=== PATIENT | male | born 1990 | race Caucasian/White ===

== ENCOUNTER 2019-03-05 07:57 | Inpatient (IN) | payer SELFPAY ==
[2019-03-05] VITALS (20 sets, daily range): BP systolic 104–132; BP diastolic 64–78
[~2019-03-05] VITALS: Ht 190.5 cm; Wt 99.5 kg
[2019-03-05] MEDS ORDERED: IV NORMAL SALINE 1000ML BAG 1,000 ML IV SCH ×2 (08:18→10:26)
[2019-03-05] MEDS ORDERED: IOHEXOL 350 MG/ML 100 ML VIAL. IV ONE (08:30)
[2019-03-05] MEDS ORDERED: CONTRAST GIVEN. MC PRN (08:45)
--- NOTE | 2019-03-05 08:54 | EKG ---
[facility] [address] [place] [address] Test Date: 2019-03-05 Test Time: 08:09:20 Pat Name: MANI BRAGA Department: Room: Gender: M Ferry Operator: : 1990 Requested By: BECKI JEFF Order Number: [id number] Reading MD: Roque Rosenthal MD Measurements Intervals [place] Rate: 122 P: 43 OH: 90 QRS: 38 QRSD: 88 T: 59 QT: 306 QTc: 437 Interpretive Statements SINUS TACHYCARDIA Electronically Signed On 03-05-2019 18:51:45 CDT by Roque Rosenthal MD
[2019-03-05] MEDS ORDERED: MORPHINE SULFATE 4 MG/ML VIAL. IV ONE (09:00)
[2019-03-05] MEDS ORDERED: ONDANSETRON PF 4 MG/2 ML VIAL. IV ONE (09:00)
[2019-03-05] MEDS ORDERED: HYDROmorphone 2 MG/ML VIAL IV ONE ×2 (09:15→10:30)
[2019-03-05 09:30] LABS: BASO % 0 % (0-3); EOS # 0.1 x10^3/uL (0.0-0.7); EOS % 0 % (0-3); HEMATOCRIT 40.3 % (39.0-53.0); HEMOGLOBIN 13.6 g/dL (13.0-17.5); LYMPH % 5 % (24-48); MEAN CORPUSCULAR HEMOGLOBIN 30 pg (25-35); MEAN CORPUSCULAR HGB CONC 34 g/dL (31-37); MEAN CORPUSCULAR VOLUME 89 fL (79-100); MONO # 1.4 x10^3/uL (0.0-1.1); MONO % 7 % (0-9); NEUT # 17.3 x10^3/uL (1.8-7.7); NEUT % 87 % (31-73); PLATELET COUNT 483 x10^3/uL (140-400); RED BLOOD COUNT 4.53 x10^6/uL (4.30-5.70); RED CELL DISTRIBUTION WIDTH 13.1 % (11.5-14.5); WHITE BLOOD COUNT 19.9 x10^3/uL (4.0-11.0)
[2019-03-05] MEDS ORDERED: VANCOMYCIN 1GM IVPB FOR OMNI 250 ML IV ONE (09:30)
[2019-03-05] MEDS ORDERED: PIPERACILLIN/TAZOBACTAM 3.375 GM in IV NORMAL SALINE 50ML 50 ML IV ONE (09:30)
[2019-03-05] MEDS ORDERED: IV NORMAL SALINE 1000ML BAG 1,000 ML IV ONE (09:30)
[2019-03-05 09:45] LABS: CALCIUM 8.5 mg/dL (8.5-10.1); CREATININE 0.8 mg/dL (0.7-1.3); GFR 115.1; POTASSIUM 4.4 mmol/L (3.5-5.1)
--- NOTE | 2019-03-05 09:47 | RAD ---
CT ANGIOGRAPHY CHEST History: Left-sided chest pain. History of drug abuse. Technique: CT of the chest was performed with contrast. PE protocol. Maximum intensity projection reconstructions were also performed. Exposure: One or more of the following individualized dose reduction techniques were utilized for this examination: 1. Automated exposure control 2. Adjustment of the mA and/or kV according to patient size 3. Use of iterative reconstruction technique. Contrast: 100 mL Omnipaque 350 IV contrast. Comparison: None Findings: Chest: Large left pleural effusion with increased Hounsfield units. There are tiny foci of gas within the pleural effusion. Small pericardial effusion with increased Hounsfield units. Complete collapse of the left lower lobe. Partial atelectasis of the left upper lobe. Mildly prominent mesenteric lymph nodes, likely reactive. Left anterior chest wall fluid collection with foci of gas involving the chest wall musculature measures approximately 3.5 x 1.7 cm, concerning for abscess. Additional larger anterior mediastinal fluid collection measures 4.5 cm anterior posterior by 5.2 cm transverse by 5.8 cm craniocaudal with foci of gas extending to the superior mediastinum concerning for abscess. The left internal mammary artery courses through the anterior mediastinal abscess. The concerning abscesses are on either side of the left first costosternal junction with slight widening compared to either side, may represent septic arthritis. Upper abdomen: The spleen is enlarged measures 15.3 cm. Bones: No pathologic osseous lesions. Impression: 1. Anterior mediastinal abscess with additional abscess extending into the left anterior chest wall musculature through the left first costomanubrial junction, concerning for septic arthritis. 2. Large left empyema. 3. New complete collapse of the left lower lobe and partial atelectasis of the left upper lobe. 4. Small pericardial effusion, difficult to exclude infection given adjacent findings. FOR INTERNAL CODING PURPOSES Critical result: Findings discussed with BECKI JEFF at 03/05/2019 9:34 AM. RESULT CODE: (C) Electronically signed by: Jose Antonio Mccoy DO (03/05/2019 9:44 AM) [facility]
[2019-03-05 09:51] LABS: ALBUMIN 1.9 g/dL (3.4-5.0); ALBUMIN/GLOBULIN RATIO 0.5 (1.0-1.7); TOTAL BILIRUBIN 0.9 mg/dL (0.2-1.0); TOTAL PROTEIN 5.7 g/dL (6.4-8.2)
--- NOTE | 2019-03-05 09:59 | PHYS DOC ---
Past Medical History Past Medical History: Hepatitis Additional Past Medical Histor: Hepatitis C Past Surgical History: Other Additional Past Surgical Histo: Rt ankle fx repair, hydrocele Alcohol Use: None Drug Use: Methamphetamine Social History Narrative: relapsed with meth use 2-3 weeks ago Adult General Chief Complaint Chief Complaint: CHEST PAIN [facility] HPI Patient is a 28 year old male who presents with complaining of chest pain. Patient states he used to use IV drug Use and was sober for 2 years and relapsed 3 weeks ago and injected himself with a brand new needle with methamphetamine for 1 week. Patient complaining of chest pain since February 22 as a constant pain and stated he operate to taking deep breaths because of the pain. Patient states he was seen at [facility] on February 24 on February 26 and had chest x-ray and CT of chest and was treated with prednisone and Naprosyn for inflammation. Patient states he continued to cough pain and rated his pain 9/10. Patient denies cough, fever, focal neuro deficit, history of the same problem. Patient complaining of sweating a lot and generalized weakness. Patient has history of hepatitis C and had negative HIV test 6 months ago. Review of Systems Review of Systems Constitutional: Denies fever or chills [] Eyes: Denies change in visual acuity, redness, or eye pain [] HENT: Denies nasal congestion or sore throat [] Respiratory: Denies cough, reports shortness of breath [] Cardiovascular: No additional information not addressed in HPI [] GI: Denies abdominal pain, nausea, vomiting, bloody stools or diarrhea [] : Denies dysuria or hematuria [] Musculoskeletal: Denies back pain or joint pain [] Integument: Denies rash or skin lesions [] Neurologic: Denies headache, focal weakness or sensory changes [] Endocrine: Denies polyuria or polydipsia [] All other systems were reviewed and found to be within normal limits, except as documented in this note. Current Medications Current Medications Current Medications Medications (Trade) Dose Ordered Sig/Conrad Start Time Stop Time Status Last Admin Dose Admin Sodium Chloride 1,000 ml @ 1,000 mls/hr Q1H 03/05/19 08:18 03/05/19 09:17 DC 03/05/19 08:42 1,000 MLS/HR Allergies Allergies Allergies Coded Allergies Type Severity Reaction Last Updated Verified No Known Drug Allergies 03/05/19 No Physical Exam Physical Exam Constitutional: Well developed, well nourished, moderate distress, diaphoretic, afebrile. [] HENT: Normocephalic, atraumatic. Eyes: PERRLA, EOMI, conjunctiva normal, no discharge. [] Neck: Normal range of motion, no tenderness, supple, no stridor. [] Cardiovascular: Tachycardia, no murmur [] Lungs & Thorax: Left upper chest wall tenderness with erythema and edema and bulging in medial clavicular area , decrease of air movement in entire left lung, no respiratory distress. Abdomen: Bowel sounds normal, soft, no tenderness, no masses, no pulsatile masses. [] Skin: Diaphoretic no erythema, right forearm with several old rash and peaking skin Back: No tenderness, no CVA tenderness. [] Extremities: No tenderness, no cyanosis, no clubbing, ROM intact, no edema. [] Neurologic: Alert and oriented X 3, no focal deficits noted. [] Psychologic: Affect anxious, judgement normal, mood normal. [] Current Patient Data Vital Signs Vital Signs Date Time Temp Pulse Resp B/P (MAP) Pulse Ox O2 Delivery O2 Flow Rate FiO2 03/05/19 07:59 97.8 123 24 148/83 (104) 96 Room Air 97.8 Lab Values EKG EKG EKG interpreted by me. EKG at 0809 shows sinus tachycardia at rate of 122, left atrial abnormality, no acute ST and T-wave abnormalities. Radiology/Procedures Radiology/Procedures [][facility] [address] [place] [address] IMAGING REPORT Signed PATIENT: MANI BRAGA ACCOUNT: [id number] : 1990 LOCATION: ER AGE: 28 SEX: M EXAM STATUS: REG ER ORD. PHYSICIAN: BECKI JEFF MD REASON: Left side chest pain, sob PROCEDURE: CT ANGIOGRAPHY CHEST CT ANGIOGRAPHY CHEST History: Left-sided chest pain. History of drug abuse. Technique: CT of the chest was performed with contrast. PE protocol. Maximum intensity projection reconstructions were also performed. Exposure: One or more of the following individualized dose reduction techniques were utilized for this examination: 1. Automated exposure control 2. Adjustment of the mA and/or kV according to patient size 3. Use of iterative reconstruction technique. Contrast: 100 mL Omnipaque 350 IV contrast. Comparison: None Findings: Chest: Large left pleural effusion with increased Hounsfield units. There are tiny foci of gas within the pleural effusion. Small pericardial effusion with increased Hounsfield units. Complete collapse of the left lower lobe. Partial atelectasis of the left upper lobe. Mildly prominent mesenteric lymph nodes, likely reactive. Left anterior chest wall fluid collection with foci of gas involving the chest wall musculature measures approximately 3.5 x 1.7 cm, concerning for abscess. Additional larger anterior mediastinal fluid collection measures 4.5 cm anterior posterior by 5.2 cm transverse by 5.8 cm craniocaudal with foci of gas extending to the superior mediastinum concerning for abscess. The left internal mammary artery courses through the anterior mediastinal abscess. The concerning abscesses are on either side of the left first costosternal junction with slight widening compared to either side, may represent septic arthritis. Upper abdomen: The spleen is enlarged measures 15.3 cm. Bones: No pathologic osseous lesions. Impression: 1. Anterior mediastinal abscess with additional abscess extending into the left anterior chest wall musculature through the left first costomanubrial junction, concerning for septic arthritis. 2. Large left empyema. 3. New complete collapse of the left lower lobe and partial atelectasis of the left upper lobe. 4. Small pericardial effusion, difficult to exclude infection given adjacent findings. FOR INTERNAL CODING PURPOSES Critical result: Findings discussed with BECKI JEFF at 03/05/2019 9:34 AM. RESULT CODE: (C) Electronically signed by: Jose Antonio Mccoy DO (03/05/2019 9:44 AM) [facility] DICTATED and SIGNED BY: JOSE ANTONIO MCCOY DO DATE: 03/05/19 0944 Course & Med Decision Making Course & Med Decision Making Pertinent Labs and Imaging studies reviewed. (See chart for details) Evaluation of patient in ER showed 28-year-old male patient with history of IV drug Abuse presented with chest pain and left chest wall tenderness for 4 days. Patient was diaphoretic and tachycardic with moderate distress without fever. Patient treated with IV fluid and medication. CT of chest showed left large empyema, mediastinal abscess, chest wall abscess and pericardial fluid. I consulted manager trade marketing Dr. Weathers at [phone], interventional radiologist Dr. Adler at [phone], canal boat captain Dr. Rosenthal at 1019, infectious specialist Dr. Cordova at [phone] and thoracic surgeon at [phone] and [phone]. Patient treated with sepsis protocol with IV antibiotic and IV fluid with improvement of his condition. Patient requiring admission for further evaluation and treatment. Discussed with Dr. Upton who is in agreement with admission. Discussed findings and plan with patient and family, who acknowledge understanding and agreement. Patient was admitted to ICU. Dragon Disclaimer Dragon Disclaimer This electronic medical record was generated, in whole or in part, using a voice recognition dictation system. Departure Departure Impression: Primary Impression: Pleural effusion Additional Impressions: Chest wall abscess Mediastinal abscess Disposition: ADMITTED INPATIENT Admitting Physician: EVELIA Condition: GUARDED Referrals: NO PCP (PCP) Critical Care Time Critical care time was 120 minutes exclusive of procedures. The HEART Score for CP Pts HEART Score for Chest Pain: HEART Score for Chest Pain Response (Comments) Value History Slighlty/Non-Suspicious 0 ECG Nonspecific Repolarizatio 1 Age < 45 0 Risk Factors 1 or 2 Risk Factors 1 Troponin < Normal Limit 0 Total 2 Risk Factors: Risk Factors: DM, Current or recent (<one month) smoker, HTN, HLP, family history of CAD, obesity. Risk Scores: Score 0 - 3: 2.5% MACE over next 6 weeks - Discharge Home Score 4 - 6: 20.3% MACE over next 6 weeks - Admit for Clinical Observation Score 7 - 10: 72.7% MACE over next 6 weeks - Early Invasive Strategies Problem Qualifiers BECKI JEFF MD Mar 05, 2019 09:59
[2019-03-05 10:00] LABS: D-DIMER 2.6 ug/mlFEU (0.00-0.50)
[2019-03-05] MEDS ORDERED: VANCOMYCIN 2 GM in IV NORMAL SALINE 500ML BAG 500 ML IV ONE ×2 (10:00→12:00)
--- NOTE | 2019-03-05 10:32 | PDOC1 ---
History and Physical Date of Admission Date of Admission DATE: 03/05/19 TIME: 10:28 Identification/Chief Complaint Chief Complaint seen in er with new onset Left empyema with mediastinal abscess Past Medical History Past Medical History Past Medical History Past Medical History Past Medical History: Hepatitis Additional Past Medical Histor: Hepatitis C Past Surgical History: Other Additional Past Surgical Histo: Rt ankle fx repair, hydrocele Alcohol Use: None Drug Use: Methamphetamine Social History Narrative: relapsed with meth use 2-3 weeks ago family hx htn Cardiovascular: HTN Psych: Addictions Family History Family History: Alcohol Abuse, Hypertension Social History Smoke: <1 pack per day ALCOHOL: social Drugs: Crystal meth Current Problem List Problem List Problems Medical Problems: (1) Chest wall abscess Status: Acute (2) Mediastinal abscess Status: Acute (3) Pleural effusion Status: Acute Current Medications Current Medications Current Medications Sodium Chloride 1,000 ml @ 1,000 mls/hr Q1H IV Last administered on 03/05/19at 08:42; Start 03/05/19 at 08:18; Stop 03/05/19 at 09:17; Status DC Morphine Sulfate (Morphine Sulfate) 4 mg 1X ONCE IV Last administered on 03/05/19at 08:42; Start 03/05/19 at 09:00; Stop 03/05/19 at 09:01; Status DC Ondansetron HCl (Zofran) 4 mg 1X ONCE IV Last administered on 03/05/19at 08:42; Start 03/05/19 at 09:00; Stop 03/05/19 at 09:01; Status DC Iohexol (Omnipaque 350 Mg/ml) 100 ml 1X ONCE IV Last administered on 03/05/19at 09:05; Start 03/05/19 at 08:30; Stop 03/05/19 at 08:32; Status DC Info (CONTRAST GIVEN -- Rx MONITORING) 1 each PRN DAILY PRN MC SEE COMMENTS; Start 03/05/19 at 08:45; Stop 03/07/19 at 08:44 Hydromorphone HCl (Dilaudid) 1 mg 1X ONCE IV Last administered on 03/05/19at 09:05; Start 03/05/19 at 09:15; Stop 03/05/19 at 09:16; Status DC Sodium Chloride 1,000 ml @ 1,000 mls/hr 1X ONCE IV Last administered on 03/05/19at 09:54; Start 03/05/19 at 09:30; Stop 03/05/19 at 10:29 Piperacillin Sod/ Tazobactam Sod 3.375 gm/Sodium Chloride 50 ml @ 100 mls/hr 1X ONCE IV Last administered on 03/05/19at 09:54; Start 03/05/19 at 09:30; Stop 03/05/19 at 09:59; Status DC Vancomycin HCl 250 ml @ 250 mls/hr 1X ONCE IV ; Start 03/05/19 at 09:30; Stop 03/05/19 at 10:29; Status UNV Vancomycin HCl 2 gm/Sodium Chloride 500 ml @ 250 mls/hr 1X ONCE IV ; Start 03/05/19 at 10:00; Stop 03/05/19 at 11:59 Hydromorphone HCl (Dilaudid) 1 mg 1X ONCE IV ; Start 03/05/19 at 10:30; Stop 03/05/19 at 10:31 Allergies Allergies: Coded Allergies: No Known Drug Allergies (Unverified , 03/05/19) ROS Review of System Review of Systems Review of Systems Constitutional: Denies fever pos chills [] Eyes: Denies change in visual acuity, redness, or eye pain [] HENT: Denies nasal congestion or sore throat [] Respiratory: Denies cough or shortness of breath [] Cardiovascular: No additional information not addressed in HPI [] GI: Denies abdominal pain, nausea, vomiting, bloody stools or diarrhea [] : Denies dysuria or hematuria [] Musculoskeletal: Denies back pain or joint pain [] Integument: Denies rash or skin lesions [] Neurologic: Denies headache, focal weakness or sensory changes [] Endocrine: Denies polyuria or polydipsia [] 14 pt systems were reviewed and found to be within normal limits, except as documented General: YES: Chills Respiratory: YES: Pleuritic Pain, Shortness of breath, SOB with excertion Cardiovascular: yes Chest Pain Physical Exam Physical Exam Physical Exam Physical Exam Constitutional: Well developed, well nourished, mild acute distress, non-toxic appearance. [] HENT: Normocephalic, atraumatic, bilateral external ears normal, oropharynx moist, no oral exudates, nose normal. [] Eyes: PERRLA, EOMI, conjunctiva normal, no discharge. [] Neck: Normal range of motion, no tenderness, supple, no stridor. [] Cardiovascular:Heart rate regular rhythm, no murmur [] Lungs & Thorax: Bilateral breath sounds clear to auscultation tender left upper chest wall[] Abdomen: Bowel sounds normal, soft, no tenderness, no masses, no pulsatile masses. [] Skin: Warm, dry, no erythema, no rash. [] Back: No tenderness, no CVA tenderness. [] Extremities: No tenderness, no cyanosis, no clubbing, ROM intact, no edema. [] Neurologic: Alert and oriented X 3, normal motor function, normal sensory function, no focal deficits noted. [] Psychologic: Affect normal, judgement normal, mood normal. [] General: Alert, Oriented X3, Cooperative, mild distress HEENT: Atraumatic, EOMI, Mucous membr. moist/pink Heart: no thrills, other (tachy) Breasts: Not examined Abdomen: Normal bowel sounds, Soft Rectal Exam: not examined Extremities: No clubbing, No cyanosis Neuro: Normal speech, Strength at 5/5 X4 ext, Sensation intact, Cranial nerves 3-12 NL Psych/Mental Status: Mental status NL, Mood NL Vitals Vitals Vital Signs Date Time Temp Pulse Resp B/P (MAP) Pulse Ox O2 Delivery O2 Flow Rate FiO2 03/05/19 07:59 97.8 123 24 148/83 (104) 96 Room Air 97.8 Labs Labs Laboratory Tests Test 03/05/19 09:10 White Blood Count 19.9 x10^3/uL (4.0-11.0) Red Blood Count 4.53 x10^6/uL (4.30-5.70) Hemoglobin 13.6 g/dL (13.0-17.5) Hematocrit 40.3 % (39.0-53.0) Mean Corpuscular Volume 89 fL (79-100) Mean Corpuscular Hemoglobin 30 pg (25-35) Mean Corpuscular Hemoglobin Concent 34 g/dL (31-37) Red Cell Distribution Width 13.1 % (11.5-14.5) Platelet Count 483 x10^3/uL (140-400) Neutrophils (%) (Auto) 87 % (31-73) Lymphocytes (%) (Auto) 5 % (24-48) Monocytes (%) (Auto) 7 % (0-9) Eosinophils (%) (Auto) 0 % (0-3) Basophils (%) (Auto) 0 % (0-3) Neutrophils # (Auto) 17.3 x10^3/uL (1.8-7.7) Lymphocytes # (Auto) 1.0 x10^3/uL (1.0-4.8) Monocytes # (Auto) 1.4 x10^3/uL (0.0-1.1) Eosinophils # (Auto) 0.1 x10^3/uL (0.0-0.7) Basophils # (Auto) 0.0 x10^3/uL (0.0-0.2) Prothrombin Time 14.0 SEC (11.7-14.0) Prothromb Time International Ratio 1.1 (0.8-1.1) Activated Partial Thromboplast Time 24 SEC (24-38) D-Dimer (Alejandra) 2.60 ug/mlFEU (0.00-0.50) Sodium Level 137 mmol/L (136-145) Potassium Level 4.4 mmol/L (3.5-5.1) Chloride Level 100 mmol/L (98-107) Carbon Dioxide Level 31 mmol/L (21-32) Anion Gap 6 (6-14) Blood Urea Nitrogen 18 mg/dL (8-26) Creatinine 0.8 mg/dL (0.7-1.3) Estimated GFR (Cockcroft-Gault) 115.1 BUN/Creatinine Ratio 23 (6-20) Glucose Level 99 mg/dL (70-99) Lactic Acid Level 0.8 mmol/L (0.4-2.0) Calcium Level 8.5 mg/dL (8.5-10.1) Magnesium Level 2.0 mg/dL (1.8-2.4) Total Bilirubin 0.9 mg/dL (0.2-1.0) Aspartate Amino Transf (AST/SGOT) 81 U/L (15-37) Alanine Aminotransferase (ALT/SGPT) 180 U/L (16-63) Alkaline Phosphatase 190 U/L (46-116) Creatine Kinase 14 U/L (39-308) Troponin I Quantitative < 0.017 ng/mL (0.000-0.055) SX-Ntc-B-Type Natriuretic Peptide 47 pg/mL (0-124) Total Protein 5.7 g/dL (6.4-8.2) Albumin 1.9 g/dL (3.4-5.0) Albumin/Globulin Ratio 0.5 (1.0-1.7) Lipase 88 U/L (73-393) Laboratory Tests Test 03/05/19 09:10 White Blood Count 19.9 x10^3/uL (4.0-11.0) Red Blood Count 4.53 x10^6/uL (4.30-5.70) Hemoglobin 13.6 g/dL (13.0-17.5) Hematocrit 40.3 % (39.0-53.0) Mean Corpuscular Volume 89 fL (79-100) Mean Corpuscular Hemoglobin 30 pg (25-35) Mean Corpuscular Hemoglobin Concent 34 g/dL (31-37) Red Cell Distribution Width 13.1 % (11.5-14.5) Platelet Count 483 x10^3/uL (140-400) Neutrophils (%) (Auto) 87 % (31-73) Lymphocytes (%) (Auto) 5 % (24-48) Monocytes (%) (Auto) 7 % (0-9) Eosinophils (%) (Auto) 0 % (0-3) Basophils (%) (Auto) 0 % (0-3) Neutrophils # (Auto) 17.3 x10^3/uL (1.8-7.7) Lymphocytes # (Auto) 1.0 x10^3/uL (1.0-4.8) Monocytes # (Auto) 1.4 x10^3/uL (0.0-1.1) Eosinophils # (Auto) 0.1 x10^3/uL (0.0-0.7) Basophils # (Auto) 0.0 x10^3/uL (0.0-0.2) Prothrombin Time 14.0 SEC (11.7-14.0) Prothromb Time International Ratio 1.1 (0.8-1.1) Activated Partial Thromboplast Time 24 SEC (24-38) D-Dimer (Alejandra) 2.60 ug/mlFEU (0.00-0.50) Sodium Level 137 mmol/L (136-145) Potassium Level 4.4 mmol/L (3.5-5.1) Chloride Level 100 mmol/L (98-107) Carbon Dioxide Level 31 mmol/L (21-32) Anion Gap 6 (6-14) Blood Urea Nitrogen 18 mg/dL (8-26) Creatinine 0.8 mg/dL (0.7-1.3) Estimated GFR (Cockcroft-Gault) 115.1 BUN/Creatinine Ratio 23 (6-20) Glucose Level 99 mg/dL (70-99) Lactic Acid Level 0.8 mmol/L (0.4-2.0) Calcium Level 8.5 mg/dL (8.5-10.1) Magnesium Level 2.0 mg/dL (1.8-2.4) Total Bilirubin 0.9 mg/dL (0.2-1.0) Aspartate Amino Transf (AST/SGOT) 81 U/L (15-37) Alanine Aminotransferase (ALT/SGPT) 180 U/L (16-63) Alkaline Phosphatase 190 U/L (46-116) Creatine Kinase 14 U/L (39-308) Troponin I Quantitative < 0.017 ng/mL (0.000-0.055) MU-Qgm-B-Type Natriuretic Peptide 47 pg/mL (0-124) Total Protein 5.7 g/dL (6.4-8.2) Albumin 1.9 g/dL (3.4-5.0) Albumin/Globulin Ratio 0.5 (1.0-1.7) Lipase 88 U/L (73-393) Images Images ATIENT: MANI BRAGA ACCOUNT: [id number] : 1990 LOCATION: ER AGE: 28 SEX: M EXAM STATUS: REG ER ORD. PHYSICIAN: BECKI JEFF MD REASON: Left side chest pain, sob PROCEDURE: CT ANGIOGRAPHY CHEST CT ANGIOGRAPHY CHEST History: Left-sided chest pain. History of drug abuse. Technique: CT of the chest was performed with contrast. PE protocol. Maximum intensity projection reconstructions were also performed. Exposure: One or more of the following individualized dose reduction techniques were utilized for this examination: 1. Automated exposure control 2. Adjustment of the mA and/or kV according to patient size 3. Use of iterative reconstruction technique. Contrast: 100 mL Omnipaque 350 IV contrast. Comparison: None Findings: Chest: Large left pleural effusion with increased Hounsfield units. There are tiny foci of gas within the pleural effusion. Small pericardial effusion with increased Hounsfield units. Complete collapse of the left lower lobe. Partial atelectasis of the left upper lobe. Mildly prominent mesenteric lymph nodes, likely reactive. Left anterior chest wall fluid collection with foci of gas involving the chest wall musculature measures approximately 3.5 x 1.7 cm, concerning for abscess. Additional larger anterior mediastinal fluid collection measures 4.5 cm anterior posterior by 5.2 cm transverse by 5.8 cm craniocaudal with foci of gas extending to the superior mediastinum concerning for abscess. The left internal mammary artery courses through the anterior mediastinal abscess. The concerning abscesses are on either side of the left first costosternal junction with slight widening compared to either side, may represent septic arthritis. Upper abdomen: The spleen is enlarged measures 15.3 cm. Bones: No pathologic osseous lesions. Impression: 1. Anterior mediastinal abscess with additional abscess extending into the left anterior chest wall musculature through the left first costomanubrial junction, concerning for septic arthritis. 2. Large left empyema. 3. New complete collapse of the left lower lobe and partial atelectasis of the left upper lobe. 4. Small pericardial effusion, difficult to exclude infection given adjacent findings. VTE Prophylaxis Ordered VTE Prophylaxis Devices: Yes VTE Pharmacological Prophylaxi: Yes Assessment/Plan Assessment/Plan Impression: 1. Anterior mediastinal abscess with additional abscess extending into the left anterior chest wall musculature through the left first costomanubrial junction, concerning for septic arthritis. 2. Large left empyema. 3. New complete collapse of the left lower lobe and partial atelectasis of the left upper lobe. 4. Small pericardial effusion, difficult to exclude infection given adjacent findings. 5. sepsis 6. METH ABUSE 7. HX HEPATITIS C plan admit ICU CONSULT Cardiothoracic surgery CHEST TUBE PLACEMENT FOR EMPYEMA Consult ID Consult cardiology Consult IR Consult pulmonary med DVT PROPHYLAXIS GI PROPHYLAXIS EMPERIC IV ANTIBIOTICS, ZOSYN, VANC BLOOD CULT ECHO 121 MIN CC TIME NICHOLE WADE MD Mar 05, 2019 10:32
[2019-03-05 10:34] LABS: % BANDS 3 % (0-9); % LYMPHS 3 % (24-48); % MONOS 6 % (0-10); % SEGS 88 % (35-66); PLT ESTIMATE ADEQUATE (ADEQUATE)
[2019-03-05] MEDS ORDERED: MAG HYDROX/ALUMINUM HYD/SIMETH 30 ML ORAL.SUSP PO PRN (10:45)
[2019-03-05] MEDS ORDERED: ACETAMINOPHEN 325 MG TABLET. PO PRN (10:45)
[2019-03-05] MEDS ORDERED: HYDROcodone/APAP 5/325MG 1 TAB TABLET PO PRN ×2 (10:45)
[2019-03-05] MEDS ORDERED: ONDANSETRON PF 4 MG/2 ML VIAL. IV PRN (10:45)
[2019-03-05] MEDS ORDERED: BISACODYL 10 MG SUPP.RECT. PR PRN (10:45)
[2019-03-05] MEDS ORDERED: PROCHLORPERAZINE 25 MG SUPP.RECT. PR PRN (10:45)
[2019-03-05] MEDS ORDERED: MORPHINE SULFATE 2 MG/ML VIAL. IV PRN (10:45)
[2019-03-05] MEDS ORDERED: 0.9 % SODIUM CHLORIDE 10 ML DISP.SYRIN. IV PRN (10:45)
[2019-03-05] MEDS ORDERED: PROCHLORPERAZINE 10 MG/2 ML VIAL. IV PRN (10:45)
[2019-03-05] MEDS: IV NORMAL SALINE 1000ML BAG 1,000 ML IV SCH ×3 (10:48→17:17)
[2019-03-05] MEDS ORDERED: NOREPINEPHRIN 8MG/250ML PREMIX 250 ML IV PRN (11:00)
[2019-03-05] MEDS ORDERED: VANCOMYCIN PER PHARMACY MC PRN (11:00)
[2019-03-05] MEDS ORDERED: IV NORMAL SALINE 500ML BAG 500 ML IV PRN (11:00)
--- NOTE | 2019-03-05 11:35 | NUR ---
Pt admitted to room 114 from the ED via stretcher. Pt stood and transferred self from [facility] to [facility]. Pt placed on the monitor and noted to be in SR. VSS. Upcoming procedure for chest tube placement explained to the pt. Skin is flushed and dry at this time. Several scattered scabbed areas noted all over arms, hands, and legs.
--- NOTE | 2019-03-05 11:54 | PDOC ---
Infectious Disease Note Vital Sign Vital Signs Vital Signs Date Time Temp Pulse Resp B/P (MAP) Pulse Ox O2 Delivery O2 Flow Rate FiO2 03/05/19 10:33 97 20 129/72 (91) 97 Room Air 03/05/19 07:59 97.8 97.8 Labs Lab Laboratory Tests Test 03/05/19 09:10 White Blood Count 19.9 x10^3/uL (4.0-11.0) Red Blood Count 4.53 x10^6/uL (4.30-5.70) Hemoglobin 13.6 g/dL (13.0-17.5) Hematocrit 40.3 % (39.0-53.0) Mean Corpuscular Volume 89 fL (79-100) Mean Corpuscular Hemoglobin 30 pg (25-35) Mean Corpuscular Hemoglobin Concent 34 g/dL (31-37) Red Cell Distribution Width 13.1 % (11.5-14.5) Platelet Count 483 x10^3/uL (140-400) Neutrophils (%) (Auto) 87 % (31-73) Lymphocytes (%) (Auto) 5 % (24-48) Monocytes (%) (Auto) 7 % (0-9) Eosinophils (%) (Auto) 0 % (0-3) Basophils (%) (Auto) 0 % (0-3) Neutrophils # (Auto) 17.3 x10^3/uL (1.8-7.7) Lymphocytes # (Auto) 1.0 x10^3/uL (1.0-4.8) Monocytes # (Auto) 1.4 x10^3/uL (0.0-1.1) Eosinophils # (Auto) 0.1 x10^3/uL (0.0-0.7) Basophils # (Auto) 0.0 x10^3/uL (0.0-0.2) Segmented Neutrophils % 88 % (35-66) Band Neutrophils % 3 % (0-9) Lymphocytes % 3 % (24-48) Monocytes % 6 % (0-10) Platelet Estimate Adequate (ADEQUATE) Giant Platelets Occ Prothrombin Time 14.0 SEC (11.7-14.0) Prothromb Time International Ratio 1.1 (0.8-1.1) Activated Partial Thromboplast Time 24 SEC (24-38) D-Dimer (Alejandra) 2.60 ug/mlFEU (0.00-0.50) Sodium Level 137 mmol/L (136-145) Potassium Level 4.4 mmol/L (3.5-5.1) Chloride Level 100 mmol/L (98-107) Carbon Dioxide Level 31 mmol/L (21-32) Anion Gap 6 (6-14) Blood Urea Nitrogen 18 mg/dL (8-26) Creatinine 0.8 mg/dL (0.7-1.3) Estimated GFR (Cockcroft-Gault) 115.1 BUN/Creatinine Ratio 23 (6-20) Glucose Level 99 mg/dL (70-99) Lactic Acid Level 0.8 mmol/L (0.4-2.0) Calcium Level 8.5 mg/dL (8.5-10.1) Magnesium Level 2.0 mg/dL (1.8-2.4) Total Bilirubin 0.9 mg/dL (0.2-1.0) Aspartate Amino Transf (AST/SGOT) 81 U/L (15-37) Alanine Aminotransferase (ALT/SGPT) 180 U/L (16-63) Alkaline Phosphatase 190 U/L (46-116) Creatine Kinase 14 U/L (39-308) Troponin I Quantitative < 0.017 ng/mL (0.000-0.055) WI-Oiu-S-Type Natriuretic Peptide 47 pg/mL (0-124) Total Protein 5.7 g/dL (6.4-8.2) Albumin 1.9 g/dL (3.4-5.0) Albumin/Globulin Ratio 0.5 (1.0-1.7) Lipase 88 U/L (73-393) Thyroid Stimulating Hormone (TSH) 1.091 uIU/mL (0.358-3.74) Micro CTA chest Impression: 1. Anterior mediastinal abscess with additional abscess extending into the left anterior chest wall musculature through the left first costomanubrial junction, concerning for septic arthritis. 2. Large left empyema. 3. New complete collapse of the left lower lobe and partial atelectasis of the left upper lobe. 4. Small pericardial effusion, difficult to exclude infection given adjacent findings Objective Assessment Leukocytosis Empyema Transaminitis Protein malnutrition H/o Meth use H/o Staph infection H/o Hep C - not treated Plan Plan of Care Cont Vanc/Zosyn Add Zyvox F/u labs - procal/Sed rate and labs am and cults Await ECHO Await IR procedure Monitor R knee May need Gi eval as Hep C has not been treated Thank you 35 mins CC time d/w Dr. Bronson D/w nursing # [id number] CRISTY GASPAR MD Mar 05, 2019 11:54
[2019-03-05] MEDS: DOCUSATE SODIUM 100 MG CAPSULE. PO SCH ×2 (12:00→21:00)
[2019-03-05] MEDS ORDERED: PIPERACILLIN/TAZOBACTAM 4.5 GM in IV NORMAL SALINE 100ML 100 ML IV SCH (12:00)
--- NOTE | 2019-03-05 12:11 | PDOC ---
PULMONARY PROGRESS NOTES Vitals Vital Signs Date Time Temp Pulse Resp B/P (MAP) Pulse Ox O2 Delivery O2 Flow Rate FiO2 03/05/19 10:33 97 20 129/72 (91) 97 Room Air 03/05/19 07:59 97.8 97.8 Labs Laboratory Tests Test 03/05/19 09:10 White Blood Count 19.9 x10^3/uL (4.0-11.0) Red Blood Count 4.53 x10^6/uL (4.30-5.70) Hemoglobin 13.6 g/dL (13.0-17.5) Hematocrit 40.3 % (39.0-53.0) Mean Corpuscular Volume 89 fL (79-100) Mean Corpuscular Hemoglobin 30 pg (25-35) Mean Corpuscular Hemoglobin Concent 34 g/dL (31-37) Red Cell Distribution Width 13.1 % (11.5-14.5) Platelet Count 483 x10^3/uL (140-400) Neutrophils (%) (Auto) 87 % (31-73) Lymphocytes (%) (Auto) 5 % (24-48) Monocytes (%) (Auto) 7 % (0-9) Eosinophils (%) (Auto) 0 % (0-3) Basophils (%) (Auto) 0 % (0-3) Neutrophils # (Auto) 17.3 x10^3/uL (1.8-7.7) Lymphocytes # (Auto) 1.0 x10^3/uL (1.0-4.8) Monocytes # (Auto) 1.4 x10^3/uL (0.0-1.1) Eosinophils # (Auto) 0.1 x10^3/uL (0.0-0.7) Basophils # (Auto) 0.0 x10^3/uL (0.0-0.2) Segmented Neutrophils % 88 % (35-66) Band Neutrophils % 3 % (0-9) Lymphocytes % 3 % (24-48) Monocytes % 6 % (0-10) Platelet Estimate Adequate (ADEQUATE) Giant Platelets Occ Prothrombin Time 14.0 SEC (11.7-14.0) Prothromb Time International Ratio 1.1 (0.8-1.1) Activated Partial Thromboplast Time 24 SEC (24-38) D-Dimer (Alejandra) 2.60 ug/mlFEU (0.00-0.50) Sodium Level 137 mmol/L (136-145) Potassium Level 4.4 mmol/L (3.5-5.1) Chloride Level 100 mmol/L (98-107) Carbon Dioxide Level 31 mmol/L (21-32) Anion Gap 6 (6-14) Blood Urea Nitrogen 18 mg/dL (8-26) Creatinine 0.8 mg/dL (0.7-1.3) Estimated GFR (Cockcroft-Gault) 115.1 BUN/Creatinine Ratio 23 (6-20) Glucose Level 99 mg/dL (70-99) Lactic Acid Level 0.8 mmol/L (0.4-2.0) Calcium Level 8.5 mg/dL (8.5-10.1) Magnesium Level 2.0 mg/dL (1.8-2.4) Total Bilirubin 0.9 mg/dL (0.2-1.0) Aspartate Amino Transf (AST/SGOT) 81 U/L (15-37) Alanine Aminotransferase (ALT/SGPT) 180 U/L (16-63) Alkaline Phosphatase 190 U/L (46-116) Creatine Kinase 14 U/L (39-308) Troponin I Quantitative < 0.017 ng/mL (0.000-0.055) ZG-Kyv-O-Type Natriuretic Peptide 47 pg/mL (0-124) Total Protein 5.7 g/dL (6.4-8.2) Albumin 1.9 g/dL (3.4-5.0) Albumin/Globulin Ratio 0.5 (1.0-1.7) Lipase 88 U/L (73-393) Thyroid Stimulating Hormone (TSH) 1.091 uIU/mL (0.358-3.74) Laboratory Tests Test 03/05/19 09:10 White Blood Count 19.9 x10^3/uL (4.0-11.0) Red Blood Count 4.53 x10^6/uL (4.30-5.70) Hemoglobin 13.6 g/dL (13.0-17.5) Hematocrit 40.3 % (39.0-53.0) Mean Corpuscular Volume 89 fL (79-100) Mean Corpuscular Hemoglobin 30 pg (25-35) Mean Corpuscular Hemoglobin Concent 34 g/dL (31-37) Red Cell Distribution Width 13.1 % (11.5-14.5) Platelet Count 483 x10^3/uL (140-400) Neutrophils (%) (Auto) 87 % (31-73) Lymphocytes (%) (Auto) 5 % (24-48) Monocytes (%) (Auto) 7 % (0-9) Eosinophils (%) (Auto) 0 % (0-3) Basophils (%) (Auto) 0 % (0-3) Neutrophils # (Auto) 17.3 x10^3/uL (1.8-7.7) Lymphocytes # (Auto) 1.0 x10^3/uL (1.0-4.8) Monocytes # (Auto) 1.4 x10^3/uL (0.0-1.1) Eosinophils # (Auto) 0.1 x10^3/uL (0.0-0.7) Basophils # (Auto) 0.0 x10^3/uL (0.0-0.2) Segmented Neutrophils % 88 % (35-66) Band Neutrophils % 3 % (0-9) Lymphocytes % 3 % (24-48) Monocytes % 6 % (0-10) Platelet Estimate Adequate (ADEQUATE) Giant Platelets Occ Prothrombin Time 14.0 SEC (11.7-14.0) Prothromb Time International Ratio 1.1 (0.8-1.1) Activated Partial Thromboplast Time 24 SEC (24-38) D-Dimer (Alejandra) 2.60 ug/mlFEU (0.00-0.50) Sodium Level 137 mmol/L (136-145) Potassium Level 4.4 mmol/L (3.5-5.1) Chloride Level 100 mmol/L (98-107) Carbon Dioxide Level 31 mmol/L (21-32) Anion Gap 6 (6-14) Blood Urea Nitrogen 18 mg/dL (8-26) Creatinine 0.8 mg/dL (0.7-1.3) Estimated GFR (Cockcroft-Gault) 115.1 BUN/Creatinine Ratio 23 (6-20) Glucose Level 99 mg/dL (70-99) Lactic Acid Level 0.8 mmol/L (0.4-2.0) Calcium Level 8.5 mg/dL (8.5-10.1) Magnesium Level 2.0 mg/dL (1.8-2.4) Total Bilirubin 0.9 mg/dL (0.2-1.0) Aspartate Amino Transf (AST/SGOT) 81 U/L (15-37) Alanine Aminotransferase (ALT/SGPT) 180 U/L (16-63) Alkaline Phosphatase 190 U/L (46-116) Creatine Kinase 14 U/L (39-308) Troponin I Quantitative < 0.017 ng/mL (0.000-0.055) DH-Wjs-D-Type Natriuretic Peptide 47 pg/mL (0-124) Total Protein 5.7 g/dL (6.4-8.2) Albumin 1.9 g/dL (3.4-5.0) Albumin/Globulin Ratio 0.5 (1.0-1.7) Lipase 88 U/L (73-393) Thyroid Stimulating Hormone (TSH) 1.091 uIU/mL (0.358-3.74) Impression . NOTE DICTATED AGREE WITH CURRENT RX CHEST TUBE PLACEMENT FOR EMPYEMA THAO MCCARTNEY MD Mar 05, 2019 12:11
[2019-03-05] MEDS ORDERED: LIDOCAINE WITH 8.4% SOD BICARB 3 ML DISP.SYRIN. ONE ×2 (12:12→13:05)
[2019-03-05] MEDS ORDERED: MIDAZOLAM HCL/PF 2 MG/2 ML VIAL. ONE (12:13)
[2019-03-05] MEDS ORDERED: fentaNYL PF VIAL 100 MCG/2 ML VIAL ONE (12:14)
--- NOTE | 2019-03-05 12:44 | PDOC2 ---
CARDIAC CONSULT DATE OF CONSULT Date of Consult DATE: 03/05/19 TIME: 1400 REASON FOR CONSULT Reason for Consult: Pericardial effusion REFERRING PHYSICIAN Referring Physician: Sidney SOURCE Source: Chart review, Patient HISTORY OF PRESENT ILLNESS HISTORY OF PRESENT ILLNESS This is a 28 yo male admitted for complains of chest pain and not feeling well. Also complains of abdominal pain with no nausea or vomiting and also left lower back pain particularly after chest tube placement. This was spastic and wincing in pain. No reports of injury or falls. No childhood cardiac history. He denies any routine meds but has been using meth and shooting it to his arm vein. No past cardiac history. PAST MEDICAL HISTORY Cardiovascular: No pertinent hx Pulmonary: Other (No pertinent history) CENTRAL NERVOUS SYSTEM: Other (No pertiennt history) GI: No pertinent hx Heme/Onc: No pertinent hx Hepatobiliary: Hep A/B/C (C) Psych: No pertinent hx Musculoskeletal: Other (none) Rheumatologic: No pertinent hx Infectious disease: No pertinent hx ENT: No pertinent hx Renal/: No pertinent hx, Other (hydrocele) Endocrine: No pertinent hx Dermatology: No pertinent hx PAST SURGICAL HISTORY Past Surgical History: Other (right ankle fracture) FAMILY HISTORY Family History noncontributory SOCIAL HISTORY Smoke: No ALCOHOL: none Drugs: Crystal meth (via IV) Lives: Alone CURRENT MEDICATIONS CURRENT MEDICATIONS Current Medications Medications (Trade) Dose Ordered Sig/Conrad Route PRN Reason Start Time Stop Time Status Last Admin Dose Admin Sodium Chloride 1,000 ml @ 1,000 mls/hr Q1H IV 03/05/19 08:18 03/05/19 09:17 DC 03/05/19 08:42 Morphine Sulfate (Morphine Sulfate) 4 mg 1X ONCE IV 03/05/19 09:00 03/05/19 09:01 DC 03/05/19 08:42 Ondansetron HCl (Zofran) 4 mg 1X ONCE IV 03/05/19 09:00 03/05/19 09:01 DC 03/05/19 08:42 Iohexol (Omnipaque 350 Mg/ml) 100 ml 1X ONCE IV 03/05/19 08:30 03/05/19 08:32 DC 03/05/19 09:05 Hydromorphone HCl (Dilaudid) 1 mg 1X ONCE IV 03/05/19 09:15 03/05/19 09:16 DC 03/05/19 09:05 Sodium Chloride 1,000 ml @ 1,000 mls/hr 1X ONCE IV 03/05/19 09:30 03/05/19 10:29 DC 03/05/19 09:54 Piperacillin Sod/ Tazobactam Sod 3.375 gm/Sodium Chloride 50 ml @ 100 mls/hr 1X ONCE IV 03/05/19 09:30 03/05/19 09:59 DC 03/05/19 09:54 Vancomycin HCl 2 gm/Sodium Chloride 500 ml @ 250 mls/hr 1X ONCE IV 03/05/19 10:00 03/05/19 11:59 DC 03/05/19 10:35 Hydromorphone HCl (Dilaudid) 1 mg 1X ONCE IV 03/05/19 10:30 03/05/19 10:31 DC 03/05/19 10:35 Sodium Chloride 1,000 ml @ 150 mls/hr Q6H40M IV 03/05/19 10:26 03/06/19 10:25 03/05/19 12:20 ALLERGIES ALLERGIES: Coded Allergies: No Known Drug Allergies (Unverified , 03/05/19) ROS Review of System 14 point ROS evaluated with pertinent positives noted per HPI PHYSICAL EXAM General: Alert, Oriented X3, Cooperative, No acute distress HEENT: Mucous membr. moist/pink Lungs: Other (dimniahes bases) Abdomen: Soft, Other (tender to left abd and back) Neuro: Normal speech, Sensation intact Psych/Mental Status: Mental status NL, Mood NL MUSCULOSKELETAL: Full range of motion without pain VITALS/I&O VITALS/I&O: Vital Signs Date Time Temp Pulse Resp B/P (MAP) Pulse Ox O2 Delivery O2 Flow Rate FiO2 03/05/19 11:03 91 20 124/70 (88) 97 Room Air 03/05/19 07:59 97.8 97.8 LABS Lab: Laboratory Tests Test 03/05/19 09:10 White Blood Count 19.9 x10^3/uL (4.0-11.0) H Red Blood Count 4.53 x10^6/uL (4.30-5.70) Hemoglobin 13.6 g/dL (13.0-17.5) Hematocrit 40.3 % (39.0-53.0) Mean Corpuscular Volume 89 fL (79-100) Mean Corpuscular Hemoglobin 30 pg (25-35) Mean Corpuscular Hemoglobin Concent 34 g/dL (31-37) Red Cell Distribution Width 13.1 % (11.5-14.5) Platelet Count 483 x10^3/uL (140-400) H Neutrophils (%) (Auto) 87 % (31-73) H Lymphocytes (%) (Auto) 5 % (24-48) L Monocytes (%) (Auto) 7 % (0-9) Eosinophils (%) (Auto) 0 % (0-3) Basophils (%) (Auto) 0 % (0-3) Neutrophils # (Auto) 17.3 x10^3/uL (1.8-7.7) H Lymphocytes # (Auto) 1.0 x10^3/uL (1.0-4.8) Monocytes # (Auto) 1.4 x10^3/uL (0.0-1.1) H Eosinophils # (Auto) 0.1 x10^3/uL (0.0-0.7) Basophils # (Auto) 0.0 x10^3/uL (0.0-0.2) Segmented Neutrophils % 88 % (35-66) H Band Neutrophils % 3 % (0-9) Lymphocytes % 3 % (24-48) L Monocytes % 6 % (0-10) Platelet Estimate Adequate (ADEQUATE) Giant Platelets Occ Prothrombin Time 14.0 SEC (11.7-14.0) Prothrombin Time INR 1.1 (0.8-1.1) Activated Partial Thromboplast Time 24 SEC (24-38) D-Dimer (Alejandra) 2.60 ug/mlFEU (0.00-0.50) H Sodium Level 137 mmol/L (136-145) Potassium Level 4.4 mmol/L (3.5-5.1) Chloride Level 100 mmol/L (98-107) Carbon Dioxide Level 31 mmol/L (21-32) Anion Gap 6 (6-14) Blood Urea Nitrogen 18 mg/dL (8-26) Creatinine 0.8 mg/dL (0.7-1.3) Estimated GFR (Cockcroft-Gault) 115.1 BUN/Creatinine Ratio 23 (6-20) H Glucose Level 99 mg/dL (70-99) Lactic Acid Level 0.8 mmol/L (0.4-2.0) Calcium Level 8.5 mg/dL (8.5-10.1) Magnesium Level 2.0 mg/dL (1.8-2.4) Total Bilirubin 0.9 mg/dL (0.2-1.0) Aspartate Amino Transferase (AST) 81 U/L (15-37) H Alanine Aminotransferase (ALT) 180 U/L (16-63) H Alkaline Phosphatase 190 U/L (46-116) H Creatine Kinase 14 U/L (39-308) L Troponin I Quantitative < 0.017 ng/mL (0.000-0.055) BP-Ldw-F-Type Natriuretic Peptide 47 pg/mL (0-124) Total Protein 5.7 g/dL (6.4-8.2) L Albumin 1.9 g/dL (3.4-5.0) L Albumin/Globulin Ratio 0.5 (1.0-1.7) L Lipase 88 U/L (73-393) Thyroid Stimulating Hormone (TSH) 1.091 uIU/mL (0.358-3.74) Laboratory Tests 03/05/19 09:10 Laboratory Tests 03/05/19 09:10 ASSESSMENT/PLAN ASSESSMENT/PLAN 1. Left empyema with mediastinal abscess: S/P Chest tube placement 2. Atypical CP: due to above 3. Pericardial effusion: small per CT. Hemodynamically stable. 4. Reactive sinus tachycardia 5. Hx of Hep C with mild transaminitis 6. Substance abuse: hx of meth use via IV, last reported use 2 weeks ago 7. left abdominal and back pain: post IR Recommendations 1. Antibiotic per ID 2. Consult CTS 3 TTE to further confirm pericardial effusion/pericarditis. UDS 4. CT abd/pelvis, UA 5. Supportive care MICHA GUAMAN ECONOMIC ADVISER Mar 05, 2019 12:44
--- NOTE | 2019-03-05 13:24 | PDOC ---
MODERATE SEDATION ASSESSMENT RISKS/ALTERNATIVES Risks/Alternatives Risks and alternatives of this type of sedation and procedure discussed with: RISK/ALTERNATIVES: Patient H & P ON CHART H & P H & P on chart and reviewed for co-morbid conditions and appropriate labs. H&P ON CHART: Yes STATUS PREG STATUS ASSESSED: Yes MEDS/ALLERGIES REVIEWED Meds/Allergies Reviewed Medications and Allergies including time and route of recently administered narcotics and sedatives. MEDS/ALLERGIES REVIEWED: Yes ASA RATING ASA RATING: II AIRWAY ASSESSMENT Airway Assessment Airway patency, oral function limitations, presence of caps, crowns, dentures, partials, and ability to extend neck assessed. AIRWAY ASSESSMENT: Yes MALLAMPATI SCORE MALLAMPATI SCORE: II PRE-SEDATION ASSESSMENT PRE-SEDATION ASSESSMENT: Yes FERDINAND HU MD Mar 05, 2019 13:24
--- NOTE | 2019-03-05 13:24 | PDOC ---
BRIEF OPERATIVE NOTE Pre-Op Diagnosis Empyema and mediastinal abscess Post-Op Diagnosis same Procedure Performed CT mediastinal drain and CT chest tube Surgeon Vitor Anesthesia Type: Conscious Sedation Specimens Obtained 10cc lenora pus from retrosternal mediastinal fluid collection. Thin yellow fluid from pleural space without lenora infection. Findings Mediastinal abscess, 10F drain placed. Left pleural effusion, 14F drain placed. Complications No immediate EFRDINAND HU MD Mar 05, 2019 13:24
[2019-03-05] MEDS ORDERED: LIDOCAINE WITH 8.4% SOD BICARB 3 ML DISP.SYRIN. IJ ONE (13:30)
[2019-03-05] MEDS ORDERED: MIDAZOLAM HCL/PF 2 MG/2 ML VIAL. IV ONE (13:30)
[2019-03-05] MEDS ORDERED: fentaNYL PF VIAL 100 MCG/2 ML VIAL IV ONE (13:30)
--- NOTE | 2019-03-05 13:34 | PDOC2 ---
CONSULT Date of Consult Date of Consult DATE: 03/05/19 TIME: 13:23 Reason for Consult Reason for Consult: Large left pleural effusion, anterior mediastinal and anterior chest wall abscess Referring Physician Referring Physician: Dr Upton Identification/Chief Complaint Chief Complaint Anterior chest wall pain Source Source: Chart review, Patient History of Present Illness Reason for Visit: The patient is a 28-year-old male with a history of hepatitis C and IVDA, who comes in with worsening left anterior chest wall pain for several days. He denies fevers, chills, weight loss. CT of the chest in the emergency room demonstrated a large left-sided pleural effusion, a 5 cm anterior mediastinal abscess and a small skin anterior chest wall abscess on the left side. The patient is hemodynamically stable and afebrile. He does have a leukocytosis. I was consulted for further management. Past Medical History Hepatobiliary: Hep A/B/C, Hep A/B/C (C) Renal/: Other (hydrocele) Family History Family History: Hypertension Social History <1 pack per day ALCOHOL: social Drugs: Crystal meth Current Problem List Problem List Problems Medical Problems: (1) Chest wall abscess Status: Acute (2) Mediastinal abscess Status: Acute (3) Pleural effusion Status: Acute Current Medications Current Medications Current Medications Sodium Chloride 1,000 ml @ 1,000 mls/hr Q1H IV Last administered on 03/05/19at 08:42; Start 03/05/19 at 08:18; Stop 03/05/19 at 09:17; Status DC Morphine Sulfate (Morphine Sulfate) 4 mg 1X ONCE IV Last administered on 03/05/19at 08:42; Start 03/05/19 at 09:00; Stop 03/05/19 at 09:01; Status DC Ondansetron HCl (Zofran) 4 mg 1X ONCE IV Last administered on 03/05/19at 08:42; Start 03/05/19 at 09:00; Stop 03/05/19 at 09:01; Status DC Iohexol (Omnipaque 350 Mg/ml) 100 ml 1X ONCE IV Last administered on 03/05/19at 09:05; Start 03/05/19 at 08:30; Stop 03/05/19 at 08:32; Status DC Info (CONTRAST GIVEN -- Rx MONITORING) 1 each PRN DAILY PRN MC SEE COMMENTS; Start 03/05/19 at 08:45; Stop 03/07/19 at 08:44 Hydromorphone HCl (Dilaudid) 1 mg 1X ONCE IV Last administered on 03/05/19at 09:05; Start 03/05/19 at 09:15; Stop 03/05/19 at 09:16; Status DC Sodium Chloride 1,000 ml @ 1,000 mls/hr 1X ONCE IV Last administered on 03/05/19at 09:54; Start 03/05/19 at 09:30; Stop 03/05/19 at 10:29; Status DC Piperacillin Sod/ Tazobactam Sod 3.375 gm/Sodium Chloride 50 ml @ 100 mls/hr 1X ONCE IV Last administered on 03/05/19at 09:54; Start 03/05/19 at 09:30; Stop 03/05/19 at 09:59; Status DC Vancomycin HCl 250 ml @ 250 mls/hr 1X ONCE IV ; Start 03/05/19 at 09:30; Stop 03/05/19 at 10:29; Status UNV Vancomycin HCl 2 gm/Sodium Chloride 500 ml @ 250 mls/hr 1X ONCE IV Last adm inistered on 03/05/19at 10:35; Start 03/05/19 at 10:00; Stop 03/05/19 at 11:59; Status DC Hydromorphone HCl (Dilaudid) 1 mg 1X ONCE IV Last administered on 03/05/19at 10:35; Start 03/05/19 at 10:30; Stop 03/05/19 at 10:31; Status DC Sodium Chloride 1,000 ml @ 150 mls/hr Q6H40M IV Last administered on 03/05/19at 12:20; Start 03/05/19 at 10:26; Stop 03/06/19 at 10:25 Acetaminophen (Tylenol) 650 mg PRN Q6HRS PRN PO Headaches, Temp > 101.5'; Start 03/05/19 at 10:45 Lorazepam (Ativan Inj) 0.5 mg PRN Q6HRS PRN IV ANXIETY / AGITATION; Start 03/05/19 at 10:45 Ondansetron HCl (Zofran) 4 mg PRN Q6HRS PRN IV NAUSEA/VOMITING; Start 03/05/19 at 10:45 Prochlorperazine Edisylate (Compazine) 5 mg PRN Q6HRS PRN IV NAUSEA/VOMITING; Start 03/05/19 at 10:45 Prochlorperazine (Compazine) 25 mg PRN Q12HR PRN AR NAUSEA/VOMITING; Start 03/05/19 at 10:45 Al Hydroxide/Mg Hydroxide (Mylanta Plus Xs) 30 ml PRN Q3HRS PRN PO HEARTBURN / GAS; Start 03/05/19 at 10:45 Calcium Carbonate/ Glycine (Tums) 500 mg PRN Q3HRS PRN PO HEARTBURN / GAS; Start 03/05/19 at 10:45 Famotidine (Pepcid Vial) 20 mg BID IVP ; Start 03/05/19 at 12:00 Info (Icu Electrolyte Protocol) 1 ea DAILY MC ; Start 03/06/19 at 09:00 Heparin Sodium (Porcine) (Heparin Sodium) 5,000 unit Q12HR SQ ; Start 03/05/19 at 21:00 Sodium Chloride (Normal Saline Flush) 3 ml QSHIFT PRN IV AFTER MEDS AND BLOOD DRAWS; Start 03/05/19 at 10:45 Sodium Chloride 1,000 ml @ 100 mls/hr Q10H IV ; Start 03/05/19 at 10:39 Acetaminophen/ Hydrocodone Bitart (Lortab 5/325) 1 tab PRN Q4HRS PRN PO MILD PAIN 1-3; Start 03/05/19 at 10:45 Acetaminophen/ Hydrocodone Bitart (Lortab 5/325) 2 tab PRN Q4HRS PRN PO MODERATE PAIN, SEVERE PAIN; Start 03/05/19 at 10:45 Morphine Sulfate (Morphine Sulfate) 2 mg PRN Q1HR PRN IV PAIN; Start 03/05/19 at 10:45 Senna/Docusate Sodium (Senna Plus) 1 tab BID PO ; Start 03/05/19 at 21:00 Docusate Sodium (Colace) 100 mg BID PO ; Start 03/05/19 at 12:00 Bisacodyl (Dulcolax Supp) 10 mg PRN DAILY PRN AR CONSTIPATION; Start 03/05/19 at 10:45 Sodium Chloride 1,000 ml @ 2,550 mls/hr Q24M IV ; Start 03/05/19 at 10:48; Stop 03/05/19 at 11:48; Status DC Sodium Chloride 500 ml @ 1,000 mls/hr PRN Q30MIN PRN IV PER PROTOCOL; Start 03/05/19 at 11:00 Vancomycin HCl (Vanco Per Pharmacy) 1 each PRN DAILY PRN MC SEE COMMENTS; Sta rt 03/05/19 at 11:00 Piperacillin Sod/ Tazobactam Sod 4.5 gm/Sodium Chloride 100 ml @ 200 mls/hr Q6HRS IV ; Start 03/05/19 at 12:00; Stop 03/05/19 at 11:59; Status DC Norepinephrine Bitartrate 250 ml @ 0 mls/hr CONT PRN IV PER PROTOCOL; Start 03/05/19 at 11:00 Dobutamine HCl/ Dextrose 250 ml @ 0 mls/hr CONT PRN IV PER PROTOCOL; Start 03/05/19 at 11:00 Vancomycin HCl 2 gm/Sodium Chloride 500 ml @ 250 mls/hr 1X ONCE IV ; Start 03/05/19 at 12:00; Stop 03/05/19 at 13:59; Status Cancel Piperacillin Sod/ Tazobactam Sod 4.5 gm/Sodium Chloride 100 ml @ 200 mls/hr Q6HRS IV ; Start 03/05/19 at 16:00 Linezolid/Dextrose 300 ml @ 300 mls/hr Q12HR IV ; Start 03/05/19 at 13:00 Lidocaine/Sodium Bicarbonate (Buffered Lidocaine 1%) 3 ml STK-MED ONCE .ROUTE ; Start 03/05/19 at 12:12; Stop 03/05/19 at 12:13; Status DC Midazolam HCl (Versed) 2 mg STK-MED ONCE .ROUTE ; Start 03/05/19 at 12:13; Stop 03/05/19 at 12:13; Status DC Fentanyl Citrate (Fentanyl 2ml Vial) 100 mcg STK-MED ONCE .ROUTE ; Start 03/05/19 at 12:14; Stop 03/05/19 at 12:14; Status DC Lidocaine/Sodium Bicarbonate (Buffered Lidocaine 1%) 3 ml STK-MED ONCE .ROUTE ; Start 03/05/19 at 13:05; Stop 03/05/19 at 13:05; Status DC Hydromorphone HCl (Dilaudid) 1.5 mg Q3HRS PRN IVP PAIN; Start 03/05/19 at 13:30; Status UNV Allergies Allergies: Coded Allergies: No Known Drug Allergies (Unverified , 03/05/19) ROS General: No: Chills, Night Sweats, Fatigue, Malaise, Appetite, Other PSYCHOLOGICAL ROS: No: Anxiety, Behavioral Disorder, Concentration difficultie, Decreased libido, Depression, Disorientation, Hallucinations, Hostility, Irritablity, Memory difficulties, Mood Swings, Obsessive thoughts, Physical abuse, Sexual abuse, Sleep disturbances, Suicidal ideation, Other Eyes: No Blurry vision, No Decreased vision, No Double vision, No Dry eyes, No Excessive tearing, No Eye Pain, No Itchy Eyes, No Loss of vision, No Photophobia, No Scotomata, No Uses contacts, No Uses glasses, No Other ALLERGY AND IMMUNOLOGY: No: Hives, Insect Bite Sensitivity, Itchy/Watery Eyes, Nasal Congestion, Post Nasal Drip, Seasonal Allergies, Other Hematological and Lymphatic: No: Bleeding Problems, Blood Clots, Blood Transfusions, Brusing, Night Sweats, Pallor, Swollen Lymph Nodes, Other ENDOCRINE: No: Breast Changes, Galactorrhea, Hair Pattern Changes, Hot Flashes, Malaise/lethargy, Mood Swings, Palpitations, Polydipsia/polyuria, Skin Changes, Temperature Intolerance, Unexpected Weight Changes, Other Respiratory: No: Cough, Hemoptysis, Orthopnea, Pleuritic Pain, Shortness of breath, SOB with excertion, Sputum Changes, Stridor, Tachypnea, Wheezing, Other Cardiovascular: No Chest Pain, No Palpitations, No Orthopnea, No Paroxysmal Noc. Dyspnea, No Edema, No Lt Headedness, No Other Gastrointestinal: No Nausea, No Vomiting, No Abdominal Pain, No Diarrhea, No Constipation, No Melena, No Hematochezia, No Other Genitourinary: No Dysuria, No Frequency, No Incontinence, No Hematuria, No Retention, No Discharge, No Urgency, No Pain, No Flank Pain Musculoskeletal: No Gait Disturbance, No Joint Pain, No Joint Stiffness, No Joint Swelling, No Muscle Pain, No Muscular Weakness, No Pain In:, No Swelling In: Neurological: No Behavorial Changes, No Bowel/Bladder ControlChng, No Confusion, No Dizziness, No Gait Disturbance, No Headaches, No Impaired Coord/balance, No Memory Loss, No Numbness/Tingling, No Seizures, No Speech Problems, No Tremors, No Visual Changes, No Weakness Skin: Yes Other (left anterior chest wall swelling with mild erythema); No Dry Skin, No Eczema, No Hair Changes, No Lumps, No Mole Changes, No Mottling, No Nail Changes, No Pruritus, No Rash, No Skin Lesion Changes, No Acne Physical Exam General: Alert, Oriented X3, No acute distress HEENT: Atraumatic, EOMI Lungs: Clear to auscultation Heart: Regular rate, Normal S1, Normal S2 Abdomen: Soft, No tenderness Extremities: No edema Skin: Other (3x3cm area of fluctuance and tenderness without significant erythema on the left anterior chest wall) Neuro: Normal gait, Normal speech, Strength at 5/5 X4 ext, Normal tone, Sensation intact, Cranial nerves 3-12 NL, Reflexes 2+ Psych/Mental Status: Mental status NL MUSCULOSKELETAL: No deformity Vitals VITALS Vital Signs Date Time Temp Pulse Resp B/P (MAP) Pulse Ox O2 Delivery O2 Flow Rate FiO2 03/05/19 13:14 107 18 97 Nasal Cannula 2.0 03/05/19 11:03 124/70 (88) 03/05/19 07:59 97.8 97.8 Labs Labs Laboratory Tests Test 03/05/19 09:10 White Blood Count 19.9 x10^3/uL (4.0-11.0) Red Blood Count 4.53 x10^6/uL (4.30-5.70) Hemoglobin 13.6 g/dL (13.0-17.5) Hematocrit 40.3 % (39.0-53.0) Mean Corpuscular Volume 89 fL (79-100) Mean Corpuscular Hemoglobin 30 pg (25-35) Mean Corpuscular Hemoglobin Concent 34 g/dL (31-37) Red Cell Distribution Width 13.1 % (11.5-14.5) Platelet Count 483 x10^3/uL (140-400) Neutrophils (%) (Auto) 87 % (31-73) Lymphocytes (%) (Auto) 5 % (24-48) Monocytes (%) (Auto) 7 % (0-9) Eosinophils (%) (Auto) 0 % (0-3) Basophils (%) (Auto) 0 % (0-3) Neutrophils # (Auto) 17.3 x10^3/uL (1.8-7.7) Lymphocytes # (Auto) 1.0 x10^3/uL (1.0-4.8) Monocytes # (Auto) 1.4 x10^3/uL (0.0-1.1) Eosinophils # (Auto) 0.1 x10^3/uL (0.0-0.7) Basophils # (Auto) 0.0 x10^3/uL (0.0-0.2) Segmented Neutrophils % 88 % (35-66) Band Neutrophils % 3 % (0-9) Lymphocytes % 3 % (24-48) Monocytes % 6 % (0-10) Platelet Estimate Adequate (ADEQUATE) Giant Platelets Occ Prothrombin Time 14.0 SEC (11.7-14.0) Prothromb Time International Ratio 1.1 (0.8-1.1) Activated Partial Thromboplast Time 24 SEC (24-38) D-Dimer (Alejandra) 2.60 ug/mlFEU (0.00-0.50) Sodium Level 137 mmol/L (136-145) Potassium Level 4.4 mmol/L (3.5-5.1) Chloride Level 100 mmol/L (98-107) Carbon Dioxide Level 31 mmol/L (21-32) Anion Gap 6 (6-14) Blood Urea Nitrogen 18 mg/dL (8-26) Creatinine 0.8 mg/dL (0.7-1.3) Estimated GFR (Cockcroft-Gault) 115.1 BUN/Creatinine Ratio 23 (6-20) Glucose Level 99 mg/dL (70-99) Lactic Acid Level 0.8 mmol/L (0.4-2.0) Calcium Level 8.5 mg/dL (8.5-10.1) Magnesium Level 2.0 mg/dL (1.8-2.4) Total Bilirubin 0.9 mg/dL (0.2-1.0) Aspartate Amino Transf (AST/SGOT) 81 U/L (15-37) Alanine Aminotransferase (ALT/SGPT) 180 U/L (16-63) Alkaline Phosphatase 190 U/L (46-116) Creatine Kinase 14 U/L (39-308) Troponin I Quantitative < 0.017 ng/mL (0.000-0.055) OF-Our-O-Type Natriuretic Peptide 47 pg/mL (0-124) Total Protein 5.7 g/dL (6.4-8.2) Albumin 1.9 g/dL (3.4-5.0) Albumin/Globulin Ratio 0.5 (1.0-1.7) Lipase 88 U/L (73-393) Procalcitonin 0.43 ng/mL (0.00-0.10) Thyroid Stimulating Hormone (TSH) 1.091 uIU/mL (0.358-3.74) Laboratory Tests Test 03/05/19 09:10 White Blood Count 19.9 x10^3/uL (4.0-11.0) Red Blood Count 4.53 x10^6/uL (4.30-5.70) Hemoglobin 13.6 g/dL (13.0-17.5) Hematocrit 40.3 % (39.0-53.0) Mean Corpuscular Volume 89 fL (79-100) Mean Corpuscular Hemoglobin 30 pg (25-35) Mean Corpuscular Hemoglobin Concent 34 g/dL (31-37) Red Cell Distribution Width 13.1 % (11.5-14.5) Platelet Count 483 x10^3/uL (140-400) Neutrophils (%) (Auto) 87 % (31-73) Lymphocytes (%) (Auto) 5 % (24-48) Monocytes (%) (Auto) 7 % (0-9) Eosinophils (%) (Auto) 0 % (0-3) Basophils (%) (Auto) 0 % (0-3) Neutrophils # (Auto) 17.3 x10^3/uL (1.8-7.7) Lymphocytes # (Auto) 1.0 x10^3/uL (1.0-4.8) Monocytes # (Auto) 1.4 x10^3/uL (0.0-1.1) Eosinophils # (Auto) 0.1 x10^3/uL (0.0-0.7) Basophils # (Auto) 0.0 x10^3/uL (0.0-0.2) Segmented Neutrophils % 88 % (35-66) Band Neutrophils % 3 % (0-9) Lymphocytes % 3 % (24-48) Monocytes % 6 % (0-10) Platelet Estimate Adequate (ADEQUATE) Giant Platelets Occ Prothrombin Time 14.0 SEC (11.7-14.0) Prothromb Time International Ratio 1.1 (0.8-1.1) Activated Partial Thromboplast Time 24 SEC (24-38) D-Dimer (Alejandra) 2.60 ug/mlFEU (0.00-0.50) Sodium Level 137 mmol/L (136-145) Potassium Level 4.4 mmol/L (3.5-5.1) Chloride Level 100 mmol/L (98-107) Carbon Dioxide Level 31 mmol/L (21-32) Anion Gap 6 (6-14) Blood Urea Nitrogen 18 mg/dL (8-26) Creatinine 0.8 mg/dL (0.7-1.3) Estimated GFR (Cockcroft-Gault) 115.1 BUN/Creatinine Ratio 23 (6-20) Glucose Level 99 mg/dL (70-99) Lactic Acid Level 0.8 mmol/L (0.4-2.0) Calcium Level 8.5 mg/dL (8.5-10.1) Magnesium Level 2.0 mg/dL (1.8-2.4) Total Bilirubin 0.9 mg/dL (0.2-1.0) Aspartate Amino Transf (AST/SGOT) 81 U/L (15-37) Alanine Aminotransferase (ALT/SGPT) 180 U/L (16-63) Alkaline Phosphatase 190 U/L (46-116) Creatine Kinase 14 U/L (39-308) Troponin I Quantitative < 0.017 ng/mL (0.000-0.055) OL-Pnc-V-Type Natriuretic Peptide 47 pg/mL (0-124) Total Protein 5.7 g/dL (6.4-8.2) Albumin 1.9 g/dL (3.4-5.0) Albumin/Globulin Ratio 0.5 (1.0-1.7) Lipase 88 U/L (73-393) Procalcitonin 0.43 ng/mL (0.00-0.10) Thyroid Stimulating Hormone (TSH) 1.091 uIU/mL (0.358-3.74) Images Images Impression: 1. Anterior mediastinal abscess with additional abscess extending into the left anterior chest wall musculature through the left first costomanubrial junction, concerning for septic arthritis. 2. Large left empyema. 3. New complete collapse of the left lower lobe and partial atelectasis of the left upper lobe. 4. Small pericardial effusion, difficult to exclude infection given adjacent findings. Assessment/Plan Assessment/Plan 28-year-old male with a history of hepatitis C and IVDA, who comes in with worsening left anterior chest wall pain for several days. He denies fevers, chills, weight loss. CT of the chest in the emergency room demonstrated a large left-sided pleural effusion, a 5 cm anterior mediastinal abscess and a small skin anterior chest wall abscess on the left side. The patient is hemodynamically stable and afebrile. He does have a leukocytosis. I was consulted for further management. The pleural effusion is not loculated and gravity dependent. As a result I'm very confident that simple tube thoracostomy will drain the effusion. Fluid can be sent for analysis. In terms of the 5 cm anterior mediastinal mass, I think this would easily be accessible for percutaneous drain placement by interventional radiology. I spoke with IR and they will place a drain in this abscess. The superficial skin abscess located in the left anterior chest wall may need a simple I&D. Will reevaluate after drains had been placed and IV antibiotics started. The sternoclavicular joint on the left side might be involved, nevertheless there does not appear to be any bone or joint erosion/destruction. In this patient, I would avoid, if possible, an extensive debridement which would leave behind a large tissue defect. Furthermore, this patient could not have access to her plastic surgeon for flap coverage and as a result his wound would have to heal by secondary intention which would take a long time. Nevertheless if the patient does not progress or develop sepsis despite the pleural drainage, drain placement in the anterior mediastinal mass and the IV antibiotics then surgical intervention would be required. In that case I would initially start with a simple I&D of the skin to drain the superficial abscess. STEPHANY MILLER MD Mar 05, 2019 13:34
--- NOTE | 2019-03-05 13:47 | NUR ---
Pharmacy Vancomycin Dosing Note S:Consulted to monitor and dose vancomycin started 03/05/19. O:MANI BRAGA is a 28 year old M with empyema and mediastinal abscess. Height: 6 feet, 3 inches Weight: 104.129347 kg [place] Body Weight: 84.50 Adjusted Body Weight: 92.46 Dosing Weight: Actual Other Antibiotics: Zosyn Linezolid LABS: Last BUN: 18 Last Creatinine: 0.8 Creatinine Clearance: > 100 mL/min Last WBC: 19.9 Last Procalcitonin: 0.43 Tmax (past 24 hours): 97.8 Microbiology: Cultures pending I/O: Not yet documented new admit Drug Levels: Last dose given 03/05/19 at 1034 Vancomycin Dosing: Loading Dose: 2000 mg x1 Dosing Weight: Actual Target Trough: 15-20 A: Based on: Patient's renal function, age, PMH, severity of suspected infection, and population based vancomycin kinetic calculations. P: 1. Will initiate Vancomycin 1500 mg IV q8h 2. Follow up Trough level on 03/06/19 at 1030 3. Pharmacy will continue to monitor, follow and adjust therapy as needed. ASIF JOSEPH, [facility], 03/05/19 [id number]
[2019-03-05] MEDS: HYDROmorphone 2 MG/ML VIAL IVP PRN ×4 (13:53→23:15)
[2019-03-05] MEDS: FAMOTIDINE 20 MG/2 ML VIAL IVP SCH ×2 (15:35→20:52)
--- NOTE | 2019-03-05 17:15 | RAD ---
CT ABDOMEN PELVIS WO CONTRAST Indication: Left abdominal and lower back pain. Exposure: One or more of the following individualized dose reduction techniques were utilized for this examination: 1. Automated exposure control 2. Adjustment of the mA and/or kV according to patient size 3. Use of iterative reconstruction technique. Comparison: None are available. Technique: No intravenous contrast given. Findings: Evaluation of solid viscera, bowel and vasculature is compromised by the noncontrast technique. Extensive consolidation/fluid in the left lung base, was better evaluated on the contrast-enhanced chest CT from earlier today. Mild atelectasis in the right lung base. Abnormal pericardial collection is also again partially seen. There is image degradation the upper abdomen due to the patient's left arm which is at the side. Liver is mildly enlarged. No definite liver lesion. Spleen is mildly enlarged, 14.5 cm. Pancreas is difficult to distinguish from adjacent unopacified bowel, no definite peripancreatic fluid. No evidence of adrenal mass. Mild density within the renal collecting systems and ureters and particularly in the urinary bladder due to contrast from CTA of the chest from earlier today. No evidence of hydronephrosis. No calcified gallstone. Aorta is nonaneurysmal. No significant lymph node enlargement. No significant small bowel distention. There is some contrast media within the colon presumably from a prior radiology exam. No definite acute colitis is seen. Appendix is not clearly visualized. Urinary bladder is densely opacified with contrast. No significant ascites or evidence of pneumoperitoneum. Vertebral body height and alignment are intact. No aggressive bone destruction. IMPRESSION: 1. Extensive abnormality in the lower chest, was better evaluated on the contrast enhanced chest CT from earlier today. 2. Mild hepatosplenomegaly. 3. No definite acute findings in the abdomen or pelvis. Electronically signed by: Antonio Lang MD (03/05/2019 5:12 PM) [id number]
[2019-03-05] MEDS: PIPERACILLIN/TAZOBACTAM 4.5 GM in IV NORMAL SALINE 100ML 100 ML IV SCH ×2 (17:16→23:15)
[2019-03-05 19:51] LABS: BILIRUBIN,URINE NEGATIVE (NEG); CLARITY,URINE CLEAR; COLOR,URINE YELLOW; NITRITE,URINE NEGATIVE (NEG); PH,URINE 6.5; PROTEIN,URINE NEGATIVE (NEG-TRACE)
[2019-03-05 19:57] LABS: BACTERIA,URINE 0 /HPF (0-FEW); RBC,URINE 0 /HPF (0-2); WBC,URINE 0 /HPF (0-4)
[2019-03-05 19:59] LABS: AMPHETAMINE/METHAMPHETAMINE NEG (NEG); BARBITURATES NEG (NEG); BENZODIAZEPINES POS (NEG); CANNABINOIDS NEG (NEG); COCAINE NEG (NEG); METHADONE NEG (NEG); OPIATES POS (NEG); PHENCYCLIDINE NEG (NEG)
[2019-03-05] MEDS: VANCOMYCIN 1.5 GM in IV NORMAL SALINE 500ML BAG 500 ML IV SCH (20:12)
[2019-03-05] MEDS: HEPARIN for SUB-Q USE 5,000 UNIT/ML VIAL. SQ SCH (20:53)
[2019-03-05] MEDS: SENNOSIDES/DOCUSATE 8.6/50MG TABLET. PO SCH (21:00)
--- NOTE | 2019-03-05 21:29 | CONS ---
DATE OF CONSULTATION: 03/05/2019 PULMONARY CONSULTATION ATTENDING PHYSICIAN: Guilherme Upton MD REASON FOR CONSULTATION: The patient seen in Pulmonary consultation at the request of Dr. Upton for increasing shortness of air, abnormal CT chest. HISTORY OF PRESENT ILLNESS: The patient is a 28-year-old who apparently was sick on 02/20 and went to the Emergency Department at [facility]. He was given some prednisone and a nonsteroidal. The patient presented at that time with some increasing shortness of breath and he had a left upper chest wall subcutaneous process. The patient presented today with increasing shortness of breath, anterior mediastinal abscess. He was seen in the Emergency Room, had a CT chest which revealed a large effusion, possible empyema on the left. There was also an anterior mediastinal abscess with additional abscess extending into the left anterior chest wall. There was complete collapse of the left lower lobe and partial collapse of the left upper lobe. He had a small pericardial effusion. 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 He was shooting IV methamphetamine approximately a week ago. Denies fever or chills. No hemoptysis. PAST MEDICAL HISTORY: Otherwise remarkable for previous methamphetamine use, otherwise no history of cardiac or pulmonary disease. ALLERGIES: No known drug allergies. REVIEW OF SYSTEMS: As indicated above, otherwise, a 10-point system was reviewed and negative. PHYSICAL EXAMINATION: GENERAL: The patient was in the intensive care unit. He was requiring no oxygen supplementation. VITAL SIGNS: Stable. He did not appear to be septic. Temperature is 97.8. HEENT: Eyes, the sclerae were nonicteric. NECK: Jugular venous distention was not elevated. No lymphadenopathy. CHEST: Subcutaneous collection of fluid on the left anterior chest wall, directly below the clavicle, tender to touch. LUNGS: Diminished breath sounds in the left. CARDIOVASCULAR: Regular rate and rhythm with S1, S2, no S3. ABDOMEN: Soft, nontender. EXTREMITIES: No clubbing, cyanosis or edema. SKIN: He had a rash. NEUROLOGIC: The patient was awake, alert, following commands. A detailed neuro exam was not performed. LABORATORY DATA: White count was elevated. Hemoglobin and hematocrit were noted. Electrolytes were noted. BUN and creatinine were normal. AST and ALT were elevated. Troponin was normal. Albumin was low. Lactic acid level was not elevated. IMPRESSION: 1. Empyema. 2. Anterior mediastinal abscess extending into the left anterior chest wall muscular structures. 3. Small pericardial effusion. 4. Elevated liver chemistries. 5. Protein malnutrition. 6. Methamphetamine use. 7. History of Staphylococcus infection. PLAN: 1. The patient has been seen by Infectious Disease Service, started on vancomycin and Zosyn. 2. Case discussed with interventional radiologist, chest tube placement. 3. If the chest tube placement does not relieve the empyema, he may require surgical intervention. 4. Echocardiogram has been ordered and is pending. I do appreciate the privilege in sharing the patient's care. THAO MCCARTNEY MD DR: ESTEFANÍA/mirlande JOB#: [id number] / [id number]
[2019-03-06] VITALS (24 sets, daily range): BP systolic 110–151; BP diastolic 57–79
[2019-03-06] MEDS: HYDROmorphone 2 MG/ML VIAL IVP PRN ×7 (03:05→20:56)
[2019-03-06] MEDS: VANCOMYCIN 1.5 GM in IV NORMAL SALINE 500ML BAG 500 ML IV SCH (03:06)
--- NOTE | 2019-03-06 03:32 | CONS ---
DATE OF CONSULTATION: 03/05/2019 INFECTIOUS DISEASE CONSULTATION NOTE PATIENT'S ROOM: ICU 14. REQUESTING PHYSICIAN: Dr. Ruiz from ER. REASON FOR CONSULTATION: Empyema. HISTORY OF PRESENT ILLNESS: The patient is a pleasant 28-year-old gentleman without real significant past medical history, although he states 3 weeks ago, he relapsed on meth. He has developed multiple skin lesions and has been picking at these. About the or so february, he states he had a little discomfort, could not get his shoulders quite right in the posterior aspect. States he felt like he had a golf ball kind of stuck between his shoulder blades. He had his girlfriend walk on the back and continued to work; however, things worsened over time. He presented to [facility] ER probably or so february when things became really painful. States he underwent x-ray and seems there was some questionable infiltrate there. He states he was given some steroids and a dose of Toradol and was told to follow up with the chiropractor. States he did see a chiropractor, but seemed to make things worse. He went back to the ER approximately the or so february. He states he underwent a CT scan of the chest, but then was discharged without any medications. He now presented to [facility] Emergency Room with worsening chest pain. He was afebrile. White blood cell count was elevated at 19.9. He underwent a CT scan of the chest, which showed an anterior mediastinal fluid collection of 4.5 x 5.2 x 5.8 cm extending into the superior mediastinum concerning for abscess. There is also costosternal junction slight widening compared to the other side may represent septic arthritis and also was found to have a large left empyema and near complete collapse of the left lower lobe, partial atelectasis of the left upper lobe, small pericardial effusion and now been admitted to the hospital. He has been placed on vancomycin and Zosyn. Currently, he is lying in bed. He is fairly comfortable. He actually denies any fevers or chills. He has no sweats. He has no headaches, no change in vision, no sore throat. Denies any cough or hemoptysis. No nausea, vomiting or diarrhea, and no dysuria. No complications passing his urine. Feels like his right knee is a little tighter than his left. Denies any generalized rash, but he does have multiple lesions that he has been picking at. PAST MEDICAL HISTORY: Positive for hepatitis C, does have a history of a questionable staph infection from his skin under his arms, back in 2010 he had a right ankle fracture and underwent repair and has had hydrocele surgery x 2. REVIEW OF SYSTEMS: Otherwise negative except as mentioned above. ALLERGIES: No antibiotic allergies. SOCIAL HISTORY: Does use meth. No tobacco. Rare alcohol. Works as a marketing research analyst. No pets. FAMILY HISTORY: Essentially negative thus far as what he knows. CURRENT MEDICATIONS: Include Zosyn, vancomycin, Pepcid, heparin, p.r.n. medications. PHYSICAL EXAMINATION: VITAL SIGNS: He is afebrile, temperature 97.8, pulse 97, respirations 20, blood pressure 129/70, satting 97% on room air. CONSTITUTIONAL: He is a pleasant gentleman. He is cooperative, he is in no acute distress. HEENT: Pupils equal and reactive with normal conjunctivae. Oral cavity, pharynx is clear without signs of petechiae. NECK: Supple. Good range of motion. LUNGS: Clear to auscultation bilaterally. HEART: S1, S2, without gross murmur. ABDOMEN: Soft, nontender, nondistended, positive bowel sounds. EXTREMITIES: Without clubbing, cyanosis. His right knee is without warmth or gross erythema. Notes no gross effusion. EXTREMITIES: Without clubbing, cyanosis. He has some trace edema. SKIN: Without generalized rash, but he does have multiple areas of scabs where he has been picked at. He has multiple tattoos as well. His anterior chest on the left side has a fullness associated with it. There is no gross erythema. NEUROLOGIC: He is alert and oriented, cooperative. PSYCHIATRIC: Affect is appropriate. LABORATORY DATA: White count 19.9, hemoglobin 13.6, platelets of 483, 88 segs, 3 bands. Creatinine 0.8, glucose 99, AST 81, ALT 180, alkaline phosphatase 190, creatine kinase 47, lipase 88, albumin of 1.9. CT scan reviewed in the history of present illness. IMPRESSION: 1. Leukocytosis. 2. Empyema. 3. Transaminitis. 4. Protein malnutrition. 5. History of meth use. 6. History of staph infection. 7. History of hepatitis C. RECOMMENDATIONS: For now, continue vancomycin and Zosyn. We will add Zyvox and follow up labs. Procalcitonin has been ordered to today's labs. Await echo. Interventional Radiology has been consulted for drainage of the abscess. We will also check a sedimentation rate and we will monitor his right knee. Follow up on cultures. Thank you for patient's care. Should you have further questions, please do not hesitate to contact me. CRISTY GASPAR MD DR: [email or web address] JOB#: [id number] / [id number] AURELIA
[2019-03-06 04:32] LABS: BASO # 0.1 x10^3/uL (0.0-0.2); BASO % 0 % (0-3); EOS # 0.1 x10^3/uL (0.0-0.7); EOS % 1 % (0-3); HEMATOCRIT 35.8 % (39.0-53.0); HEMOGLOBIN 11.9 g/dL (13.0-17.5); LYMPH # 1.4 x10^3/uL (1.0-4.8); LYMPH % 8 % (24-48); MEAN CORPUSCULAR HEMOGLOBIN 30 pg (25-35); MEAN CORPUSCULAR HGB CONC 33 g/dL (31-37); MEAN CORPUSCULAR VOLUME 89 fL (79-100); MONO % 7 % (0-9); NEUT # 13.6 x10^3/uL (1.8-7.7); NEUT % 84 % (31-73); PLATELET COUNT 459 x10^3/uL (140-400); RED BLOOD COUNT 4.03 x10^6/uL (4.30-5.70); RED CELL DISTRIBUTION WIDTH 13.1 % (11.5-14.5); WHITE BLOOD COUNT 16.2 x10^3/uL (4.0-11.0)
[2019-03-06 04:44] LABS: CALCIUM 7.7 mg/dL (8.5-10.1); CREATININE 0.8 mg/dL (0.7-1.3); GFR 115.1; POTASSIUM 4.4 mmol/L (3.5-5.1)
[2019-03-06 04:50] LABS: ALBUMIN 1.4 g/dL (3.4-5.0); ALBUMIN/GLOBULIN RATIO 0.4 (1.0-1.7); TOTAL BILIRUBIN 0.8 mg/dL (0.2-1.0); TOTAL PROTEIN 5.4 g/dL (6.4-8.2)
[2019-03-06] MEDS: PIPERACILLIN/TAZOBACTAM 4.5 GM in IV NORMAL SALINE 100ML 100 ML IV SCH ×3 (06:01→17:09)
[2019-03-06] MEDS: IV NORMAL SALINE 1000ML BAG 1,000 ML IV SCH ×2 (07:55→16:39)
[2019-03-06] MEDS: HEPARIN for SUB-Q USE 5,000 UNIT/ML VIAL. SQ SCH ×2 (07:56→20:19)
[2019-03-06] MEDS: DOCUSATE SODIUM 100 MG CAPSULE. PO SCH ×2 (07:56→21:00)
[2019-03-06] MEDS: SENNOSIDES/DOCUSATE 8.6/50MG TABLET. PO SCH ×2 (07:56→21:00)
[2019-03-06] MEDS: FAMOTIDINE 20 MG/2 ML VIAL IVP SCH ×2 (07:57→20:13)
[2019-03-06] MEDS: ELECTROLYTE (ICU) PROTOCOL. MC SCH (08:13)
--- NOTE | 2019-03-06 08:19 | PDOC ---
Infectious Disease Note Subjective Subjective Has some pain but ok No F/C/S/SOA/rash/itch/N/V/D ROS ROS o/w neg Vital Sign Vital Signs Vital Signs Date Time Temp Pulse Resp B/P (MAP) Pulse Ox O2 Delivery O2 Flow Rate FiO2 03/06/19 06:01 19 03/06/19 06:00 101 133/77 (95) Room Air 03/06/19 05:00 99.5 99 99.5 03/05/19 13:32 2.0 Physical Exam PHYSICAL EXAM CONSTITUTIONAL: He is a pleasant gentleman. He is cooperative, he is in no acute distress. HEENT: Pupils equal and reactive with normal conjunctivae. Oral cavity, pharynx is clear without signs of petechiae. NECK: Supple. Good range of motion. LUNGS: Clear to auscultation bilaterally.Left sided CT and left ant chest drain HEART: S1, S2, without gross murmur. ABDOMEN: Soft, nontender, nondistended, positive bowel sounds. EXTREMITIES: Without clubbing, cyanosis. His right knee is without warmth or gross erythema. Notes no gross effusion. EXTREMITIES: Without clubbing, cyanosis. He has some trace edema. SKIN: Without generalized rash, but he does have multiple areas of scabs where he has been picked at. He has multiple tattoos as well. There is no gross erythema. NEUROLOGIC: He is alert and oriented, cooperative. PSYCHIATRIC: Affect is appropriate. Labs Lab Laboratory Tests Test 03/05/19 09:10 03/05/19 15:10 03/05/19 19:45 03/06/19 04:20 White Blood Count 19.9 x10^3/uL (4.0-11.0) 16.2 x10^3/uL (4.0-11.0) Red Blood Count 4.53 x10^6/uL (4.30-5.70) 4.03 x10^6/uL (4.30-5.70) Hemoglobin 13.6 g/dL (13.0-17.5) 11.9 g/dL (13.0-17.5) Hematocrit 40.3 % (39.0-53.0) 35.8 % (39.0-53.0) Mean Corpuscular Volume 89 fL (79-100) 89 fL (79-100) Mean Corpuscular Hemoglobin 30 pg (25-35) 30 pg (25-35) Mean Corpuscular Hemoglobin Concent 34 g/dL (31-37) 33 g/dL (31-37) Red Cell Distribution Width 13.1 % (11.5-14.5) 13.1 % (11.5-14.5) Platelet Count 483 x10^3/uL (140-400) 459 x10^3/uL (140-400) Neutrophils (%) (Auto) 87 % (31-73) 84 % (31-73) Lymphocytes (%) (Auto) 5 % (24-48) 8 % (24-48) Monocytes (%) (Auto) 7 % (0-9) 7 % (0-9) Eosinophils (%) (Auto) 0 % (0-3) 1 % (0-3) Basophils (%) (Auto) 0 % (0-3) 0 % (0-3) Neutrophils # (Auto) 17.3 x10^3/uL (1.8-7.7) 13.6 x10^3/uL (1.8-7.7) Lymphocytes # (Auto) 1.0 x10^3/uL (1.0-4.8) 1.4 x10^3/uL (1.0-4.8) Monocytes # (Auto) 1.4 x10^3/uL (0.0-1.1) 1.0 x10^3/uL (0.0-1.1) Eosinophils # (Auto) 0.1 x10^3/uL (0.0-0.7) 0.1 x10^3/uL (0.0-0.7) Basophils # (Auto) 0.0 x10^3/uL (0.0-0.2) 0.1 x10^3/uL (0.0-0.2) Segmented Neutrophils % 88 % (35-66) Band Neutrophils % 3 % (0-9) Lymphocytes % 3 % (24-48) Monocytes % 6 % (0-10) Platelet Estimate Adequate (ADEQUATE) Giant Platelets Occ Erythrocyte Sedimentation Rate 45 (0-15) Prothrombin Time 14.0 SEC (11.7-14.0) Prothromb Time International Ratio 1.1 (0.8-1.1) Activated Partial Thromboplast Time 24 SEC (24-38) D-Dimer (Alejandra) 2.60 ug/mlFEU (0.00-0.50) Sodium Level 137 mmol/L (136-145) 134 mmol/L (136-145) Potassium Level 4.4 mmol/L (3.5-5.1) 4.4 mmol/L (3.5-5.1) Chloride Level 100 mmol/L (98-107) 101 mmol/L (98-107) Carbon Dioxide Level 31 mmol/L (21-32) 26 mmol/L (21-32) Anion Gap 6 (6-14) 7 (6-14) Blood Urea Nitrogen 18 mg/dL (8-26) 12 mg/dL (8-26) Creatinine 0.8 mg/dL (0.7-1.3) 0.8 mg/dL (0.7-1.3) Estimated GFR (Cockcroft-Gault) 115.1 115.1 BUN/Creatinine Ratio 23 (6-20) 15 (6-20) Glucose Level 99 mg/dL (70-99) 105 mg/dL (70-99) Lactic Acid Level 0.8 mmol/L (0.4-2.0) 1.2 mmol/L (0.4-2.0) Calcium Level 8.5 mg/dL (8.5-10.1) 7.7 mg/dL (8.5-10.1) Magnesium Level 2.0 mg/dL (1.8-2.4) Total Bilirubin 0.9 mg/dL (0.2-1.0) 0.8 mg/dL (0.2-1.0) Aspartate Amino Transf (AST/SGOT) 81 U/L (15-37) 40 U/L (15-37) Alanine Aminotransferase (ALT/SGPT) 180 U/L (16-63) 110 U/L (16-63) Alkaline Phosphatase 190 U/L (46-116) 150 U/L (46-116) Creatine Kinase 14 U/L (39-308) Troponin I Quantitative < 0.017 ng/mL (0.000-0.055) < 0.017 ng/mL (0.000-0.055) EU-Jwp-X-Type Natriuretic Peptide 47 pg/mL (0-124) Total Protein 5.7 g/dL (6.4-8.2) 5.4 g/dL (6.4-8.2) Albumin 1.9 g/dL (3.4-5.0) 1.4 g/dL (3.4-5.0) Albumin/Globulin Ratio 0.5 (1.0-1.7) 0.4 (1.0-1.7) Lipase 88 U/L (73-393) Procalcitonin 0.43 ng/mL (0.00-0.10) Thyroid Stimulating Hormone (TSH) 1.091 uIU/mL (0.358-3.74) Urine Collection Type Unknown Urine Color Yellow Urine Clarity Clear Urine pH 6.5 Urine Specific [place] >=1.030 Urine Protein Negative mg/dL (NEG-TRACE) Urine Glucose (UA) Negative mg/dL (NEG) Urine Ketones (Stick) Negative mg/dL (NEG) Urine Blood Negative (NEG) Urine Nitrite Negative (NEG) Urine Bilirubin Negative (NEG) Urine Urobilinogen Dipstick 1.0 mg/dL (0.2 mg/dL) Urine Leukocyte Esterase Negative (NEG) Urine RBC 0 /HPF (0-2) Urine WBC 0 /HPF (0-4) Urine Bacteria 0 /HPF (0-FEW) Urine Mucus Slight /LPF Urine Opiates Screen Pos (NEG) Urine Methadone Screen Neg (NEG) Urine Barbiturates Neg (NEG) Urine Phencyclidine Screen Neg (NEG) Urine Amphetamine/Methamphetamine Neg (NEG) Urine Benzodiazepines Screen Pos (NEG) Urine Cocaine Screen Neg (NEG) Urine Cannabinoids Screen Neg (NEG) Urine Ethyl Alcohol Neg (NEG) Micro CTA chest Impression: 1. Anterior mediastinal abscess with additional abscess extending into the left anterior chest wall musculature through the left first costomanubrial junction, concerning for septic arthritis. 2. Large left empyema. 3. New complete collapse of the left lower lobe and partial atelectasis of the left upper lobe. 4. Small pericardial effusion, difficult to exclude infection given adjacent findings Objective Assessment Leukocytosis - better Empyema s/p chest tube 03/05 Left chest abscess s/p drain 03/05 Transaminitis - some better Protein malnutrition H/o Meth use H/o Staph infection H/o Hep C - not treated Plan Plan of Care D/cont Vanc begin Dapto - with receiving high dose/? if reach therapeutic range vs GO Cont Zosyn/Zyvox 03/05 F/u labs - am and cults Await ECHO Monitor R knee - stable May need GI eval as Hep C has not been treated CRISTY GASPAR MD Mar 06, 2019 08:19
--- NOTE | 2019-03-06 08:43 | NUR ---
SS following for discharge planning. SS reviewed pt chart. Pt is self pay pt. HCFS following for self pay status. Pt is from home and is currently on room air. No discharge needs noted at this time. SS will continue to follow for discharge planning.
[2019-03-06] MEDS ORDERED: HYDROcodone/APAP 5/325MG 1 TAB TABLET PO PRN (08:45)
--- NOTE | 2019-03-06 09:56 | PDOC ---
PROGRESS NOTES Chief Complaint Chief Complaint Leukocytosis - better Empyema s/p chest tube 03/05 Left chest abscess s/p drain 03/05 Transaminitis - some better Protein malnutrition H/o Meth use H/o Staph infection H/o Hep C - not treated small pericardial effusion History of Present Illness History of Present Illness He has no complaints, sore from the 2 chest tubes Seen in icu, ID pulmo etc consults Temp 99.5 So -so appetite Chart reviewed IR did the chest tubes He is tachy Hep C not treated some arm tatooes PL:AN: Cont big gun abx and follow cxs - ID on case COnt current diet monitor for further fevers TTE Inc pain meds Vitals Vitals Vital Signs Date Time Temp Pulse Resp B/P (MAP) Pulse Ox O2 Delivery O2 Flow Rate FiO2 03/06/19 09:00 98 15 140/73 (95) Room Air 03/06/19 08:00 99.2 99 99.2 03/05/19 13:32 2.0 Physical Exam Physical Exam CONSTITUTIONAL: He is a pleasant gentleman. He is cooperative, he is in no acute distress. HEENT: Pupils equal and reactive with normal conjunctivae. Oral cavity, pharynx is clear without signs of petechiae. NECK: Supple. Good range of motion. LUNGS: Clear to auscultation bilaterally.Left sided CT and left ant chest drain HEART: S1, S2, without gross murmur. ABDOMEN: Soft, nontender, nondistended, positive bowel sounds. EXTREMITIES: Without clubbing, cyanosis. His right knee is without warmth or gross erythema. Notes no gross effusion. EXTREMITIES: Without clubbing, cyanosis. He has some trace edema. SKIN: Without generalized rash, but he does have multiple areas of scabs where he has been picked at. He has multiple tattoos as well. There is no gross erythema. NEUROLOGIC: He is alert and oriented, cooperative. PSYCHIATRIC: Affect is appropriate. General: Alert, Oriented X3, Cooperative, No acute distress Heart: Regular rate, Normal S1, Normal S2 Abdomen: Soft, Other (tender to left abd and back) Extremities: No clubbing, No cyanosis Skin: Other (3x3cm area of fluctuance and tenderness without significant erythema on the left anterior chest wall) Labs LABS Laboratory Tests Test 03/05/19 15:10 03/05/19 19:45 03/06/19 04:20 Lactic Acid Level 1.2 mmol/L (0.4-2.0) Troponin I Quantitative < 0.017 ng/mL (0.000-0.055) Urine Collection Type Unknown Urine Color Yellow Urine Clarity Clear Urine pH 6.5 Urine Specific Wayne >=1.030 Urine Protein Negative mg/dL (NEG-TRACE) Urine Glucose (UA) Negative mg/dL (NEG) Urine Ketones (Stick) Negative mg/dL (NEG) Urine Blood Negative (NEG) Urine Nitrite Negative (NEG) Urine Bilirubin Negative (NEG) Urine Urobilinogen Dipstick 1.0 mg/dL (0.2 mg/dL) Urine Leukocyte Esterase Negative (NEG) Urine RBC 0 /HPF (0-2) Urine WBC 0 /HPF (0-4) Urine Bacteria 0 /HPF (0-FEW) Urine Mucus Slight /LPF Urine Opiates Screen Pos (NEG) Urine Methadone Screen Neg (NEG) Urine Barbiturates Neg (NEG) Urine Phencyclidine Screen Neg (NEG) Urine Amphetamine/Methamphetamine Neg (NEG) Urine Benzodiazepines Screen Pos (NEG) Urine Cocaine Screen Neg (NEG) Urine Cannabinoids Screen Neg (NEG) Urine Ethyl Alcohol Neg (NEG) White Blood Count 16.2 x10^3/uL (4.0-11.0) Red Blood Count 4.03 x10^6/uL (4.30-5.70) Hemoglobin 11.9 g/dL (13.0-17.5) Hematocrit 35.8 % (39.0-53.0) Mean Corpuscular Volume 89 fL (79-100) Mean Corpuscular Hemoglobin 30 pg (25-35) Mean Corpuscular Hemoglobin Concent 33 g/dL (31-37) Red Cell Distribution Width 13.1 % (11.5-14.5) Platelet Count 459 x10^3/uL (140-400) Neutrophils (%) (Auto) 84 % (31-73) Lymphocytes (%) (Auto) 8 % (24-48) Monocytes (%) (Auto) 7 % (0-9) Eosinophils (%) (Auto) 1 % (0-3) Basophils (%) (Auto) 0 % (0-3) Neutrophils # (Auto) 13.6 x10^3/uL (1.8-7.7) Lymphocytes # (Auto) 1.4 x10^3/uL (1.0-4.8) Monocytes # (Auto) 1.0 x10^3/uL (0.0-1.1) Eosinophils # (Auto) 0.1 x10^3/uL (0.0-0.7) Basophils # (Auto) 0.1 x10^3/uL (0.0-0.2) Sodium Level 134 mmol/L (136-145) Potassium Level 4.4 mmol/L (3.5-5.1) Chloride Level 101 mmol/L (98-107) Carbon Dioxide Level 26 mmol/L (21-32) Anion Gap 7 (6-14) Blood Urea Nitrogen 12 mg/dL (8-26) Creatinine 0.8 mg/dL (0.7-1.3) Estimated GFR (Cockcroft-Gault) 115.1 BUN/Creatinine Ratio 15 (6-20) Glucose Level 105 mg/dL (70-99) Calcium Level 7.7 mg/dL (8.5-10.1) Total Bilirubin 0.8 mg/dL (0.2-1.0) Aspartate Amino Transf (AST/SGOT) 40 U/L (15-37) Alanine Aminotransferase (ALT/SGPT) 110 U/L (16-63) Alkaline Phosphatase 150 U/L (46-116) Total Protein 5.4 g/dL (6.4-8.2) Albumin 1.4 g/dL (3.4-5.0) Albumin/Globulin Ratio 0.4 (1.0-1.7) Review of Systems Review of Systems chest sore from chest tubes,. febrile, no soa, no nausea, no abd pain, weak, poor appetite Assessment and Plan Assessmemt and Plan Problems Medical Problems: (1) Chest wall abscess Status: Acute (2) Mediastinal abscess Status: Acute (3) Pleural effusion Status: Acute Comment Review of Relevant I have reviewed the following items nancy (where applicable) has been applied. Labs Laboratory Tests Test 03/05/19 09:10 03/05/19 15:10 03/05/19 19:45 03/06/19 04:20 White Blood Count 19.9 x10^3/uL (4.0-11.0) 16.2 x10^3/uL (4.0-11.0) Red Blood Count 4.53 x10^6/uL (4.30-5.70) 4.03 x10^6/uL (4.30-5.70) Hemoglobin 13.6 g/dL (13.0-17.5) 11.9 g/dL (13.0-17.5) Hematocrit 40.3 % (39.0-53.0) 35.8 % (39.0-53.0) Mean Corpuscular Volume 89 fL (79-100) 89 fL (79-100) Mean Corpuscular Hemoglobin 30 pg (25-35) 30 pg (25-35) Mean Corpuscular Hemoglobin Concent 34 g/dL (31-37) 33 g/dL (31-37) Red Cell Distribution Width 13.1 % (11.5-14.5) 13.1 % (11.5-14.5) Platelet Count 483 x10^3/uL (140-400) 459 x10^3/uL (140-400) Neutrophils (%) (Auto) 87 % (31-73) 84 % (31-73) Lymphocytes (%) (Auto) 5 % (24-48) 8 % (24-48) Monocytes (%) (Auto) 7 % (0-9) 7 % (0-9) Eosinophils (%) (Auto) 0 % (0-3) 1 % (0-3) Basophils (%) (Auto) 0 % (0-3) 0 % (0-3) Neutrophils # (Auto) 17.3 x10^3/uL (1.8-7.7) 13.6 x10^3/uL (1.8-7.7) Lymphocytes # (Auto) 1.0 x10^3/uL (1.0-4.8) 1.4 x10^3/uL (1.0-4.8) Monocytes # (Auto) 1.4 x10^3/uL (0.0-1.1) 1.0 x10^3/uL (0.0-1.1) Eosinophils # (Auto) 0.1 x10^3/uL (0.0-0.7) 0.1 x10^3/uL (0.0-0.7) Basophils # (Auto) 0.0 x10^3/uL (0.0-0.2) 0.1 x10^3/uL (0.0-0.2) Segmented Neutrophils % 88 % (35-66) Band Neutrophils % 3 % (0-9) Lymphocytes % 3 % (24-48) Monocytes % 6 % (0-10) Platelet Estimate Adequate (ADEQUATE) Giant Platelets Occ Erythrocyte Sedimentation Rate 45 (0-15) Prothrombin Time 14.0 SEC (11.7-14.0) Prothromb Time International Ratio 1.1 (0.8-1.1) Activated Partial Thromboplast Time 24 SEC (24-38) D-Dimer (Alejandra) 2.60 ug/mlFEU (0.00-0.50) Sodium Level 137 mmol/L (136-145) 134 mmol/L (136-145) Potassium Level 4.4 mmol/L (3.5-5.1) 4.4 mmol/L (3.5-5.1) Chloride Level 100 mmol/L (98-107) 101 mmol/L (98-107) Carbon Dioxide Level 31 mmol/L (21-32) 26 mmol/L (21-32) Anion Gap 6 (6-14) 7 (6-14) Blood Urea Nitrogen 18 mg/dL (8-26) 12 mg/dL (8-26) Creatinine 0.8 mg/dL (0.7-1.3) 0.8 mg/dL (0.7-1.3) Estimated GFR (Cockcroft-Gault) 115.1 115.1 BUN/Creatinine Ratio 23 (6-20) 15 (6-20) Glucose Level 99 mg/dL (70-99) 105 mg/dL (70-99) Lactic Acid Level 0.8 mmol/L (0.4-2.0) 1.2 mmol/L (0.4-2.0) Calcium Level 8.5 mg/dL (8.5-10.1) 7.7 mg/dL (8.5-10.1) Magnesium Level 2.0 mg/dL (1.8-2.4) Total Bilirubin 0.9 mg/dL (0.2-1.0) 0.8 mg/dL (0.2-1.0) Aspartate Amino Transf (AST/SGOT) 81 U/L (15-37) 40 U/L (15-37) Alanine Aminotransferase (ALT/SGPT) 180 U/L (16-63) 110 U/L (16-63) Alkaline Phosphatase 190 U/L (46-116) 150 U/L (46-116) Creatine Kinase 14 U/L (39-308) Troponin I Quantitative < 0.017 ng/mL (0.000-0.055) < 0.017 ng/mL (0.000-0.055) NJ-Xzu-[id number]-Type Natriuretic Peptide 47 pg/mL (0-124) Total Protein 5.7 g/dL (6.4-8.2) 5.4 g/dL (6.4-8.2) Albumin 1.9 g/dL (3.4-5.0) 1.4 g/dL (3.4-5.0) Albumin/Globulin Ratio 0.5 (1.0-1.7) 0.4 (1.0-1.7) Lipase 88 U/L (73-393) Procalcitonin 0.43 ng/mL (0.00-0.10) Thyroid Stimulating Hormone (TSH) 1.091 uIU/mL (0.358-3.74) Urine Collection Type Unknown Urine Color Yellow Urine Clarity Clear Urine pH 6.5 Urine Specific Wayne >=1.030 Urine Protein Negative mg/dL (NEG-TRACE) Urine Glucose (UA) Negative mg/dL (NEG) Urine Ketones (Stick) Negative mg/dL (NEG) Urine Blood Negative (NEG) Urine Nitrite Negative (NEG) Urine Bilirubin Negative (NEG) Urine Urobilinogen Dipstick 1.0 mg/dL (0.2 mg/dL) Urine Leukocyte Esterase Negative (NEG) Urine RBC 0 /HPF (0-2) Urine WBC 0 /HPF (0-4) Urine Bacteria 0 /HPF (0-FEW) Urine Mucus Slight /LPF Urine Opiates Screen Pos (NEG) Urine Methadone Screen Neg (NEG) Urine Barbiturates Neg (NEG) Urine Phencyclidine Screen Neg (NEG) Urine Amphetamine/Methamphetamine Neg (NEG) Urine Benzodiazepines Screen Pos (NEG) Urine Cocaine Screen Neg (NEG) Urine Cannabinoids Screen Neg (NEG) Urine Ethyl Alcohol Neg (NEG) Laboratory Tests Test 03/05/19 15:10 03/05/19 19:45 03/06/19 04:20 Lactic Acid Level 1.2 mmol/L (0.4-2.0) Troponin I Quantitative < 0.017 ng/mL (0.000-0.055) Urine Collection Type Unknown Urine Color Yellow Urine Clarity Clear Urine pH 6.5 Urine Specific Wayne >=1.030 Urine Protein Negative mg/dL (NEG-TRACE) Urine Glucose (UA) Negative mg/dL (NEG) Urine Ketones (Stick) Negative mg/dL (NEG) Urine Blood Negative (NEG) Urine Nitrite Negative (NEG) Urine Bilirubin Negative (NEG) Urine Urobilinogen Dipstick 1.0 mg/dL (0.2 mg/dL) Urine Leukocyte Esterase Negative (NEG) Urine RBC 0 /HPF (0-2) Urine WBC 0 /HPF (0-4) Urine Bacteria 0 /HPF (0-FEW) Urine Mucus Slight /LPF Urine Opiates Screen Pos (NEG) Urine Methadone Screen Neg (NEG) Urine Barbiturates Neg (NEG) Urine Phencyclidine Screen Neg (NEG) Urine Amphetamine/Methamphetamine Neg (NEG) Urine Benzodiazepines Screen Pos (NEG) Urine Cocaine Screen Neg (NEG) Urine Cannabinoids Screen Neg (NEG) Urine Ethyl Alcohol Neg (NEG) White Blood Count 16.2 x10^3/uL (4.0-11.0) Red Blood Count 4.03 x10^6/uL (4.30-5.70) Hemoglobin 11.9 g/dL (13.0-17.5) Hematocrit 35.8 % (39.0-53.0) Mean Corpuscular Volume 89 fL (79-100) Mean Corpuscular Hemoglobin 30 pg (25-35) Mean Corpuscular Hemoglobin Concent 33 g/dL (31-37) Red Cell Distribution Width 13.1 % (11.5-14.5) Platelet Count 459 x10^3/uL (140-400) Neutrophils (%) (Auto) 84 % (31-73) Lymphocytes (%) (Auto) 8 % (24-48) Monocytes (%) (Auto) 7 % (0-9) Eosinophils (%) (Auto) 1 % (0-3) Basophils (%) (Auto) 0 % (0-3) Neutrophils # (Auto) 13.6 x10^3/uL (1.8-7.7) Lymphocytes # (Auto) 1.4 x10^3/uL (1.0-4.8) Monocytes # (Auto) 1.0 x10^3/uL (0.0-1.1) Eosinophils # (Auto) 0.1 x10^3/uL (0.0-0.7) Basophils # (Auto) 0.1 x10^3/uL (0.0-0.2) Sodium Level 134 mmol/L (136-145) Potassium Level 4.4 mmol/L (3.5-5.1) Chloride Level 101 mmol/L (98-107) Carbon Dioxide Level 26 mmol/L (21-32) Anion Gap 7 (6-14) Blood Urea Nitrogen 12 mg/dL (8-26) Creatinine 0.8 mg/dL (0.7-1.3) Estimated GFR (Cockcroft-Gault) 115.1 BUN/Creatinine Ratio 15 (6-20) Glucose Level 105 mg/dL (70-99) Calcium Level 7.7 mg/dL (8.5-10.1) Total Bilirubin 0.8 mg/dL (0.2-1.0) Aspartate Amino Transf (AST/SGOT) 40 U/L (15-37) Alanine Aminotransferase (ALT/SGPT) 110 U/L (16-63) Alkaline Phosphatase 150 U/L (46-116) Total Protein 5.4 g/dL (6.4-8.2) Albumin 1.4 g/dL (3.4-5.0) Albumin/Globulin Ratio 0.4 (1.0-1.7) Microbiology 03/05/19 Blood Culture - Final, Complete Medications Current Medications Sodium Chloride 1,000 ml @ 1,000 mls/hr Q1H IV Last administered on 03/05/19at 08:42; Start 03/05/19 at 08:18; Stop 03/05/19 at 09:17; Status DC Morphine Sulfate (Morphine Sulfate) 4 mg 1X ONCE IV Last administered on 03/05/19at 08:42; Start 03/05/19 at 09:00; Stop 03/05/19 at 09:01; Status DC Ondansetron HCl (Zofran) 4 mg 1X ONCE IV Last administered on 03/05/19at 08:42; Start 03/05/19 at 09:00; Stop 03/05/19 at 09:01; Status DC Iohexol (Omnipaque 350 Mg/ml) 100 ml 1X ONCE IV Last administered on 03/05/19at 09:05; Start 03/05/19 at 08:30; Stop 03/05/19 at 08:32; Status DC Info (CONTRAST GIVEN -- Rx MONITORING) 1 each PRN DAILY PRN MC SEE COMMENTS; Start 03/05/19 at 08:45; Stop 03/07/19 at 08:44 Hydromorphone HCl (Dilaudid) 1 mg 1X ONCE IV Last administered on 03/05/19at 09:05; Start 03/05/19 at 09:15; Stop 03/05/19 at 09:16; Status DC Sodium Chloride 1,000 ml @ 1,000 mls/hr 1X ONCE IV Last administered on 03/05/19at 09:54; Start 03/05/19 at 09:30; Stop 03/05/19 at 10:29; Status DC Piperacillin Sod/ Tazobactam Sod 3.375 gm/Sodium Chloride 50 ml @ 100 mls/hr 1X ONCE IV Last administered on 03/05/19at 09:54; Start 03/05/19 at 09:30; Stop 03/05/19 at 09:59; Status DC Vancomycin HCl 250 ml @ 250 mls/hr 1X ONCE IV ; Start 03/05/19 at 09:30; Stop 03/05/19 at 10:29; Status UNV Vancomycin HCl 2 gm/Sodium Chloride 500 ml @ 250 mls/hr 1X ONCE IV Last administered on 03/05/19at 10:35; Start 03/05/19 at 10:00; Stop 03/05/19 at 11:59; Status DC Hydromorphone HCl (Dilaudid) 1 mg 1X ONCE IV Last administered on 03/05/19at 10:35; Start 03/05/19 at 10:30; Stop 03/05/19 at 10:31; Status DC Sodium Chloride 1,000 ml @ 150 mls/hr Q6H40M IV Last administered on 03/05/19at 12:20; Start 03/05/19 at 10:26; Stop 03/05/19 at 20:22; Status DC Acetaminophen (Tylenol) 650 mg PRN Q6HRS PRN PO Headaches, Temp > 101.5'; Start 03/05/19 at 10:45 Lorazepam (Ativan Inj) 0.5 mg PRN Q6HRS PRN IV ANXIETY / AGITATION; Start 03/05/19 at 10:45 Ondansetron HCl (Zofran) 4 mg PRN Q6HRS PRN IV NAUSEA/VOMITING; Start 03/05/19 at 10:45 Prochlorperazine Edisylate (Compazine) 5 mg PRN Q6HRS PRN IV NAUSEA/VOMITING; Start 03/05/19 at 10:45 Prochlorperazine (Compazine) 25 mg PRN Q12HR PRN ME NAUSEA/VOMITING; Start 03/05/19 at 10:45 Al Hydroxide/Mg Hydroxide (Mylanta Plus Xs) 30 ml PRN Q3HRS PRN PO HEARTBURN / GAS; Start 03/05/19 at 10:45 Calcium Carbonate/ Glycine (Tums) 500 mg PRN Q3HRS PRN PO HEARTBURN / GAS; Start 03/05/19 at 10:45 Famotidine (Pepcid Vial) 20 mg BID IVP Last administered on 03/06/19at 07:57; Start 03/05/19 at 12:00 Info (Icu Electrolyte Protocol) 1 ea DAILY MC ; Start 03/06/19 at 09:00 Heparin Sodium (Porcine) (Heparin Sodium) 5,000 unit Q12HR SQ Last administered on 03/06/19at 07:56; Start 03/05/19 at 21:00 Sodium Chloride (Normal Saline Flush) 3 ml QSHIFT PRN IV AFTER MEDS AND BLOOD DRAWS; Start 03/05/19 at 10:45 Sodium Chloride 1,000 ml @ 100 mls/hr Q10H IV Last administered on 03/06/19at 07:56; Start 03/05/19 at 10:39 Acetaminophen/ Hydrocodone Bitart (Lortab 5/325) 1 tab PRN Q4HRS PRN PO MILD PAIN 1-3; Start 03/05/19 at 10:45 Acetaminophen/ Hydrocodone Bitart (Lortab 5/325) 2 tab PRN Q4HRS PRN PO MODERATE PAIN, SEVERE PAIN; Start 03/05/19 at 10:45 Morphine Sulfate (Morphine Sulfate) 2 mg PRN Q1HR PRN IV PAIN; Start 03/05/19 at 10:45 Senna/Docusate Sodium (Senna Plus) 1 tab BID PO Last administered on 03/06/19at 07:56; Start 03/05/19 at 21:00 Docusate Sodium (Colace) 100 mg BID PO Last administered on 03/06/19at 07:56; Start 03/05/19 at 12:00 Bisacodyl (Dulcolax Supp) 10 mg PRN DAILY PRN ME CONSTIPATION; Start 03/05/19 at 10:45 Sodium Chloride 1,000 ml @ 2,550 mls/hr Q24M IV ; Start 03/05/19 at 10:48; Stop 03/05/19 at 11:48; Status DC Sodium Chloride 500 ml @ 1,000 mls/hr PRN Q30MIN PRN IV PER PROTOCOL; Start 03/05/19 at 11:00 Vancomycin HCl (Vanco Per Pharmacy) 1 each PRN DAILY PRN MC SEE COMMENTS Last administered on 03/05/19at 13:45; Start 03/05/19 at 11:00; Stop 03/06/19 at 08:18; Status DC Piperacillin Sod/ Tazobactam Sod 4.5 gm/Sodium Chloride 100 ml @ 200 mls/hr Q6HRS IV ; Start 03/05/19 at 12:00; Stop 03/05/19 at 11:59; Status DC Norepinephrine Bitartrate 250 ml @ 0 mls/hr CONT PRN IV PER PROTOCOL; Start 03/05/19 at 11:00 Dobutamine HCl/ Dextrose 250 ml @ 0 mls/hr CONT PRN IV PER PROTOCOL; Start 03/05/19 at 11:00 Vancomycin HCl 2 gm/Sodium Chloride 500 ml @ 250 mls/hr 1X ONCE IV ; Start 03/05/19 at 12:00; Stop 03/05/19 at 13:59; Status Cancel Piperacillin Sod/ Tazobactam Sod 4.5 gm/Sodium Chloride 100 ml @ 200 mls/hr Q6HRS IV Last administered on 03/06/19at 06:01; Start 03/05/19 at 16:00 Linezolid/Dextrose 300 ml @ 300 mls/hr Q12HR IV Last administered on 03/06/19at 07:56; Start 03/05/19 at 13:00 Lidocaine/Sodium Bicarbonate (Buffered Lidocaine 1%) 3 ml STK-MED ONCE .ROUTE ; Start 03/05/19 at 12:12; Stop 03/05/19 at 12:13; Status DC Midazolam HCl (Versed) 2 mg STK-MED ONCE .ROUTE ; Start 03/05/19 at 12:13; Stop 03/05/19 at 12:13; Status DC Fentanyl Citrate (Fentanyl 2ml Vial) 100 mcg STK-MED ONCE .ROUTE ; Start 03/05/19 at 12:14; Stop 03/05/19 at 12:14; Status DC Lidocaine/Sodium Bicarbonate (Buffered Lidocaine 1%) 3 ml STK-MED ONCE .ROUTE ; Start 03/05/19 at 13:05; Stop 03/05/19 at 13:05; Status DC Hydromorphone HCl (Dilaudid) 1.5 mg PRN Q3HRS PRN IVP SEVERE PAIN Last administered on 03/06/19at 08:42; Start 03/05/19 at 13:30 Lidocaine/Sodium Bicarbonate (Buffered Lidocaine 1%) 3 ml 1X ONCE IJ Last administered on 03/05/19at 13:32; Start 03/05/19 at 13:30; Stop 03/05/19 at 13:31; Status DC Midazolam HCl (Versed) 2 mg 1X ONCE IV Last administered on 03/05/19at 13:32; Start 03/05/19 at 13:30; Stop 03/05/19 at 13:31; Status DC Fentanyl Citrate (Fentanyl 2ml Vial) 100 mcg 1X ONCE IV Last administered on 03/05/19at 13:32; Start 03/05/19 at 13:30; Stop 03/05/19 at 13:31; Status DC Vancomycin HCl 1.5 gm/Sodium Chloride 500 ml @ 250 mls/hr Q8H IV Last administered on 03/06/19at 03:06; Start 03/05/19 at 19:00; Stop 03/06/19 at 08:18; Status DC Vancomycin HCl (Vancomycin Trough Level) 1 each 1X ONCE MC ; Start 03/06/19 at 10:30; Stop 03/06/19 at 08:21; Status DC Daptomycin 600 mg/ Sodium Chloride 50 ml @ 100 mls/hr Q24H IV ; Start 03/06/19 at 10:00 Acetaminophen/ Hydrocodone Bitart (Lortab 5/325) 1 tab PRN Q4HRS PRN PO PAIN; Start 03/06/19 at 08:45 Vitals/I & O Vital Sign - Last 24 Hours 03/05/19 03/05/19 03/05/19 03/05/19 09:58 10:11 10:33 11:03 Pulse 106 98 97 91 Resp 22 20 20 20 B/P (MAP) 124/73 (90) 127/71 (89) 129/72 (91) 124/70 (88) Pulse Ox 97 96 97 97 O2 Delivery Room Air Room Air Room Air Room Air 03/05/19 03/05/19 03/05/19 03/05/19 11:30 11:35 11:45 12:00 Temp 98.3 98.3 Pulse 94 92 96 Resp 22 B/P (MAP) 104/67 (79) 119/71 (87) 112/68 (83) Pulse Ox 97 97 98 O2 Delivery Room Air Room Air Room Air Room Air 03/05/19 03/05/19 03/05/19 03/05/19 12:15 13:00 13:05 13:10 Pulse 92 96 98 105 Resp 20 18 23 16 B/P (MAP) 124/74 (91) 128/74 (92) Pulse Ox 97 100 97 O2 Delivery Room Air Room Air Nasal Cannula Nasal Cannula O2 Flow Rate 2.0 2.0 03/05/19 03/05/19 03/05/19 03/05/19 13:14 13:19 13:29 13:32 Pulse 107 95 98 Resp 18 22 20 20 Pulse Ox 97 99 99 99 O2 Delivery Nasal Cannula Nasal Cannula Nasal Cannula Nasal Cannula O2 Flow Rate 2.0 2.0 2.0 2.0 03/05/19 03/05/19 03/05/19 03/05/19 13:53 14:00 15:00 15:42 Pulse 96 102 Resp 22 20 13 14 B/P (MAP) 130/74 (92) 119/64 (82) Pulse Ox 96 96 94 94 O2 Delivery Nasal Cannula Room Air Room Air Room Air 03/05/19 03/05/19 03/05/19 03/05/19 16:00 16:00 17:00 17:17 Temp 98.6 98.6 Pulse 60 60 Resp 19 17 32 B/P (MAP) 114/77 (89) 113/76 (88) Pulse Ox 100 98 96 O2 Delivery Room Air Room Air Room Air Room Air 03/05/19 03/05/19 03/05/19 03/05/19 18:00 19:00 20:00 20:00 Pulse 57 102 100 Resp 17 15 17 B/P (MAP) 116/66 (83) 132/69 (90) 118/70 (86) Pulse Ox 99 99 99 O2 Delivery Room Air Room Air Room Air Room Air 03/05/19 03/05/19 03/05/19 03/05/19 20:11 21:00 21:05 22:00 Pulse 100 105 Resp 20 19 20 16 B/P (MAP) 131/69 (89) 130/67 (88) Pulse Ox 99 99 O2 Delivery Nasal Cannula Room Air Room Air Room Air 03/05/19 03/05/19 03/05/19 03/05/19 23:00 23:15 23:58 23:59 Pulse 103 Resp 17 24 17 B/P (MAP) 131/65 (87) Pulse Ox 99 O2 Delivery Room Air Room Air Room Air Room Air 03/06/19 03/06/19 03/06/19 03/06/19 00:00 01:00 02:00 03:00 Temp 99.0 99.0 Pulse 110 106 104 106 Resp 18 16 16 18 B/P (MAP) 127/60 (82) 126/69 (88) 135/71 (92) 135/75 (95) Pulse Ox 99 99 99 99 O2 Delivery Room Air Room Air Room Air Room Air 03/06/19 03/06/19 03/06/19 03/06/19 03:06 03:51 04:00 04:00 Pulse 105 Resp 18 16 B/P (MAP) 124/64 (84) Pulse Ox 99 O2 Delivery Room Air Room Air Room Air Room Air 03/06/19 03/06/19 03/06/19 03/06/19 05:00 06:00 06:01 07:00 Temp 99.5 99.5 Pulse 102 101 102 Resp 16 15 19 15 B/P (MAP) 133/73 (93) 133/77 (95) 134/73 (93) Pulse Ox 99 100 O2 Delivery Room Air Room Air Room Air 03/06/19 03/06/19 03/06/19 08:00 08:00 09:00 Temp 99.2 99.2 Pulse 98 98 Resp 15 15 B/P (MAP) 133/77 (95) 140/73 (95) Pulse Ox 99 O2 Delivery Room Air Room Air Room Air Intake and Output 03/05/19 03/05/19 03/06/19 14:59 22:59 06:59 Intake Total 1850 ml 1288 ml 950 ml Output Total 1736 ml 868 ml 921 ml Balance 114 ml 420 ml 29 ml CANDIDO العراقي MD Mar 06, 2019 09:56
--- NOTE | 2019-03-06 10:12 | CARD ---
MR#: [id number] Date of Study: 03/06/2019 Ordering Physician: BECKI JEFF, Referring Physician: BECKI JEFF, Tech: Jeimy Gaona [facility] APPROVED REPORT EXAM: Two-dimensional and M-mode echocardiogram with Doppler and color Doppler. Other Information Quality : AverageHR: 98bpm Rhythm : NSRTechnically limited study due to multiple chest tubes. INDICATION Pericardial Effusion 2D DIMENSIONS RVDd2.9 (2.9-3.5cm)Left Atrium(2D)2.7 (1.6-4.0cm) IVSd1.1 (0.7-1.1cm)Aortic Root(2D)3.2 (2.0-3.7cm) LVDd4.0 (3.9-5.9cm)LVOT Diameter2.1 (1.8-2.4cm) PWd1.1 (0.7-1.1cm)LVDs2.9 (2.5-4.0cm) FS (%) 28.1 %SV37.9 ml LVEF(%)55.0 (>50%) M-Mode DIMENSIONS Left Atrium(MM)3.08 (2.5-4.0cm)Aortic Root3.62 (2.2-3.7cm) Aortic Valve AoV Peak Juan F.130.1cm/sAoV VTI19.6cm AO Peak GR.6.8mmHgLVOT VTI 15.66cm AO Mean GR.4mmHgAVA (VMAX)2.70cm2 JOAQUIM (VTI)2.70cm2 Mitral Valve MV E Jnuubkdx98.7cm/sMV DECEL ZVBM150rw MV A Zbxlgocn27.3cm/sE/A Ratio1.4 MV A [id number] TDI Lateral E' P. V13.13cm/sMedial E' P. V11.46cm/s E/Lateral E'6.1E/Medial E'7.0 Tricuspid Valve TR P. Wwctvuaz126og/sRAP OVJKASOP8bwPm TR Peak Gr.13rjPyJKFV65vjPh LEFT VENTRICLE The left ventricle is normal size. There is normal left ventricular wall thickness. The left ventricu lar systolic function is normal and the ejection fraction is within normal range. The Ejection Fracti on is 55-60%. Septal motion suggestive of conduction defect. The left ventricular diastolic function and filling is normal for age. RIGHT VENTRICLE The right ventricle is normal size. There is normal right ventricular wall thickness. The right ventr icular systolic function is normal. ATRIA The left atrium size is normal. The right atrium size is normal. The interatrial septum is intact wit h no evidence for an atrial septal defect or patent foramen ovale as noted on 2-D or Doppler imaging. AORTIC VALVE Not well visualized. Doppler and Color Flow revealed no significant aortic regurgitation. There is no significant aortic valvular stenosis. There is no aortic valvular vegetation. MITRAL VALVE The mitral valve is normal in structure and function. There is no evidence of mitral valve prolapse. There is no mitral valve stenosis. Doppler and Color Flow revealed no mitral valve regurgitation note d. TRICUSPID VALVE The tricuspid valve is normal in structure and function. Doppler and Color Flow revealed trace tricus pid regurgitation. The PA pressure was estimated at 22 mmHg. There is no tricuspid valve prolapse or vegetation. There is no tricuspid valve stenosis. PULMONIC VALVE The pulmonic valve is not well visualized. GREAT VESSELS The aortic root is normal in size. The ascending aorta is normal in size. The IVC is normal in size a nd collapses >50% with inspiration. PERICARDIAL EFFUSION There is no evidence of significant pericardial effusion. Critical Notification Critical Value: No <Conclusion> Septal motion suggestive of conduction defect. There is no evidence of significant pericardial effusion. The left ventricular systolic function is normal and the ejection fraction is within normal range. Th e Ejection Fraction is 55-60%. Signed by : Roque Rosenthal, Electronically Approved : 03/06/2019 10:11:42
[2019-03-06] MEDS: DAPTOmycin (GENERIC) IVPB 600 MG in IV NORMAL SALINE 50ML 50 ML IV SCH (10:18)
[2019-03-06] MEDS: oxyCODONE/APAP 10/325 1 TAB TABLET PO PRN ×4 (10:21→23:23)
--- NOTE | 2019-03-06 10:33 | RAD ---
Procedure: CT-guided mediastinal drain placement and CT-guided left chest tube placement Clinical Indication: 28-year-old with mediastinal abscess and empyema Sedation: Conscious sedation was administered with a total intraprocedural [id number] time of 31 minutes. The patient was monitored by a qualified independent observer throughout the time of sedation. Please refer to the medical record for exact doses of medications utilized to achieve moderate sedation. Antibiotics: None Sterility: All elements of maximal sterile barrier technique including the use of a cap, mask, sterile gown, sterile gloves, large sterile sheet, appropriate hand hygiene, and 2% chlorhexidine for cutaneous antisepsis (or acceptable alternative antiseptic per current guidelines) were followed for this procedure. If ultrasound guidance was utilized, sterile ultrasound techniques were followed including use of a sterile probe cover. Consent: The procedure was explained in its entirety to the patient or the patients designated senior account representative by a member of the treatment team, including a discussion of the risks, benefits and commonly accepted alternatives to the procedure, as well as the expected consequences of no therapy whatsoever. Discussion of the risks included, but was not limited to, those that are most frequent and those that are rare but possibly severe or life-threatening, as well as the possibility of unforeseen complications. Technique and Findings: Following informed consent, the patient was prepped and draped in usual sterile fashion. Primary CT scan of the area of interest was performed. 1% lidocaine was used to achieve local anesthesia over the left parasternal soft tissues as well as the left lateral chest wall. A small dermatotomy was made in both locations. Under periodic CT surveillance, a 21-gauge micropuncture was advanced into the retrosternal left mediastinal fluid collection and lenora pus was aspirated. This needle was exchanged over wire for a 10 Icelandic pigtail drainage catheter which was sutured to the skin and placed to bulb suction. Also under periodic CT surveillance, a second 21-gauge micropuncture was advanced into the pleural space and thin yellow fluid was aspirated. This needle was exchanged over wire for a 14 Icelandic pigtail drainage catheter which was sutured to the skin and placed to Pleur-evac drainage. Complications: No immediate Impression: 1. CT-guided drain placement within a retrosternal mediastinal abscess as described. Specimen was sent for microbiologic analysis. 2. CT-guided left chest tube. Specimen was again sent for gretchen biologic analysis. PQRS Compliance Statement: One or more of the following individualized dose reduction techniques were utilized for this examination: 1. Automated exposure control 2. Adjustment of the mA and/or kV according to patient size 3. Use of iterative reconstruction technique
--- NOTE | 2019-03-06 11:48 | PDOC ---
Progress Note Subjective Subjective 1.8 L of straw-colored fluid was drained from the left pleural space.A drain was also placed into the anterior mediastinal abscess which is drained approximately 10-20 mL of purulent fluid. The patient is feeling better. He's afebrile. His white count is down to 16.2 from 19.9. His left anterior chest wall has significantly improved from yesterday as it is less swollen. The erythema appears to be resolving and there is no fluctuance and the area is less tender. ROS ROS No nausea No vomiting Mild left chest wall pain No rash Vital Sign Vital Signs Vital Signs Date Time Temp Pulse Resp B/P (MAP) Pulse Ox O2 Delivery O2 Flow Rate FiO2 03/06/19 09:00 98 15 140/73 (95) Room Air 03/06/19 08:00 99.2 99 99.2 03/05/19 13:32 2.0 Physical Exam PHYSICAL EXAM CONSTITUTIONAL: He is a pleasant gentleman. He is cooperative, he is in no acute distress. HEENT: Pupils equal and reactive with normal conjunctivae. NECK: Supple. Good range of motion. LUNGS: Left sided pleural drain HEART: S1, S2, without gross murmur. ABDOMEN: Soft, nontender, nondistended . SKIN: Left anterior chest wall significantly improved. No obvious erythema no swelling no fluctuance, mild tenderness NEUROLOGIC: He is alert and oriented, cooperative. PSYCHIATRIC: Affect is appropriate. Labs Lab Laboratory Tests Test 03/05/19 15:10 03/05/19 19:45 03/06/19 04:20 Lactic Acid Level 1.2 mmol/L (0.4-2.0) Troponin I Quantitative < 0.017 ng/mL (0.000-0.055) Urine Collection Type Unknown Urine Color Yellow Urine Clarity Clear Urine pH 6.5 Urine Specific [place] >=1.030 Urine Protein Negative mg/dL (NEG-TRACE) Urine Glucose (UA) Negative mg/dL (NEG) Urine Ketones (Stick) Negative mg/dL (NEG) Urine Blood Negative (NEG) Urine Nitrite Negative (NEG) Urine Bilirubin Negative (NEG) Urine Urobilinogen Dipstick 1.0 mg/dL (0.2 mg/dL) Urine Leukocyte Esterase Negative (NEG) Urine RBC 0 /HPF (0-2) Urine WBC 0 /HPF (0-4) Urine Bacteria 0 /HPF (0-FEW) Urine Mucus Slight /LPF Urine Opiates Screen Pos (NEG) Urine Methadone Screen Neg (NEG) Urine Barbiturates Neg (NEG) Urine Phencyclidine Screen Neg (NEG) Urine Amphetamine/Methamphetamine Neg (NEG) Urine Benzodiazepines Screen Pos (NEG) Urine Cocaine Screen Neg (NEG) Urine Cannabinoids Screen Neg (NEG) Urine Ethyl Alcohol Neg (NEG) White Blood Count 16.2 x10^3/uL (4.0-11.0) Red Blood Count 4.03 x10^6/uL (4.30-5.70) Hemoglobin 11.9 g/dL (13.0-17.5) Hematocrit 35.8 % (39.0-53.0) Mean Corpuscular Volume 89 fL (79-100) Mean Corpuscular Hemoglobin 30 pg (25-35) Mean Corpuscular Hemoglobin Concent 33 g/dL (31-37) Red Cell Distribution Width 13.1 % (11.5-14.5) Platelet Count 459 x10^3/uL (140-400) Neutrophils (%) (Auto) 84 % (31-73) Lymphocytes (%) (Auto) 8 % (24-48) Monocytes (%) (Auto) 7 % (0-9) Eosinophils (%) (Auto) 1 % (0-3) Basophils (%) (Auto) 0 % (0-3) Neutrophils # (Auto) 13.6 x10^3/uL (1.8-7.7) Lymphocytes # (Auto) 1.4 x10^3/uL (1.0-4.8) Monocytes # (Auto) 1.0 x10^3/uL (0.0-1.1) Eosinophils # (Auto) 0.1 x10^3/uL (0.0-0.7) Basophils # (Auto) 0.1 x10^3/uL (0.0-0.2) Sodium Level 134 mmol/L (136-145) Potassium Level 4.4 mmol/L (3.5-5.1) Chloride Level 101 mmol/L (98-107) Carbon Dioxide Level 26 mmol/L (21-32) Anion Gap 7 (6-14) Blood Urea Nitrogen 12 mg/dL (8-26) Creatinine 0.8 mg/dL (0.7-1.3) Estimated GFR (Cockcroft-Gault) 115.1 BUN/Creatinine Ratio 15 (6-20) Glucose Level 105 mg/dL (70-99) Calcium Level 7.7 mg/dL (8.5-10.1) Total Bilirubin 0.8 mg/dL (0.2-1.0) Aspartate Amino Transf (AST/SGOT) 40 U/L (15-37) Alanine Aminotransferase (ALT/SGPT) 110 U/L (16-63) Alkaline Phosphatase 150 U/L (46-116) Total Protein 5.4 g/dL (6.4-8.2) Albumin 1.4 g/dL (3.4-5.0) Albumin/Globulin Ratio 0.4 (1.0-1.7) Objective Assessment 28-year-old male with a history of recent IVDA who was admitted yesterday with anterior chest wall pain and shortness of breath. He was found to have a large left pleural effusion and a 5 cm anterior mediastinal abscess and some fluid in the subcutaneous tissue in the left anterior chest wall. Drains have been placed in the left pleural space and the mediastinal abscess. He has been started on IV antibiotics. 1.8 L of straw-colored fluid was drained from the left pleural space.A drain was also placed into the anterior mediastinal abscess which is drained approximately 10-20 mL of purulent fluid. The patient is feeling better. He's afebrile. His white count is down to 16.2 from 19.9. His left anterior chest wall has significantly improved from yesterday as it is less swollen. The erythema appears to be resolving and there is no fluctuance and the area is less tender. Clinically much improved compared to yesterday. Plan Plan of Care Continue pleural drainage. Okay to remove pleural tube once output is minimal Keep mediastinal drain for now. We will continue to monitor the output and his clinical status. IV antibiotics as per ID Follow-up culture results No need for surgical drainage or intervention for now. Will continue to closely monitor. Should obtain daily CXRs STEPHANY MILLER MD Mar 06, 2019 11:48
--- NOTE | 2019-03-06 13:11 | PDOC ---
PULMONARY PROGRESS NOTES Subjective PT NOT MORE SOA FEELS BETTER Vitals Vital Signs Date Time Temp Pulse Resp B/P (MAP) Pulse Ox O2 Delivery O2 Flow Rate FiO2 03/06/19 12:22 99 Room Air 2.0 03/06/19 09:00 98 15 140/73 (95) 03/06/19 08:00 99.2 99.2 ROS: No Nausea, No Chest Pain, No Abdominal Pain, No Increase Cough Lungs: Clear Cardiovascular: S1 Abdomen: Soft Neuro Exam: Alert Extremities: No Edema Skin: Warm Labs Laboratory Tests Test 03/05/19 09:10 03/05/19 15:10 03/05/19 19:45 03/06/19 04:20 White Blood Count 19.9 x10^3/uL (4.0-11.0) 16.2 x10^3/uL (4.0-11.0) Red Blood Count 4.53 x10^6/uL (4.30-5.70) 4.03 x10^6/uL (4.30-5.70) Hemoglobin 13.6 g/dL (13.0-17.5) 11.9 g/dL (13.0-17.5) Hematocrit 40.3 % (39.0-53.0) 35.8 % (39.0-53.0) Mean Corpuscular Volume 89 fL (79-100) 89 fL (79-100) Mean Corpuscular Hemoglobin 30 pg (25-35) 30 pg (25-35) Mean Corpuscular Hemoglobin Concent 34 g/dL (31-37) 33 g/dL (31-37) Red Cell Distribution Width 13.1 % (11.5-14.5) 13.1 % (11.5-14.5) Platelet Count 483 x10^3/uL (140-400) 459 x10^3/uL (140-400) Neutrophils (%) (Auto) 87 % (31-73) 84 % (31-73) Lymphocytes (%) (Auto) 5 % (24-48) 8 % (24-48) Monocytes (%) (Auto) 7 % (0-9) 7 % (0-9) Eosinophils (%) (Auto) 0 % (0-3) 1 % (0-3) Basophils (%) (Auto) 0 % (0-3) 0 % (0-3) Neutrophils # (Auto) 17.3 x10^3/uL (1.8-7.7) 13.6 x10^3/uL (1.8-7.7) Lymphocytes # (Auto) 1.0 x10^3/uL (1.0-4.8) 1.4 x10^3/uL (1.0-4.8) Monocytes # (Auto) 1.4 x10^3/uL (0.0-1.1) 1.0 x10^3/uL (0.0-1.1) Eosinophils # (Auto) 0.1 x10^3/uL (0.0-0.7) 0.1 x10^3/uL (0.0-0.7) Basophils # (Auto) 0.0 x10^3/uL (0.0-0.2) 0.1 x10^3/uL (0.0-0.2) Segmented Neutrophils % 88 % (35-66) Band Neutrophils % 3 % (0-9) Lymphocytes % 3 % (24-48) Monocytes % 6 % (0-10) Platelet Estimate Adequate (ADEQUATE) Giant Platelets Occ Erythrocyte Sedimentation Rate 45 (0-15) Prothrombin Time 14.0 SEC (11.7-14.0) Prothromb Time International Ratio 1.1 (0.8-1.1) Activated Partial Thromboplast Time 24 SEC (24-38) D-Dimer (Alejandra) 2.60 ug/mlFEU (0.00-0.50) Sodium Level 137 mmol/L (136-145) 134 mmol/L (136-145) Potassium Level 4.4 mmol/L (3.5-5.1) 4.4 mmol/L (3.5-5.1) Chloride Level 100 mmol/L (98-107) 101 mmol/L (98-107) Carbon Dioxide Level 31 mmol/L (21-32) 26 mmol/L (21-32) Anion Gap 6 (6-14) 7 (6-14) Blood Urea Nitrogen 18 mg/dL (8-26) 12 mg/dL (8-26) Creatinine 0.8 mg/dL (0.7-1.3) 0.8 mg/dL (0.7-1.3) Estimated GFR (Cockcroft-Gault) 115.1 115.1 BUN/Creatinine Ratio 23 (6-20) 15 (6-20) Glucose Level 99 mg/dL (70-99) 105 mg/dL (70-99) Lactic Acid Level 0.8 mmol/L (0.4-2.0) 1.2 mmol/L (0.4-2.0) Calcium Level 8.5 mg/dL (8.5-10.1) 7.7 mg/dL (8.5-10.1) Magnesium Level 2.0 mg/dL (1.8-2.4) Total Bilirubin 0.9 mg/dL (0.2-1.0) 0.8 mg/dL (0.2-1.0) Aspartate Amino Transf (AST/SGOT) 81 U/L (15-37) 40 U/L (15-37) Alanine Aminotransferase (ALT/SGPT) 180 U/L (16-63) 110 U/L (16-63) Alkaline Phosphatase 190 U/L (46-116) 150 U/L (46-116) Creatine Kinase 14 U/L (39-308) Troponin I Quantitative < 0.017 ng/mL (0.000-0.055) < 0.017 ng/mL (0.000-0.055) GG-[id number]-[id number]-Type Natriuretic Peptide 47 pg/mL (0-124) Total Protein 5.7 g/dL (6.4-8.2) 5.4 g/dL (6.4-8.2) Albumin 1.9 g/dL (3.4-5.0) 1.4 g/dL (3.4-5.0) Albumin/Globulin Ratio 0.5 (1.0-1.7) 0.4 (1.0-1.7) Lipase 88 U/L (73-393) Procalcitonin 0.43 ng/mL (0.00-0.10) Thyroid Stimulating Hormone (TSH) 1.091 uIU/mL (0.358-3.74) Urine Collection Type Unknown Urine Color Yellow Urine Clarity Clear Urine pH 6.5 Urine Specific [place] >=1.030 Urine Protein Negative mg/dL (NEG-TRACE) Urine Glucose (UA) Negative mg/dL (NEG) Urine Ketones (Stick) Negative mg/dL (NEG) Urine Blood Negative (NEG) Urine Nitrite Negative (NEG) Urine Bilirubin Negative (NEG) Urine Urobilinogen Dipstick 1.0 mg/dL (0.2 mg/dL) Urine Leukocyte Esterase Negative (NEG) Urine RBC 0 /HPF (0-2) Urine WBC 0 /HPF (0-4) Urine Bacteria 0 /HPF (0-FEW) Urine Mucus Slight /LPF Urine Opiates Screen Pos (NEG) Urine Methadone Screen Neg (NEG) Urine Barbiturates Neg (NEG) Urine Phencyclidine Screen Neg (NEG) Urine Amphetamine/Methamphetamine Neg (NEG) Urine Benzodiazepines Screen Pos (NEG) Urine Cocaine Screen Neg (NEG) Urine Cannabinoids Screen Neg (NEG) Urine Ethyl Alcohol Neg (NEG) Laboratory Tests Test 03/05/19 15:10 03/05/19 19:45 03/06/19 04:20 Lactic Acid Level 1.2 mmol/L (0.4-2.0) Troponin I Quantitative < 0.017 ng/mL (0.000-0.055) Urine Collection Type Unknown Urine Color Yellow Urine Clarity Clear Urine pH 6.5 Urine Specific [place] >=1.030 Urine Protein Negative mg/dL (NEG-TRACE) Urine Glucose (UA) Negative mg/dL (NEG) Urine Ketones (Stick) Negative mg/dL (NEG) Urine Blood Negative (NEG) Urine Nitrite Negative (NEG) Urine Bilirubin Negative (NEG) Urine Urobilinogen Dipstick 1.0 mg/dL (0.2 mg/dL) Urine Leukocyte Esterase Negative (NEG) Urine RBC 0 /HPF (0-2) Urine WBC 0 /HPF (0-4) Urine Bacteria 0 /HPF (0-FEW) Urine Mucus Slight /LPF Urine Opiates Screen Pos (NEG) Urine Methadone Screen Neg (NEG) Urine Barbiturates Neg (NEG) Urine Phencyclidine Screen Neg (NEG) Urine Amphetamine/Methamphetamine Neg (NEG) Urine Benzodiazepines Screen Pos (NEG) Urine Cocaine Screen Neg (NEG) Urine Cannabinoids Screen Neg (NEG) Urine Ethyl Alcohol Neg (NEG) White Blood Count 16.2 x10^3/uL (4.0-11.0) Red Blood Count 4.03 x10^6/uL (4.30-5.70) Hemoglobin 11.9 g/dL (13.0-17.5) Hematocrit 35.8 % (39.0-53.0) Mean Corpuscular Volume 89 fL (79-100) Mean Corpuscular Hemoglobin 30 pg (25-35) Mean Corpuscular Hemoglobin Concent 33 g/dL (31-37) Red Cell Distribution Width 13.1 % (11.5-14.5) Platelet Count 459 x10^3/uL (140-400) Neutrophils (%) (Auto) 84 % (31-73) Lymphocytes (%) (Auto) 8 % (24-48) Monocytes (%) (Auto) 7 % (0-9) Eosinophils (%) (Auto) 1 % (0-3) Basophils (%) (Auto) 0 % (0-3) Neutrophils # (Auto) 13.6 x10^3/uL (1.8-7.7) Lymphocytes # (Auto) 1.4 x10^3/uL (1.0-4.8) Monocytes # (Auto) 1.0 x10^3/uL (0.0-1.1) Eosinophils # (Auto) 0.1 x10^3/uL (0.0-0.7) Basophils # (Auto) 0.1 x10^3/uL (0.0-0.2) Sodium Level 134 mmol/L (136-145) Potassium Level 4.4 mmol/L (3.5-5.1) Chloride Level 101 mmol/L (98-107) Carbon Dioxide Level 26 mmol/L (21-32) Anion Gap 7 (6-14) Blood Urea Nitrogen 12 mg/dL (8-26) Creatinine 0.8 mg/dL (0.7-1.3) Estimated GFR (Cockcroft-Gault) 115.1 BUN/Creatinine Ratio 15 (6-20) Glucose Level 105 mg/dL (70-99) Calcium Level 7.7 mg/dL (8.5-10.1) Total Bilirubin 0.8 mg/dL (0.2-1.0) Aspartate Amino Transf (AST/SGOT) 40 U/L (15-37) Alanine Aminotransferase (ALT/SGPT) 110 U/L (16-63) Alkaline Phosphatase 150 U/L (46-116) Total Protein 5.4 g/dL (6.4-8.2) Albumin 1.4 g/dL (3.4-5.0) Albumin/Globulin Ratio 0.4 (1.0-1.7) Impression . IMPRESSION: 1. Empyema.S/P CHEST TUBE 2. Anterior mediastinal abscess extending into the left anterior chest wall muscular structures. DRAIN IN PLACE 3. Small pericardial effusion. 4. Elevated liver chemistries. 5. Protein malnutrition. 6. Methamphetamine use. 7. History of Staphylococcus infection. Plan . CHEST TUBE DRAINAGE FOR NOW ANTIBX PER ID FOLLOW CULTURES ID Plan of Care D/cont Vanc begin Dapto - with receiving high dose/? if reach therapeutic range vs GO Cont Zosyn/Zyvox 03/05 THAO MCCARTNEY MD Mar 06, 2019 13:11
[2019-03-06] MEDS: KETOROLAC 30 MG/ML VIAL. IV PRN (17:47)
[2019-03-06] MEDS: LACTOBACILLUS RHAMNOSUS GG 1 CAPSULE. PO SCH (20:13)
[2019-03-07] VITALS (19 sets, daily range): BP systolic 98–144; BP diastolic 50–72
[2019-03-07] MEDS: PIPERACILLIN/TAZOBACTAM 4.5 GM in IV NORMAL SALINE 100ML 100 ML IV SCH ×2 (00:28→05:01)
[2019-03-07] MEDS: HYDROmorphone 2 MG/ML VIAL IVP PRN ×8 (00:29→22:39)
[2019-03-07] MEDS: KETOROLAC 30 MG/ML VIAL. IV PRN ×4 (00:30→19:35)
[2019-03-07] MEDS: oxyCODONE/APAP 10/325 1 TAB TABLET PO PRN ×5 (05:00→21:18)
[2019-03-07] MEDS: IV NORMAL SALINE 1000ML BAG 1,000 ML IV SCH (05:00)
[2019-03-07 05:10] LABS: BASO % 0 % (0-3); EOS # 0.3 x10^3/uL (0.0-0.7); EOS % 3 % (0-3); HEMATOCRIT 35.3 % (39.0-53.0); LYMPH # 1.2 x10^3/uL (1.0-4.8); LYMPH % 12 % (24-48); MEAN CORPUSCULAR HEMOGLOBIN 30 pg (25-35); MEAN CORPUSCULAR HGB CONC 34 g/dL (31-37); MEAN CORPUSCULAR VOLUME 89 fL (79-100); MONO # 0.9 x10^3/uL (0.0-1.1); MONO % 9 % (0-9); NEUT # 7.6 x10^3/uL (1.8-7.7); NEUT % 76 % (31-73); PLATELET COUNT 400 x10^3/uL (140-400); RED BLOOD COUNT 3.96 x10^6/uL (4.30-5.70); RED CELL DISTRIBUTION WIDTH 13.1 % (11.5-14.5)
[2019-03-07 05:54] LABS: ALBUMIN 1.5 g/dL (3.4-5.0); ALBUMIN/GLOBULIN RATIO 0.3 (1.0-1.7); CREATININE 0.9 mg/dL (0.7-1.3); GFR 100.5; POTASSIUM 4.4 mmol/L (3.5-5.1); TOTAL BILIRUBIN 0.7 mg/dL (0.2-1.0); TOTAL PROTEIN 5.8 g/dL (6.4-8.2)
[2019-03-07] MEDS: LACTOBACILLUS RHAMNOSUS GG 1 CAPSULE. PO SCH ×2 (07:51→21:18)
[2019-03-07] MEDS: DOCUSATE SODIUM 100 MG CAPSULE. PO SCH ×2 (07:51→21:00)
[2019-03-07] MEDS: SENNOSIDES/DOCUSATE 8.6/50MG TABLET. PO SCH ×2 (07:51→21:00)
[2019-03-07] MEDS: FAMOTIDINE 20 MG/2 ML VIAL IVP SCH ×2 (07:51→21:19)
[2019-03-07] MEDS: HEPARIN for SUB-Q USE 5,000 UNIT/ML VIAL. SQ SCH ×2 (07:54→21:28)
--- NOTE | 2019-03-07 08:37 | PDOC ---
Infectious Disease Note Subjective Subjective Better. Some Bilat knee tightness but he is wondering if because he is bedridden Less pain. Appetite is better. No F/C/S/N/V/D/SOA/Rash ROS ROS o/w neg Vital Sign Vital Signs Vital Signs Date Time Temp Pulse Resp B/P (MAP) Pulse Ox O2 Delivery O2 Flow Rate FiO2 03/07/19 06:00 83 10 125/68 (87) 94 Room Air 03/07/19 04:00 98.5 98.5 03/06/19 12:22 2.0 Physical Exam PHYSICAL EXAM CONSTITUTIONAL: He is a pleasant gentleman. He is cooperative, he is in no acute distress. Eating. Looks better HEENT: Pupils equal and reactive with normal conjunctivae. Oral cavity, pharynx is clear without signs of petechiae. NECK: Supple. Good range of motion. LUNGS: Clear to auscultation bilaterally. Left sided CT and left ant chest drain HEART: S1, S2, without gross murmur. ABDOMEN: Soft, nontender, nondistended, positive bowel sounds. EXTREMITIES: Without clubbing, cyanosis. His right knee is without warmth or gross erythema. Notes no gross effusion in either knee. EXTREMITIES: Without clubbing, cyanosis. He has some trace edema. SKIN: Without generalized rash, but he does have multiple areas of scabs where he has been picked at. He has multiple tattoos as well. There is no gross erythema. NEUROLOGIC: He is alert and oriented, cooperative. PSYCHIATRIC: Affect is appropriate. Labs Lab Laboratory Tests Test 03/07/19 04:50 White Blood Count 10.0 x10^3/uL (4.0-11.0) Red Blood Count 3.96 x10^6/uL (4.30-5.70) Hemoglobin 12.0 g/dL (13.0-17.5) Hematocrit 35.3 % (39.0-53.0) Mean Corpuscular Volume 89 fL (79-100) Mean Corpuscular Hemoglobin 30 pg (25-35) Mean Corpuscular Hemoglobin Concent 34 g/dL (31-37) Red Cell Distribution Width 13.1 % (11.5-14.5) Platelet Count 400 x10^3/uL (140-400) Neutrophils (%) (Auto) 76 % (31-73) Lymphocytes (%) (Auto) 12 % (24-48) Monocytes (%) (Auto) 9 % (0-9) Eosinophils (%) (Auto) 3 % (0-3) Basophils (%) (Auto) 0 % (0-3) Neutrophils # (Auto) 7.6 x10^3/uL (1.8-7.7) Lymphocytes # (Auto) 1.2 x10^3/uL (1.0-4.8) Monocytes # (Auto) 0.9 x10^3/uL (0.0-1.1) Eosinophils # (Auto) 0.3 x10^3/uL (0.0-0.7) Basophils # (Auto) 0.0 x10^3/uL (0.0-0.2) Sodium Level 141 mmol/L (136-145) Potassium Level 4.4 mmol/L (3.5-5.1) Chloride Level 105 mmol/L (98-107) Carbon Dioxide Level 31 mmol/L (21-32) Anion Gap 5 (6-14) Blood Urea Nitrogen 11 mg/dL (8-26) Creatinine 0.9 mg/dL (0.7-1.3) Estimated GFR (Cockcroft-Gault) 100.5 BUN/Creatinine Ratio 12 (6-20) Glucose Level 96 mg/dL (70-99) Calcium Level 8.0 mg/dL (8.5-10.1) Total Bilirubin 0.7 mg/dL (0.2-1.0) Aspartate Amino Transf (AST/SGOT) 34 U/L (15-37) Alanine Aminotransferase (ALT/SGPT) 90 U/L (16-63) Alkaline Phosphatase 132 U/L (46-116) Total Protein 5.8 g/dL (6.4-8.2) Albumin 1.5 g/dL (3.4-5.0) Albumin/Globulin Ratio 0.3 (1.0-1.7) Micro CTA chest Impression: 1. Anterior mediastinal abscess with additional abscess extending into the left anterior chest wall musculature through the left first costomanubrial junction, concerning for septic arthritis. 2. Large left empyema. 3. New complete collapse of the left lower lobe and partial atelectasis of the left upper lobe. 4. Small pericardial effusion, difficult to exclude infection given adjacent findings Objective Assessment Bacteremia 07/13 bottles 03/05 GPC Leukocytosis - better Empyema s/p chest tube 03/05 1.8 liters removed 03/05 - GPC Left chest abscess s/p drain 03/05 - GPC ? conduction defect on ECHO Transaminitis - some better Protein malnutrition H/o Meth use H/o Staph infection H/o Hep C - not treated Plan Plan of Care Repeat Blood cults this am Cont Dapto Disc Zosyn Cont Zyvox 03/05 F/u labs - am and cults Cardiology eval given conduction defect on ECHO Monitor R knee - stable May need GI eval as Hep C has not been treated CRISTY GASPAR MD Mar 07, 2019 08:37
[2019-03-07] MEDS: ELECTROLYTE (ICU) PROTOCOL. MC SCH (09:00)
[2019-03-07] MEDS: DAPTOmycin (GENERIC) IVPB 600 MG in IV NORMAL SALINE 50ML 50 ML IV SCH (09:00)
--- NOTE | 2019-03-07 09:31 | PDOC ---
Provider Note Provider Note 03/07/2019 0920 Concerns about endocarditis. Discussed case with ID. ANTONIA today, risks and benefits discussed with pt and agreeable to proceed. MICHA GUAMAN [employer]END[employer] Mar 07, 2019 09:31
--- NOTE | 2019-03-07 09:47 | PDOC ---
PULMONARY PROGRESS NOTES Subjective PT NOT MORE SOA FEELS BETTER Vitals Vital Signs Date Time Temp Pulse Resp B/P (MAP) Pulse Ox O2 Delivery O2 Flow Rate FiO2 03/07/19 08:00 Room Air 03/07/19 06:00 83 10 125/68 (87) 94 03/07/19 04:00 98.5 98.5 03/06/19 12:22 2.0 ROS: No Nausea, No Chest Pain, No Abdominal Pain, No Increase Cough Lungs: Clear Cardiovascular: S1 Abdomen: Soft Neuro Exam: Alert Extremities: No Edema Skin: Warm Labs Laboratory Tests Test 03/05/19 15:10 03/05/19 19:45 03/06/19 04:20 03/07/19 04:50 Lactic Acid Level 1.2 mmol/L (0.4-2.0) Troponin I Quantitative < 0.017 ng/mL (0.000-0.055) Urine Collection Type Unknown Urine Color Yellow Urine Clarity Clear Urine pH 6.5 Urine Specific [place] >=1.030 Urine Protein Negative mg/dL (NEG-TRACE) Urine Glucose (UA) Negative mg/dL (NEG) Urine Ketones (Stick) Negative mg/dL (NEG) Urine Blood Negative (NEG) Urine Nitrite Negative (NEG) Urine Bilirubin Negative (NEG) Urine Urobilinogen Dipstick 1.0 mg/dL (0.2 mg/dL) Urine Leukocyte Esterase Negative (NEG) Urine RBC 0 /HPF (0-2) Urine WBC 0 /HPF (0-4) Urine Bacteria 0 /HPF (0-FEW) Urine Mucus Slight /LPF Urine Opiates Screen Pos (NEG) Urine Methadone Screen Neg (NEG) Urine Barbiturates Neg (NEG) Urine Phencyclidine Screen Neg (NEG) Urine Amphetamine/Methamphetamine Neg (NEG) Urine Benzodiazepines Screen Pos (NEG) Urine Cocaine Screen Neg (NEG) Urine Cannabinoids Screen Neg (NEG) Urine Ethyl Alcohol Neg (NEG) White Blood Count 16.2 x10^3/uL (4.0-11.0) 10.0 x10^3/uL (4.0-11.0) Red Blood Count 4.03 x10^6/uL (4.30-5.70) 3.96 x10^6/uL (4.30-5.70) Hemoglobin 11.9 g/dL (13.0-17.5) 12.0 g/dL (13.0-17.5) Hematocrit 35.8 % (39.0-53.0) 35.3 % (39.0-53.0) Mean Corpuscular Volume 89 fL (79-100) 89 fL (79-100) Mean Corpuscular Hemoglobin 30 pg (25-35) 30 pg (25-35) Mean Corpuscular Hemoglobin Concent 33 g/dL (31-37) 34 g/dL (31-37) Red Cell Distribution Width 13.1 % (11.5-14.5) 13.1 % (11.5-14.5) Platelet Count 459 x10^3/uL (140-400) 400 x10^3/uL (140-400) Neutrophils (%) (Auto) 84 % (31-73) 76 % (31-73) Lymphocytes (%) (Auto) 8 % (24-48) 12 % (24-48) Monocytes (%) (Auto) 7 % (0-9) 9 % (0-9) Eosinophils (%) (Auto) 1 % (0-3) 3 % (0-3) Basophils (%) (Auto) 0 % (0-3) 0 % (0-3) Neutrophils # (Auto) 13.6 x10^3/uL (1.8-7.7) 7.6 x10^3/uL (1.8-7.7) Lymphocytes # (Auto) 1.4 x10^3/uL (1.0-4.8) 1.2 x10^3/uL (1.0-4.8) Monocytes # (Auto) 1.0 x10^3/uL (0.0-1.1) 0.9 x10^3/uL (0.0-1.1) Eosinophils # (Auto) 0.1 x10^3/uL (0.0-0.7) 0.3 x10^3/uL (0.0-0.7) Basophils # (Auto) 0.1 x10^3/uL (0.0-0.2) 0.0 x10^3/uL (0.0-0.2) Sodium Level 134 mmol/L (136-145) 141 mmol/L (136-145) Potassium Level 4.4 mmol/L (3.5-5.1) 4.4 mmol/L (3.5-5.1) Chloride Level 101 mmol/L (98-107) 105 mmol/L (98-107) Carbon Dioxide Level 26 mmol/L (21-32) 31 mmol/L (21-32) Anion Gap 7 (6-14) 5 (6-14) Blood Urea Nitrogen 12 mg/dL (8-26) 11 mg/dL (8-26) Creatinine 0.8 mg/dL (0.7-1.3) 0.9 mg/dL (0.7-1.3) Estimated GFR (Cockcroft-Gault) 115.1 100.5 BUN/Creatinine Ratio 15 (6-20) 12 (6-20) Glucose Level 105 mg/dL (70-99) 96 mg/dL (70-99) Calcium Level 7.7 mg/dL (8.5-10.1) 8.0 mg/dL (8.5-10.1) Total Bilirubin 0.8 mg/dL (0.2-1.0) 0.7 mg/dL (0.2-1.0) Aspartate Amino Transf (AST/SGOT) 40 U/L (15-37) 34 U/L (15-37) Alanine Aminotransferase (ALT/SGPT) 110 U/L (16-63) 90 U/L (16-63) Alkaline Phosphatase 150 U/L (46-116) 132 U/L (46-116) Total Protein 5.4 g/dL (6.4-8.2) 5.8 g/dL (6.4-8.2) Albumin 1.4 g/dL (3.4-5.0) 1.5 g/dL (3.4-5.0) Albumin/Globulin Ratio 0.4 (1.0-1.7) 0.3 (1.0-1.7) Laboratory Tests Test 03/07/19 04:50 White Blood Count 10.0 x10^3/uL (4.0-11.0) Red Blood Count 3.96 x10^6/uL (4.30-5.70) Hemoglobin 12.0 g/dL (13.0-17.5) Hematocrit 35.3 % (39.0-53.0) Mean Corpuscular Volume 89 fL (79-100) Mean Corpuscular Hemoglobin 30 pg (25-35) Mean Corpuscular Hemoglobin Concent 34 g/dL (31-37) Red Cell Distribution Width 13.1 % (11.5-14.5) Platelet Count 400 x10^3/uL (140-400) Neutrophils (%) (Auto) 76 % (31-73) Lymphocytes (%) (Auto) 12 % (24-48) Monocytes (%) (Auto) 9 % (0-9) Eosinophils (%) (Auto) 3 % (0-3) Basophils (%) (Auto) 0 % (0-3) Neutrophils # (Auto) 7.6 x10^3/uL (1.8-7.7) Lymphocytes # (Auto) 1.2 x10^3/uL (1.0-4.8) Monocytes # (Auto) 0.9 x10^3/uL (0.0-1.1) Eosinophils # (Auto) 0.3 x10^3/uL (0.0-0.7) Basophils # (Auto) 0.0 x10^3/uL (0.0-0.2) Sodium Level 141 mmol/L (136-145) Potassium Level 4.4 mmol/L (3.5-5.1) Chloride Level 105 mmol/L (98-107) Carbon Dioxide Level 31 mmol/L (21-32) Anion Gap 5 (6-14) Blood Urea Nitrogen 11 mg/dL (8-26) Creatinine 0.9 mg/dL (0.7-1.3) Estimated GFR (Cockcroft-Gault) 100.5 BUN/Creatinine Ratio 12 (6-20) Glucose Level 96 mg/dL (70-99) Calcium Level 8.0 mg/dL (8.5-10.1) Total Bilirubin 0.7 mg/dL (0.2-1.0) Aspartate Amino Transf (AST/SGOT) 34 U/L (15-37) Alanine Aminotransferase (ALT/SGPT) 90 U/L (16-63) Alkaline Phosphatase 132 U/L (46-116) Total Protein 5.8 g/dL (6.4-8.2) Albumin 1.5 g/dL (3.4-5.0) Albumin/Globulin Ratio 0.3 (1.0-1.7) Impression . IMPRESSION: 1. Empyema.S/P CHEST TUBE 2. Anterior mediastinal abscess extending into the left anterior chest wall muscular structures. DRAIN IN PLACE 3. Small pericardial effusion. 4. Elevated liver chemistries. 5. Protein malnutrition. 6. Methamphetamine use. 7. History of Staphylococcus infection. Plan . CHEST TUBE DRAINAGE FOR NOW WILL REPEAT CT CHEST AND POSSIBLE REMOVED TUBE SOON ANTIBX PER ID FOLLOW CULTURES THAO MCCARTNEY MD Mar 07, 2019 09:47
--- NOTE | 2019-03-07 11:02 | PDOC ---
PROGRESS NOTES Chief Complaint Chief Complaint Leukocytosis - better Empyema s/p chest tube 03/05 Left chest abscess s/p drain 03/05 Transaminitis - some better SEVERE Protein malnutrition - albumin 1,8 H/o Meth use H/o Staph infection H/o Hep C - not treated small pericardial effusion History of Present Illness History of Present Illness some soreness in chest tubes site Eating well, no fevers ON multiple abx per iD Also on NS not on dopa gtt albumin 1.,8 in th [place]! PLAN: [facility] tube per pulmo, plans on dc today or tmr abx per ID dw [employer] Vitals Vitals Vital Signs Date Time Temp Pulse Resp B/P (MAP) Pulse Ox O2 Delivery O2 Flow Rate FiO2 03/07/19 10:00 78 8 116/62 (80) 95 Room Air 03/07/19 08:00 97.9 97.9 03/06/19 12:22 2.0 Physical Exam Physical Exam CONSTITUTIONAL: He is a pleasant gentleman. He is cooperative, he is in no acute distress. Eating. Looks better HEENT: Pupils equal and reactive with normal conjunctivae. Oral cavity, pharynx is clear without signs of petechiae. NECK: Supple. Good range of motion. LUNGS: Clear to auscultation bilaterally. Left sided CT and left ant chest drain HEART: S1, S2, without gross murmur. ABDOMEN: Soft, nontender, nondistended, positive bowel sounds. EXTREMITIES: Without clubbing, cyanosis. His right knee is without warmth or gross erythema. Notes no gross effusion in either knee. EXTREMITIES: Without clubbing, cyanosis. He has some trace edema. SKIN: Without generalized rash, but he does have multiple areas of scabs where he has been picked at. He has multiple tattoos as well. There is no gross erythema. NEUROLOGIC: He is alert and oriented, cooperative. PSYCHIATRIC: Affect is appropriate. General: Alert, Oriented X3, Cooperative, No acute distress Heart: Regular rate, Normal S1, Normal S2 Lungs: Clear Abdomen: Soft, Other (tender to left abd and back) Extremities: No clubbing, No cyanosis Skin: Other (3x3cm area of fluctuance and tenderness without significant erythema on the left anterior chest wall) Labs LABS Laboratory Tests Test 03/07/19 04:50 White Blood Count 10.0 x10^3/uL (4.0-11.0) Red Blood Count 3.96 x10^6/uL (4.30-5.70) Hemoglobin 12.0 g/dL (13.0-17.5) Hematocrit 35.3 % (39.0-53.0) Mean Corpuscular Volume 89 fL (79-100) Mean Corpuscular Hemoglobin 30 pg (25-35) Mean Corpuscular Hemoglobin Concent 34 g/dL (31-37) Red Cell Distribution Width 13.1 % (11.5-14.5) Platelet Count 400 x10^3/uL (140-400) Neutrophils (%) (Auto) 76 % (31-73) Lymphocytes (%) (Auto) 12 % (24-48) Monocytes (%) (Auto) 9 % (0-9) Eosinophils (%) (Auto) 3 % (0-3) Basophils (%) (Auto) 0 % (0-3) Neutrophils # (Auto) 7.6 x10^3/uL (1.8-7.7) Lymphocytes # (Auto) 1.2 x10^3/uL (1.0-4.8) Monocytes # (Auto) 0.9 x10^3/uL (0.0-1.1) Eosinophils # (Auto) 0.3 x10^3/uL (0.0-0.7) Basophils # (Auto) 0.0 x10^3/uL (0.0-0.2) Sodium Level 141 mmol/L (136-145) Potassium Level 4.4 mmol/L (3.5-5.1) Chloride Level 105 mmol/L (98-107) Carbon Dioxide Level 31 mmol/L (21-32) Anion Gap 5 (6-14) Blood Urea Nitrogen 11 mg/dL (8-26) Creatinine 0.9 mg/dL (0.7-1.3) Estimated GFR (Cockcroft-Gault) 100.5 BUN/Creatinine Ratio 12 (6-20) Glucose Level 96 mg/dL (70-99) Calcium Level 8.0 mg/dL (8.5-10.1) Total Bilirubin 0.7 mg/dL (0.2-1.0) Aspartate Amino Transf (AST/SGOT) 34 U/L (15-37) Alanine Aminotransferase (ALT/SGPT) 90 U/L (16-63) Alkaline Phosphatase 132 U/L (46-116) Total Protein 5.8 g/dL (6.4-8.2) Albumin 1.5 g/dL (3.4-5.0) Albumin/Globulin Ratio 0.3 (1.0-1.7) Review of Systems Review of Systems msk pain on chest tube site, no fever, no n.v.d, no depression Assessment and Plan Assessmemt and Plan Problems Medical Problems: (1) Chest wall abscess Status: Acute (2) Mediastinal abscess Status: Acute (3) Pleural effusion Status: Acute Comment Review of Relevant I have reviewed the following items nancy (where applicable) has been applied. Labs Laboratory Tests Test 03/05/19 15:10 03/05/19 19:45 03/06/19 04:20 03/07/19 04:50 Lactic Acid Level 1.2 mmol/L (0.4-2.0) Troponin I Quantitative < 0.017 ng/mL (0.000-0.055) Urine Collection Type Unknown Urine Color Yellow Urine Clarity Clear Urine pH 6.5 Urine Specific [place] >=1.030 Urine Protein Negative mg/dL (NEG-TRACE) Urine Glucose (UA) Negative mg/dL (NEG) Urine Ketones (Stick) Negative mg/dL (NEG) Urine Blood Negative (NEG) Urine Nitrite Negative (NEG) Urine Bilirubin Negative (NEG) Urine Urobilinogen Dipstick 1.0 mg/dL (0.2 mg/dL) Urine Leukocyte Esterase Negative (NEG) Urine RBC 0 /HPF (0-2) Urine WBC 0 /HPF (0-4) Urine Bacteria 0 /HPF (0-FEW) Urine Mucus Slight /LPF Urine Opiates Screen Pos (NEG) Urine Methadone Screen Neg (NEG) Urine Barbiturates Neg (NEG) Urine Phencyclidine Screen Neg (NEG) Urine Amphetamine/Methamphetamine Neg (NEG) Urine Benzodiazepines Screen Pos (NEG) Urine Cocaine Screen Neg (NEG) Urine Cannabinoids Screen Neg (NEG) Urine Ethyl Alcohol Neg (NEG) White Blood Count 16.2 x10^3/uL (4.0-11.0) 10.0 x10^3/uL (4.0-11.0) Red Blood Count 4.03 x10^6/uL (4.30-5.70) 3.96 x10^6/uL (4.30-5.70) Hemoglobin 11.9 g/dL (13.0-17.5) 12.0 g/dL (13.0-17.5) Hematocrit 35.8 % (39.0-53.0) 35.3 % (39.0-53.0) Mean Corpuscular Volume 89 fL (79-100) 89 fL (79-100) Mean Corpuscular Hemoglobin 30 pg (25-35) 30 pg (25-35) Mean Corpuscular Hemoglobin Concent 33 g/dL (31-37) 34 g/dL (31-37) Red Cell Distribution Width 13.1 % (11.5-14.5) 13.1 % (11.5-14.5) Platelet Count 459 x10^3/uL (140-400) 400 x10^3/uL (140-400) Neutrophils (%) (Auto) 84 % (31-73) 76 % (31-73) Lymphocytes (%) (Auto) 8 % (24-48) 12 % (24-48) Monocytes (%) (Auto) 7 % (0-9) 9 % (0-9) Eosinophils (%) (Auto) 1 % (0-3) 3 % (0-3) Basophils (%) (Auto) 0 % (0-3) 0 % (0-3) Neutrophils # (Auto) 13.6 x10^3/uL (1.8-7.7) 7.6 x10^3/uL (1.8-7.7) Lymphocytes # (Auto) 1.4 x10^3/uL (1.0-4.8) 1.2 x10^3/uL (1.0-4.8) Monocytes # (Auto) 1.0 x10^3/uL (0.0-1.1) 0.9 x10^3/uL (0.0-1.1) Eosinophils # (Auto) 0.1 x10^3/uL (0.0-0.7) 0.3 x10^3/uL (0.0-0.7) Basophils # (Auto) 0.1 x10^3/uL (0.0-0.2) 0.0 x10^3/uL (0.0-0.2) Sodium Level 134 mmol/L (136-145) 141 mmol/L (136-145) Potassium Level 4.4 mmol/L (3.5-5.1) 4.4 mmol/L (3.5-5.1) Chloride Level 101 mmol/L (98-107) 105 mmol/L (98-107) Carbon Dioxide Level 26 mmol/L (21-32) 31 mmol/L (21-32) Anion Gap 7 (6-14) 5 (6-14) Blood Urea Nitrogen 12 mg/dL (8-26) 11 mg/dL (8-26) Creatinine 0.8 mg/dL (0.7-1.3) 0.9 mg/dL (0.7-1.3) Estimated GFR (Cockcroft-Gault) 115.1 100.5 BUN/Creatinine Ratio 15 (6-20) 12 (6-20) Glucose Level 105 mg/dL (70-99) 96 mg/dL (70-99) Calcium Level 7.7 mg/dL (8.5-10.1) 8.0 mg/dL (8.5-10.1) Total Bilirubin 0.8 mg/dL (0.2-1.0) 0.7 mg/dL (0.2-1.0) Aspartate Amino Transf (AST/SGOT) 40 U/L (15-37) 34 U/L (15-37) Alanine Aminotransferase (ALT/SGPT) 110 U/L (16-63) 90 U/L (16-63) Alkaline Phosphatase 150 U/L (46-116) 132 U/L (46-116) Total Protein 5.4 g/dL (6.4-8.2) 5.8 g/dL (6.4-8.2) Albumin 1.4 g/dL (3.4-5.0) 1.5 g/dL (3.4-5.0) Albumin/Globulin Ratio 0.4 (1.0-1.7) 0.3 (1.0-1.7) Laboratory Tests Test 03/07/19 04:50 White Blood Count 10.0 x10^3/uL (4.0-11.0) Red Blood Count 3.96 x10^6/uL (4.30-5.70) Hemoglobin 12.0 g/dL (13.0-17.5) Hematocrit 35.3 % (39.0-53.0) Mean Corpuscular Volume 89 fL (79-100) Mean Corpuscular Hemoglobin 30 pg (25-35) Mean Corpuscular Hemoglobin Concent 34 g/dL (31-37) Red Cell Distribution Width 13.1 % (11.5-14.5) Platelet Count 400 x10^3/uL (140-400) Neutrophils (%) (Auto) 76 % (31-73) Lymphocytes (%) (Auto) 12 % (24-48) Monocytes (%) (Auto) 9 % (0-9) Eosinophils (%) (Auto) 3 % (0-3) Basophils (%) (Auto) 0 % (0-3) Neutrophils # (Auto) 7.6 x10^3/uL (1.8-7.7) Lymphocytes # (Auto) 1.2 x10^3/uL (1.0-4.8) Monocytes # (Auto) 0.9 x10^3/uL (0.0-1.1) Eosinophils # (Auto) 0.3 x10^3/uL (0.0-0.7) Basophils # (Auto) 0.0 x10^3/uL (0.0-0.2) Sodium Level 141 mmol/L (136-145) Potassium Level 4.4 mmol/L (3.5-5.1) Chloride Level 105 mmol/L (98-107) Carbon Dioxide Level 31 mmol/L (21-32) Anion Gap 5 (6-14) Blood Urea Nitrogen 11 mg/dL (8-26) Creatinine 0.9 mg/dL (0.7-1.3) Estimated GFR (Cockcroft-Gault) 100.5 BUN/Creatinine Ratio 12 (6-20) Glucose Level 96 mg/dL (70-99) Calcium Level 8.0 mg/dL (8.5-10.1) Total Bilirubin 0.7 mg/dL (0.2-1.0) Aspartate Amino Transf (AST/SGOT) 34 U/L (15-37) Alanine Aminotransferase (ALT/SGPT) 90 U/L (16-63) Alkaline Phosphatase 132 U/L (46-116) Total Protein 5.8 g/dL (6.4-8.2) Albumin 1.5 g/dL (3.4-5.0) Albumin/Globulin Ratio 0.3 (1.0-1.7) Microbiology 03/05/19 Anaerobic/Aerobic Culture, Resulted Pending 03/05/19 Anaerobic Culture Result 1 (ESPERANZA), Resulted Pending 03/05/19 Aerobic Culture, Resulted Pending 03/05/19 Aerobic Culture Result 1 (ESPERANZA), Resulted Pending 03/05/19 Gram Stain - Final, Resulted 03/05/19 Gram Stain Result 1 (ESPERANZA) - Final, Resulted 03/05/19 Gram Stain Result 2 (ESPERANZA) - Final, Resulted 03/05/19 Anaerobic/Aerobic Culture, Resulted Pending 03/05/19 Anaerobic Culture Result 1 (ESPERANZA), Resulted Pending 03/05/19 Aerobic Culture, Resulted Pending 03/05/19 Aerobic Culture Result 1 (ESPERANZA), Resulted Pending 03/05/19 Gram Stain - Final, Resulted 03/05/19 Gram Stain Result 1 (ESPERANZA) - Final, Resulted 03/05/19 Gram Stain Result 2 (ESPERANZA) - Final, Resulted 03/05/19 Blood Culture - Final, Complete Medications Current Medications Sodium Chloride 1,000 ml @ 1,000 mls/hr Q1H IV Last administered on 03/05/19at 08:42; Start 03/05/19 at 08:18; Stop 03/05/19 at 09:17; Status DC Morphine Sulfate (Morphine Sulfate) 4 mg 1X ONCE IV Last administered on 03/05/19at 08:42; Start 03/05/19 at 09:00; Stop 03/05/19 at 09:01; Status DC Ondansetron HCl (Zofran) 4 mg 1X ONCE IV Last administered on 03/05/19at 08:42; Start 03/05/19 at 09:00; Stop 03/05/19 at 09:01; Status DC Iohexol (Omnipaque 350 Mg/ml) 100 ml 1X ONCE IV Last administered on 03/05/19at 09:05; Start 03/05/19 at 08:30; Stop 03/05/19 at 08:32; Status DC Info (CONTRAST GIVEN -- Rx MONITORING) 1 each PRN DAILY PRN MC SEE COMMENTS; Start 03/05/19 at 08:45; Stop 03/07/19 at 08:44; Status DC Hydromorphone HCl (Dilaudid) 1 mg 1X ONCE IV Last administered on 03/05/19at 09:05; Start 03/05/19 at 09:15; Stop 03/05/19 at 09:16; Status DC Sodium Chloride 1,000 ml @ 1,000 mls/hr 1X ONCE IV Last administered on 03/05/19at 09:54; Start 03/05/19 at 09:30; Stop 03/05/19 at 10:29; Status DC Piperacillin Sod/ Tazobactam Sod 3.375 gm/Sodium Chloride 50 ml @ 100 mls/hr 1X ONCE IV Last administered on 03/05/19at 09:54; Start 03/05/19 at 09:30; Stop 03/05/19 at 09:59; Status DC Vancomycin HCl 250 ml @ 250 mls/hr 1X ONCE IV ; Start 03/05/19 at 09:30; Stop 03/05/19 at 10:29; Status UNV Vancomycin HCl 2 gm/Sodium Chloride 500 ml @ 250 mls/hr 1X ONCE IV Last administered on 03/05/19at 10:35; Start 03/05/19 at 10:00; Stop 03/05/19 at 11:59; Status DC Hydromorphone HCl (Dilaudid) 1 mg 1X ONCE IV Last administered on 03/05/19at 10:35; Start 03/05/19 at 10:30; Stop 03/05/19 at 10:31; Status DC Sodium Chloride 1,000 ml @ 150 mls/hr Q6H40M IV Last administered on 03/05/19at 12:20; Start 03/05/19 at 10:26; Stop 03/05/19 at 20:22; Status DC Acetaminophen (Tylenol) 650 mg PRN Q6HRS PRN PO Headaches, Temp > 101.5'; Start 03/05/19 at 10:45 Lorazepam (Ativan Inj) 0.5 mg PRN Q6HRS PRN IV ANXIETY / AGITATION; Start 03/05/19 at 10:45 Ondansetron HCl (Zofran) 4 mg PRN Q6HRS PRN IV NAUSEA/VOMITING, 1ST CHOICE; Start 03/05/19 at 10:45 Prochlorperazine Edisylate (Compazine) 5 mg PRN Q6HRS PRN IV NAUSEA/VOMITING, 2ND CHOICE; Start 03/05/19 at 10:45 Prochlorperazine (Compazine) 25 mg PRN Q12HR PRN DC NAUSEA/VOMITING; Start 03/05/19 at 10:45 Al Hydroxide/Mg Hydroxide (Mylanta Plus Xs) 30 ml PRN Q3HRS PRN PO HEARTBURN / GAS; Start 03/05/19 at 10:45 Calcium Carbonate/ Glycine (Tums) 500 mg PRN Q3HRS PRN PO HEARTBURN / GAS, 2ND CHOICE; Start 03/05/19 at 10:45 Famotidine (Pepcid Vial) 20 mg BID IVP Last administered on 03/07/19at 07:54; Start 03/05/19 at 12:00 Info (Icu Electrolyte Protocol) 1 ea DAILY MC ; Start 03/06/19 at 09:00 Heparin Sodium (Porcine) (Heparin Sodium) 5,000 unit Q12HR SQ Last administered on 03/07/19at 07:54; Start 03/05/19 at 21:00 Sodium Chloride (Normal Saline Flush) 3 ml QSHIFT PRN IV AFTER MEDS AND BLOOD DRAWS; Start 03/05/19 at 10:45 Sodium Chloride 1,000 ml @ 100 mls/hr Q10H IV Last administered on 03/07/19at 05:01; Start 03/05/19 at 10:39 Acetaminophen/ Hydrocodone Bitart (Lortab 5/325) 1 tab PRN Q4HRS PRN PO MILD PAIN 1-3; Start 03/05/19 at 10:45; Stop 03/06/19 at 09:58; Status DC Acetaminophen/ Hydrocodone Bitart (Lortab 5/325) 2 tab PRN Q4HRS PRN PO MODERATE PAIN, SEVERE PAIN; Start 03/05/19 at 10:45; Stop 03/06/19 at 09:58; Status DC Morphine Sulfate (Morphine Sulfate) 2 mg PRN Q1HR PRN IV MODERATE PAIN; Start 03/05/19 at 10:45 Senna/Docusate Sodium (Senna Plus) 1 tab BID PO Last administered on 03/06/19at 07:56; Start 03/05/19 at 21:00 Docusate Sodium (Colace) 100 mg BID PO Last administered on 03/06/19at 07:56; Start 03/05/19 at 12:00 Bisacodyl (Dulcolax Supp) 10 mg PRN DAILY PRN DC CONSTIPATION; Start 03/05/19 at 10:45 Sodium Chloride 1,000 ml @ 2,550 mls/hr Q24M IV ; Start 03/05/19 at 10:48; Stop 03/05/19 at 11:48; Status DC Sodium Chloride 500 ml @ 1,000 mls/hr PRN Q30MIN PRN IV PER PROTOCOL; Start 03/05/19 at 11:00 Vancomycin HCl (Vanco Per Pharmacy) 1 each PRN DAILY PRN MC SEE COMMENTS Last administered on 03/05/19at 13:45; Start 03/05/19 at 11:00; Stop 03/06/19 at 08:18; Status DC Piperacillin Sod/ Tazobactam Sod 4.5 gm/Sodium Chloride 100 ml @ 200 mls/hr Q6HRS IV ; Start 03/05/19 at 12:00; Stop 03/05/19 at 11:59; Status DC Norepinephrine Bitartrate 250 ml @ 0 mls/hr CONT PRN IV PER PROTOCOL; Start 03/05/19 at 11:00 Dobutamine HCl/ Dextrose 250 ml @ 0 mls/hr CONT PRN IV PER PROTOCOL; Start 03/05/19 at 11:00 Vancomycin HCl 2 gm/Sodium Chloride 500 ml @ 250 mls/hr 1X ONCE IV ; Start 03/05/19 at 12:00; Stop 03/05/19 at 13:59; Status Cancel Piperacillin Sod/ Tazobactam Sod 4.5 gm/Sodium Chloride 100 ml @ 200 mls/hr Q6HRS IV Last administered on 03/07/19at 05:01; Start 03/05/19 at 16:00; Stop 03/07/19 at 08:36; Status DC Linezolid/Dextrose 300 ml @ 300 mls/hr Q12HR IV Last administered on 03/07/19at 07:54; Start 03/05/19 at 13:00; Stop 03/07/19 at 09:13; Status DC Lidocaine/Sodium Bicarbonate (Buffered Lidocaine 1%) 3 ml STK-MED ONCE .ROUTE ; Start 03/05/19 at 12:12; Stop 03/05/19 at 12:13; Status DC Midazolam HCl (Versed) 2 mg STK-MED ONCE .ROUTE ; Start 03/05/19 at 12:13; Stop 03/05/19 at 12:13; Status DC Fentanyl Citrate (Fentanyl 2ml Vial) 100 mcg STK-MED ONCE .ROUTE ; Start 03/05/19 at 12:14; Stop 03/05/19 at 12:14; Status DC Lidocaine/Sodium Bicarbonate (Buffered Lidocaine 1%) 3 ml STK-MED ONCE .ROUTE ; Start 03/05/19 at 13:05; Stop 03/05/19 at 13:05; Status DC Hydromorphone HCl (Dilaudid) 1.5 mg PRN Q3HRS PRN IVP SEVERE PAIN Last administered on 03/07/19at 10:18; Start 03/05/19 at 13:30 Lidocaine/Sodium Bicarbonate (Buffered Lidocaine 1%) 3 ml 1X ONCE IJ Last administered on 03/05/19at 13:32; Start 03/05/19 at 13:30; Stop 03/05/19 at 13:31; Status DC Midazolam HCl (Versed) 2 mg 1X ONCE IV Last administered on 03/05/19at 13:32; Start 03/05/19 at 13:30; Stop 03/05/19 at 13:31; Status DC Fentanyl Citrate (Fentanyl 2ml Vial) 100 mcg 1X ONCE IV Last administered on 03/05/19at 13:32; Start 03/05/19 at 13:30; Stop 03/05/19 at 13:31; Status DC Vancomycin HCl 1.5 gm/Sodium Chloride 500 ml @ 250 mls/hr Q8H IV Last administered on 03/06/19at 03:06; Start 03/05/19 at 19:00; Stop 03/06/19 at 08:18; Status DC Vancomycin HCl (Vancomycin Trough Level) 1 each 1X ONCE MC ; Start 03/06/19 at 10:30; Stop 03/06/19 at 08:21; Status DC Daptomycin 600 mg/ Sodium Chloride 50 ml @ 100 mls/hr Q24H IV Last administered on 03/07/19at 09:01; Start 03/06/19 at 10:00 Acetaminophen/ Hydrocodone Bitart (Lortab 5/325) 1 tab PRN Q4HRS PRN PO PAIN; Start 03/06/19 at 08:45; Stop 03/06/19 at 09:58; Status DC Oxycodone/ Acetaminophen (Percocet 10/325) 1 tab PRN Q4HRS PRN PO PAIN Last administered on 03/07/19at 08:59; Start 03/06/19 at 10:00 Ketorolac Tromethamine (Toradol 30mg Vial) 30 mg PRN Q6HRS PRN IV INFLAMMATION Last administered on 03/07/19at 07:54; Start 03/06/19 at 10:00; Stop 03/11/19 at 09:59 Lactobacillus Rhamnosus (Culturelle) 1 cap BID PO Last administered on 03/07/19at 07:54; Start 03/06/19 at 21:00 Linezolid (Zyvox) 600 mg BID PO ; Start 03/07/19 at 13:00 Vitals/I & O Vital Sign - Last 24 Hours 03/06/19 03/06/19 03/06/19 03/06/19 12:00 12:00 12:22 13:00 Temp 98.9 98.9 Pulse 90 96 Resp 12 15 B/P (MAP) 110/68 (82) 126/72 (90) Pulse Ox 99 99 O2 Delivery Room Air Room Air Room Air Room Air O2 Flow Rate 2.0 03/06/19 03/06/19 03/06/19 03/06/19 14:00 15:00 16:00 16:00 Pulse 96 96 96 Resp 14 16 14 B/P (MAP) 133/69 (90) 127/70 (89) 118/60 (79) O2 Delivery Room Air Room Air Room Air Room Air 03/06/19 03/06/19 03/06/19 03/06/19 17:00 18:00 19:00 19:18 Temp 98.8 98.8 Pulse 102 104 107 Resp 14 14 24 B/P (MAP) 112/57 (75) 118/58 (78) 120/63 (82) Pulse Ox 99 100 100 O2 Delivery Room Air Room Air Room Air Room Air 03/06/19 03/06/19 03/06/19 03/06/19 20:00 20:00 20:56 21:00 Temp 98.2 98.2 Pulse 98 97 Resp 17 B/P (MAP) 128/72 (90) 134/79 (97) Pulse Ox 95 96 O2 Delivery Room Air Room Air Room Air Room Air 03/06/19 03/06/19 03/06/19 03/06/19 21:49 21:50 22:00 23:00 Pulse 91 84 Resp 16 15 B/P (MAP) 151/76 (101) 136/79 (98) Pulse Ox 96 98 O2 Delivery Room Air Room Air Room Air Room Air 03/06/19 03/06/19 03/07/19 03/07/19 23:23 23:59 00:00 00:30 Pulse 91 Resp 13 14 14 B/P (MAP) 132/72 (92) Pulse Ox 95 O2 Delivery Room Air Room Air Room Air Room Air 03/07/19 03/07/19 03/07/19 03/07/19 00:52 01:00 02:00 02:31 Pulse 92 83 Resp 16 12 12 B/P (MAP) 128/68 (88) 113/65 (81) Pulse Ox 92 94 O2 Delivery Room Air Room Air Room Air Room Air 03/07/19 03/07/19 03/07/19 03/07/19 03:00 03:46 04:00 04:00 Temp 98.5 98.5 Pulse 80 81 Resp 10 13 12 B/P (MAP) 111/64 (80) 123/67 (85) Pulse Ox 94 96 O2 Delivery Room Air Room Air Room Air Room Air 03/07/19 03/07/19 03/07/19 03/07/19 05:00 05:01 05:02 06:00 Pulse 84 83 Resp 14 15 12 10 B/P (MAP) 127/71 (89) 125/68 (87) Pulse Ox 97 94 O2 Delivery Room Air Room Air Room Air Room Air 03/07/19 03/07/19 03/07/19 03/07/19 07:00 08:00 08:00 09:00 Temp 97.9 97.9 Pulse 78 88 104 Resp 13 14 16 B/P (MAP) 123/71 (88) 109/66 (80) 134/64 (87) Pulse Ox 96 92 83 O2 Delivery Room Air Room Air Room Air Room Air 03/07/19 10:00 Pulse 78 Resp 8 B/P (MAP) 116/62 (80) Pulse Ox 95 O2 Delivery Room Air Intake and Output 03/06/19 03/06/19 03/07/19 14:59 22:59 06:59 Intake Total 800 ml 1584 ml 500 ml Output Total 816 ml 1376 ml 1073 ml Balance -16 ml 208 ml -573 ml CANDIDO [email or web address] MD Mar 07, 2019 11:02
[2019-03-07] MEDS: LINEZOLID 600 MG TABLET PO SCH ×2 (12:39→21:18)
[2019-03-07] MEDS ORDERED: LIDOCAINE 2% VISCOUS 15 ML SOLUTION. MM ONE (13:45)
[2019-03-07] MEDS ORDERED: BENZOCAINE ONE 20% MUCOSAL SPRAY. MM (13:45)
[2019-03-07] MEDS ORDERED: 0.9 % SODIUM CHLORIDE 10 ML DISP.SYRIN. IV PRN (13:45)
[2019-03-07] MEDS ORDERED: LIDOCAINE 2% TOPICAL JELLY 5GM TUBE. TP ONE (13:45)
[2019-03-07] MEDS ORDERED: STERILE WATER IV ONE (15:45)
[2019-03-07] MEDS ORDERED: ALTEPLASE IV ONE (15:45)
[2019-03-07] MEDS ORDERED: PROPOFOL 20 ML IV ONE (15:50)
[2019-03-07] MEDS ORDERED: LIDOCAINE 2% PF 5 ML VIAL. ONE (15:50)
[2019-03-07] MEDS ORDERED: ePHEDrine PF IN SALINE 50 MG/10 ML SYRINGE. IV ONE (15:50)
--- NOTE | 2019-03-07 16:15 | RAD ---
Examination: CT CHEST WO CONTRAST History: Empyema Comparison/Correlation: CTA of the chest 03/05/2013 Findings: Axial images of chest were obtained without contrast. Sagittal and coronal reformatted images were provided. Right basilar pigtail catheter is present within the lateral pleural space. Moderate-sized left mid thoracic and basilar pleural collection is present. Minimal gas is present within the pleural collection at the basilar aspect. Pleural collection extends into the left lateral level extension into the major fissure. Pigtail catheter is also present at the left upper anterior thoracic level adjacent to the superior mediastinum. Minimal gas and fluid collection noted at this site. This appears to be separate from the much larger dominant collection at the posterior left hemithorax. Left lower lobe basilar atelectatic consolidation is notable. Small right pleural effusion is present. No right lung infiltrates or suspicious collections. No enlarged thoracic lymph nodes. Partially visualized upper abdomen is unremarkable. No acute bony process. Impression: Moderate moderate in the left dominant posterior thoracic pleural collection. Atelectasis at the left base still noted. Significant decrease in the left anterior apical collection. PQRS Compliance Statement: One or more of the following individualized dose reduction techniques were utilized for this examination: 1. Automated exposure control 2. Adjustment of the mA and/or kV according to patient size 3. Use of iterative reconstruction technique Electronically signed by: Christopher Pino MD (03/07/2019 4:12 PM) [facility]
--- NOTE | 2019-03-07 19:58 | CARD ---
MR#: [id number] Date of Study: 03/07/2019 Ordering Physician: MICHA GUAMAN, Referring Physician: MICHA GUAMAN, Tech: Helena Dowd APPROVED REPORT EXAM: Transesophageal echocardiogram with color flow Doppler. INDICATION Infection: Reason For Test : Rule out endocarditis. PROCEDURE After obtaining informed consent, patient underwent transesophageal echo in the ICU. Type of Sedation : General Anesthesia Sedation was administered by Dr. Laura Land. Sedation was achieved with Propofol 250mg intravenously. Transesophageal probe was inserted and advanced into esophagus by Valerio Rosenthal MD. The ANTONIA was performed without complications. Throughout the procedure, the blood pressure, pulse oximetry, cardiac rhythm, and rate were monitored . The patient tolerated the procedure without adverse effects. Recovery from general anesthesia was une ventful and vital signs were stable. LEFT VENTRICLE The left ventricle is normal size. There is normal left ventricular wall thickness. The left ventricu lar systolic function is normal and the ejection fraction is within normal range. The Ejection Fracti on is >55%. There is normal LV segmental wall motion. The left ventricular diastolic function and ulises ling is normal for age. RIGHT VENTRICLE The right ventricle is normal size. There is normal right ventricular wall thickness. The right ventr icular systolic function is normal. ATRIA The left atrium size is normal. The right atrium size is normal. The interatrial septum is intact wit h no evidence for an atrial septal defect or patent foramen ovale as noted on 2-D or Doppler imaging. There is no thrombus noted in the left atrial appendage. AORTIC VALVE The aortic valve is normal in structure and function. Doppler and Color Flow revealed no significant aortic regurgitation. There is no significant aortic valvular stenosis. There is no aortic valvular v egetation. MITRAL VALVE The mitral valve is normal in structure and function. There is no evidence of mitral valve prolapse. There is no mitral valve stenosis. Doppler and Color Flow revealed no mitral valve regurgitation note d. TRICUSPID VALVE The tricuspid valve is normal in structure and function. Doppler and Color Flow revealed trace tricus pid regurgitation. There is no tricuspid valve prolapse or vegetation. There is no tricuspid valve st enosis. PULMONIC VALVE The pulmonary valve is normal in structure and function. Doppler and Color Flow revealed no pulmonic valvular regurgitation. There is no pulmonic valvular stenosis. GREAT VESSELS The aortic root is normal in size. The IVC is normal in size and collapses >50% with inspiration. Critical Notification Critical Value: No <Conclusion> The left ventricular systolic function is normal and the ejection fraction is within normal range. Th e Ejection Fraction is >55%. There is no thrombus noted in the left atrial appendage. No evidence of valvular vegetations/disease. Signed by : Roque Rosenthal, Electronically Approved : 03/07/2019 19:58:30
[2019-03-08] MEDS: KETOROLAC 30 MG/ML VIAL. IV PRN ×4 (02:10→20:44)
[2019-03-08] MEDS: HYDROmorphone 2 MG/ML VIAL IVP PRN ×3 (02:10→08:23)
[2019-03-08 03:57] VITALS: BP 118/68
[2019-03-08 05:20] LABS: BASO % 1 % (0-3); EOS # 0.3 x10^3/uL (0.0-0.7); EOS % 4 % (0-3); HEMATOCRIT 37.7 % (39.0-53.0); HEMOGLOBIN 12.7 g/dL (13.0-17.5); LYMPH # 1.2 x10^3/uL (1.0-4.8); LYMPH % 16 % (24-48); MEAN CORPUSCULAR HEMOGLOBIN 30 pg (25-35); MEAN CORPUSCULAR HGB CONC 34 g/dL (31-37); MEAN CORPUSCULAR VOLUME 89 fL (79-100); MONO # 0.5 x10^3/uL (0.0-1.1); MONO % 6 % (0-9); NEUT # 5.6 x10^3/uL (1.8-7.7); NEUT % 74 % (31-73); PLATELET COUNT 464 x10^3/uL (140-400); RED BLOOD COUNT 4.23 x10^6/uL (4.30-5.70); WHITE BLOOD COUNT 7.6 x10^3/uL (4.0-11.0)
[2019-03-08] MEDS: oxyCODONE/APAP 10/325 1 TAB TABLET PO PRN ×5 (05:54→21:58)
[2019-03-08 05:59] LABS: ALBUMIN 1.5 g/dL (3.4-5.0); ALBUMIN/GLOBULIN RATIO 0.3 (1.0-1.7); CALCIUM 8.2 mg/dL (8.5-10.1); CREATININE 0.8 mg/dL (0.7-1.3); GFR 115.1; POTASSIUM 4.3 mmol/L (3.5-5.1); TOTAL BILIRUBIN 0.3 mg/dL (0.2-1.0)
[2019-03-08 07:00] VITALS: BP 121/64
--- NOTE | 2019-03-08 08:08 | PDOC ---
Progress Note Subjective Subjective Afebrile. WBC normal at 7.6. Pleural tube output apprx 650mls/24hr, mediastinal drain 15cc/24hr. Left anterior chest wall without erythema or swelling. Mild tenderness. ROS ROS No nausea No vomiting Mild pain No rash Vital Sign Vital Signs Vital Signs Date Time Temp Pulse Resp B/P (MAP) Pulse Ox O2 Delivery O2 Flow Rate FiO2 03/08/19 07:00 98.3 91 16 121/64 (83) 95 Room Air 98.3 Physical Exam PHYSICAL EXAM CONSTITUTIONAL: No distress HEENT: Pupils equal and reactive with normal conjunctivae. NECK: Supple. LUNGS: Clear to auscultation bilaterally. Left sided CT and left ant chest drain. Left anterior chest without swelling or erythema HEART: S1, S2, without gross murmur. ABDOMEN: Soft, nontender, nondistended, positive bowel sounds. EXTREMITIES: Trace edema SKIN: No erythema. NEUROLOGIC: He is alert and oriented, cooperative. PSYCHIATRIC: Affect is appropriate. Labs Lab Laboratory Tests Test 03/08/19 05:00 White Blood Count 7.6 x10^3/uL (4.0-11.0) Red Blood Count 4.23 x10^6/uL (4.30-5.70) Hemoglobin 12.7 g/dL (13.0-17.5) Hematocrit 37.7 % (39.0-53.0) Mean Corpuscular Volume 89 fL (79-100) Mean Corpuscular Hemoglobin 30 pg (25-35) Mean Corpuscular Hemoglobin Concent 34 g/dL (31-37) Red Cell Distribution Width 13.0 % (11.5-14.5) Platelet Count 464 x10^3/uL (140-400) Neutrophils (%) (Auto) 74 % (31-73) Lymphocytes (%) (Auto) 16 % (24-48) Monocytes (%) (Auto) 6 % (0-9) Eosinophils (%) (Auto) 4 % (0-3) Basophils (%) (Auto) 1 % (0-3) Neutrophils # (Auto) 5.6 x10^3/uL (1.8-7.7) Lymphocytes # (Auto) 1.2 x10^3/uL (1.0-4.8) Monocytes # (Auto) 0.5 x10^3/uL (0.0-1.1) Eosinophils # (Auto) 0.3 x10^3/uL (0.0-0.7) Basophils # (Auto) 0.0 x10^3/uL (0.0-0.2) Sodium Level 140 mmol/L (136-145) Potassium Level 4.3 mmol/L (3.5-5.1) Chloride Level 104 mmol/L (98-107) Carbon Dioxide Level 28 mmol/L (21-32) Anion Gap 8 (6-14) Blood Urea Nitrogen 14 mg/dL (8-26) Creatinine 0.8 mg/dL (0.7-1.3) Estimated GFR (Cockcroft-Gault) 115.1 BUN/Creatinine Ratio 18 (6-20) Glucose Level 100 mg/dL (70-99) Calcium Level 8.2 mg/dL (8.5-10.1) Total Bilirubin 0.3 mg/dL (0.2-1.0) Aspartate Amino Transf (AST/SGOT) 37 U/L (15-37) Alanine Aminotransferase (ALT/SGPT) 82 U/L (16-63) Alkaline Phosphatase 129 U/L (46-116) Total Protein 6.0 g/dL (6.4-8.2) Albumin 1.5 g/dL (3.4-5.0) Albumin/Globulin Ratio 0.3 (1.0-1.7) Objective Assessment 28-year-old male with a history of recent IVDA who was admitted with anterior chest wall pain and shortness of breath. He was found to have a large left pleural effusion and a 5 cm anterior mediastinal abscess and some fluid in the subcutaneous tissue in the left anterior chest wall. Drains have been placed in the left pleural space and the mediastinal abscess. He has been started on IV antibiotics. Afebrile. WBC normal at 7.6. Pleural tube output apprx 650mls/24hr, mediastinal drain 15cc/24hr. Left anterior chest wall without erythema or swelling. Mild tenderness. Plan Plan of Care Continue abx as per ID Keep drains in until minimal output No thoracic surgical intervention required as of now Please call with questions STEPHANY MILLER MD Mar 08, 2019 08:08
[2019-03-08] MEDS: LACTOBACILLUS RHAMNOSUS GG 1 CAPSULE. PO SCH ×2 (08:23→20:44)
[2019-03-08] MEDS: LINEZOLID 600 MG TABLET PO SCH ×2 (08:23→20:44)
[2019-03-08] MEDS: ELECTROLYTE (ICU) PROTOCOL. MC SCH (08:23)
[2019-03-08] MEDS: FAMOTIDINE 20 MG/2 ML VIAL IVP SCH ×2 (08:24→20:44)
[2019-03-08] MEDS: DOCUSATE SODIUM 100 MG CAPSULE. PO SCH ×2 (08:32→20:45)
[2019-03-08] MEDS: SENNOSIDES/DOCUSATE 8.6/50MG TABLET. PO SCH ×2 (08:32→20:45)
[2019-03-08] MEDS: HEPARIN for SUB-Q USE 5,000 UNIT/ML VIAL. SQ SCH ×2 (08:45→21:04)
--- NOTE | 2019-03-08 09:19 | PDOC ---
PULMONARY PROGRESS NOTES Subjective MORE PAIN TODAY Vitals Vital Signs Date Time Temp Pulse Resp B/P (MAP) Pulse Ox O2 Delivery O2 Flow Rate FiO2 03/08/19 08:46 Room Air 03/08/19 07:00 98.3 91 16 121/64 (83) 95 98.3 ROS: No Nausea, No Chest Pain, No Abdominal Pain, No Increase Cough Lungs: Clear Cardiovascular: S1 Abdomen: Soft Neuro Exam: Alert Extremities: No Edema Skin: Warm Labs Laboratory Tests Test 03/07/19 04:50 03/08/19 05:00 White Blood Count 10.0 x10^3/uL (4.0-11.0) 7.6 x10^3/uL (4.0-11.0) Red Blood Count 3.96 x10^6/uL (4.30-5.70) 4.23 x10^6/uL (4.30-5.70) Hemoglobin 12.0 g/dL (13.0-17.5) 12.7 g/dL (13.0-17.5) Hematocrit 35.3 % (39.0-53.0) 37.7 % (39.0-53.0) Mean Corpuscular Volume 89 fL (79-100) 89 fL (79-100) Mean Corpuscular Hemoglobin 30 pg (25-35) 30 pg (25-35) Mean Corpuscular Hemoglobin Concent 34 g/dL (31-37) 34 g/dL (31-37) Red Cell Distribution Width 13.1 % (11.5-14.5) 13.0 % (11.5-14.5) Platelet Count 400 x10^3/uL (140-400) 464 x10^3/uL (140-400) Neutrophils (%) (Auto) 76 % (31-73) 74 % (31-73) Lymphocytes (%) (Auto) 12 % (24-48) 16 % (24-48) Monocytes (%) (Auto) 9 % (0-9) 6 % (0-9) Eosinophils (%) (Auto) 3 % (0-3) 4 % (0-3) Basophils (%) (Auto) 0 % (0-3) 1 % (0-3) Neutrophils # (Auto) 7.6 x10^3/uL (1.8-7.7) 5.6 x10^3/uL (1.8-7.7) Lymphocytes # (Auto) 1.2 x10^3/uL (1.0-4.8) 1.2 x10^3/uL (1.0-4.8) Monocytes # (Auto) 0.9 x10^3/uL (0.0-1.1) 0.5 x10^3/uL (0.0-1.1) Eosinophils # (Auto) 0.3 x10^3/uL (0.0-0.7) 0.3 x10^3/uL (0.0-0.7) Basophils # (Auto) 0.0 x10^3/uL (0.0-0.2) 0.0 x10^3/uL (0.0-0.2) Sodium Level 141 mmol/L (136-145) 140 mmol/L (136-145) Potassium Level 4.4 mmol/L (3.5-5.1) 4.3 mmol/L (3.5-5.1) Chloride Level 105 mmol/L (98-107) 104 mmol/L (98-107) Carbon Dioxide Level 31 mmol/L (21-32) 28 mmol/L (21-32) Anion Gap 5 (6-14) 8 (6-14) Blood Urea Nitrogen 11 mg/dL (8-26) 14 mg/dL (8-26) Creatinine 0.9 mg/dL (0.7-1.3) 0.8 mg/dL (0.7-1.3) Estimated GFR (Cockcroft-Gault) 100.5 115.1 BUN/Creatinine Ratio 12 (6-20) 18 (6-20) Glucose Level 96 mg/dL (70-99) 100 mg/dL (70-99) Calcium Level 8.0 mg/dL (8.5-10.1) 8.2 mg/dL (8.5-10.1) Total Bilirubin 0.7 mg/dL (0.2-1.0) 0.3 mg/dL (0.2-1.0) Aspartate Amino Transf (AST/SGOT) 34 U/L (15-37) 37 U/L (15-37) Alanine Aminotransferase (ALT/SGPT) 90 U/L (16-63) 82 U/L (16-63) Alkaline Phosphatase 132 U/L (46-116) 129 U/L (46-116) Total Protein 5.8 g/dL (6.4-8.2) 6.0 g/dL (6.4-8.2) Albumin 1.5 g/dL (3.4-5.0) 1.5 g/dL (3.4-5.0) Albumin/Globulin Ratio 0.3 (1.0-1.7) 0.3 (1.0-1.7) Laboratory Tests Test 03/08/19 05:00 White Blood Count 7.6 x10^3/uL (4.0-11.0) Red Blood Count 4.23 x10^6/uL (4.30-5.70) Hemoglobin 12.7 g/dL (13.0-17.5) Hematocrit 37.7 % (39.0-53.0) Mean Corpuscular Volume 89 fL (79-100) Mean Corpuscular Hemoglobin 30 pg (25-35) Mean Corpuscular Hemoglobin Concent 34 g/dL (31-37) Red Cell Distribution Width 13.0 % (11.5-14.5) Platelet Count 464 x10^3/uL (140-400) Neutrophils (%) (Auto) 74 % (31-73) Lymphocytes (%) (Auto) 16 % (24-48) Monocytes (%) (Auto) 6 % (0-9) Eosinophils (%) (Auto) 4 % (0-3) Basophils (%) (Auto) 1 % (0-3) Neutrophils # (Auto) 5.6 x10^3/uL (1.8-7.7) Lymphocytes # (Auto) 1.2 x10^3/uL (1.0-4.8) Monocytes # (Auto) 0.5 x10^3/uL (0.0-1.1) Eosinophils # (Auto) 0.3 x10^3/uL (0.0-0.7) Basophils # (Auto) 0.0 x10^3/uL (0.0-0.2) Sodium Level 140 mmol/L (136-145) Potassium Level 4.3 mmol/L (3.5-5.1) Chloride Level 104 mmol/L (98-107) Carbon Dioxide Level 28 mmol/L (21-32) Anion Gap 8 (6-14) Blood Urea Nitrogen 14 mg/dL (8-26) Creatinine 0.8 mg/dL (0.7-1.3) Estimated GFR (Cockcroft-Gault) 115.1 BUN/Creatinine Ratio 18 (6-20) Glucose Level 100 mg/dL (70-99) Calcium Level 8.2 mg/dL (8.5-10.1) Total Bilirubin 0.3 mg/dL (0.2-1.0) Aspartate Amino Transf (AST/SGOT) 37 U/L (15-37) Alanine Aminotransferase (ALT/SGPT) 82 U/L (16-63) Alkaline Phosphatase 129 U/L (46-116) Total Protein 6.0 g/dL (6.4-8.2) Albumin 1.5 g/dL (3.4-5.0) Albumin/Globulin Ratio 0.3 (1.0-1.7) Impression . IMPRESSION: 1. Empyema.S/P CHEST TUBE 2. Anterior mediastinal abscess extending into the left anterior chest wall muscular structures. DRAIN IN PLACE 3. Small pericardial effusion. 4. Elevated liver chemistries. 5. Protein malnutrition. 6. Methamphetamine use. 7. History of Staphylococcus infection. Plan . TUBE DRAINED ADDITIONAL 1 LITER S/P TPA WILL REPEAT CXR ANTIBX PER ID FOLLOW CULTURES THAO MCCARTNEY MD Mar 08, 2019 09:19
[2019-03-08] MEDS: DAPTOmycin (GENERIC) IVPB 600 MG in IV NORMAL SALINE 50ML 50 ML IV SCH (09:41)
[2019-03-08 11:00] VITALS: BP 129/72
[2019-03-08] MEDS: HYDROmorphone 2 MG/ML VIAL IV PRN ×5 (11:40→23:44)
--- NOTE | 2019-03-08 12:09 | PDOC ---
Infectious Disease Note Subjective Subjective Better. Some Bilat knee tightness but he is wondering if because he is bedridden Less pain but still present. Appetite is better eating well. No F/C/S/N/V/D/SOA/Rash ROS ROS o/w neg Vital Sign Vital Signs Vital Signs Date Time Temp Pulse Resp B/P (MAP) Pulse Ox O2 Delivery O2 Flow Rate FiO2 03/08/19 11:00 98.4 88 16 129/72 (91) 97 Room Air 98.4 Physical Exam PHYSICAL EXAM CONSTITUTIONAL: He is a pleasant gentleman. He is cooperative, he is in no acute distress. Eating. Looks better HEENT: Pupils equal and reactive with normal conjunctivae. Oral cavity, pharynx is clear without signs of petechiae. NECK: Supple. Good range of motion. LUNGS: Clear to auscultation bilaterally. Left sided CT and left ant chest drain HEART: S1, S2, without gross murmur. ABDOMEN: Soft, nontender, nondistended, positive bowel sounds. EXTREMITIES: Without clubbing, cyanosis. His right knee is without warmth or gross erythema. Notes no gross effusion in either knee. EXTREMITIES: Without clubbing, cyanosis. He has some trace edema. SKIN: Without generalized rash, but he does have multiple areas of scabs where he has been picked at. He has multiple tattoos as well. There is no gross erythema. NEUROLOGIC: He is alert and oriented, cooperative. PSYCHIATRIC: Affect is appropriate. Labs Lab Laboratory Tests Test 03/08/19 05:00 White Blood Count 7.6 x10^3/uL (4.0-11.0) Red Blood Count 4.23 x10^6/uL (4.30-5.70) Hemoglobin 12.7 g/dL (13.0-17.5) Hematocrit 37.7 % (39.0-53.0) Mean Corpuscular Volume 89 fL (79-100) Mean Corpuscular Hemoglobin 30 pg (25-35) Mean Corpuscular Hemoglobin Concent 34 g/dL (31-37) Red Cell Distribution Width 13.0 % (11.5-14.5) Platelet Count 464 x10^3/uL (140-400) Neutrophils (%) (Auto) 74 % (31-73) Lymphocytes (%) (Auto) 16 % (24-48) Monocytes (%) (Auto) 6 % (0-9) Eosinophils (%) (Auto) 4 % (0-3) Basophils (%) (Auto) 1 % (0-3) Neutrophils # (Auto) 5.6 x10^3/uL (1.8-7.7) Lymphocytes # (Auto) 1.2 x10^3/uL (1.0-4.8) Monocytes # (Auto) 0.5 x10^3/uL (0.0-1.1) Eosinophils # (Auto) 0.3 x10^3/uL (0.0-0.7) Basophils # (Auto) 0.0 x10^3/uL (0.0-0.2) Sodium Level 140 mmol/L (136-145) Potassium Level 4.3 mmol/L (3.5-5.1) Chloride Level 104 mmol/L (98-107) Carbon Dioxide Level 28 mmol/L (21-32) Anion Gap 8 (6-14) Blood Urea Nitrogen 14 mg/dL (8-26) Creatinine 0.8 mg/dL (0.7-1.3) Estimated GFR (Cockcroft-Gault) 115.1 BUN/Creatinine Ratio 18 (6-20) Glucose Level 100 mg/dL (70-99) Calcium Level 8.2 mg/dL (8.5-10.1) Total Bilirubin 0.3 mg/dL (0.2-1.0) Aspartate Amino Transf (AST/SGOT) 37 U/L (15-37) Alanine Aminotransferase (ALT/SGPT) 82 U/L (16-63) Alkaline Phosphatase 129 U/L (46-116) Total Protein 6.0 g/dL (6.4-8.2) Albumin 1.5 g/dL (3.4-5.0) Albumin/Globulin Ratio 0.3 (1.0-1.7) Micro CTA chest Impression: 1. Anterior mediastinal abscess with additional abscess extending into the left anterior chest wall musculature through the left first costomanubrial junction, concerning for septic arthritis. 2. Large left empyema. 3. New complete collapse of the left lower lobe and partial atelectasis of the left upper lobe. 4. Small pericardial effusion, difficult to exclude infection given adjacent findings Objective Assessment Bacteremia 07/13 bottles 03/05 GPC ANTONIA 03/07 - neg Leukocytosis - better Empyema s/p chest tube 03/05 1.8 liters removed 03/05 - Staph aureus Left chest abscess s/p drain 03/05 - Staph aureus ? conduction defect on ECHO Transaminitis - some better Protein malnutrition H/o Meth use H/o Staph infection H/o Hep C - not treated Plan Plan of Care Repeat Blood cults 03/07 Cont Dapto - hope to taper soon Cont Zyvox 03/05 F/u labs - am and cults Monitor R knee - stable May need GI eval as Hep C has not been treated D/w family CRISTY GASPAR MD Mar 08, 2019 12:09
--- NOTE | 2019-03-08 12:42 | PDOC ---
[employer] PROGRESS NOTE Chief Complaint Chief Complaint Acute chest pain Sirs Empyema Left chest abscess H/o Meth use H/o Staph infection H/o Hep C - not treated small pericardial effusion History of Present Illness History of Present Illness 03/08/19 Pt seen and examined at bedside Pt sitting up in bed talking with NAD Pt admits to methamphetamine relapse and believes it could have contributed to condition today. He states he will abstain from usage after discharge. some soreness in chest tubes site Eating well, no fevers ON multiple abx per iD Also on NS not on dopa gtt albumin 1.,8 in thsi [place]! 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 He is cooperative, he is in no acute distress. Eating. Looks better HEENT: Pupils equal and reactive with normal conjunctivae. Oral cavity, pharynx is clear without signs of petechiae. NECK: Supple. Good range of motion. LUNGS: Clear to auscultation bilaterally. Left sided CT and left ant chest drain HEART: S1, S2, without gross murmur. ABDOMEN: Soft, nontender, nondistended, positive bowel sounds. EXTREMITIES: Without clubbing, cyanosis. His right knee is without warmth or gross erythema. Notes no gross effusion in either knee. EXTREMITIES: Without clubbing, cyanosis. He has some trace edema. SKIN: Without generalized rash, but he does have multiple areas of scabs where he has been picked at. He has multiple tattoos as well. There is no gross erythema. NEUROLOGIC: He is alert and oriented, cooperative. PSYCHIATRIC: Affect is appropriate. General: Alert, Oriented X3, Cooperative, No acute distress Heart: Regular rate, Normal S1, Normal S2 Lungs: Clear Abdomen: Soft, Other (tender to left abd and back) Extremities: No clubbing, No cyanosis Skin: No significant lesion, Other (3x3cm area of fluctuance and tenderness without significant erythema on the left anterior chest wall) Labs Labs: Laboratory Tests Test 03/08/19 05:00 White Blood Count 7.6 x10^3/uL (4.0-11.0) Red Blood Count 4.23 x10^6/uL (4.30-5.70) Hemoglobin 12.7 g/dL (13.0-17.5) Hematocrit 37.7 % (39.0-53.0) Mean Corpuscular Volume 89 fL (79-100) Mean Corpuscular Hemoglobin 30 pg (25-35) Mean Corpuscular Hemoglobin Concent 34 g/dL (31-37) Red Cell Distribution Width 13.0 % (11.5-14.5) Platelet Count 464 x10^3/uL (140-400) Neutrophils (%) (Auto) 74 % (31-73) Lymphocytes (%) (Auto) 16 % (24-48) Monocytes (%) (Auto) 6 % (0-9) Eosinophils (%) (Auto) 4 % (0-3) Basophils (%) (Auto) 1 % (0-3) Neutrophils # (Auto) 5.6 x10^3/uL (1.8-7.7) Lymphocytes # (Auto) 1.2 x10^3/uL (1.0-4.8) Monocytes # (Auto) 0.5 x10^3/uL (0.0-1.1) Eosinophils # (Auto) 0.3 x10^3/uL (0.0-0.7) Basophils # (Auto) 0.0 x10^3/uL (0.0-0.2) Sodium Level 140 mmol/L (136-145) Potassium Level 4.3 mmol/L (3.5-5.1) Chloride Level 104 mmol/L (98-107) Carbon Dioxide Level 28 mmol/L (21-32) Anion Gap 8 (6-14) Blood Urea Nitrogen 14 mg/dL (8-26) Creatinine 0.8 mg/dL (0.7-1.3) Estimated GFR (Cockcroft-Gault) 115.1 BUN/Creatinine Ratio 18 (6-20) Glucose Level 100 mg/dL (70-99) Calcium Level 8.2 mg/dL (8.5-10.1) Total Bilirubin 0.3 mg/dL (0.2-1.0) Aspartate Amino Transf (AST/SGOT) 37 U/L (15-37) Alanine Aminotransferase (ALT/SGPT) 82 U/L (16-63) Alkaline Phosphatase 129 U/L (46-116) Total Protein 6.0 g/dL (6.4-8.2) Albumin 1.5 g/dL (3.4-5.0) Albumin/Globulin Ratio 0.3 (1.0-1.7) Review of Systems Review of Systems: Denies headache Denies vision change Assessment and Plan Assessmemt and Plan Problems Medical Problems: (1) Chest wall abscess Status: Acute (2) Mediastinal abscess Status: Acute (3) Pleural effusion Status: Acute Assessment Acute chest pain Sirs Empyema Left chest abscess H/o Meth use H/o Staph infection H/o Hep C - not treated small pericardial effusion Plan Continue chest tube Await culture Continue antibiotics Encouraged PO food intake Discussed drug use cessation DVT prophylaxis PT/OT Continue home meds Comment Review of Relevant I have reviewed the following items nancy (where applicable) has been applied. Medications: Current Medications Medications (Trade) Dose Ordered Sig/Conrad Route PRN Reason Start Time Stop Time Status Last Admin Dose Admin Linezolid (Zyvox) 600 mg BID PO 03/07/19 13:00 03/08/19 08:46 Alteplase, Recombinant 10 mg/ Sterile Water 50 ml @ 0 mls/hr 1X ONCE IV 03/07/19 15:45 03/07/19 15:46 DC 03/07/19 17:14 Hydromorphone HCl (Dilaudid) 2 mg PRN Q3HRS PRN IV MODERATE TO SEVERE PAIN 03/08/19 10:30 03/08/19 11:40 MYRA MUNOZ III DO Mar 08, 2019 12:42
[2019-03-08 15:17] VITALS: BP 129/81
--- NOTE | 2019-03-08 15:18 | RAD ---
PORTABLE CHEST 1V History: Empyema. Chest tube. Comparison: Chest CT March 07, 2019 Findings: Loculated left pleural effusion with adjacent atelectasis, similar compared to prior CT compatible with known empyema. Pigtail pleural drain in place, unchanged. Additional pigtail pleural drain projecting over the upper lung, unchanged. Normal heart size. No pneumothorax. Impression: 1. Loculated left pleural effusion compatible with known empyema, similar compared to prior. Pigtail pleural drain in place. Electronically signed by: Jose Antonio Mccoy DO (03/08/2019 3:15 PM) [id number]
--- NOTE | 2019-03-08 15:22 | NUR ---
SW following pt. Pt was transferred from ICU and is self pay, has chest tube, ID also following. PT/OT recommends home when goals met. Will continue to follow pending dc needs.
[2019-03-08 19:52] VITALS: BP 133/72
[2019-03-08 23:40] VITALS: BP 115/70
[2019-03-09] MEDS: HYDROmorphone 2 MG/ML VIAL IV PRN ×7 (02:50→21:07)
[2019-03-09] MEDS: KETOROLAC 30 MG/ML VIAL. IV PRN ×4 (02:50→21:06)
[2019-03-09 03:55] VITALS: BP 119/59
[2019-03-09 04:28] LABS: BASO % 1 % (0-3); EOS # 0.2 x10^3/uL (0.0-0.7); EOS % 3 % (0-3); HEMATOCRIT 34.9 % (39.0-53.0); HEMOGLOBIN 11.9 g/dL (13.0-17.5); LYMPH # 1.1 x10^3/uL (1.0-4.8); LYMPH % 15 % (24-48); MEAN CORPUSCULAR HEMOGLOBIN 30 pg (25-35); MEAN CORPUSCULAR HGB CONC 34 g/dL (31-37); MEAN CORPUSCULAR VOLUME 88 fL (79-100); MONO # 0.5 x10^3/uL (0.0-1.1); MONO % 6 % (0-9); NEUT # 5.4 x10^3/uL (1.8-7.7); NEUT % 74 % (31-73); PLATELET COUNT 465 x10^3/uL (140-400); RED BLOOD COUNT 3.95 x10^6/uL (4.30-5.70); RED CELL DISTRIBUTION WIDTH 12.9 % (11.5-14.5); WHITE BLOOD COUNT 7.3 x10^3/uL (4.0-11.0)
[2019-03-09 04:52] LABS: CALCIUM 8.1 mg/dL (8.5-10.1); CREATININE 0.8 mg/dL (0.7-1.3); GFR 115.1; POTASSIUM 4.4 mmol/L (3.5-5.1)
[2019-03-09] MEDS: oxyCODONE/APAP 10/325 1 TAB TABLET PO PRN ×5 (06:02→22:03)
[2019-03-09 07:00] VITALS: BP 128/80
--- NOTE | 2019-03-09 08:28 | RAD ---
PORTABLE CHEST 1V History: Empyema.. Comparison: Previous day Left pigtail catheter is in similar location overlying the left upper lung. Left effusion/empyema is again demonstrated and appears similar. No evidence of pneumothorax. No right pleural effusion. No new consolidating infiltrate. Left basilar markings likely atelectasis again seen. Heart size stable. IMPRESSION: Left pleural effusion or empyema is similar to prior study. Electronically signed by: Antonio Lang MD (03/09/2019 8:25 AM) [facility]
[2019-03-09] MEDS: ELECTROLYTE (ICU) PROTOCOL. MC SCH (09:00)
[2019-03-09] MEDS: SENNOSIDES/DOCUSATE 8.6/50MG TABLET. PO SCH ×2 (09:00→21:06)
[2019-03-09] MEDS: DOCUSATE SODIUM 100 MG CAPSULE. PO SCH ×2 (09:00→21:06)
[2019-03-09] MEDS: FAMOTIDINE 20 MG/2 ML VIAL IVP SCH ×2 (09:16→21:07)
[2019-03-09] MEDS: LINEZOLID 600 MG TABLET PO SCH ×2 (09:17→21:06)
[2019-03-09] MEDS: LACTOBACILLUS RHAMNOSUS GG 1 CAPSULE. PO SCH ×2 (09:17→21:05)
[2019-03-09] MEDS: HEPARIN for SUB-Q USE 5,000 UNIT/ML VIAL. SQ SCH ×2 (09:19→21:23)
[2019-03-09] MEDS: DAPTOmycin (GENERIC) IVPB 600 MG in IV NORMAL SALINE 50ML 50 ML IV SCH (09:32)
[2019-03-09 11:00] VITALS: BP 121/68
--- NOTE | 2019-03-09 11:22 | PDOC ---
PULMONARY PROGRESS NOTES Subjective NOT MORE SOA Vitals Vital Signs Date Time Temp Pulse Resp B/P (MAP) Pulse Ox O2 Delivery O2 Flow Rate FiO2 03/09/19 09:46 Room Air 03/09/19 07:00 97.7 79 18 128/80 (96) 99 97.7 03/08/19 08:00 2.0 ROS: No Nausea, No Abdominal Pain, No Increase Cough Lungs: Clear Cardiovascular: S1 Abdomen: Soft Neuro Exam: Alert Extremities: No Edema Skin: Warm Labs Laboratory Tests Test 03/08/19 05:00 03/09/19 04:10 White Blood Count 7.6 x10^3/uL (4.0-11.0) 7.3 x10^3/uL (4.0-11.0) Red Blood Count 4.23 x10^6/uL (4.30-5.70) 3.95 x10^6/uL (4.30-5.70) Hemoglobin 12.7 g/dL (13.0-17.5) 11.9 g/dL (13.0-17.5) Hematocrit 37.7 % (39.0-53.0) 34.9 % (39.0-53.0) Mean Corpuscular Volume 89 fL (79-100) 88 fL (79-100) Mean Corpuscular Hemoglobin 30 pg (25-35) 30 pg (25-35) Mean Corpuscular Hemoglobin Concent 34 g/dL (31-37) 34 g/dL (31-37) Red Cell Distribution Width 13.0 % (11.5-14.5) 12.9 % (11.5-14.5) Platelet Count 464 x10^3/uL (140-400) 465 x10^3/uL (140-400) Neutrophils (%) (Auto) 74 % (31-73) 74 % (31-73) Lymphocytes (%) (Auto) 16 % (24-48) 15 % (24-48) Monocytes (%) (Auto) 6 % (0-9) 6 % (0-9) Eosinophils (%) (Auto) 4 % (0-3) 3 % (0-3) Basophils (%) (Auto) 1 % (0-3) 1 % (0-3) Neutrophils # (Auto) 5.6 x10^3/uL (1.8-7.7) 5.4 x10^3/uL (1.8-7.7) Lymphocytes # (Auto) 1.2 x10^3/uL (1.0-4.8) 1.1 x10^3/uL (1.0-4.8) Monocytes # (Auto) 0.5 x10^3/uL (0.0-1.1) 0.5 x10^3/uL (0.0-1.1) Eosinophils # (Auto) 0.3 x10^3/uL (0.0-0.7) 0.2 x10^3/uL (0.0-0.7) Basophils # (Auto) 0.0 x10^3/uL (0.0-0.2) 0.0 x10^3/uL (0.0-0.2) Sodium Level 140 mmol/L (136-145) 140 mmol/L (136-145) Potassium Level 4.3 mmol/L (3.5-5.1) 4.4 mmol/L (3.5-5.1) Chloride Level 104 mmol/L (98-107) 106 mmol/L (98-107) Carbon Dioxide Level 28 mmol/L (21-32) 28 mmol/L (21-32) Anion Gap 8 (6-14) 6 (6-14) Blood Urea Nitrogen 14 mg/dL (8-26) 16 mg/dL (8-26) Creatinine 0.8 mg/dL (0.7-1.3) 0.8 mg/dL (0.7-1.3) Estimated GFR (Cockcroft-Gault) 115.1 115.1 BUN/Creatinine Ratio 18 (6-20) Glucose Level 100 mg/dL (70-99) 129 mg/dL (70-99) Calcium Level 8.2 mg/dL (8.5-10.1) 8.1 mg/dL (8.5-10.1) Total Bilirubin 0.3 mg/dL (0.2-1.0) Aspartate Amino Transf (AST/SGOT) 37 U/L (15-37) Alanine Aminotransferase (ALT/SGPT) 82 U/L (16-63) Alkaline Phosphatase 129 U/L (46-116) Total Protein 6.0 g/dL (6.4-8.2) Albumin 1.5 g/dL (3.4-5.0) Albumin/Globulin Ratio 0.3 (1.0-1.7) Laboratory Tests Test 03/09/19 04:10 White Blood Count 7.3 x10^3/uL (4.0-11.0) Red Blood Count 3.95 x10^6/uL (4.30-5.70) Hemoglobin 11.9 g/dL (13.0-17.5) Hematocrit 34.9 % (39.0-53.0) Mean Corpuscular Volume 88 fL (79-100) Mean Corpuscular Hemoglobin 30 pg (25-35) Mean Corpuscular Hemoglobin Concent 34 g/dL (31-37) Red Cell Distribution Width 12.9 % (11.5-14.5) Platelet Count 465 x10^3/uL (140-400) Neutrophils (%) (Auto) 74 % (31-73) Lymphocytes (%) (Auto) 15 % (24-48) Monocytes (%) (Auto) 6 % (0-9) Eosinophils (%) (Auto) 3 % (0-3) Basophils (%) (Auto) 1 % (0-3) Neutrophils # (Auto) 5.4 x10^3/uL (1.8-7.7) Lymphocytes # (Auto) 1.1 x10^3/uL (1.0-4.8) Monocytes # (Auto) 0.5 x10^3/uL (0.0-1.1) Eosinophils # (Auto) 0.2 x10^3/uL (0.0-0.7) Basophils # (Auto) 0.0 x10^3/uL (0.0-0.2) Sodium Level 140 mmol/L (136-145) Potassium Level 4.4 mmol/L (3.5-5.1) Chloride Level 106 mmol/L (98-107) Carbon Dioxide Level 28 mmol/L (21-32) Anion Gap 6 (6-14) Blood Urea Nitrogen 16 mg/dL (8-26) Creatinine 0.8 mg/dL (0.7-1.3) Estimated GFR (Cockcroft-Gault) 115.1 Glucose Level 129 mg/dL (70-99) Calcium Level 8.1 mg/dL (8.5-10.1) Impression . IMPRESSION: 1. Empyema.S/P CHEST TUBE 2. Anterior mediastinal abscess extending into the left anterior chest wall muscular structures. DRAIN IN PLACE 3. Small pericardial effusion. 4. Elevated liver chemistries. 5. Protein malnutrition. 6. Methamphetamine use. 7. History of Staphylococcus infection. Plan . TUBE DRAINED ADDITIONAL 1 LITER S/P TPA TOTAL 4 LITERS DRAINED REPEAT CXR REVIEWED IMPROVED ANTIBX PER ID FOLLOW CULTURES SO FAR THAO ISRAEL MD Mar 09, 2019 11:22
--- NOTE | 2019-03-09 11:48 | PDOC ---
Infectious Disease Note Subjective Subjective Feeling alright this morning Deneis SOA/CP/F/C/N/V/D ROS ROS per HPI Vital Sign Vital Signs Vital Signs Date Time Temp Pulse Resp B/P (MAP) Pulse Ox O2 Delivery O2 Flow Rate FiO2 03/09/19 09:46 Room Air 03/09/19 07:00 97.7 79 18 128/80 (96) 99 97.7 03/08/19 08:00 2.0 Physical Exam PHYSICAL EXAM GENERAL: Lying down ,alert, NAD HEENT: Pupils equal and reactive with normal conjunctivae. Oral cavity, pharynx is clear without signs of petechiae. NECK: Supple. Good range of motion. LUNGS: Clear to auscultation bilaterally. Left sided CT and left ant chest drain in place HEART: S1, S2, without gross murmur. ABDOMEN: Soft, nontender, nondistended, positive bowel sounds. EXTREMITIES: Without clubbing, cyanosis. His right knee is without warmth or gross erythema. Notes no gross effusion in either knee. EXTREMITIES: Without clubbing, cyanosis. He has some trace edema. SKIN: Without generalized rash, but he does have multiple areas of scabs where he has been picked at. He has multiple tattoos as well. There is no gross erythema. NEUROLOGIC: He is alert and oriented, cooperative. PIV Labs Lab Laboratory Tests Test 03/09/19 04:10 White Blood Count 7.3 x10^3/uL (4.0-11.0) Red Blood Count 3.95 x10^6/uL (4.30-5.70) Hemoglobin 11.9 g/dL (13.0-17.5) Hematocrit 34.9 % (39.0-53.0) Mean Corpuscular Volume 88 fL (79-100) Mean Corpuscular Hemoglobin 30 pg (25-35) Mean Corpuscular Hemoglobin Concent 34 g/dL (31-37) Red Cell Distribution Width 12.9 % (11.5-14.5) Platelet Count 465 x10^3/uL (140-400) Neutrophils (%) (Auto) 74 % (31-73) Lymphocytes (%) (Auto) 15 % (24-48) Monocytes (%) (Auto) 6 % (0-9) Eosinophils (%) (Auto) 3 % (0-3) Basophils (%) (Auto) 1 % (0-3) Neutrophils # (Auto) 5.4 x10^3/uL (1.8-7.7) Lymphocytes # (Auto) 1.1 x10^3/uL (1.0-4.8) Monocytes # (Auto) 0.5 x10^3/uL (0.0-1.1) Eosinophils # (Auto) 0.2 x10^3/uL (0.0-0.7) Basophils # (Auto) 0.0 x10^3/uL (0.0-0.2) Sodium Level 140 mmol/L (136-145) Potassium Level 4.4 mmol/L (3.5-5.1) Chloride Level 106 mmol/L (98-107) Carbon Dioxide Level 28 mmol/L (21-32) Anion Gap 6 (6-14) Blood Urea Nitrogen 16 mg/dL (8-26) Creatinine 0.8 mg/dL (0.7-1.3) Estimated GFR (Cockcroft-Gault) 115.1 Glucose Level 129 mg/dL (70-99) Calcium Level 8.1 mg/dL (8.5-10.1) Micro 03/07. BLOOD CULTURE Preliminary NO GROWTH AFTER 2 DAYS 03/05. BLD CULT RESULT 1 Preliminary Staphylococcus aureus Ches abscess AEROBIC RES 1 Final Staphylococcus aureus Antibiotic RSLT#1 Ciprofloxacin S<=0.5 Clindamycin S<=0.25 Erythromycin S<=0.25 Gentamicin S<=0.5 Levofloxacin S =0.25 Linezolid S =2 Moxifloxacin S<=0.25 Oxacillin S<=0.25 Quinupristin/Dalfopristin S<=0.25 Rifampin S<=0.5 Tetracycline S<=1 Trimethoprim/Sulfa S<=10 Vancomycin S =1 AFB CULTURE GRAM STAIN Final Negative Pleural fluid AEROBIC RES 1 Final Staphylococcus aureus MICS are expressed in micrograms per mL Antibiotic RSLT#1 Ciprofloxacin S<=0.5 Clindamycin S<=0.25 Erythromycin S<=0.25 Gentamicin S<=0.5 Levofloxacin S<=0.12 Linezolid S =2 Moxifloxacin S<=0.25 Oxacillin S<=0.25 Quinupristin/Dalfopristin S<=0.25 Rifampin S<=0.5 Tetracycline S<=1 Trimethoprim/Sulfa S<=10 Vancomycin S =1 Objective Assessment MSSA bacteremia from 03/05. -[place] 03/07 - neg. Repeat BC 03/07 neg to date Empyema s/p chest tube 03/05. MSSA Left chest abscess s/p drain 03/05. MSSA ? conduction defect on ECHO Transaminitis - some better Protein malnutrition H/o Meth use H/o Staph infection H/o Hep C - not treated Plan Plan of Care Change Dapto to Cefazolin Continue Zyvox for now Monitor labs Monitor R knee - stable May need GI eval as Hep C has not been treated D/w Dr. Buckner Patient seen and examined. Chart reviewed in detail. Case discussed with [employer] SUPER[employer]. Agree with above plan. KEILY MCMILLAN APRN Mar 09, 2019 11:48 ALE BUCKNER MD Mar 09, 2019 20:34
--- NOTE | 2019-03-09 12:20 | PDOC ---
[employer] [facility] PROGRESS NOTE Chief Complaint Chief Complaint Acute chest pain Sirs Empyema Left chest abscess H/o Meth use H/o Staph infection H/o Hep C - not treated small pericardial effusion History of Present Illness History of Present Illness 03/09/19 Pt seen/examined at bedside, and resting NAD Suction chest tube is still in place DW RN and Pulm Chart reviewed 03/08/19 Pt seen and examined at bedside Pt sitting up in bed talking with NAD Pt admits to methamphetamine relapse and believes it could have contributed to condition today. He states he will abstain from usage after discharge. Vitals/I&O Vitals/I&O: Vital Signs Date Time Temp Pulse Resp B/P (MAP) Pulse Ox O2 Delivery O2 Flow Rate FiO2 03/09/19 09:46 Room Air 03/09/19 07:00 97.7 79 18 128/80 (96) 99 97.7 03/08/19 08:00 2.0 I & O 03/08/19 03/08/19 03/09/19 14:59 22:59 06:59 Intake Total 320 ml 480 ml 0 ml Output Total 1070 ml 700 ml 1845 ml Balance -750 ml -220 ml -1845 ml Physical Exam Physical Exam: GENERAL: Lying down ,alert, NAD HEENT: Pupils equal and reactive with normal conjunctivae. Oral cavity, pharynx is clear without signs of petechiae. NECK: Supple. Good range of motion. LUNGS: Clear to auscultation bilaterally. Left sided CT and left ant chest drain in place HEART: S1, S2, without gross murmur. ABDOMEN: Soft, nontender, nondistended, positive bowel sounds. EXTREMITIES: Without clubbing, cyanosis. His right knee is without warmth or gross erythema. Notes no gross effusion in either knee. EXTREMITIES: Without clubbing, cyanosis. He has some trace edema. SKIN: Without generalized rash, but he does have multiple areas of scabs where he has been picked at. He has multiple tattoos as well. There is no gross erythema. NEUROLOGIC: He is alert and oriented, cooperative. PIV General: Alert, Oriented X3, Cooperative, No acute distress Heart: Regular rate, Normal S1, Normal S2 Lungs: Clear Abdomen: Soft, Other (tender to left abd and back) Extremities: No clubbing, No cyanosis Skin: No significant lesion, Other (3x3cm area of fluctuance and tenderness without significant erythema on the left anterior chest wall) Labs Labs: Laboratory Tests Test 03/09/19 04:10 White Blood Count 7.3 x10^3/uL (4.0-11.0) Red Blood Count 3.95 x10^6/uL (4.30-5.70) Hemoglobin 11.9 g/dL (13.0-17.5) Hematocrit 34.9 % (39.0-53.0) Mean Corpuscular Volume 88 fL (79-100) Mean Corpuscular Hemoglobin 30 pg (25-35) Mean Corpuscular Hemoglobin Concent 34 g/dL (31-37) Red Cell Distribution Width 12.9 % (11.5-14.5) Platelet Count 465 x10^3/uL (140-400) Neutrophils (%) (Auto) 74 % (31-73) Lymphocytes (%) (Auto) 15 % (24-48) Monocytes (%) (Auto) 6 % (0-9) Eosinophils (%) (Auto) 3 % (0-3) Basophils (%) (Auto) 1 % (0-3) Neutrophils # (Auto) 5.4 x10^3/uL (1.8-7.7) Lymphocytes # (Auto) 1.1 x10^3/uL (1.0-4.8) Monocytes # (Auto) 0.5 x10^3/uL (0.0-1.1) Eosinophils # (Auto) 0.2 x10^3/uL (0.0-0.7) Basophils # (Auto) 0.0 x10^3/uL (0.0-0.2) Sodium Level 140 mmol/L (136-145) Potassium Level 4.4 mmol/L (3.5-5.1) Chloride Level 106 mmol/L (98-107) Carbon Dioxide Level 28 mmol/L (21-32) Anion Gap 6 (6-14) Blood Urea Nitrogen 16 mg/dL (8-26) Creatinine 0.8 mg/dL (0.7-1.3) Estimated GFR (Cockcroft-Gault) 115.1 Glucose Level 129 mg/dL (70-99) Calcium Level 8.1 mg/dL (8.5-10.1) Review of Systems Review of Systems: co weakness no co headache Assessment and Plan Assessmemt and Plan Problems Medical Problems: (1) Chest wall abscess Status: Acute (2) Mediastinal abscess Status: Acute (3) Pleural effusion Status: Acute Assessment Acute chest pain Sirs Empyema Left chest abscess H/o Meth use H/o Staph infection H/o Hep C - not treated small pericardial effusion Plan Wound care Suction chest tube Continue antibiotics Daptomycin Encouraged PO food intake Discussed drug use cessation DVT prophylaxis PT/OT Continue home meds Appreciate ID and pulmonary input Comment Review of Relevant I have reviewed the following items nancy (where applicable) has been applied. MYRA MUNOZ III DO Mar 09, 2019 12:20
[2019-03-09] MEDS: ceFAZolin SODIUM 2 GM in IV DEXTROSE 5% 50 ML IV SCH ×2 (13:56→21:17)
[2019-03-09 15:00] VITALS: BP 125/65
[2019-03-09 19:46] VITALS: BP 120/66
[2019-03-09 23:46] VITALS: BP 128/76
[2019-03-10] MEDS: HYDROmorphone 2 MG/ML VIAL IV PRN ×8 (00:01→22:02)
[2019-03-10] MEDS: KETOROLAC 30 MG/ML VIAL. IV PRN ×4 (03:40→22:03)
[2019-03-10 03:52] VITALS: BP 115/64
[2019-03-10] MEDS: oxyCODONE/APAP 10/325 1 TAB TABLET PO PRN ×5 (05:02→22:01)
[2019-03-10] MEDS: ceFAZolin SODIUM 2 GM in IV DEXTROSE 5% 50 ML IV SCH ×3 (06:34→22:03)
[2019-03-10 07:00] VITALS: BP 116/70
--- NOTE | 2019-03-10 08:27 | PDOC ---
Infectious Disease Note Subjective Subjective c/o left shoulder pain and inability to raise arm up, ongoing Says right knee pain is better Up walking yesterday Denies CP/SOA/cough/F/C/S ROS ROS per HPI Vital Sign Vital Signs Vital Signs Date Time Temp Pulse Resp B/P (MAP) Pulse Ox O2 Delivery O2 Flow Rate FiO2 03/10/19 03:52 98.0 68 18 115/64 (81) 95 Room Air 98.0 Physical Exam PHYSICAL EXAM GENERAL: Propped up in bed, alert, eating HEENT: Pupils equal, Oral cavity clear NECK: Supple. Good range of motion. LUNGS: Clear to auscultation bilaterally. Left sided CT and left ant chest drain in place HEART: S1, S2, without gross murmur. ABDOMEN: Soft, nontender EXTREMITIES: No edema or cyanosis. able to shrug left shoulder some SKIN: Warm to touch. multiple tattoos. NEUROLOGIC: Alert and oriented, cooperative. PIV Labs Micro 03/07. BLOOD CULTURE Preliminary NO GROWTH AFTER 2 DAYS 03/05. BLD CULT RESULT 1 Preliminary Staphylococcus aureus Ches abscess AEROBIC RES 1 Final Staphylococcus aureus Antibiotic RSLT#1 Ciprofloxacin S<=0.5 Clindamycin S<=0.25 Erythromycin S<=0.25 Gentamicin S<=0.5 Levofloxacin S =0.25 Linezolid S =2 Moxifloxacin S<=0.25 Oxacillin S<=0.25 Quinupristin/Dalfopristin S<=0.25 Rifampin S<=0.5 Tetracycline S<=1 Trimethoprim/Sulfa S<=10 Vancomycin S =1 AFB CULTURE GRAM STAIN Final Negative Pleural fluid AEROBIC RES 1 Final Staphylococcus aureus MICS are expressed in micrograms per mL Antibiotic RSLT#1 Ciprofloxacin S<=0.5 Clindamycin S<=0.25 Erythromycin S<=0.25 Gentamicin S<=0.5 Levofloxacin S<=0.12 Linezolid S =2 Moxifloxacin S<=0.25 Oxacillin S<=0.25 Quinupristin/Dalfopristin S<=0.25 Rifampin S<=0.5 Tetracycline S<=1 Trimethoprim/Sulfa S<=10 Vancomycin S =1 Objective Assessment MSSA bacteremia from 03/05. -[place] 03/07 - neg. Repeat BC 8/29 neg to date Empyema s/p chest tube 03/05. MSSA Left chest abscess s/p drain 03/05. MSSA ? conduction defect on ECHO Transaminitis - some better Protein malnutrition H/o Meth use H/o Staph infection H/o Hep C - not treated Plan Plan of Care Continue Cefazolin Continue Zyvox for now Probiotics today's labs pending May need GI eval as Hep C has not been treated Patient seen and examined. Chart reviewed in detail. Case discussed with [employer]. Agree with above plan. KEILY MCMILLAN APRN Mar 10, 2019 08:27 ALE KHAN MD Mar 10, 2019 21:37
[2019-03-10] MEDS: SENNOSIDES/DOCUSATE 8.6/50MG TABLET. PO SCH ×3 (09:00→22:01)
[2019-03-10] MEDS: DOCUSATE SODIUM 100 MG CAPSULE. PO SCH ×2 (09:00→21:00)
[2019-03-10] MEDS: FAMOTIDINE 20 MG/2 ML VIAL IVP SCH ×2 (09:11→22:02)
[2019-03-10] MEDS: LINEZOLID 600 MG TABLET PO SCH ×2 (09:11→22:01)
[2019-03-10] MEDS: LACTOBACILLUS RHAMNOSUS GG 1 CAPSULE. PO SCH ×2 (09:11→22:01)
[2019-03-10] MEDS: HEPARIN for SUB-Q USE 5,000 UNIT/ML VIAL. SQ SCH ×2 (09:19→21:55)
--- NOTE | 2019-03-10 09:48 | RAD ---
PORTABLE CHEST 1V History: Empyema. Comparison with prior day Left chest tube is unchanged in position. Left pleural fluid or empyema is again seen and appears similar. No pneumothorax. No new right lung infiltrate. Mild infiltrate or atelectasis in left lung base is stable. IMPRESSION: Stable exam, continued left pleural effusion or empyema. Electronically signed by: Antonio Lang MD (03/10/2019 9:45 AM) [facility]
[2019-03-10 11:00] VITALS: BP 110/60
--- NOTE | 2019-03-10 13:48 | PDOC ---
PULMONARY PROGRESS NOTES Subjective NOT MORE SOA Vitals Vital Signs Date Time Temp Pulse Resp B/P (MAP) Pulse Ox O2 Delivery O2 Flow Rate FiO2 03/10/19 12:51 97 Room Air 2.0 03/10/19 11:00 98.2 67 16 110/60 (77) 98.2 ROS: No Nausea, No Abdominal Pain, No Increase Cough Lungs: Clear Cardiovascular: S1 Abdomen: Soft Neuro Exam: Alert Extremities: No Edema Skin: Warm Labs Laboratory Tests Test 03/09/19 04:10 White Blood Count 7.3 x10^3/uL (4.0-11.0) Red Blood Count 3.95 x10^6/uL (4.30-5.70) Hemoglobin 11.9 g/dL (13.0-17.5) Hematocrit 34.9 % (39.0-53.0) Mean Corpuscular Volume 88 fL (79-100) Mean Corpuscular Hemoglobin 30 pg (25-35) Mean Corpuscular Hemoglobin Concent 34 g/dL (31-37) Red Cell Distribution Width 12.9 % (11.5-14.5) Platelet Count 465 x10^3/uL (140-400) Neutrophils (%) (Auto) 74 % (31-73) Lymphocytes (%) (Auto) 15 % (24-48) Monocytes (%) (Auto) 6 % (0-9) Eosinophils (%) (Auto) 3 % (0-3) Basophils (%) (Auto) 1 % (0-3) Neutrophils # (Auto) 5.4 x10^3/uL (1.8-7.7) Lymphocytes # (Auto) 1.1 x10^3/uL (1.0-4.8) Monocytes # (Auto) 0.5 x10^3/uL (0.0-1.1) Eosinophils # (Auto) 0.2 x10^3/uL (0.0-0.7) Basophils # (Auto) 0.0 x10^3/uL (0.0-0.2) Sodium Level 140 mmol/L (136-145) Potassium Level 4.4 mmol/L (3.5-5.1) Chloride Level 106 mmol/L (98-107) Carbon Dioxide Level 28 mmol/L (21-32) Anion Gap 6 (6-14) Blood Urea Nitrogen 16 mg/dL (8-26) Creatinine 0.8 mg/dL (0.7-1.3) Estimated GFR (Cockcroft-Gault) 115.1 Glucose Level 129 mg/dL (70-99) Calcium Level 8.1 mg/dL (8.5-10.1) Impression . IMPRESSION: 1. Empyema.S/P CHEST TUBE 2. Anterior mediastinal abscess extending into the left anterior chest wall muscular structures. DRAIN IN PLACE 3. Small pericardial effusion. 4. Elevated liver chemistries. 5. Protein malnutrition. 6. Methamphetamine use. 7. History of Staphylococcus infection. Plan . not much draining will remove tube soon home when ok with ID TUBE DRAINED ADDITIONAL 1 LITER S/P TPA TOTAL 4 LITERS DRAINED REPEAT CXR REVIEWED IMPROVED ANTIBX PER ID FOLLOW CULTURES SO FAR THAO ISRAEL MD Mar 10, 2019 13:48
--- NOTE | 2019-03-10 14:05 | PDOC ---
[employer] PROGRESS NOTE Chief Complaint Chief Complaint Acute chest pain Sirs Empyema Left chest abscess H/o Meth use H/o Staph infection H/o Hep C - not treated small pericardial effusion History of Present Illness History of Present Illness 03/10/19 Pt seen/examined at bedside and resting NAD Chest tube is still in place Chart Reviewed DW RN 03/09/19 Pt seen/examined at bedside, and resting NAD Suction chest tube is still in place DW RN and Pulm Chart reviewed 03/08/19 Pt seen and examined at bedside Pt sitting up in bed talking with NAD Pt admits to methamphetamine relapse and believes it could have contributed to condition today. He states he will abstain from usage after discharge. Vitals/I&O Vitals/I&O: Vital Signs Date Time Temp Pulse Resp B/P (MAP) Pulse Ox O2 Delivery O2 Flow Rate FiO2 03/10/19 12:51 97 Room Air 2.0 03/10/19 11:00 98.2 67 16 110/60 (77) 98.2 I & O 03/09/19 03/09/19 03/10/19 14:59 22:59 06:59 Intake Total 300 ml Output Total 610 ml 1340 ml 1350 ml Balance -610 ml -1040 ml -1350 ml Physical Exam Physical Exam: GENERAL: Propped up in bed, alert, eating HEENT: Pupils equal, Oral cavity clear NECK: Supple. Good range of motion. LUNGS: Clear to auscultation bilaterally. Left sided CT and left ant chest drain in place HEART: S1, S2, without gross murmur. ABDOMEN: Soft, nontender EXTREMITIES: No edema or cyanosis. able to shrug left shoulder some SKIN: Warm to touch. multiple tattoos. NEUROLOGIC: Alert and oriented, cooperative. PIV General: Alert, Oriented X3, Cooperative, No acute distress Heart: Regular rate, Normal S1, Normal S2 Lungs: Clear Abdomen: Soft, Other (tender to left abd and back) Extremities: No clubbing, No cyanosis Skin: No significant lesion, Other (3x3cm area of fluctuance and tenderness without significant erythema on the left anterior chest wall) Review of Systems Review of Systems: co chest pain no co weakness Assessment and Plan Assessmemt and Plan Problems Medical Problems: (1) Chest wall abscess Status: Acute (2) Mediastinal abscess Status: Acute (3) Pleural effusion Status: Acute Assessment Acute chest pain Sirs Empyema Left chest abscess H/o Meth use H/o Staph infection H/o Hep C - not treated small pericardial effusion Plan Wound detention meds Continue antibiotics Daptomycin Monitor Suction chest tube Encouraged PO food intake Discussed drug use cessation DVT prophylaxis PT/OT Appreciate ID and pulmonary input Comment Review of Relevant I have reviewed the following items nancy (where applicable) has been applied. MYRA MUNOZ III, DO Mar 10, 2019 14:05
[2019-03-10 15:00] VITALS: BP 118/65
[2019-03-10 15:48] LABS: BASO % 1 % (0-3); EOS # 0.2 x10^3/uL (0.0-0.7); EOS % 3 % (0-3); HEMATOCRIT 36.9 % (39.0-53.0); HEMOGLOBIN 12.3 g/dL (13.0-17.5); LYMPH # 1.1 x10^3/uL (1.0-4.8); LYMPH % 13 % (24-48); MEAN CORPUSCULAR HEMOGLOBIN 30 pg (25-35); MEAN CORPUSCULAR HGB CONC 33 g/dL (31-37); MEAN CORPUSCULAR VOLUME 90 fL (79-100); MONO # 0.4 x10^3/uL (0.0-1.1); MONO % 5 % (0-9); NEUT # 6.2 x10^3/uL (1.8-7.7); NEUT % 78 % (31-73); PLATELET COUNT 503 x10^3/uL (140-400); RED BLOOD COUNT 4.12 x10^6/uL (4.30-5.70); RED CELL DISTRIBUTION WIDTH 12.9 % (11.5-14.5)
[2019-03-10 16:09] LABS: CALCIUM 8.3 mg/dL (8.5-10.1); CREATININE 0.9 mg/dL (0.7-1.3); GFR 100.5; POTASSIUM 4.5 mmol/L (3.5-5.1)
[2019-03-10 19:15] VITALS: BP 110/64
[2019-03-10 23:35] VITALS: BP 117/70
[2019-03-11] MEDS: HYDROmorphone 2 MG/ML VIAL IV PRN ×7 (01:43→21:26)
[2019-03-11] MEDS: oxyCODONE/APAP 10/325 1 TAB TABLET PO PRN ×5 (02:12→20:35)
[2019-03-11 03:26] VITALS: BP 115/50
[2019-03-11] MEDS: KETOROLAC 30 MG/ML VIAL. IV PRN (04:12)
[2019-03-11 05:46] LABS: BASO % 1 % (0-3); EOS # 0.2 x10^3/uL (0.0-0.7); EOS % 3 % (0-3); HEMATOCRIT 36.5 % (39.0-53.0); HEMOGLOBIN 12.3 g/dL (13.0-17.5); LYMPH # 1.1 x10^3/uL (1.0-4.8); LYMPH % 15 % (24-48); MEAN CORPUSCULAR HEMOGLOBIN 30 pg (25-35); MEAN CORPUSCULAR HGB CONC 34 g/dL (31-37); MEAN CORPUSCULAR VOLUME 88 fL (79-100); MONO # 0.4 x10^3/uL (0.0-1.1); MONO % 6 % (0-9); NEUT # 5.4 x10^3/uL (1.8-7.7); NEUT % 76 % (31-73); PLATELET COUNT 512 x10^3/uL (140-400); RED BLOOD COUNT 4.15 x10^6/uL (4.30-5.70); RED CELL DISTRIBUTION WIDTH 12.6 % (11.5-14.5); WHITE BLOOD COUNT 7.1 x10^3/uL (4.0-11.0)
[2019-03-11] MEDS: ceFAZolin SODIUM 2 GM in IV DEXTROSE 5% 50 ML IV SCH ×3 (06:13→20:42)
[2019-03-11 06:27] LABS: CALCIUM 8.4 mg/dL (8.5-10.1); CREATININE 0.9 mg/dL (0.7-1.3); GFR 100.5; POTASSIUM 4.5 mmol/L (3.5-5.1)
[2019-03-11 07:00] VITALS: BP 115/63
[2019-03-11] MEDS: DOCUSATE SODIUM 100 MG CAPSULE. PO SCH ×3 (08:13→20:40)
[2019-03-11] MEDS: SENNOSIDES/DOCUSATE 8.6/50MG TABLET. PO SCH ×3 (08:13→20:40)
[2019-03-11] MEDS: LINEZOLID 600 MG TABLET PO SCH (08:13)
[2019-03-11] MEDS: FAMOTIDINE 20 MG/2 ML VIAL IVP SCH (08:13)
[2019-03-11] MEDS: LACTOBACILLUS RHAMNOSUS GG 1 CAPSULE. PO SCH ×2 (08:13→20:34)
[2019-03-11] MEDS: HEPARIN for SUB-Q USE 5,000 UNIT/ML VIAL. SQ SCH ×2 (08:43→20:39)
--- NOTE | 2019-03-11 11:07 | RAD ---
PORTABLE CHEST 1V History: Empyema COMPARISON: Previous day FINDINGS: Left pleural effusion or empyema appears similar as does left basilar infiltrate/atelectasis. Left chest tube is similar in position. No evidence of pneumothorax. No right effusion or infiltrate. IMPRESSION: Stable left pleural effusion/empyema. Electronically signed by: Antonio Lang MD (03/11/2019 11:04 AM) [facility]
[2019-03-11 11:30] VITALS: BP 124/68
--- NOTE | 2019-03-11 11:32 | PDOC ---
PULMONARY PROGRESS NOTES Subjective NOT MORE SOA Vitals Vital Signs Date Time Temp Pulse Resp B/P (MAP) Pulse Ox O2 Delivery O2 Flow Rate FiO2 03/11/19 11:22 20 98 Room Air 2.0 03/11/19 07:00 98.1 64 115/63 (80) 98.1 ROS: No Nausea, No Abdominal Pain, No Increase Cough Lungs: Clear Cardiovascular: S1 Abdomen: Soft Neuro Exam: Alert Extremities: No Edema Skin: Warm Labs Laboratory Tests Test 03/10/19 15:30 03/11/19 04:50 White Blood Count 8.0 x10^3/uL (4.0-11.0) 7.1 x10^3/uL (4.0-11.0) Red Blood Count 4.12 x10^6/uL (4.30-5.70) 4.15 x10^6/uL (4.30-5.70) Hemoglobin 12.3 g/dL (13.0-17.5) 12.3 g/dL (13.0-17.5) Hematocrit 36.9 % (39.0-53.0) 36.5 % (39.0-53.0) Mean Corpuscular Volume 90 fL (79-100) 88 fL (79-100) Mean Corpuscular Hemoglobin 30 pg (25-35) 30 pg (25-35) Mean Corpuscular Hemoglobin Concent 33 g/dL (31-37) 34 g/dL (31-37) Red Cell Distribution Width 12.9 % (11.5-14.5) 12.6 % (11.5-14.5) Platelet Count 503 x10^3/uL (140-400) 512 x10^3/uL (140-400) Neutrophils (%) (Auto) 78 % (31-73) 76 % (31-73) Lymphocytes (%) (Auto) 13 % (24-48) 15 % (24-48) Monocytes (%) (Auto) 5 % (0-9) 6 % (0-9) Eosinophils (%) (Auto) 3 % (0-3) 3 % (0-3) Basophils (%) (Auto) 1 % (0-3) 1 % (0-3) Neutrophils # (Auto) 6.2 x10^3/uL (1.8-7.7) 5.4 x10^3/uL (1.8-7.7) Lymphocytes # (Auto) 1.1 x10^3/uL (1.0-4.8) 1.1 x10^3/uL (1.0-4.8) Monocytes # (Auto) 0.4 x10^3/uL (0.0-1.1) 0.4 x10^3/uL (0.0-1.1) Eosinophils # (Auto) 0.2 x10^3/uL (0.0-0.7) 0.2 x10^3/uL (0.0-0.7) Basophils # (Auto) 0.0 x10^3/uL (0.0-0.2) 0.0 x10^3/uL (0.0-0.2) Sodium Level 141 mmol/L (136-145) 141 mmol/L (136-145) Potassium Level 4.5 mmol/L (3.5-5.1) 4.5 mmol/L (3.5-5.1) Chloride Level 105 mmol/L (98-107) 106 mmol/L (98-107) Carbon Dioxide Level 30 mmol/L (21-32) 29 mmol/L (21-32) Anion Gap 6 (6-14) 6 (6-14) Blood Urea Nitrogen 15 mg/dL (8-26) 13 mg/dL (8-26) Creatinine 0.9 mg/dL (0.7-1.3) 0.9 mg/dL (0.7-1.3) Estimated GFR (Cockcroft-Gault) 100.5 100.5 Glucose Level 95 mg/dL (70-99) 102 mg/dL (70-99) Calcium Level 8.3 mg/dL (8.5-10.1) 8.4 mg/dL (8.5-10.1) Laboratory Tests Test 03/10/19 15:30 03/11/19 04:50 White Blood Count 8.0 x10^3/uL (4.0-11.0) 7.1 x10^3/uL (4.0-11.0) Red Blood Count 4.12 x10^6/uL (4.30-5.70) 4.15 x10^6/uL (4.30-5.70) Hemoglobin 12.3 g/dL (13.0-17.5) 12.3 g/dL (13.0-17.5) Hematocrit 36.9 % (39.0-53.0) 36.5 % (39.0-53.0) Mean Corpuscular Volume 90 fL (79-100) 88 fL (79-100) Mean Corpuscular Hemoglobin 30 pg (25-35) 30 pg (25-35) Mean Corpuscular Hemoglobin Concent 33 g/dL (31-37) 34 g/dL (31-37) Red Cell Distribution Width 12.9 % (11.5-14.5) 12.6 % (11.5-14.5) Platelet Count 503 x10^3/uL (140-400) 512 x10^3/uL (140-400) Neutrophils (%) (Auto) 78 % (31-73) 76 % (31-73) Lymphocytes (%) (Auto) 13 % (24-48) 15 % (24-48) Monocytes (%) (Auto) 5 % (0-9) 6 % (0-9) Eosinophils (%) (Auto) 3 % (0-3) 3 % (0-3) Basophils (%) (Auto) 1 % (0-3) 1 % (0-3) Neutrophils # (Auto) 6.2 x10^3/uL (1.8-7.7) 5.4 x10^3/uL (1.8-7.7) Lymphocytes # (Auto) 1.1 x10^3/uL (1.0-4.8) 1.1 x10^3/uL (1.0-4.8) Monocytes # (Auto) 0.4 x10^3/uL (0.0-1.1) 0.4 x10^3/uL (0.0-1.1) Eosinophils # (Auto) 0.2 x10^3/uL (0.0-0.7) 0.2 x10^3/uL (0.0-0.7) Basophils # (Auto) 0.0 x10^3/uL (0.0-0.2) 0.0 x10^3/uL (0.0-0.2) Sodium Level 141 mmol/L (136-145) 141 mmol/L (136-145) Potassium Level 4.5 mmol/L (3.5-5.1) 4.5 mmol/L (3.5-5.1) Chloride Level 105 mmol/L (98-107) 106 mmol/L (98-107) Carbon Dioxide Level 30 mmol/L (21-32) 29 mmol/L (21-32) Anion Gap 6 (6-14) 6 (6-14) Blood Urea Nitrogen 15 mg/dL (8-26) 13 mg/dL (8-26) Creatinine 0.9 mg/dL (0.7-1.3) 0.9 mg/dL (0.7-1.3) Estimated GFR (Cockcroft-Gault) 100.5 100.5 Glucose Level 95 mg/dL (70-99) 102 mg/dL (70-99) Calcium Level 8.3 mg/dL (8.5-10.1) 8.4 mg/dL (8.5-10.1) Impression . IMPRESSION: 1. Empyema.S/P CHEST TUBE 2. Anterior mediastinal abscess extending into the left anterior chest wall muscular structures. DRAIN IN PLACE 3. Small pericardial effusion. 4. Elevated liver chemistries. 5. Protein malnutrition. 6. Methamphetamine use. 7. History of Staphylococcus infection. Plan . D/C CHEST TUBE TODAY TUBE DRAINED ADDITIONAL 1 LITER S/P TPA TOTAL 4 LITERS DRAINED REPEAT CXR REVIEWED IMPROVED ANTIBX PER ID FOLLOW CULTURES SO FAR THAO ISRAEL MD Mar 11, 2019 11:32
--- NOTE | 2019-03-11 11:37 | PDOC ---
[facility] PROGRESS NOTE Chief Complaint Chief Complaint Acute chest pain Sirs Empyema Left chest abscess H/o Meth use H/o Staph infection H/o Hep C - not treated small pericardial effusion History of Present Illness History of Present Illness 03/11/19 Pt seen and examined at bedside; sleeping upon entry but begins talking with NAD Chest tube removed this am YOCASTA RN 03/10/19 Pt seen/examined at bedside and resting NAD Chest tube is still in place Chart Reviewed YOCASTA RN 03/09/19 Pt seen/examined at bedside, and resting NAD Suction chest tube is still in place DW RN and Pulm Chart reviewed 03/08/19 Pt seen and examined at bedside Pt sitting up in bed talking with NAD Pt admits to methamphetamine relapse and believes it could have contributed to condition today. He states he will abstain from usage after discharge. Vitals/I&O Vitals/I&O: Vital Signs Date Time Temp Pulse Resp B/P (MAP) Pulse Ox O2 Delivery O2 Flow Rate FiO2 03/11/19 11:22 20 98 Room Air 2.0 03/11/19 07:00 98.1 64 115/63 (80) 98.1 I & O 03/10/19 03/10/19 03/11/19 15:00 23:00 07:00 Intake Total 250 ml 300 ml Output Total 110 ml 60 ml 700 ml Balance -110 ml 190 ml -400 ml Physical Exam Physical Exam: GENERAL: Propped up in bed, alert, eating HEENT: Pupils equal, Oral cavity clear NECK: Supple. Good range of motion. LUNGS: Clear to auscultation bilaterally. Left sided CT and left ant chest drain in place HEART: S1, S2, without gross murmur. ABDOMEN: Soft, nontender EXTREMITIES: No edema or cyanosis. able to shrug left shoulder some SKIN: Warm to touch. multiple tattoos. NEUROLOGIC: Alert and oriented, cooperative. PIV General: Alert, Oriented X3, Cooperative, No acute distress Heart: Regular rate, Normal S1, Normal S2 Lungs: Clear Abdomen: Soft, Other (tender to left abd and back) Extremities: No clubbing, No cyanosis Skin: No significant lesion, Other (3x3cm area of fluctuance and tenderness without significant erythema on the left anterior chest wall) Labs Labs: Laboratory Tests Test 03/10/19 15:30 03/11/19 04:50 White Blood Count 8.0 x10^3/uL (4.0-11.0) 7.1 x10^3/uL (4.0-11.0) Red Blood Count 4.12 x10^6/uL (4.30-5.70) 4.15 x10^6/uL (4.30-5.70) Hemoglobin 12.3 g/dL (13.0-17.5) 12.3 g/dL (13.0-17.5) Hematocrit 36.9 % (39.0-53.0) 36.5 % (39.0-53.0) Mean Corpuscular Volume 90 fL (79-100) 88 fL (79-100) Mean Corpuscular Hemoglobin 30 pg (25-35) 30 pg (25-35) Mean Corpuscular Hemoglobin Concent 33 g/dL (31-37) 34 g/dL (31-37) Red Cell Distribution Width 12.9 % (11.5-14.5) 12.6 % (11.5-14.5) Platelet Count 503 x10^3/uL (140-400) 512 x10^3/uL (140-400) Neutrophils (%) (Auto) 78 % (31-73) 76 % (31-73) Lymphocytes (%) (Auto) 13 % (24-48) 15 % (24-48) Monocytes (%) (Auto) 5 % (0-9) 6 % (0-9) Eosinophils (%) (Auto) 3 % (0-3) 3 % (0-3) Basophils (%) (Auto) 1 % (0-3) 1 % (0-3) Neutrophils # (Auto) 6.2 x10^3/uL (1.8-7.7) 5.4 x10^3/uL (1.8-7.7) Lymphocytes # (Auto) 1.1 x10^3/uL (1.0-4.8) 1.1 x10^3/uL (1.0-4.8) Monocytes # (Auto) 0.4 x10^3/uL (0.0-1.1) 0.4 x10^3/uL (0.0-1.1) Eosinophils # (Auto) 0.2 x10^3/uL (0.0-0.7) 0.2 x10^3/uL (0.0-0.7) Basophils # (Auto) 0.0 x10^3/uL (0.0-0.2) 0.0 x10^3/uL (0.0-0.2) Sodium Level 141 mmol/L (136-145) 141 mmol/L (136-145) Potassium Level 4.5 mmol/L (3.5-5.1) 4.5 mmol/L (3.5-5.1) Chloride Level 105 mmol/L (98-107) 106 mmol/L (98-107) Carbon Dioxide Level 30 mmol/L (21-32) 29 mmol/L (21-32) Anion Gap 6 (6-14) 6 (6-14) Blood Urea Nitrogen 15 mg/dL (8-26) 13 mg/dL (8-26) Creatinine 0.9 mg/dL (0.7-1.3) 0.9 mg/dL (0.7-1.3) Estimated GFR (Cockcroft-Gault) 100.5 100.5 Glucose Level 95 mg/dL (70-99) 102 mg/dL (70-99) Calcium Level 8.3 mg/dL (8.5-10.1) 8.4 mg/dL (8.5-10.1) Review of Systems Review of Systems: Denies WILLAMS Denies vision change Assessment and Plan Assessmemt and Plan Problems Medical Problems: (1) Chest wall abscess Status: Acute (2) Mediastinal abscess Status: Acute (3) Pleural effusion Status: Acute Assessment Acute chest pain Sirs Empyema Left chest abscess H/o Meth use H/o Staph infection H/o Hep C - not treated small pericardial effusion Plan Wound [facility] meds Continue antibiotics Daptomycin DVT prophylaxis Encouraged PO food intake Discussed drug use cessation PT/OT Appreciate ID and pulmonary input Comment Review of Relevant I have reviewed the following items nancy (where applicable) has been applied. MYRA MUNOZ III, DO Mar 11, 2019 11:37
--- NOTE | 2019-03-11 12:26 | PDOC ---
Infectious Disease Note Subjective Subjective feeling ok chest tube out ROS ROS no n/v/d/ Vital Sign Vital Signs Vital Signs Date Time Temp Pulse Resp B/P (MAP) Pulse Ox O2 Delivery O2 Flow Rate FiO2 03/11/19 12:18 20 95 03/11/19 11:30 97.9 90 124/68 (86) Room Air 97.9 03/11/19 11:22 2.0 Physical Exam PHYSICAL EXAM GENERAL: Propped up in bed, alert, eating HEENT: Pupils equal, Oral cavity clear NECK: Supple. Good range of motion. LUNGS: Clear to auscultation bilaterally. Left sided CT and left ant chest drain in place HEART: S1, S2, without gross murmur. ABDOMEN: Soft, nontender EXTREMITIES: No edema or cyanosis. able to shrug left shoulder some SKIN: Warm to touch. multiple tattoos. NEUROLOGIC: Alert and oriented, cooperative. PIV Labs Lab Laboratory Tests Test 03/10/19 15:30 03/11/19 04:50 White Blood Count 8.0 x10^3/uL (4.0-11.0) 7.1 x10^3/uL (4.0-11.0) Red Blood Count 4.12 x10^6/uL (4.30-5.70) 4.15 x10^6/uL (4.30-5.70) Hemoglobin 12.3 g/dL (13.0-17.5) 12.3 g/dL (13.0-17.5) Hematocrit 36.9 % (39.0-53.0) 36.5 % (39.0-53.0) Mean Corpuscular Volume 90 fL (79-100) 88 fL (79-100) Mean Corpuscular Hemoglobin 30 pg (25-35) 30 pg (25-35) Mean Corpuscular Hemoglobin Concent 33 g/dL (31-37) 34 g/dL (31-37) Red Cell Distribution Width 12.9 % (11.5-14.5) 12.6 % (11.5-14.5) Platelet Count 503 x10^3/uL (140-400) 512 x10^3/uL (140-400) Neutrophils (%) (Auto) 78 % (31-73) 76 % (31-73) Lymphocytes (%) (Auto) 13 % (24-48) 15 % (24-48) Monocytes (%) (Auto) 5 % (0-9) 6 % (0-9) Eosinophils (%) (Auto) 3 % (0-3) 3 % (0-3) Basophils (%) (Auto) 1 % (0-3) 1 % (0-3) Neutrophils # (Auto) 6.2 x10^3/uL (1.8-7.7) 5.4 x10^3/uL (1.8-7.7) Lymphocytes # (Auto) 1.1 x10^3/uL (1.0-4.8) 1.1 x10^3/uL (1.0-4.8) Monocytes # (Auto) 0.4 x10^3/uL (0.0-1.1) 0.4 x10^3/uL (0.0-1.1) Eosinophils # (Auto) 0.2 x10^3/uL (0.0-0.7) 0.2 x10^3/uL (0.0-0.7) Basophils # (Auto) 0.0 x10^3/uL (0.0-0.2) 0.0 x10^3/uL (0.0-0.2) Sodium Level 141 mmol/L (136-145) 141 mmol/L (136-145) Potassium Level 4.5 mmol/L (3.5-5.1) 4.5 mmol/L (3.5-5.1) Chloride Level 105 mmol/L (98-107) 106 mmol/L (98-107) Carbon Dioxide Level 30 mmol/L (21-32) 29 mmol/L (21-32) Anion Gap 6 (6-14) 6 (6-14) Blood Urea Nitrogen 15 mg/dL (8-26) 13 mg/dL (8-26) Creatinine 0.9 mg/dL (0.7-1.3) 0.9 mg/dL (0.7-1.3) Estimated GFR (Cockcroft-Gault) 100.5 100.5 Glucose Level 95 mg/dL (70-99) 102 mg/dL (70-99) Calcium Level 8.3 mg/dL (8.5-10.1) 8.4 mg/dL (8.5-10.1) Micro 03/07. BLOOD CULTURE Preliminary NO GROWTH AFTER 2 DAYS 03/05. BLD CULT RESULT 1 Preliminary Staphylococcus aureus Ches abscess AEROBIC RES 1 Final Staphylococcus aureus Antibiotic RSLT#1 Ciprofloxacin S<=0.5 Clindamycin S<=0.25 Erythromycin S<=0.25 Gentamicin S<=0.5 Levofloxacin S =0.25 Linezolid S =2 Moxifloxacin S<=0.25 Oxacillin S<=0.25 Quinupristin/Dalfopristin S<=0.25 Rifampin S<=0.5 Tetracycline S<=1 Trimethoprim/Sulfa S<=10 Vancomycin S =1 AFB CULTURE GRAM STAIN Final Negative Pleural fluid AEROBIC RES 1 Final Staphylococcus aureus MICS are expressed in micrograms per mL Antibiotic RSLT#1 Ciprofloxacin S<=0.5 Clindamycin S<=0.25 Erythromycin S<=0.25 Gentamicin S<=0.5 Levofloxacin S<=0.12 Linezolid S =2 Moxifloxacin S<=0.25 Oxacillin S<=0.25 Quinupristin/Dalfopristin S<=0.25 Rifampin S<=0.5 Tetracycline S<=1 Trimethoprim/Sulfa S<=10 Vancomycin S =1 Objective Assessment MSSA bacteremia from 03/05. -ANTONIA 03/07 - neg. Repeat BC 03/07 neg to date Empyema s/p chest tube 03/05. MSSA Left chest abscess s/p drain 03/05. MSSA ? conduction defect on ECHO Transaminitis - some better Protein malnutrition H/o Meth use H/o Staph infection H/o Hep C - not treated Plan Plan of Care Continue Cefazolin d/c Zyvox for now Probiotics today's labs pending May need GI eval as Hep C has not been treated ith above plan. BUCK MAKI MD Mar 11, 2019 12:26
[2019-03-11 15:00] VITALS: BP 112/65
[2019-03-11 19:30] VITALS: BP 117/74
[2019-03-11] MEDS: FAMOTIDINE 20 MG TABLET. PO SCH (20:34)
[2019-03-11 23:30] VITALS: BP 123/76
[2019-03-12] MEDS: HYDROmorphone 2 MG/ML VIAL IV PRN ×8 (00:31→21:55)
[2019-03-12 03:42] VITALS: BP 130/71
[2019-03-12 04:33] LABS: BASO # 0.1 x10^3/uL (0.0-0.2); BASO % 1 % (0-3); EOS # 0.2 x10^3/uL (0.0-0.7); EOS % 2 % (0-3); HEMATOCRIT 36.3 % (39.0-53.0); HEMOGLOBIN 12.3 g/dL (13.0-17.5); LYMPH # 1.2 x10^3/uL (1.0-4.8); LYMPH % 14 % (24-48); MEAN CORPUSCULAR HEMOGLOBIN 30 pg (25-35); MEAN CORPUSCULAR HGB CONC 34 g/dL (31-37); MEAN CORPUSCULAR VOLUME 88 fL (79-100); MONO # 0.5 x10^3/uL (0.0-1.1); MONO % 5 % (0-9); NEUT # 6.9 x10^3/uL (1.8-7.7); NEUT % 78 % (31-73); PLATELET COUNT 553 x10^3/uL (140-400); RED BLOOD COUNT 4.14 x10^6/uL (4.30-5.70); RED CELL DISTRIBUTION WIDTH 12.5 % (11.5-14.5); WHITE BLOOD COUNT 8.9 x10^3/uL (4.0-11.0)
[2019-03-12] MEDS: oxyCODONE/APAP 10/325 1 TAB TABLET PO PRN ×5 (04:36→20:49)
[2019-03-12] MEDS: ceFAZolin SODIUM 2 GM in IV DEXTROSE 5% 50 ML IV SCH ×3 (05:03→21:55)
[2019-03-12 05:34] LABS: CALCIUM 8.8 mg/dL (8.5-10.1); CREATININE 0.8 mg/dL (0.7-1.3); GFR 115.1; POTASSIUM 4.4 mmol/L (3.5-5.1)
[2019-03-12 07:00] VITALS: BP 110/64
--- NOTE | 2019-03-12 08:24 | RAD ---
Chest radiograph 03/12/2019 9:00 AM INDICATION: Empyema COMPARISON: 03/11/2019 TECHNIQUE: Portable upright frontal view of the chest is provided. FINDINGS: The cardiomediastinal silhouette is within normal limits. Left chest wall thoracostomy tube is in similar position. Small to moderate left pleural effusion. There is adjacent compressive atelectasis versus infiltrate. Left lateral thoracostomy tube has been removed. No pneumothorax. Aeration of the left lung appears similar. Right lung is clear. IMPRESSION: Interval removal of left lateral thoracostomy tube. Left upper lobe thoracostomy tube is in similar position. Aeration of lungs appears similar. No pneumothorax. Electronically signed by: Laura Canales MD (03/12/2019 8:21 AM) [facility]
[2019-03-12] MEDS: LACTOBACILLUS RHAMNOSUS GG 1 CAPSULE. PO SCH ×2 (08:38→20:49)
[2019-03-12] MEDS: FAMOTIDINE 20 MG TABLET. PO SCH ×2 (08:39→20:49)
[2019-03-12] MEDS: DOCUSATE SODIUM 100 MG CAPSULE. PO SCH ×2 (08:39→20:50)
[2019-03-12] MEDS: SENNOSIDES/DOCUSATE 8.6/50MG TABLET. PO SCH ×2 (08:39→20:50)
[2019-03-12] MEDS: HEPARIN for SUB-Q USE 5,000 UNIT/ML VIAL. SQ SCH ×2 (08:48→20:50)
--- NOTE | 2019-03-12 09:48 | PDOC ---
PULMONARY PROGRESS NOTES Subjective NOT MORE SOA Vitals Vital Signs Date Time Temp Pulse Resp B/P (MAP) Pulse Ox O2 Delivery O2 Flow Rate FiO2 03/12/19 07:00 98.4 75 18 110/64 (79) 95 Room Air 98.4 03/12/19 06:36 95.0 ROS: No Nausea, No Abdominal Pain, No Increase Cough Lungs: Clear Cardiovascular: S1 Abdomen: Soft Neuro Exam: Alert Extremities: No Edema Skin: Warm Labs Laboratory Tests Test 03/10/19 15:30 03/11/19 04:50 03/12/19 04:15 White Blood Count 8.0 x10^3/uL (4.0-11.0) 7.1 x10^3/uL (4.0-11.0) 8.9 x10^3/uL (4.0-11.0) Red Blood Count 4.12 x10^6/uL (4.30-5.70) 4.15 x10^6/uL (4.30-5.70) 4.14 x10^6/uL (4.30-5.70) Hemoglobin 12.3 g/dL (13.0-17.5) 12.3 g/dL (13.0-17.5) 12.3 g/dL (13.0-17.5) Hematocrit 36.9 % (39.0-53.0) 36.5 % (39.0-53.0) 36.3 % (39.0-53.0) Mean Corpuscular Volume 90 fL (79-100) 88 fL (79-100) 88 fL (79-100) Mean Corpuscular Hemoglobin 30 pg (25-35) 30 pg (25-35) 30 pg (25-35) Mean Corpuscular Hemoglobin Concent 33 g/dL (31-37) 34 g/dL (31-37) 34 g/dL (31-37) Red Cell Distribution Width 12.9 % (11.5-14.5) 12.6 % (11.5-14.5) 12.5 % (11.5-14.5) Platelet Count 503 x10^3/uL (140-400) 512 x10^3/uL (140-400) 553 x10^3/uL (140-400) Neutrophils (%) (Auto) 78 % (31-73) 76 % (31-73) 78 % (31-73) Lymphocytes (%) (Auto) 13 % (24-48) 15 % (24-48) 14 % (24-48) Monocytes (%) (Auto) 5 % (0-9) 6 % (0-9) 5 % (0-9) Eosinophils (%) (Auto) 3 % (0-3) 3 % (0-3) 2 % (0-3) Basophils (%) (Auto) 1 % (0-3) 1 % (0-3) 1 % (0-3) Neutrophils # (Auto) 6.2 x10^3/uL (1.8-7.7) 5.4 x10^3/uL (1.8-7.7) 6.9 x10^3/uL (1.8-7.7) Lymphocytes # (Auto) 1.1 x10^3/uL (1.0-4.8) 1.1 x10^3/uL (1.0-4.8) 1.2 x10^3/uL (1.0-4.8) Monocytes # (Auto) 0.4 x10^3/uL (0.0-1.1) 0.4 x10^3/uL (0.0-1.1) 0.5 x10^3/uL (0.0-1.1) Eosinophils # (Auto) 0.2 x10^3/uL (0.0-0.7) 0.2 x10^3/uL (0.0-0.7) 0.2 x10^3/uL (0.0-0.7) Basophils # (Auto) 0.0 x10^3/uL (0.0-0.2) 0.0 x10^3/uL (0.0-0.2) 0.1 x10^3/uL (0.0-0.2) Sodium Level 141 mmol/L (136-145) 141 mmol/L (136-145) 138 mmol/L (136-145) Potassium Level 4.5 mmol/L (3.5-5.1) 4.5 mmol/L (3.5-5.1) 4.4 mmol/L (3.5-5.1) Chloride Level 105 mmol/L (98-107) 106 mmol/L (98-107) 103 mmol/L (98-107) Carbon Dioxide Level 30 mmol/L (21-32) 29 mmol/L (21-32) 27 mmol/L (21-32) Anion Gap 6 (6-14) 6 (6-14) 8 (6-14) Blood Urea Nitrogen 15 mg/dL (8-26) 13 mg/dL (8-26) 12 mg/dL (8-26) Creatinine 0.9 mg/dL (0.7-1.3) 0.9 mg/dL (0.7-1.3) 0.8 mg/dL (0.7-1.3) Estimated GFR (Cockcroft-Gault) 100.5 100.5 115.1 Glucose Level 95 mg/dL (70-99) 102 mg/dL (70-99) 114 mg/dL (70-99) Calcium Level 8.3 mg/dL (8.5-10.1) 8.4 mg/dL (8.5-10.1) 8.8 mg/dL (8.5-10.1) Laboratory Tests Test 03/12/19 04:15 White Blood Count 8.9 x10^3/uL (4.0-11.0) Red Blood Count 4.14 x10^6/uL (4.30-5.70) Hemoglobin 12.3 g/dL (13.0-17.5) Hematocrit 36.3 % (39.0-53.0) Mean Corpuscular Volume 88 fL (79-100) Mean Corpuscular Hemoglobin 30 pg (25-35) Mean Corpuscular Hemoglobin Concent 34 g/dL (31-37) Red Cell Distribution Width 12.5 % (11.5-14.5) Platelet Count 553 x10^3/uL (140-400) Neutrophils (%) (Auto) 78 % (31-73) Lymphocytes (%) (Auto) 14 % (24-48) Monocytes (%) (Auto) 5 % (0-9) Eosinophils (%) (Auto) 2 % (0-3) Basophils (%) (Auto) 1 % (0-3) Neutrophils # (Auto) 6.9 x10^3/uL (1.8-7.7) Lymphocytes # (Auto) 1.2 x10^3/uL (1.0-4.8) Monocytes # (Auto) 0.5 x10^3/uL (0.0-1.1) Eosinophils # (Auto) 0.2 x10^3/uL (0.0-0.7) Basophils # (Auto) 0.1 x10^3/uL (0.0-0.2) Sodium Level 138 mmol/L (136-145) Potassium Level 4.4 mmol/L (3.5-5.1) Chloride Level 103 mmol/L (98-107) Carbon Dioxide Level 27 mmol/L (21-32) Anion Gap 8 (6-14) Blood Urea Nitrogen 12 mg/dL (8-26) Creatinine 0.8 mg/dL (0.7-1.3) Estimated GFR (Cockcroft-Gault) 115.1 Glucose Level 114 mg/dL (70-99) Calcium Level 8.8 mg/dL (8.5-10.1) Impression . IMPRESSION: 1. Empyema.S/P CHEST TUBE for empyema, removed. 2. Anterior mediastinal abscess extending into the left anterior chest wall muscular structures. DRAIN IN PLACE, 3. Small pericardial effusion. 4. Elevated liver chemistries. 5. Protein malnutrition. 6. Methamphetamine use., h/o vaping 7. History of Staphylococcus infection. Plan . CHEST TUBE REMOVED 03/11 MEDIASTINAL TUBE WITH LESS DRAINAGE MAY REMOVE IN AM REPEAT CXR REVIEWED IMPROVED ANTIBX PER ID FOLLOW CULTURES SO FAR DENISE CHRISTIAN MD Mar 12, 2019 09:48
[2019-03-12 10:53] VITALS: BP 115/65
--- NOTE | 2019-03-12 11:18 | PDOC ---
[employer] PROGRESS NOTE Chief Complaint Chief Complaint Acute chest pain Sirs Empyema Left chest abscess H/o Meth use H/o Staph infection H/o Hep C - not treated small pericardial effusion History of Present Illness History of Present Illness 03/12/19 Pt seen and examined at bedside Pt standing and talking upon entry- he c/o pain and weakness in left arm; he is unable to flex or abduct left shoulder past 45 degrees 03/11/19 Pt seen and examined at bedside; sleeping upon entry but begins talking with NAD Chest tube removed this am YOCASTA RN 03/10/19 Pt seen/examined at bedside and resting NAD Chest tube is still in place Chart Reviewed DW RN 03/09/19 Pt seen/examined at bedside, and resting NAD Suction chest tube is still in place YOCASTA RN and Pulm Chart reviewed 03/08/19 Pt seen and examined at bedside Pt sitting up in bed talking with NAD Pt admits to methamphetamine relapse and believes it could have contributed to condition today. He states he will abstain from usage after discharge. Vitals/I&O Vitals/I&O: Vital Signs Date Time Temp Pulse Resp B/P (MAP) Pulse Ox O2 Delivery O2 Flow Rate FiO2 03/12/19 10:53 98.0 78 18 115/65 (82) 97 Room Air 98.0 03/12/19 06:36 95.0 I & O 03/11/19 03/11/19 03/12/19 14:59 22:59 06:59 Intake Total 560 ml 1550 ml 700 ml Output Total 550 ml 3025 ml 2000 ml Balance 10 ml -1475 ml -1300 ml Physical Exam Physical Exam: GENERAL: Propped up in bed, alert, eating HEENT: Pupils equal, Oral cavity clear NECK: Supple. Good range of motion. LUNGS: Clear to auscultation bilaterally. Left sided CT and left ant chest drain in place HEART: S1, S2, without gross murmur. ABDOMEN: Soft, nontender EXTREMITIES: No edema or cyanosis. able to shrug left shoulder some SKIN: Warm to touch. multiple tattoos. NEUROLOGIC: Alert and oriented, cooperative. PIV General: Alert, Oriented X3, Cooperative, No acute distress Heart: Regular rate, Normal S1, Normal S2 Lungs: Clear Abdomen: Normal bowel sounds, Soft, Other (tender to left abd and back) Extremities: No clubbing, No cyanosis Skin: No significant lesion, Other (3x3cm area of fluctuance and tenderness without significant erythema on the left anterior chest wall) Labs Labs: Laboratory Tests Test 03/12/19 04:15 White Blood Count 8.9 x10^3/uL (4.0-11.0) Red Blood Count 4.14 x10^6/uL (4.30-5.70) Hemoglobin 12.3 g/dL (13.0-17.5) Hematocrit 36.3 % (39.0-53.0) Mean Corpuscular Volume 88 fL (79-100) Mean Corpuscular Hemoglobin 30 pg (25-35) Mean Corpuscular Hemoglobin Concent 34 g/dL (31-37) Red Cell Distribution Width 12.5 % (11.5-14.5) Platelet Count 553 x10^3/uL (140-400) Neutrophils (%) (Auto) 78 % (31-73) Lymphocytes (%) (Auto) 14 % (24-48) Monocytes (%) (Auto) 5 % (0-9) Eosinophils (%) (Auto) 2 % (0-3) Basophils (%) (Auto) 1 % (0-3) Neutrophils # (Auto) 6.9 x10^3/uL (1.8-7.7) Lymphocytes # (Auto) 1.2 x10^3/uL (1.0-4.8) Monocytes # (Auto) 0.5 x10^3/uL (0.0-1.1) Eosinophils # (Auto) 0.2 x10^3/uL (0.0-0.7) Basophils # (Auto) 0.1 x10^3/uL (0.0-0.2) Sodium Level 138 mmol/L (136-145) Potassium Level 4.4 mmol/L (3.5-5.1) Chloride Level 103 mmol/L (98-107) Carbon Dioxide Level 27 mmol/L (21-32) Anion Gap 8 (6-14) Blood Urea Nitrogen 12 mg/dL (8-26) Creatinine 0.8 mg/dL (0.7-1.3) Estimated GFR (Cockcroft-Gault) 115.1 Glucose Level 114 mg/dL (70-99) Calcium Level 8.8 mg/dL (8.5-10.1) Review of Systems Review of Systems: Denies WILLAMS Denies vision change Assessment and Plan Assessmemt and Plan Problems Medical Problems: (1) Chest wall abscess Status: Acute (2) Mediastinal abscess Status: Acute (3) Pleural effusion Status: Acute Assessment Acute chest pain Sirs Empyema Left chest abscess H/o Meth use H/o Staph infection H/o Hep C - not treated small pericardial effusion Plan Consult Dr. Esparza regarding pain and weakness in left shoulder Wound intermediate meds Continue antibiotics Daptomycin DVT prophylaxis Encouraged PO food intake Discussed drug use cessation PT/OT Appreciate ID and pulmonary input- D/C when cleared by pulm Comment Review of Relevant I have reviewed the following items nancy (where applicable) has been applied. Medications: Current Medications Medications (Trade) Dose Ordered Sig/Conrad Route PRN Reason Start Time Stop Time Status Last Admin Dose Admin Famotidine (Pepcid) 20 mg BID PO 03/11/19 21:00 03/12/19 08:48 MYRA MUNOZ III DO Mar 12, 2019 11:18
--- NOTE | 2019-03-12 11:47 | PDOC ---
Infectious Disease Note Subjective Subjective feeling ok ROS ROS no n/v/d/sob Vital Sign Vital Signs Vital Signs Date Time Temp Pulse Resp B/P (MAP) Pulse Ox O2 Delivery O2 Flow Rate FiO2 03/12/19 10:53 98.0 78 18 115/65 (82) 97 Room Air 98.0 03/12/19 06:36 95.0 Physical Exam PHYSICAL EXAM GENERAL: Propped up in bed, alert, eating HEENT: Pupils equal, Oral cavity clear NECK: Supple. Good range of motion. LUNGS: Clear to auscultation bilaterally. Left sided CT and left ant chest drain in place HEART: S1, S2, without gross murmur. ABDOMEN: Soft, nontender EXTREMITIES: No edema or cyanosis. able to shrug left shoulder some SKIN: Warm to touch. multiple tattoos. NEUROLOGIC: Alert and oriented, cooperative. PIV Labs Lab Laboratory Tests Test 03/12/19 04:15 White Blood Count 8.9 x10^3/uL (4.0-11.0) Red Blood Count 4.14 x10^6/uL (4.30-5.70) Hemoglobin 12.3 g/dL (13.0-17.5) Hematocrit 36.3 % (39.0-53.0) Mean Corpuscular Volume 88 fL (79-100) Mean Corpuscular Hemoglobin 30 pg (25-35) Mean Corpuscular Hemoglobin Concent 34 g/dL (31-37) Red Cell Distribution Width 12.5 % (11.5-14.5) Platelet Count 553 x10^3/uL (140-400) Neutrophils (%) (Auto) 78 % (31-73) Lymphocytes (%) (Auto) 14 % (24-48) Monocytes (%) (Auto) 5 % (0-9) Eosinophils (%) (Auto) 2 % (0-3) Basophils (%) (Auto) 1 % (0-3) Neutrophils # (Auto) 6.9 x10^3/uL (1.8-7.7) Lymphocytes # (Auto) 1.2 x10^3/uL (1.0-4.8) Monocytes # (Auto) 0.5 x10^3/uL (0.0-1.1) Eosinophils # (Auto) 0.2 x10^3/uL (0.0-0.7) Basophils # (Auto) 0.1 x10^3/uL (0.0-0.2) Sodium Level 138 mmol/L (136-145) Potassium Level 4.4 mmol/L (3.5-5.1) Chloride Level 103 mmol/L (98-107) Carbon Dioxide Level 27 mmol/L (21-32) Anion Gap 8 (6-14) Blood Urea Nitrogen 12 mg/dL (8-26) Creatinine 0.8 mg/dL (0.7-1.3) Estimated GFR (Cockcroft-Gault) 115.1 Glucose Level 114 mg/dL (70-99) Calcium Level 8.8 mg/dL (8.5-10.1) Micro 03/07. BLOOD CULTURE Preliminary NO GROWTH AFTER 2 DAYS 03/05. BLD CULT RESULT 1 Preliminary Staphylococcus aureus Ches abscess AEROBIC RES 1 Final Staphylococcus aureus Antibiotic RSLT#1 Ciprofloxacin S<=0.5 Clindamycin S<=0.25 Erythromycin S<=0.25 Gentamicin S<=0.5 Levofloxacin S =0.25 Linezolid S =2 Moxifloxacin S<=0.25 Oxacillin S<=0.25 Quinupristin/Dalfopristin S<=0.25 Rifampin S<=0.5 Tetracycline S<=1 Trimethoprim/Sulfa S<=10 Vancomycin S =1 AFB CULTURE GRAM STAIN Final Negative Pleural fluid AEROBIC RES 1 Final Staphylococcus aureus MICS are expressed in micrograms per mL Antibiotic RSLT#1 Ciprofloxacin S<=0.5 Clindamycin S<=0.25 Erythromycin S<=0.25 Gentamicin S<=0.5 Levofloxacin S<=0.12 Linezolid S =2 Moxifloxacin S<=0.25 Oxacillin S<=0.25 Quinupristin/Dalfopristin S<=0.25 Rifampin S<=0.5 Tetracycline S<=1 Trimethoprim/Sulfa S<=10 Vancomycin S =1 Objective Assessment MSSA bacteremia from 03/05. -ANTONIA 03/07 - neg. Repeat BC 03/07 neg to date Empyema s/p chest tube 03/05. MSSA Left chest abscess s/p drain 03/05. MSSA ? conduction defect on ECHO Transaminitis - some better Protein malnutrition H/o Meth use H/o Staph infection H/o Hep C - not treated Plan Plan of Care Continue Cefazolin Probiotics BUCK MAKI MD Mar 12, 2019 11:47
[2019-03-12 15:00] VITALS: BP 113/65
--- NOTE | 2019-03-12 16:12 | NUR ---
SW following pt. Spoke with ID and pt will need intermediate IV abx. SW discussed pt will have to be approved to come to outpatient and can only be on once a day dose. Will await for orders to proceed with dc planning. Left a message to Antonio Oliva in Pharmacy.
[2019-03-12 19:30] VITALS: BP 126/68
[2019-03-13] MEDS: oxyCODONE/APAP 10/325 1 TAB TABLET PO PRN ×5 (02:07→20:06)
[2019-03-13] MEDS: HYDROmorphone 2 MG/ML VIAL IV PRN ×7 (02:08→20:49)
[2019-03-13 03:11] VITALS: BP 108/62
[2019-03-13 05:17] LABS: BASO # 0.1 x10^3/uL (0.0-0.2); BASO % 1 % (0-3); EOS # 0.1 x10^3/uL (0.0-0.7); EOS % 2 % (0-3); HEMATOCRIT 36.4 % (39.0-53.0); HEMOGLOBIN 12.4 g/dL (13.0-17.5); LYMPH # 1.1 x10^3/uL (1.0-4.8); LYMPH % 12 % (24-48); MEAN CORPUSCULAR HEMOGLOBIN 30 pg (25-35); MEAN CORPUSCULAR HGB CONC 34 g/dL (31-37); MEAN CORPUSCULAR VOLUME 88 fL (79-100); MONO # 0.6 x10^3/uL (0.0-1.1); MONO % 7 % (0-9); NEUT # 7.4 x10^3/uL (1.8-7.7); NEUT % 79 % (31-73); PLATELET COUNT 559 x10^3/uL (140-400); RED BLOOD COUNT 4.14 x10^6/uL (4.30-5.70); WHITE BLOOD COUNT 9.3 x10^3/uL (4.0-11.0)
[2019-03-13] MEDS: ceFAZolin SODIUM 2 GM in IV DEXTROSE 5% 50 ML IV SCH ×3 (05:21→22:26)
[2019-03-13 05:38] LABS: CALCIUM 8.8 mg/dL (8.5-10.1); POTASSIUM 4.5 mmol/L (3.5-5.1)
[2019-03-13 07:00] VITALS: BP 112/59
[2019-03-13] MEDS: DOCUSATE SODIUM 100 MG CAPSULE. PO SCH ×2 (08:26→20:24)
[2019-03-13] MEDS: HEPARIN for SUB-Q USE 5,000 UNIT/ML VIAL. SQ SCH ×2 (08:27→20:24)
[2019-03-13] MEDS: SENNOSIDES/DOCUSATE 8.6/50MG TABLET. PO SCH ×2 (08:27→20:24)
[2019-03-13] MEDS: LACTOBACILLUS RHAMNOSUS GG 1 CAPSULE. PO SCH ×2 (08:28→20:06)
[2019-03-13] MEDS: FAMOTIDINE 20 MG TABLET. PO SCH ×2 (08:29→20:06)
--- NOTE | 2019-03-13 09:30 | RAD ---
PORTABLE CHEST 1V 03/13/2019 9:00 AM INDICATION: Empyema COMPARISON: 03/12/2019 TECHNIQUE: Portable frontal view of the chest is provided. FINDINGS: The cardiomediastinal silhouette is similar in appearance. Left-sided thoracostomy tube is in similar position. Right lung is clear. There is a small left pleural effusion tracking along the left lateral chest wall. Adjacent compressive atelectasis versus infiltrate appears similar. IMPRESSION: Aeration of the lungs appears similar to the prior examination. Electronically signed by: Laura Canales MD (03/13/2019 9:28 AM) [facility]
--- NOTE | 2019-03-13 09:50 | PDOC ---
PULMONARY PROGRESS NOTES Subjective NOT MORE SOA Vitals Vital Signs Date Time Temp Pulse Resp B/P (MAP) Pulse Ox O2 Delivery O2 Flow Rate FiO2 03/13/19 08:35 Room Air 03/13/19 07:00 98.2 80 16 112/59 (76) 94 98.2 ROS: No Nausea, No Abdominal Pain, No Increase Cough General: No acute distress Lungs: Clear Cardiovascular: S1 Abdomen: Soft Neuro Exam: Alert Extremities: No Edema Skin: Warm Labs Laboratory Tests Test 03/12/19 04:15 03/13/19 04:30 White Blood Count 8.9 x10^3/uL (4.0-11.0) 9.3 x10^3/uL (4.0-11.0) Red Blood Count 4.14 x10^6/uL (4.30-5.70) 4.14 x10^6/uL (4.30-5.70) Hemoglobin 12.3 g/dL (13.0-17.5) 12.4 g/dL (13.0-17.5) Hematocrit 36.3 % (39.0-53.0) 36.4 % (39.0-53.0) Mean Corpuscular Volume 88 fL (79-100) 88 fL (79-100) Mean Corpuscular Hemoglobin 30 pg (25-35) 30 pg (25-35) Mean Corpuscular Hemoglobin Concent 34 g/dL (31-37) 34 g/dL (31-37) Red Cell Distribution Width 12.5 % (11.5-14.5) 13.0 % (11.5-14.5) Platelet Count 553 x10^3/uL (140-400) 559 x10^3/uL (140-400) Neutrophils (%) (Auto) 78 % (31-73) 79 % (31-73) Lymphocytes (%) (Auto) 14 % (24-48) 12 % (24-48) Monocytes (%) (Auto) 5 % (0-9) 7 % (0-9) Eosinophils (%) (Auto) 2 % (0-3) 2 % (0-3) Basophils (%) (Auto) 1 % (0-3) 1 % (0-3) Neutrophils # (Auto) 6.9 x10^3/uL (1.8-7.7) 7.4 x10^3/uL (1.8-7.7) Lymphocytes # (Auto) 1.2 x10^3/uL (1.0-4.8) 1.1 x10^3/uL (1.0-4.8) Monocytes # (Auto) 0.5 x10^3/uL (0.0-1.1) 0.6 x10^3/uL (0.0-1.1) Eosinophils # (Auto) 0.2 x10^3/uL (0.0-0.7) 0.1 x10^3/uL (0.0-0.7) Basophils # (Auto) 0.1 x10^3/uL (0.0-0.2) 0.1 x10^3/uL (0.0-0.2) Sodium Level 138 mmol/L (136-145) 139 mmol/L (136-145) Potassium Level 4.4 mmol/L (3.5-5.1) 4.5 mmol/L (3.5-5.1) Chloride Level 103 mmol/L (98-107) 102 mmol/L (98-107) Carbon Dioxide Level 27 mmol/L (21-32) 30 mmol/L (21-32) Anion Gap 8 (6-14) 7 (6-14) Blood Urea Nitrogen 12 mg/dL (8-26) 15 mg/dL (8-26) Creatinine 0.8 mg/dL (0.7-1.3) 1.0 mg/dL (0.7-1.3) Estimated GFR (Cockcroft-Gault) 115.1 89.0 Glucose Level 114 mg/dL (70-99) 111 mg/dL (70-99) Calcium Level 8.8 mg/dL (8.5-10.1) 8.8 mg/dL (8.5-10.1) Laboratory Tests Test 03/13/19 04:30 White Blood Count 9.3 x10^3/uL (4.0-11.0) Red Blood Count 4.14 x10^6/uL (4.30-5.70) Hemoglobin 12.4 g/dL (13.0-17.5) Hematocrit 36.4 % (39.0-53.0) Mean Corpuscular Volume 88 fL (79-100) Mean Corpuscular Hemoglobin 30 pg (25-35) Mean Corpuscular Hemoglobin Concent 34 g/dL (31-37) Red Cell Distribution Width 13.0 % (11.5-14.5) Platelet Count 559 x10^3/uL (140-400) Neutrophils (%) (Auto) 79 % (31-73) Lymphocytes (%) (Auto) 12 % (24-48) Monocytes (%) (Auto) 7 % (0-9) Eosinophils (%) (Auto) 2 % (0-3) Basophils (%) (Auto) 1 % (0-3) Neutrophils # (Auto) 7.4 x10^3/uL (1.8-7.7) Lymphocytes # (Auto) 1.1 x10^3/uL (1.0-4.8) Monocytes # (Auto) 0.6 x10^3/uL (0.0-1.1) Eosinophils # (Auto) 0.1 x10^3/uL (0.0-0.7) Basophils # (Auto) 0.1 x10^3/uL (0.0-0.2) Sodium Level 139 mmol/L (136-145) Potassium Level 4.5 mmol/L (3.5-5.1) Chloride Level 102 mmol/L (98-107) Carbon Dioxide Level 30 mmol/L (21-32) Anion Gap 7 (6-14) Blood Urea Nitrogen 15 mg/dL (8-26) Creatinine 1.0 mg/dL (0.7-1.3) Estimated GFR (Cockcroft-Gault) 89.0 Glucose Level 111 mg/dL (70-99) Calcium Level 8.8 mg/dL (8.5-10.1) Impression . IMPRESSION: 1. Empyema.S/P CHEST TUBE for empyema, removed. 2. Anterior mediastinal abscess extending into the left anterior chest wall muscular structures. DRAIN IN PLACE, Not much drained since 24 hr 3. Small pericardial effusion. 4. Elevated liver chemistries. 5. Protein malnutrition. 6. Methamphetamine use., h/o vaping 7. History of Staphylococcus infection. Plan . CHEST TUBE REMOVED 03/11 MEDIASTINAL TUBE WITH LESS DRAINAGE/ REMOVED TODAY REPEAT CXR REVIEWED / MONITOR LEFT EFFUSION, STABLE ANTIBX PER ID FOLLOW CULTURES SO FAR MSSA DC PLANS PER ID D/W DENISE SHAH MD Mar 13, 2019 09:50
--- NOTE | 2019-03-13 10:58 | PDOC ---
[employer] PROGRESS NOTE Chief Complaint Chief Complaint Acute chest pain Sirs Empyema Left chest abscess H/o Meth use H/o Staph infection H/o Hep C - not treated small pericardial effusion History of Present Illness History of Present Illness 03/13/19 Pt seen and examined at bedside Pt resting in NAD YOCASTA RN Chart reviewed 03/12/19 Pt seen and examined at bedside Pt standing and talking upon entry- he c/o pain and weakness in left arm; he is unable to flex or abduct left shoulder past 45 degrees 03/11/19 Pt seen and examined at bedside; sleeping upon entry but begins talking with NAD Chest tube removed this am YOCASTA RN 03/10/19 Pt seen/examined at bedside and resting NAD Chest tube is still in place Chart Reviewed YOCASTA RN 03/09/19 Pt seen/examined at bedside, and resting NAD Suction chest tube is still in place YOCASTA RN and Pulm Chart reviewed 03/08/19 Pt seen and examined at bedside Pt sitting up in bed talking with NAD Pt admits to methamphetamine relapse and believes it could have contributed to condition today. He states he will abstain from usage after discharge. Vitals/I&O Vitals/I&O: Vital Signs Date Time Temp Pulse Resp B/P (MAP) Pulse Ox O2 Delivery O2 Flow Rate FiO2 03/13/19 10:15 Room Air 03/13/19 07:00 98.2 80 16 112/59 (76) 94 98.2 I & O 03/12/19 03/12/19 03/13/19 15:00 23:00 07:00 Intake Total 600 ml 750 ml 550 ml Output Total 610 ml 10 ml Balance -10 ml 740 ml 550 ml Physical Exam Physical Exam: GENERAL: Propped up in bed, alert, eating HEENT: Pupils equal, Oral cavity clear NECK: Supple. Good range of motion. LUNGS: Clear to auscultation bilaterally. Left sided CT and left ant chest drain in place HEART: S1, S2, without gross murmur. ABDOMEN: Soft, nontender EXTREMITIES: No edema or cyanosis. able to shrug left shoulder some SKIN: Warm to touch. multiple tattoos. NEUROLOGIC: Alert and oriented, cooperative. PIV General: Alert, Oriented X3, Cooperative, No acute distress Heart: Regular rate, Normal S1, Normal S2 Lungs: Clear Abdomen: Normal bowel sounds, Soft, Other (tender to left abd and back) Extremities: No clubbing, No cyanosis Skin: No significant lesion, Other (3x3cm area of fluctuance and tenderness without significant erythema on the left anterior chest wall) Labs Labs: Laboratory Tests Test 03/13/19 04:30 White Blood Count 9.3 x10^3/uL (4.0-11.0) Red Blood Count 4.14 x10^6/uL (4.30-5.70) Hemoglobin 12.4 g/dL (13.0-17.5) Hematocrit 36.4 % (39.0-53.0) Mean Corpuscular Volume 88 fL (79-100) Mean Corpuscular Hemoglobin 30 pg (25-35) Mean Corpuscular Hemoglobin Concent 34 g/dL (31-37) Red Cell Distribution Width 13.0 % (11.5-14.5) Platelet Count 559 x10^3/uL (140-400) Neutrophils (%) (Auto) 79 % (31-73) Lymphocytes (%) (Auto) 12 % (24-48) Monocytes (%) (Auto) 7 % (0-9) Eosinophils (%) (Auto) 2 % (0-3) Basophils (%) (Auto) 1 % (0-3) Neutrophils # (Auto) 7.4 x10^3/uL (1.8-7.7) Lymphocytes # (Auto) 1.1 x10^3/uL (1.0-4.8) Monocytes # (Auto) 0.6 x10^3/uL (0.0-1.1) Eosinophils # (Auto) 0.1 x10^3/uL (0.0-0.7) Basophils # (Auto) 0.1 x10^3/uL (0.0-0.2) Sodium Level 139 mmol/L (136-145) Potassium Level 4.5 mmol/L (3.5-5.1) Chloride Level 102 mmol/L (98-107) Carbon Dioxide Level 30 mmol/L (21-32) Anion Gap 7 (6-14) Blood Urea Nitrogen 15 mg/dL (8-26) Creatinine 1.0 mg/dL (0.7-1.3) Estimated GFR (Cockcroft-Gault) 89.0 Glucose Level 111 mg/dL (70-99) Calcium Level 8.8 mg/dL (8.5-10.1) Review of Systems Review of Systems: No co acute pain No co changes in vision Assessment and Plan Assessmemt and Plan Problems Medical Problems: (1) Chest wall abscess Status: Acute (2) Mediastinal abscess Status: Acute (3) Pleural effusion Status: Acute Assessment Acute chest pain Sirs Empyema Left chest abscess H/o Meth use H/o Staph infection H/o Hep C - not treated small pericardial effusion Plan Consult Dr. Esparza regarding pain and weakness in left shoulder Continue abx Daptomycin DVT prophylaxis Encouraged PO food intake Discussed drug use cessation Wound senior care meds PT/OT Appreciate ID and pulmonary input D/C when OK with pulmonary Comment Review of Relevant I have reviewed the following items nancy (where applicable) has been applied. MYRA MUNOZ III DO Mar 13, 2019 10:58
[2019-03-13 11:00] VITALS: BP 130/75
--- NOTE | 2019-03-13 12:03 | PDOC ---
Infectious Disease Note Subjective Subjective feeling ok c/o unable to lift left shoulder, has pain at steroclavicular jt and upper back pain ROS ROS no n/v/d/sob Vital Sign Vital Signs Vital Signs Date Time Temp Pulse Resp B/P (MAP) Pulse Ox O2 Delivery O2 Flow Rate FiO2 03/13/19 11:30 Room Air 03/13/19 07:00 98.2 80 16 112/59 (76) 94 98.2 Physical Exam PHYSICAL EXAM GENERAL: Propped up in bed, alert, eating HEENT: Pupils equal, Oral cavity clear NECK: Supple. Good range of motion. LUNGS: Clear to auscultation bilaterally. Left sided CT and left ant chest drain in place HEART: S1, S2, without gross murmur. ABDOMEN: Soft, nontender EXTREMITIES: No edema or cyanosis. able to shrug left shoulder some SKIN: Warm to touch. multiple tattoos. NEUROLOGIC: Alert and oriented, cooperative. PIV Labs Lab Laboratory Tests Test 03/13/19 04:30 White Blood Count 9.3 x10^3/uL (4.0-11.0) Red Blood Count 4.14 x10^6/uL (4.30-5.70) Hemoglobin 12.4 g/dL (13.0-17.5) Hematocrit 36.4 % (39.0-53.0) Mean Corpuscular Volume 88 fL (79-100) Mean Corpuscular Hemoglobin 30 pg (25-35) Mean Corpuscular Hemoglobin Concent 34 g/dL (31-37) Red Cell Distribution Width 13.0 % (11.5-14.5) Platelet Count 559 x10^3/uL (140-400) Neutrophils (%) (Auto) 79 % (31-73) Lymphocytes (%) (Auto) 12 % (24-48) Monocytes (%) (Auto) 7 % (0-9) Eosinophils (%) (Auto) 2 % (0-3) Basophils (%) (Auto) 1 % (0-3) Neutrophils # (Auto) 7.4 x10^3/uL (1.8-7.7) Lymphocytes # (Auto) 1.1 x10^3/uL (1.0-4.8) Monocytes # (Auto) 0.6 x10^3/uL (0.0-1.1) Eosinophils # (Auto) 0.1 x10^3/uL (0.0-0.7) Basophils # (Auto) 0.1 x10^3/uL (0.0-0.2) Sodium Level 139 mmol/L (136-145) Potassium Level 4.5 mmol/L (3.5-5.1) Chloride Level 102 mmol/L (98-107) Carbon Dioxide Level 30 mmol/L (21-32) Anion Gap 7 (6-14) Blood Urea Nitrogen 15 mg/dL (8-26) Creatinine 1.0 mg/dL (0.7-1.3) Estimated GFR (Cockcroft-Gault) 89.0 Glucose Level 111 mg/dL (70-99) Calcium Level 8.8 mg/dL (8.5-10.1) Micro 03/07. BLOOD CULTURE Preliminary NO GROWTH AFTER 2 DAYS 03/05. BLD CULT RESULT 1 Preliminary Staphylococcus aureus Ches abscess AEROBIC RES 1 Final Staphylococcus aureus Antibiotic RSLT#1 Ciprofloxacin S<=0.5 Clindamycin S<=0.25 Erythromycin S<=0.25 Gentamicin S<=0.5 Levofloxacin S =0.25 Linezolid S =2 Moxifloxacin S<=0.25 Oxacillin S<=0.25 Quinupristin/Dalfopristin S<=0.25 Rifampin S<=0.5 Tetracycline S<=1 Trimethoprim/Sulfa S<=10 Vancomycin S =1 AFB CULTURE GRAM STAIN Final Negative Pleural fluid AEROBIC RES 1 Final Staphylococcus aureus MICS are expressed in micrograms per mL Antibiotic RSLT#1 Ciprofloxacin S<=0.5 Clindamycin S<=0.25 Erythromycin S<=0.25 Gentamicin S<=0.5 Levofloxacin S<=0.12 Linezolid S =2 Moxifloxacin S<=0.25 Oxacillin S<=0.25 Quinupristin/Dalfopristin S<=0.25 Rifampin S<=0.5 Tetracycline S<=1 Trimethoprim/Sulfa S<=10 Vancomycin S =1 Objective Assessment MSSA bacteremia from 03/05. -ANTONIA 03/07 - neg. Repeat BC 03/07 neg to date Empyema s/p chest tube 03/05. MSSA Left chest abscess s/p drain 8/27. MSSA ? conduction defect on ECHO Transaminitis - some better Protein malnutrition H/o Meth use H/o Staph infection H/o Hep C - not treated Plan Plan of Care Continue Cefazolin Probiotics ct chest and sternoclavicular jt ortho to check on left shoulder BUCK MAKI MD Mar 13, 2019 12:02
[2019-03-13] MEDS ORDERED: IOHEXOL 300 MG/ML 100ML VIAL. IV ONE (12:15)
[2019-03-13] MEDS ORDERED: CONTRAST GIVEN. MC PRN (12:15)
[2019-03-13 15:00] VITALS: BP 120/69
--- NOTE | 2019-03-13 17:23 | RAD ---
PQRS Compliance Statement: One or more of the following individualized dose reduction techniques were utilized for this examination: 1. Automated exposure control 2. Adjustment of the mA and/or kV according to patient size 3. Use of iterative reconstruction technique CT CHEST W/CONTRAST Clinical Indication: Post chest fluid collection and attention to sternoclavicular joint. Comparison: CT chest without contrast, March 07, 2019. Technique: Helical CT imaging of the chest is performed after 75 cc Omnipaque 300 IV contrast. Findings: Anterior mediastinal abscess is smaller. The pigtail drain has been removed. Residual fluid and air collection measures 2.4 x 2.8 cm. Fluid density at the left first costomanubrial joint is still present but is improved from prior study. Bubbles of air in the anterior chest wall anterior to the joint are no longer seen. A 5 mm focus of residual phlegmon may be present anterior to the joint as seen on image 13. There is mild mediastinal adenopathy is likely reactive. The left pleural pigtail drain has been removed. A few foci of air are seen in the left pleural fluid with an enhancing rim suggestive of residual empyema. Small amount of fluid tracks along the major fissure, less than on the prior study. The fluid collection is significantly smaller measuring up to 8 cm AP by 10.6 cm transverse by 13.9 cm craniocaudal. Small amount of probable loculated left pleural fluid is noted anteriorly, image 33. Collapse of the left lower lobe is mildly improved with better aeration anteriorly. The central airways are patent. The right lung remains clear. Spleen remains enlarged. No bony erosion at the left sternoclavicular joint or the left first costomanubrial junction is seen. IMPRESSION: 1. Left anterior mediastinal abscess is smaller. 2. No erosive changes are seen at the left first costomanubrial junction. Fluid density at the junction is less than on prior study. Anterior chest wall abscess is nearly resolved. 3. There is large left empyema but smaller than on prior study. 4. Left lower lobe remains mostly collapsed, there is improved aeration anteriorly. 5. Mild mediastinal adenopathy is likely reactive. Electronically signed by: Bill Arellano MD (03/13/2019 5:20 PM) [id number]
[2019-03-13 19:50] VITALS: BP 122/64
[2019-03-13 23:40] VITALS: BP 117/62
[2019-03-14] VITALS (12 sets, daily range): BP systolic 106–135; BP diastolic 55–83
[2019-03-14] MEDS: oxyCODONE/APAP 10/325 1 TAB TABLET PO PRN ×6 (00:04→23:34)
[2019-03-14] MEDS: HYDROmorphone 2 MG/ML VIAL IV PRN ×8 (00:07→22:37)
[2019-03-14] MEDS: ceFAZolin SODIUM 2 GM in IV DEXTROSE 5% 50 ML IV SCH ×3 (05:33→22:37)
[2019-03-14] MEDS: LACTOBACILLUS RHAMNOSUS GG 1 CAPSULE. PO SCH ×2 (08:52→19:38)
[2019-03-14] MEDS: FAMOTIDINE 20 MG TABLET. PO SCH ×2 (08:52→19:38)
[2019-03-14] MEDS: HEPARIN for SUB-Q USE 5,000 UNIT/ML VIAL. SQ SCH ×2 (09:00→21:00)
[2019-03-14] MEDS: DOCUSATE SODIUM 100 MG CAPSULE. PO SCH ×2 (09:00→21:00)
[2019-03-14] MEDS: SENNOSIDES/DOCUSATE 8.6/50MG TABLET. PO SCH ×2 (09:00→21:00)
--- NOTE | 2019-03-14 09:39 | PDOC ---
PULMONARY PROGRESS NOTES Subjective NOT MORE SOA Vitals Vital Signs Date Time Temp Pulse Resp B/P (MAP) Pulse Ox O2 Delivery O2 Flow Rate FiO2 03/14/19 08:00 Room Air 03/14/19 07:00 98.4 85 19 106/62 (77) 97 98.4 03/13/19 20:00 95.0 ROS: No Nausea, No Abdominal Pain, No Increase Cough General: No acute distress Lungs: Clear, Other (decrease left base) Cardiovascular: S1 Abdomen: Soft Neuro Exam: Alert Extremities: No Edema Skin: Warm Labs Laboratory Tests Test 03/13/19 04:30 White Blood Count 9.3 x10^3/uL (4.0-11.0) Red Blood Count 4.14 x10^6/uL (4.30-5.70) Hemoglobin 12.4 g/dL (13.0-17.5) Hematocrit 36.4 % (39.0-53.0) Mean Corpuscular Volume 88 fL (79-100) Mean Corpuscular Hemoglobin 30 pg (25-35) Mean Corpuscular Hemoglobin Concent 34 g/dL (31-37) Red Cell Distribution Width 13.0 % (11.5-14.5) Platelet Count 559 x10^3/uL (140-400) Neutrophils (%) (Auto) 79 % (31-73) Lymphocytes (%) (Auto) 12 % (24-48) Monocytes (%) (Auto) 7 % (0-9) Eosinophils (%) (Auto) 2 % (0-3) Basophils (%) (Auto) 1 % (0-3) Neutrophils # (Auto) 7.4 x10^3/uL (1.8-7.7) Lymphocytes # (Auto) 1.1 x10^3/uL (1.0-4.8) Monocytes # (Auto) 0.6 x10^3/uL (0.0-1.1) Eosinophils # (Auto) 0.1 x10^3/uL (0.0-0.7) Basophils # (Auto) 0.1 x10^3/uL (0.0-0.2) Sodium Level 139 mmol/L (136-145) Potassium Level 4.5 mmol/L (3.5-5.1) Chloride Level 102 mmol/L (98-107) Carbon Dioxide Level 30 mmol/L (21-32) Anion Gap 7 (6-14) Blood Urea Nitrogen 15 mg/dL (8-26) Creatinine 1.0 mg/dL (0.7-1.3) Estimated GFR (Cockcroft-Gault) 89.0 Glucose Level 111 mg/dL (70-99) Calcium Level 8.8 mg/dL (8.5-10.1) Impression . IMPRESSION: 1. Empyema.S/P CHEST TUBE for empyema, removed.( MSSA) 2. Anterior mediastinal abscess extending into the left anterior chest wall muscular structures. 3. Small pericardial effusion. 4. Elevated liver chemistries. 5. Protein malnutrition. 6. Methamphetamine use., h/o vaping 7. MSSA BACTEREMIA Plan . CHEST TUBE REMOVED 03/11 MEDIASTINAL TUBE REMOVED 03/13 REPEAT CXR REVIEWED / MONITOR LEFT EFFUSION, STABLE REPEAT CT 03/13 REVIEWED. STILL A ROUNDED POCKET OF LEFT EFFUSION/ ATELECTASIS PRESENT, OVERALL IMPROVED. WILL BENEFIT FROM DRAINAGE ANTIBX PER ID CULTURES C/W MSSA D/W RN/ DENISE BRICENO MD Mar 14, 2019 09:39
--- NOTE | 2019-03-14 10:14 | PDOC ---
[employer] PROGRESS NOTE Chief Complaint Chief Complaint Acute chest pain Sirs Empyema Left chest abscess H/o Meth use H/o Staph infection H/o Hep C - not treated small pericardial effusion History of Present Illness History of Present Illness 03/14/19 Pt seen and examined at bedside Pt sitting in NAD YOCASTA RN Pt has new large effusion Chart reviewed 03/13/19 Pt seen and examined at bedside Pt resting in NAD YOCASTA RN Chart reviewed 03/12/19 Pt seen and examined at bedside Pt standing and talking upon entry- he c/o pain and weakness in left arm; he is unable to flex or abduct left shoulder past 45 degrees 03/11/19 Pt seen and examined at bedside; sleeping upon entry but begins talking with NAD Chest tube removed this am YOCASTA RN 03/10/19 Pt seen/examined at bedside and resting NAD Chest tube is still in place Chart Reviewed YOCASTA RN 03/09/19 Pt seen/examined at bedside, and resting NAD Suction chest tube is still in place YOCASTA RN and Pulm Chart reviewed 03/08/19 Pt seen and examined at bedside Pt sitting up in bed talking with NAD Pt admits to methamphetamine relapse and believes it could have contributed to condition today. He states he will abstain from usage after discharge. Vitals/I&O Vitals/I&O: Vital Signs Date Time Temp Pulse Resp B/P (MAP) Pulse Ox O2 Delivery O2 Flow Rate FiO2 03/14/19 09:59 18 Room Air 03/14/19 07:00 98.4 85 106/62 (77) 97 98.4 03/13/19 20:00 95.0 I & O 03/13/19 03/13/19 03/14/19 15:00 23:00 07:00 Intake Total 300 ml 240 ml 260 ml Output Total 3 ml Balance 300 ml 240 ml 257 ml Physical Exam Physical Exam: GENERAL: Propped up in bed, alert, eating HEENT: Pupils equal, Oral cavity clear NECK: Supple. Good range of motion. LUNGS: Clear to auscultation bilaterally. Left sided CT and left ant chest drain in place HEART: S1, S2, without gross murmur. ABDOMEN: Soft, nontender EXTREMITIES: No edema or cyanosis. able to shrug left shoulder some SKIN: Warm to touch. multiple tattoos. NEUROLOGIC: Alert and oriented, cooperative. PIV General: Alert, Oriented X3, Cooperative, No acute distress Heart: Regular rate, Normal S1, Normal S2 Lungs: Clear Abdomen: Normal bowel sounds, Soft, Other (tender to left abd and back) Extremities: No clubbing, No cyanosis Skin: No significant lesion, Other (3x3cm area of fluctuance and tenderness without significant erythema on the left anterior chest wall) Review of Systems Review of Systems: No co changes in vision Co pain radiating to back Assessment and Plan Assessmemt and Plan Problems Medical Problems: (1) Chest wall abscess Status: Acute (2) Mediastinal abscess Status: Acute (3) Pleural effusion Status: Acute Assessment Acute chest pain Sirs Empyema Left chest abscess H/o Meth use H/o Staph infection H/o Hep C - not treated small pericardial effusion Plan Percocet 5 mg/325 mg PO q4h PRN Awaiting pulmonary workup Continue Abx Daptomycin DVT prophylaxis Encourage PO food intake Encourage drug use cessation Wound [facility]entiary meds PT/OT Full code Appreciate ID and pulmonary input Comment Review of Relevant I have reviewed the following items nancy (where applicable) has been applied. Medications: Current Medications Medications (Trade) Dose Ordered Sig/Conrad Route PRN Reason Start Time Stop Time Status Last Admin Dose Admin Iohexol (Omnipaque 300 Mg/ml) 75 ml 1X ONCE IV 03/13/19 12:15 03/13/19 12:16 DC 03/13/19 12:35 MYRA MUNOZ III DO Mar 14, 2019 10:14
--- NOTE | 2019-03-14 10:24 | PDOC ---
Infectious Disease Note Subjective Subjective feeling ok ROS ROS no n/v/d/ cont pain Vital Sign Vital Signs Vital Signs Date Time Temp Pulse Resp B/P (MAP) Pulse Ox O2 Delivery O2 Flow Rate FiO2 03/14/19 10:17 18 Room Air 03/14/19 07:00 98.4 85 106/62 (77) 97 98.4 03/13/19 20:00 95.0 Physical Exam PHYSICAL EXAM GENERAL: Propped up in bed, alert, eating HEENT: Pupils equal, Oral cavity clear NECK: Supple. Good range of motion. LUNGS: Clear to auscultation bilaterally. Left sided CT and left ant chest drain in place HEART: S1, S2, without gross murmur. ABDOMEN: Soft, nontender EXTREMITIES: No edema or cyanosis. able to shrug left shoulder some SKIN: Warm to touch. multiple tattoos. NEUROLOGIC: Alert and oriented, cooperative. PIV Labs Micro 03/07. BLOOD CULTURE Preliminary NO GROWTH AFTER 2 DAYS 03/05. BLD CULT RESULT 1 Preliminary Staphylococcus aureus Ches abscess AEROBIC RES 1 Final Staphylococcus aureus Antibiotic RSLT#1 Ciprofloxacin S<=0.5 Clindamycin S<=0.25 Erythromycin S<=0.25 Gentamicin S<=0.5 Levofloxacin S =0.25 Linezolid S =2 Moxifloxacin S<=0.25 Oxacillin S<=0.25 Quinupristin/Dalfopristin S<=0.25 Rifampin S<=0.5 Tetracycline S<=1 Trimethoprim/Sulfa S<=10 Vancomycin S =1 AFB CULTURE GRAM STAIN Final Negative Pleural fluid AEROBIC RES 1 Final Staphylococcus aureus MICS are expressed in micrograms per mL Antibiotic RSLT#1 Ciprofloxacin S<=0.5 Clindamycin S<=0.25 Erythromycin S<=0.25 Gentamicin S<=0.5 Levofloxacin S<=0.12 Linezolid S =2 Moxifloxacin S<=0.25 Oxacillin S<=0.25 Quinupristin/Dalfopristin S<=0.25 Rifampin S<=0.5 Tetracycline S<=1 Trimethoprim/Sulfa S<=10 Vancomycin S =1 Objective Assessment MSSA bacteremia from 03/05. -ANTONIA 03/07 - neg. Repeat BC 03/07 neg to date Empyema s/p chest tube 03/05. MSSA Left chest abscess s/p drain 03/05. MSSA ? conduction defect on ECHO Transaminitis - some better Protein malnutrition H/o Meth use H/o Staph infection H/o Hep C - not treated Plan Plan of Care Continue Cefazolin Probiotics ct chest and sternoclavicular jt,, noted, re drainage for empyema planned d/w BUCK Dueñas MD Mar 14, 2019 10:24
[2019-03-14] MEDS ORDERED: LIDOCAINE WITH 8.4% SOD BICARB 3 ML DISP.SYRIN. ONE ×2 (14:41→14:58)
[2019-03-14] MEDS ORDERED: NALOXONE 0.4 MG/ML VIAL. ONE (15:21)
[2019-03-14] MEDS ORDERED: fentaNYL PF VIAL 250 MCG/5 ML VIAL ONE (15:21)
[2019-03-14] MEDS ORDERED: MIDAZOLAM HCL/PF 5 MG/5 ML VIAL. ONE (15:21)
[2019-03-14] MEDS ORDERED: FLUMAZENIL 0.5 MG/5 ML VIAL. IV ONE (15:21)
[2019-03-14] MEDS ORDERED: fentaNYL PF VIAL 250 MCG/5 ML VIAL IV ONE (15:45)
[2019-03-14] MEDS ORDERED: MIDAZOLAM HCL/PF 5 MG/5 ML VIAL. IV ONE (15:45)
[2019-03-14] MEDS ORDERED: LIDOCAINE WITH 8.4% SOD BICARB 3 ML DISP.SYRIN. IJ ONE (15:45)
--- NOTE | 2019-03-14 15:53 | NUR ---
SW following pt. Per RN, pt is going to IR today to drain fluids from his lungs. Will continue to follow.
[2019-03-15] MEDS: oxyCODONE/APAP 10/325 1 TAB TABLET PO PRN ×6 (03:35→20:55)
[2019-03-15] MEDS: HYDROmorphone 2 MG/ML VIAL IV PRN ×8 (03:35→22:44)
[2019-03-15 03:49] VITALS: BP 109/63
[2019-03-15] MEDS: ceFAZolin SODIUM 2 GM in IV DEXTROSE 5% 50 ML IV SCH ×3 (06:07→21:02)
[2019-03-15 07:50] VITALS: BP 114/64
[2019-03-15] MEDS: HEPARIN for SUB-Q USE 5,000 UNIT/ML VIAL. SQ SCH ×2 (09:00→20:57)
[2019-03-15] MEDS: SENNOSIDES/DOCUSATE 8.6/50MG TABLET. PO SCH ×2 (09:00→20:57)
[2019-03-15] MEDS: DOCUSATE SODIUM 100 MG CAPSULE. PO SCH ×2 (09:00→20:56)
[2019-03-15] MEDS: FAMOTIDINE 20 MG TABLET. PO SCH ×2 (09:10→20:55)
[2019-03-15] MEDS: LACTOBACILLUS RHAMNOSUS GG 1 CAPSULE. PO SCH ×2 (09:10→20:55)
[2019-03-15 11:52] VITALS: BP 113/71
--- NOTE | 2019-03-15 11:55 | PDOC ---
PULMONARY PROGRESS NOTES Subjective NOT MORE SOA S/P ANOTHER LEFT CHEST TUBE Vitals Vital Signs Date Time Temp Pulse Resp B/P (MAP) Pulse Ox O2 Delivery O2 Flow Rate FiO2 03/15/19 11:43 17 Room Air 03/15/19 09:23 98 03/15/19 07:50 98.0 84 114/64 (81) 98.0 03/14/19 20:00 2.0 ROS: No Nausea, No Abdominal Pain, No Increase Cough General: No acute distress Lungs: Clear, Other (decrease left base) Cardiovascular: S1 Abdomen: Soft Neuro Exam: Alert Extremities: No Edema Skin: Warm Impression . IMPRESSION: 1. Empyema.S/P CHEST TUBE for empyema, removed.( MSSA)/ HAD LOCULATED FLUID COLLECTION ON REPEAT CT CHEST , CHEST TUBE PLACE AGAIN IN L[facility] 2. Anterior mediastinal abscess extending into the left anterior chest wall muscular structures. 3. Small pericardial effusion. 4. Elevated liver chemistries. 5. Protein malnutrition. 6. Methamphetamine use., h/o vaping 7. MSSA BACTEREMIA Plan . CHEST TUBE REMOVED 03/11, ANOTHER ONE PLACED 03/14 MEDIASTINAL TUBE REMOVED 03/13 REPEAT CXR REVIEWED / MONITOR LEFT EFFUSION, STABLE REPEAT CT 03/13 REVIEWED. ROUNDED POCKET OF LEFT EFFUSION/ ATELECTASIS PRESENT, ANTIBX PER ID CULTURES C/W MSSA D/W RN/ DR SHANTHI VANG REPEAT PLEURAL CULTURES/ CXR DENISE DRAKE MD Mar 15, 2019 11:55
--- NOTE | 2019-03-15 12:03 | PDOC ---
PROGRESS NOTES Chief Complaint Chief Complaint Acute chest pain Sirs, sepsis on admit Empyema Left chest abscess H/o Meth use H/o Staph infection H/o Hep C - not treated small pericardial effusion History of Present Illness History of Present Illness 03/15, cont same, pain OK 03/14/19 Pt has new large effusion Vitals Vitals Vital Signs Date Time Temp Pulse Resp B/P (MAP) Pulse Ox O2 Delivery O2 Flow Rate FiO2 03/15/19 11:52 98.0 96 20 113/71 (85) 98 Room Air 98.0 03/14/19 20:00 2.0 Physical Exam Physical Exam GENERAL: Propped up in bed, alert, eating HEENT: Pupils equal, Oral cavity clear NECK: Supple. Good range of motion. LUNGS: Clear to auscultation bilaterally. Left sided CT and left ant chest drain in place HEART: S1, S2, without gross murmur. ABDOMEN: Soft, nontender EXTREMITIES: No edema or cyanosis. able to shrug left shoulder some SKIN: Warm to touch. multiple tattoos. NEUROLOGIC: Alert and oriented, cooperative. PIV General: Alert, Oriented X3, Cooperative, No acute distress Heart: Regular rate, Normal S1, Normal S2 Lungs: Clear, Other (decrease left base) Abdomen: Normal bowel sounds, Soft, Other (tender to left abd and back) Extremities: No clubbing, No cyanosis Skin: No significant lesion, Other (3x3cm area of fluctuance and tenderness without significant erythema on the left anterior chest wall) Assessment and Plan Assessmemt and Plan Problems Medical Problems: (1) Chest wall abscess Status: Acute (2) Mediastinal abscess Status: Acute (3) Pleural effusion Status: Acute Comment Review of Relevant I have reviewed the following items nancy (where applicable) has been applied. Labs Microbiology 03/07/19 Blood Culture - Final, Complete NO GROWTH AFTER 5 DAYS 03/05/19 AFB Specimen Processing Tissue - Final, Resulted 03/05/19 Acid Fast Bacilli Culture, Resulted Pending 03/05/19 Gram Stain - Final, Resulted 03/05/19 Fungal Culture - Preliminary, Resulted 03/05/19 Fungal Culture Result 1 - Preliminary, Resulted 03/05/19 AFB Specimen Processing Tissue - Final, Resulted 03/05/19 Acid Fast Bacilli Culture, Resulted Pending 03/05/19 Gram Stain - Final, Resulted 03/05/19 Fungal Culture - Preliminary, Resulted 03/05/19 Fungal Culture Result 1 - Preliminary, Resulted Medications Current Medications Sodium Chloride 1,000 ml @ 1,000 mls/hr Q1H IV Last administered on 03/05/19at 08:42; Start 03/05/19 at 08:18; Stop 03/05/19 at 09:17; Status DC Morphine Sulfate (Morphine Sulfate) 4 mg 1X ONCE IV Last administered on 03/05/19at 08:42; Start 03/05/19 at 09:00; Stop 03/05/19 at 09:01; Status DC Ondansetron HCl (Zofran) 4 mg 1X ONCE IV Last administered on 03/05/19at 08:42; Start 03/05/19 at 09:00; Stop 03/05/19 at 09:01; Status DC Iohexol (Omnipaque 350 Mg/ml) 100 ml 1X ONCE IV Last administered on 03/05/19at 09:05; Start 03/05/19 at 08:30; Stop 03/05/19 at 08:32; Status DC Info (CONTRAST GIVEN -- Rx MONITORING) 1 each PRN DAILY PRN MC SEE COMMENTS; Start 03/05/19 at 08:45; Stop 03/07/19 at 08:44; Status DC Hydromorphone HCl (Dilaudid) 1 mg 1X ONCE IV Last administered on 03/05/19at 09:05; Start 03/05/19 at 09:15; Stop 03/05/19 at 09:16; Status DC Sodium Chloride 1,000 ml @ 1,000 mls/hr 1X ONCE IV Last administered on 03/05/19at 09:54; Start 03/05/19 at 09:30; Stop 03/05/19 at 10:29; Status DC Piperacillin Sod/ Tazobactam Sod 3.375 gm/Sodium Chloride 50 ml @ 100 mls/hr 1X ONCE IV Last administered on 03/05/19at 09:54; Start 03/05/19 at 09:30; Stop 03/05/19 at 09:59; Status DC Vancomycin HCl 250 ml @ 250 mls/hr 1X ONCE IV ; Start 03/05/19 at 09:30; Stop 03/05/19 at 10:29; Status UNV Vancomycin HCl 2 gm/Sodium Chloride 500 ml @ 250 mls/hr 1X ONCE IV Last administered on 03/05/19at 10:35; Start 03/05/19 at 10:00; Stop 03/05/19 at 11:59; Status DC Hydromorphone HCl (Dilaudid) 1 mg 1X ONCE IV Last administered on 03/05/19at 10:35; Start 03/05/19 at 10:30; Stop 03/05/19 at 10:31; Status DC Sodium Chloride 1,000 ml @ 150 mls/hr Q6H40M IV Last administered on 03/05/19at 12:20; Start 03/05/19 at 10:26; Stop 03/05/19 at 20:22; Status DC Acetaminophen (Tylenol) 650 mg PRN Q6HRS PRN PO Headaches, Temp > 101.5'; Start 03/05/19 at 10:45 Lorazepam (Ativan Inj) 0.5 mg PRN Q6HRS PRN IV ANXIETY / AGITATION; Start 03/05/19 at 10:45; Stop 03/15/19 at 11:23; Status DC Ondansetron HCl (Zofran) 4 mg PRN Q6HRS PRN IV NAUSEA/VOMITING, 1ST CHOICE; Start 03/05/19 at 10:45 Prochlorperazine Edisylate (Compazine) 5 mg PRN Q6HRS PRN IV NAUSEA/VOMITING, 2ND CHOICE; Start 03/05/19 at 10:45 Prochlorperazine (Compazine) 25 mg PRN Q12HR PRN OK NAUSEA/VOMITING; Start 03/05/19 at 10:45 Al Hydroxide/Mg Hydroxide (Mylanta Plus Xs) 30 ml PRN Q3HRS PRN PO HEARTBURN / GAS; Start 03/05/19 at 10:45 Calcium Carbonate/ Glycine (Tums) 500 mg PRN Q3HRS PRN PO HEARTBURN / GAS, 2ND CHOICE; Start 03/05/19 at 10:45 Famotidine (Pepcid Vial) 20 mg BID IVP Last administered on 03/11/19at 08:31; Start 03/05/19 at 12:00; Stop 03/11/19 at 11:00; Status DC Info (Icu Electrolyte Protocol) 1 ea DAILY MC ; Start 03/06/19 at 09:00; Stop 03/09/19 at 15:55; Status DC Heparin Sodium (Porcine) (Heparin Sodium) 5,000 unit Q12HR SQ Last administered on 03/12/19 08:48; Start 03/05/19 at 21:00 Sodium Chloride (Normal Saline Flush) 3 ml QSHIFT PRN IV AFTER MEDS AND BLOOD DRAWS; Start 03/05/19 at 10:45; Stop 03/14/19 at 13:07; Status DC Sodium Chloride 1,000 ml @ 100 mls/hr Q10H IV Last administered on 03/07/19at 05:01; Start 03/05/19 at 10:39; Stop 03/07/19 at 11:00; Status DC Acetaminophen/ Hydrocodone Bitart (Lortab 5/325) 1 tab PRN Q4HRS PRN PO MILD PAIN 1-3; Start 03/05/19 at 10:45; Stop 03/06/19 at 09:58; Status DC Acetaminophen/ Hydrocodone Bitart (Lortab 5/325) 2 tab PRN Q4HRS PRN PO MODERATE PAIN, SEVERE PAIN; Start 03/05/19 at 10:45; Stop 03/06/19 at 09:58; Status DC Morphine Sulfate (Morphine Sulfate) 2 mg PRN Q1HR PRN IV MODERATE PAIN Last administered on 03/07/19at 17:14; Start 03/05/19 at 10:45 Senna/Docusate Sodium (Senna Plus) 1 tab BID PO Last administered on 03/08/19at 08:46; Start 03/05/19 at 21:00 Docusate Sodium (Colace) 100 mg BID PO Last administered on 03/06/19at 07:56; Start 03/05/19 at 12:00 Bisacodyl (Dulcolax Supp) 10 mg PRN DAILY PRN OK CONSTIPATION; Start 03/05/19 at 10:45 Sodium Chloride 1,000 ml @ 2,550 mls/hr Q24M IV ; Start 03/05/19 at 10:48; Stop 03/05/19 at 11:48; Status DC Sodium Chloride 500 ml @ 1,000 mls/hr PRN Q30MIN PRN IV PER PROTOCOL; Start 03/05/19 at 11:00 Vancomycin HCl (Vanco Per Pharmacy) 1 each PRN DAILY PRN MC SEE COMMENTS Last administered on 03/05/19at 13:45; Start 03/05/19 at 11:00; Stop 03/06/19 at 08:18; Status DC Piperacillin Sod/ Tazobactam Sod 4.5 gm/Sodium Chloride 100 ml @ 200 mls/hr Q6HRS IV ; Start 03/05/19 at 12:00; Stop 03/05/19 at 11:59; Status DC Norepinephrine Bitartrate 250 ml @ 0 mls/hr CONT PRN IV PER PROTOCOL; Start 03/05/19 at 11:00; Stop 03/09/19 at 15:58; Status DC Dobutamine HCl/ Dextrose 250 ml @ 0 mls/hr CONT PRN IV PER PROTOCOL; Start 03/05/19 at 11:00; Stop 03/07/19 at 11:00; Status DC Vancomycin HCl 2 gm/Sodium Chloride 500 ml @ 250 mls/hr 1X ONCE IV ; Start 03/05/19 at 12:00; Stop 03/05/19 at 13:59; Status Cancel Piperacillin Sod/ Tazobactam Sod 4.5 gm/Sodium Chloride 100 ml @ 200 mls/hr Q6HRS IV Last administered on 03/07/19at 05:01; Start 03/05/19 at 16:00; Stop 03/07/19 at 08:36; Status DC Linezolid/Dextrose 300 ml @ 300 mls/hr Q12HR IV Last administered on 03/07/19at 07:54; Start 03/05/19 at 13:00; Stop 03/07/19 at 09:13; Status DC Lidocaine/Sodium Bicarbonate (Buffered Lidocaine 1%) 3 ml STK-MED ONCE .ROUTE ; Start 03/05/19 at 12:12; Stop 03/05/19 at 12:13; Status DC Midazolam HCl (Versed) 2 mg STK-MED ONCE .ROUTE ; Start 03/05/19 at 12:13; Stop 03/05/19 at 12:13; Status DC Fentanyl Citrate (Fentanyl 2ml Vial) 100 mcg STK-MED ONCE .ROUTE ; Start 03/05/19 at 12:14; Stop 03/05/19 at 12:14; Status DC Lidocaine/Sodium Bicarbonate (Buffered Lidocaine 1%) 3 ml STK-MED ONCE .ROUTE ; Start 03/05/19 at 13:05; Stop 03/05/19 at 13:05; Status DC Hydromorphone HCl (Dilaudid) 1.5 mg PRN Q3HRS PRN IVP SEVERE PAIN Last administered on 03/08/19at 08:46; Start 03/05/19 at 13:30; Stop 03/08/19 at 10:24; Status DC Lidocaine/Sodium Bicarbonate (Buffered Lidocaine 1%) 3 ml 1X ONCE IJ Last administered on 03/05/19 13:32; Start 03/05/19 at 13:30; Stop 03/05/19 at 13:31; Status DC Midazolam HCl (Versed) 2 mg 1X ONCE IV Last administered on 03/05/19at 13:32; Start 03/05/19 at 13:30; Stop 03/05/19 at 13:31; Status DC Fentanyl Citrate (Fentanyl 2ml Vial) 100 mcg 1X ONCE IV Last administered on 03/05/19 13:32; Start 03/05/19 at 13:30; Stop 03/05/19 at 13:31; Status DC Vancomycin HCl 1.5 gm/Sodium Chloride 500 ml @ 250 mls/hr Q8H IV Last administered on 03/06/19at 03:06; Start 03/05/19 at 19:00; Stop 03/06/19 at 08:18; Status DC Vancomycin HCl (Vancomycin Trough Level) 1 each 1X ONCE MC ; Start 03/06/19 at 10:30; Stop 03/06/19 at 08:21; Status DC Daptomycin 600 mg/ Sodium Chloride 50 ml @ 100 mls/hr Q24H IV Last administered on 03/09/19 09:39; Start 03/06/19 at 10:00; Stop 03/09/19 at 11:48; Status DC Acetaminophen/ Hydrocodone Bitart (Lortab 5/325) 1 tab PRN Q4HRS PRN PO PAIN; Start 03/06/19 at 08:45; Stop 03/06/19 at 09:58; Status DC Oxycodone/ Acetaminophen (Percocet 10/325) 1 tab PRN Q4HRS PRN PO PAIN Last administered on 03/15/19at 11:41; Start 03/06/19 at 10:00 Ketorolac Tromethamine (Toradol 30mg Vial) 30 mg PRN Q6HRS PRN IV INFLAMMATION Last administered on 9/2/19at 04:12; Start 03/06/19 at 10:00; Stop 03/11/19 at 09:59; Status DC Lactobacillus Rhamnosus (Culturelle) 1 cap BID PO Last administered on 03/15/19at 09:11; Start 03/06/19 at 21:00 Linezolid (Zyvox) 600 mg BID PO Last administered on 03/11/19at 08:31; Start 03/07/19 at 13:00; Stop 03/11/19 at 12:27; Status DC Sodium Chloride (Normal Saline Flush) 10 ml QSHIFT PRN IV AFTER MEDS AND BLOOD DRAWS; Start 03/07/19 at 13:45 Lidocaine HCl (Xylocaine 2% Topical 5gm Tube) 1 michel 1X ONCE TP ; Start 03/07/19 at 13:45; Stop 03/07/19 at 13:46; Status DC Lidocaine HCl (Viscous Lidocaine) 15 ml 1X ONCE MM ; Start 03/07/19 at 13:45; Stop 03/07/19 at 13:46; Status DC Benzocaine (Hurricaine One) 1 spray 1X ONCE MM ; Start 03/07/19 at 13:45; Stop 03/07/19 at 13:46; Status DC Alteplase, Recombinant 10 mg/ Sterile Water 50 ml @ 0 mls/hr 1X ONCE IV Last administered on 03/07/19at 17:14; Start 03/07/19 at 15:45; Stop 03/07/19 at 15:46; Status DC Propofol 20 ml @ As Directed STK-MED ONCE IV ; Start 03/07/19 at 15:50; Stop 03/07/19 at 15:50; Status DC Lidocaine HCl (Lidocaine Pf 2% Vial) 5 ml STK-MED ONCE .ROUTE ; Start 03/07/19 at 15:50; Stop 03/07/19 at 15:50; Status DC Ephedrine Sulfate (ePHEDrine PF IN SALINE SYRINGE) 50 mg STK-MED ONCE IV ; Start 03/07/19 at 15:50; Stop 03/07/19 at 15:50; Status DC Hydromorphone HCl (Dilaudid) 2 mg PRN Q3HRS PRN IV SEVERE PAIN Last administere d on 03/15/19at 09:44; Start 03/08/19 at 10:30 Cefazolin Sodium 2 gm/Dextrose 50 ml @ 100 mls/hr Q8HRS IV Last administered on 03/15/19at 06:07; Start 03/09/19 at 14:00 Famotidine (Pepcid) 20 mg BID PO Last administered on 03/15/19at 09:11; Start 03/11/19 at 21:00 Iohexol (Omnipaque 300 Mg/ml) 75 ml 1X ONCE IV Last administered on 03/13/19at 12:35; Start 03/13/19 at 12:15; Stop 03/13/19 at 12:16; Status DC Info (CONTRAST GIVEN -- Rx MONITORING) 1 each PRN DAILY PRN MC SEE COMMENTS; Start 03/13/19 at 12:15; Stop 03/15/19 at 12:14 Lidocaine/Sodium Bicarbonate (Buffered Lidocaine 1%) 3 ml STK-MED ONCE .ROUTE ; Start 03/14/19 at 14:41; Stop 03/14/19 at 14:41; Status DC Lidocaine/Sodium Bicarbonate (Buffered Lidocaine 1%) 3 ml STK-MED ONCE .ROUTE ; Start 03/14/19 at 14:58; Stop 03/14/19 at 14:58; Status DC Midazolam HCl (Versed) 5 mg STK-MED ONCE .ROUTE ; Start 03/14/19 at 15:21; Stop 03/14/19 at 15:21; Status DC Fentanyl Citrate (Fentanyl 5ml Vial) 250 mcg STK-MED ONCE .ROUTE ; Start 03/14/19 at 15:21; Stop 03/14/19 at 15:21; Status DC Flumazenil (Romazicon) 0.5 mg STK-MED ONCE IV ; Start 03/14/19 at 15:21; Stop 03/14/19 at 15:21; Status DC Naloxone HCl (Narcan) 0.4 mg STK-MED ONCE .ROUTE ; Start 03/14/19 at 15:21; Stop 03/14/19 at 15:21; Status DC Lidocaine/Sodium Bicarbonate (Buffered Lidocaine 1%) 12 ml 1X ONCE IJ Last administered on 03/14/19at 16:00; Start 03/14/19 at 15:45; Stop 03/14/19 at 15:49; Status DC Midazolam HCl (Versed) 5 mg 1X ONCE IV Last administered on 03/14/19at 16:00; Start 03/14/19 at 15:45; Stop 03/14/19 at 15:49; Status DC Fentanyl Citrate (Fentanyl 5ml Vial) 150 mcg 1X ONCE IV Last administered on 03/14/19at 16:00; Start 03/14/19 at 15:45; Stop 03/14/19 at 15:49; Status DC Lorazepam (Ativan Inj) 2 mg PRN Q6HRS PRN IV ANXIETY / AGITATION Last administered on 03/15/19at 07:36; Start 03/14/19 at 18:00 Vitals/I & O Vital Sign - Last 24 Hours 03/14/19 03/14/19 03/14/19 03/14/19 12:21 12:25 13:59 14:56 Temp 98.3 98.3 Pulse 72 Resp 16 16 17 17 B/P (MAP) 121/74 (90) Pulse Ox 99 O2 Delivery Room Air Room Air Room Air Room Air 03/14/19 03/14/19 03/14/19 03/14/19 15:29 15:35 15:41 15:46 Pulse 93 103 97 99 Resp 22 22 20 22 Pulse Ox 100 96 93 98 O2 Delivery Nasal Cannula O2 Flow Rate 2.0 03/14/19 03/14/19 03/14/19 03/14/19 15:50 15:57 16:00 16:21 Pulse 101 99 Resp 22 22 22 18 Pulse Ox 95 96 96 O2 Delivery Room Air Room Air Room Air Room Air 03/14/19 03/14/19 03/14/19 03/14/19 16:21 18:06 18:06 19:44 Resp 18 16 16 O2 Delivery Room Air Room Air Room Air Room Air 03/14/19 03/14/19 03/14/19 03/14/19 19:44 19:48 20:00 21:24 Temp 97.8 97.8 Pulse 95 Resp 20 B/P (MAP) 121/68 (85) Pulse Ox 97 O2 Delivery Room Air Room Air Room Air Room Air O2 Flow Rate 2.0 03/14/19 03/14/19 03/14/19 03/14/19 21:24 22:37 23:34 23:37 O2 Delivery Room Air Room Air Room Air Room Air 03/14/19 03/15/19 03/15/19 03/15/19 23:55 03:37 03:37 03:40 Temp 98.6 98.6 Pulse 104 Resp 18 B/P (MAP) 119/78 (92) Pulse Ox 97 O2 Delivery Room Air Room Air Room Air Room Air 03/15/19 03/15/19 03/15/19 03/15/19 03:49 04:55 04:55 06:43 Temp 98.1 98.1 Pulse 84 Resp 18 B/P (MAP) 109/63 (78) Pulse Ox 97 O2 Delivery Room Air Room Air Room Air Room Air 03/15/19 03/15/19 03/15/19 03/15/19 07:30 07:50 08:00 09:23 Temp 98.0 98.0 Pulse 84 Resp 16 20 17 B/P (MAP) 114/64 (81) Pulse Ox 98 O2 Delivery Room Air Room Air Room Air Room Air 03/15/19 03/15/19 03/15/19 03/15/19 09:23 09:44 11:41 11:43 Resp 18 17 18 17 Pulse Ox 98 O2 Delivery Room Air Room Air Room Air Room Air 03/15/19 11:52 Temp 98.0 98.0 Pulse 96 Resp 20 B/P (MAP) 113/71 (85) Pulse Ox 98 O2 Delivery Room Air Intake and Output 03/14/19 03/14/19 03/15/19 14:59 22:59 06:59 Intake Total 800 ml Output Total 0 ml 1000 ml Balance 0 ml -200 ml LENO VINCENT MD Mar 15, 2019 12:03
[2019-03-15] MEDS: LORazepam 1 MG TABLET PO PRN ×2 (13:49→19:55)
[2019-03-15] MEDS: CALCIUM CARBONATE 500 MG TAB.CHEW PO PRN (14:48)
[2019-03-15 15:00] VITALS: BP 121/79
--- NOTE | 2019-03-15 15:45 | NUR ---
Pt reported that he accidently knocked over the atrium to his chest tube when he was getting cleaned up. States it just tipped for a split second. I called Dr Broussard to see if we needed to change the atrium and he said no just watch it at this time.
--- NOTE | 2019-03-15 19:30 | RAD ---
EXAM: CHEST 1 VIEW History: Empyema COMPARISON: 03/13/2019 TECHNIQUE: Single portable radiograph of the chest Findings/ impression: The cardiac silhouette is unremarkable. Airspace opacity identified in the left lung base likely atelectasis or infiltrate or small effusion with a pigtail catheter identified in the left lung base. . Electronically signed by: Stanislav Sharpe MD (03/15/2019 5:33 PM) [place] [id number]
[2019-03-15 19:35] VITALS: BP 123/76
[2019-03-15 23:33] VITALS: BP 126/69
[2019-03-16] MEDS: HYDROmorphone 2 MG/ML VIAL IV PRN ×10 (01:53→23:58)
[2019-03-16] MEDS: LORazepam 1 MG TABLET PO PRN ×4 (01:53→19:46)
[2019-03-16] MEDS: oxyCODONE/APAP 10/325 1 TAB TABLET PO PRN ×6 (01:55→23:14)
[2019-03-16 03:40] VITALS: BP 115/69
[2019-03-16] MEDS: ceFAZolin SODIUM 2 GM in IV DEXTROSE 5% 50 ML IV SCH ×3 (06:37→22:24)
[2019-03-16 07:00] VITALS: BP 123/82
[2019-03-16] MEDS: LACTOBACILLUS RHAMNOSUS GG 1 CAPSULE. PO SCH ×2 (07:46→22:24)
[2019-03-16] MEDS: FAMOTIDINE 20 MG TABLET. PO SCH ×2 (07:46→22:25)
[2019-03-16] MEDS: DOCUSATE SODIUM 100 MG CAPSULE. PO SCH ×2 (07:47→22:24)
[2019-03-16] MEDS: SENNOSIDES/DOCUSATE 8.6/50MG TABLET. PO SCH ×2 (07:47→19:54)
[2019-03-16] MEDS: HEPARIN for SUB-Q USE 5,000 UNIT/ML VIAL. SQ SCH ×2 (07:47→19:54)
--- NOTE | 2019-03-16 09:44 | PDOC ---
PULMONARY PROGRESS NOTES Subjective NOT MORE SOA, no cough, has chest tightness S/P ANOTHER LEFT CHEST TUBE Vitals Vital Signs Date Time Temp Pulse Resp B/P (MAP) Pulse Ox O2 Delivery O2 Flow Rate FiO2 03/16/19 09:14 Room Air 03/16/19 07:54 2.0 03/16/19 07:00 97.5 113 18 123/82 (96) 99 97.5 ROS: No Nausea, No Abdominal Pain, No Increase Cough General: Alert, No acute distress Lungs: Other (decrease left base l ct) Cardiovascular: S1, S2 Abdomen: Soft Neuro Exam: Alert Extremities: No Edema Skin: Warm Impression . IMPRESSION: 1. Empyema.S/P CHEST TUBE for empyema, removed.( MSSA)/ HAD LOCULATED FLUID COLLECTION ON REPEAT CT CHEST , CHEST TUBE PLACE AGAIN IN LLL 2. Anterior mediastinal abscess extending into the left anterior chest wall muscular structures. 3. Small pericardial effusion. 4. Elevated liver chemistries. 5. Protein malnutrition. 6. Methamphetamine use., h/o vaping 7. MSSA BACTEREMIA Plan . CHEST TUBE REMOVED 03/11, ANOTHER ONE PLACED 03/14, will add suction -40 to help draining fluid MEDIASTINAL TUBE REMOVED 03/13 REPEAT CXR REVIEWED / MONITOR LEFT EFFUSION, STABLE REPEAT CT 03/13 REVIEWED. ROUNDED POCKET OF LEFT EFFUSION/ ATELECTASIS PRESENT, ANTIBX PER ID CULTURES C/W MSSA D/W RN/ DR SHANTHI VANG REPEAT PLEURAL CULTURES/ CXR discussed w pt and KARINA Rainey MD Mar 16, 2019 09:44
[2019-03-16 10:56] VITALS: BP 126/77
--- NOTE | 2019-03-16 11:29 | PDOC ---
Infectious Disease Note Subjective Subjective Comfortable Denies SOA/CP/F/C/N/V ROS ROS per HPI Vital Sign Vital Signs Vital Signs Date Time Temp Pulse Resp B/P (MAP) Pulse Ox O2 Delivery O2 Flow Rate FiO2 03/16/19 10:56 97.4 96 18 126/77 (93) 99 Room Air 2.0 97.4 Physical Exam PHYSICAL EXAM GENERAL: Propped up in bed, alert, watching TV HEENT: Pupils equal, Oral cavity clear NECK: Supple. Good range of motion. LUNGS: Diminished aeration on hte left, left sided CT in place. left ant chest drain in place - out HEART: S1, S2, without gross murmur. ABDOMEN: Soft, nontender EXTREMITIES: No edema or cyanosis. SKIN: Warm to touch. multiple tattoos. NEUROLOGIC: Alert and oriented, cooperative. PIV Labs Lab impression: The cardiac silhouette is unremarkable. Airspace opacity identified in the left lung base likely atelectasis or infiltrate or small effusion with a pigtail catheter identified in the left lung base. . Micro 03/14. Pleural fluid GRAM STAIN RES 2 Final No organisms seen Objective Assessment MSSA bacteremia from 03/05. -ANTONIA 03/07 - neg. Repeat BC 03/07 neg to date Empyema s/p chest tube 03/05. MSSA Left chest abscess s/p drain 03/05. MSSA s/p replacement, 03/14 no org gram stain; fluid analysis pending ? conduction defect on ECHO Transaminitis - some better Protein malnutrition H/o Meth use H/o Staph infection H/o Hep C - not treated Plan Plan of Care Continue Cefazolin Probiotics f/u labs Supportive care Attending Co-Sign Attending Co-Sign The patient was seen and interviewed as well as examined at the bedside. The chart was reviewed. The case was discussed. Agree with the plan of care. KEILY MCMILLAN APRN Mar 16, 2019 11:29 CRISTY GASPAR MD Mar 16, 2019 15:24
[2019-03-16] MEDS: MORPHINE ER 15 MG TABLET.ER PO SCH ×2 (12:50→22:25)
[2019-03-16 15:00] VITALS: BP 118/76
--- NOTE | 2019-03-16 15:37 | PDOC ---
PROGRESS NOTES Chief Complaint Chief Complaint Acute chest pain Sirs, sepsis on admit Empyema Left chest abscess H/o Meth use H/o Staph infection H/o Hep C - not treated small pericardial effusion History of Present Illness History of Present Illness 03/16. still in pain despite me changign pain meds, try to hold 03/14/19 Pt has new large effusion Vitals Vitals Vital Signs Date Time Temp Pulse Resp B/P (MAP) Pulse Ox O2 Delivery O2 Flow Rate FiO2 03/16/19 15:15 Room Air 03/16/19 15:00 97.4 92 18 118/76 (90) 98 2.0 97.4 Physical Exam Physical Exam GENERAL: Propped up in bed, alert, watching TV HEENT: Pupils equal, Oral cavity clear NECK: Supple. Good range of motion. LUNGS: Diminished aeration on hte left, left sided CT in place. left ant chest drain in place - out HEART: S1, S2, without gross murmur. ABDOMEN: Soft, nontender EXTREMITIES: No edema or cyanosis. SKIN: Warm to touch. multiple tattoos. NEUROLOGIC: Alert and oriented, cooperative. PIV General: Alert, Oriented X3, Cooperative, No acute distress Heart: Regular rate, Normal S1, Normal S2 Lungs: Clear, Other (decrease left base) Abdomen: Normal bowel sounds, Soft, Other (tender to left abd and back) Extremities: No clubbing, No cyanosis Skin: No significant lesion, Other (3x3cm area of fluctuance and tenderness without significant erythema on the left anterior chest wall) Assessment and Plan Assessmemt and Plan Problems Medical Problems: (1) Chest wall abscess Status: Acute (2) Mediastinal abscess Status: Acute (3) Pleural effusion Status: Acute Comment Review of Relevant I have reviewed the following items nancy (where applicable) has been applied. Labs Microbiology 03/14/19 Gram Stain - Final, Complete 03/07/19 Blood Culture - Final, Complete NO GROWTH AFTER 5 DAYS 03/05/19 AFB Specimen Processing Tissue - Final, Resulted 03/05/19 Acid Fast Bacilli Culture, Resulted Pending 03/05/19 Gram Stain - Final, Resulted 03/05/19 Fungal Culture - Preliminary, Resulted 03/05/19 Fungal Culture Result 1 - Preliminary, Resulted Medications Current Medications Sodium Chloride 1,000 ml @ 1,000 mls/hr Q1H IV Last administered on 03/05/19 08:42; Start 03/05/19 at 08:18; Stop 03/05/19 at 09:17; Status DC Morphine Sulfate (Morphine Sulfate) 4 mg 1X ONCE IV Last administered on at 08:42; Start 03/05/19 at 09:00; Stop 03/05/19 at 09:01; Status DC Ondansetron HCl (Zofran) 4 mg 1X ONCE IV Last administered on 03/05/19at 08:42; Start 03/05/19 at 09:00; Stop 03/05/19 at 09:01; Status DC Iohexol (Omnipaque 350 Mg/ml) 100 ml 1X ONCE IV Last administered on 03/05/19 09:05; Start 03/05/19 at 08:30; Stop 03/05/19 at 08:32; Status DC Info (CONTRAST GIVEN -- Rx MONITORING) 1 each PRN DAILY PRN MC SEE COMMENTS; Start 03/05/19 at 08:45; Stop 03/07/19 at 08:44; Status DC Hydromorphone HCl (Dilaudid) 1 mg 1X ONCE IV Last administered on 03/05/19at 09:05; Start 03/05/19 at 09:15; Stop 03/05/19 at 09:16; Status DC Sodium Chloride 1,000 ml @ 1,000 mls/hr 1X ONCE IV Last administered on 03/05/19at 09:54; Start 03/05/19 at 09:30; Stop 03/05/19 at 10:29; Status DC Piperacillin Sod/ Tazobactam Sod 3.375 gm/Sodium Chloride 50 ml @ 100 mls/hr 1X ONCE IV Last administered on 03/05/19at 09:54; Start 03/05/19 at 09:30; Stop 03/05/19 at 09:59; Status DC Vancomycin HCl 250 ml @ 250 mls/hr 1X ONCE IV ; Start 03/05/19 at 09:30; Stop 03/05/19 at 10:29; Status UNV Vancomycin HCl 2 gm/Sodium Chloride 500 ml @ 250 mls/hr 1X ONCE IV Last administered on 03/05/19at 10:35; Start 03/05/19 at 10:00; Stop 03/05/19 at 11:59; Status DC Hydromorphone HCl (Dilaudid) 1 mg 1X ONCE IV Last administered on 03/05/19at 10:35; Start 03/05/19 at 10:30; Stop 03/05/19 at 10:31; Status DC Sodium Chloride 1,000 ml @ 150 mls/hr Q6H40M IV Last administered on 03/05/19at 12:20; Start 03/05/19 at 10:26; Stop 03/05/19 at 20:22; Status DC Acetaminophen (Tylenol) 650 mg PRN Q6HRS PRN PO Headaches, Temp > 101.5'; Start 03/05/19 at 10:45 Lorazepam (Ativan Inj) 0.5 mg PRN Q6HRS PRN IV ANXIETY / AGITATION; Start 03/05/19 at 10:45; Stop 03/15/19 at 11:23; Status DC Ondansetron HCl (Zofran) 4 mg PRN Q6HRS PRN IV NAUSEA/VOMITING, 1ST CHOICE; Start 03/05/19 at 10:45 Prochlorperazine Edisylate (Compazine) 5 mg PRN Q6HRS PRN IV NAUSEA/VOMITING, 2ND CHOICE; Start 03/05/19 at 10:45 Prochlorperazine (Compazine) 25 mg PRN Q12HR PRN [place] NAUSEA/VOMITING; Start 03/05/19 at 10:45 Al Hydroxide/Mg Hydroxide (Mylanta Plus Xs) 30 ml PRN Q3HRS PRN PO HEARTBURN / GAS; Start 03/05/19 at 10:45 Calcium Carbonate/ Glycine (Tums) 500 mg PRN Q3HRS PRN PO HEARTBURN / GAS, 2ND CHOICE Last administered on 03/15/19at 14:49; Start 03/05/19 at 10:45 Famotidine (Pepcid Vial) 20 mg BID IVP Last administered on 03/11/19at 08:31; Start 03/05/19 at 12:00; Stop 03/11/19 at 11:00; Status DC Info (Icu Electrolyte Protocol) 1 ea DAILY MC ; Start 03/06/19 at 09:00; Stop 03/09/19 at 15:55; Status DC Heparin Sodium (Porcine) (Heparin Sodium) 5,000 unit Q12HR SQ Last administered on 03/12/19at 08:48; Start 03/05/19 at 21:00 Sodium Chloride (Normal Saline Flush) 3 ml QSHIFT PRN IV AFTER MEDS AND BLOOD DRAWS; Start 03/05/19 at 10:45; Stop 03/14/19 at 13:07; Status DC Sodium Chloride 1,000 ml @ 100 mls/hr Q10H IV Last administered on 03/07/19at 0 5:01; Start 03/05/19 at 10:39; Stop 03/07/19 at 11:00; Status DC Acetaminophen/ Hydrocodone Bitart (Lortab 5/325) 1 tab PRN Q4HRS PRN PO MILD PAIN 1-3; Start 03/05/19 at 10:45; Stop 03/06/19 at 09:58; Status DC Acetaminophen/ Hydrocodone Bitart (Lortab 5/325) 2 tab PRN Q4HRS PRN PO MODERATE PAIN, SEVERE PAIN; Start 03/05/19 at 10:45; Stop 03/06/19 at 09:58; Status DC Morphine Sulfate (Morphine Sulfate) 2 mg PRN Q1HR PRN IV MODERATE PAIN Last administered on 03/07/19at 17:14; Start 03/05/19 at 10:45 Senna/Docusate Sodium (Senna Plus) 1 tab BID PO Last administered on 03/08/19at 08:46; Start 03/05/19 at 21:00 Docusate Sodium (Colace) 100 mg BID PO Last administered on 03/06/19at 07:56; Start 03/05/19 at 12:00 Bisacodyl (Dulcolax Supp) 10 mg PRN DAILY PRN [place] CONSTIPATION; Start 03/05/19 at 10:45 Sodium Chloride 1,000 ml @ 2,550 mls/hr Q24M IV ; Start 03/05/19 at 10:48; Stop 03/05/19 at 11:48; Status DC Sodium Chloride 500 ml @ 1,000 mls/hr PRN Q30MIN PRN IV PER PROTOCOL; Start 03/05/19 at 11:00 Vancomycin HCl (Vanco Per Pharmacy) 1 each PRN DAILY PRN MC SEE COMMENTS Last administered on 03/05/19at 13:45; Start 03/05/19 at 11:00; Stop 03/06/19 at 08:18; Status DC Piperacillin Sod/ Tazobactam Sod 4.5 gm/Sodium Chloride 100 ml @ 200 mls/hr Q6HRS IV ; Start 03/05/19 at 12:00; Stop 03/05/19 at 11:59; Status DC Norepinephrine Bitartrate 250 ml @ 0 mls/hr CONT PRN IV PER PROTOCOL; Start 03/05/19 at 11:00; Stop 03/09/19 at 15:58; Status DC Dobutamine HCl/ Dextrose 250 ml @ 0 mls/hr CONT PRN IV PER PROTOCOL; Start 03/05/19 at 11:00; Stop 03/07/19 at 11:00; Status DC Vancomycin HCl 2 gm/Sodium Chloride 500 ml @ 250 mls/hr 1X ONCE IV ; Start 03/05/19 at 12:00; Stop 03/05/19 at 13:59; Status Cancel Piperacillin Sod/ Tazobactam Sod 4.5 gm/Sodium Chloride 100 ml @ 200 mls/hr Q6HRS IV Last administered on 03/07/19at 05:01; Start 03/05/19 at 16:00; Stop 03/07/19 at 08:36; Status DC Linezolid/Dextrose 300 ml @ 300 mls/hr Q12HR IV Last administered on 03/07/19at 07:54; Start 03/05/19 at 13:00; Stop 03/07/19 at 09:13; Status DC Lidocaine/Sodium Bicarbonate (Buffered Lidocaine 1%) 3 ml STK-MED ONCE .ROUTE ; Start 03/05/19 at 12:12; Stop 03/05/19 at 12:13; Status DC Midazolam HCl (Versed) 2 mg STK-MED ONCE .ROUTE ; Start 03/05/19 at 12:13; Stop 03/05/19 at 12:13; Status DC Fentanyl Citrate (Fentanyl 2ml Vial) 100 mcg STK-MED ONCE .ROUTE ; Start 03/05/19 at 12:14; Stop 03/05/19 at 12:14; Status DC Lidocaine/Sodium Bicarbonate (Buffered Lidocaine 1%) 3 ml STK-MED ONCE .ROUTE ; Start 03/05/19 at 13:05; Stop 03/05/19 at 13:05; Status DC Hydromorphone HCl (Dilaudid) 1.5 mg PRN Q3HRS PRN IVP SEVERE PAIN Last administered on 03/08/19 08:46; Start 03/05/19 at 13:30; Stop 03/08/19 at 10:24; Status DC Lidocaine/Sodium Bicarbonate (Buffered Lidocaine 1%) 3 ml 1X ONCE IJ Last administered on 03/05/19at 13:32; Start 03/05/19 at 13:30; Stop 03/05/19 at 13:31; Status DC Midazolam HCl (Versed) 2 mg 1X ONCE IV Last administered on 03/05/19at 13:32; Start 03/05/19 at 13:30; Stop 03/05/19 at 13:31; Status DC Fentanyl Citrate (Fentanyl 2ml Vial) 100 mcg 1X ONCE IV Last administered on 03/05/19 13:32; Start 03/05/19 at 13:30; Stop 03/05/19 at 13:31; Status DC Vancomycin HCl 1.5 gm/Sodium Chloride 500 ml @ 250 mls/hr Q8H IV Last administered on 03/06/19 03:06; Start 03/05/19 at 19:00; Stop 03/06/19 at 08:18; Status DC Vancomycin HCl (Vancomycin Trough Level) 1 each 1X ONCE MC ; Start 03/06/19 at 10:30; Stop 03/06/19 at 08:21; Status DC Daptomycin 600 mg/ Sodium Chloride 50 ml @ 100 mls/hr Q24H IV Last administered on 03/09/19 09:39; Start 03/06/19 at 10:00; Stop 03/09/19 at 11:48; Status DC Acetaminophen/ Hydrocodone Bitart (Lortab 5/325) 1 tab PRN Q4HRS PRN PO PAIN; Start 03/06/19 at 08:45; Stop 03/06/19 at 09:58; Status DC Oxycodone/ Acetaminophen (Percocet 10/325) 1 tab PRN Q4HRS PRN PO PAIN Last administered on 03/16/19at 15:15; Start 03/06/19 at 10:00 Ketorolac Tromethamine (Toradol 30mg Vial) 30 mg PRN Q6HRS PRN IV INFLAMMATION Last administered on 03/11/19 04:12; Start 03/06/19 at 10:00; Stop 03/11/19 at 09:59; Status DC Lactobacillus Rhamnosus (Culturelle) 1 cap BID PO Last administered on 03/16/19at 07:47; Start 03/06/19 at 21:00 Linezolid (Zyvox) 600 mg BID PO Last administered on 03/11/19at 08:31; Start 03/07/19 at 13:00; Stop 03/11/19 at 12:27; Status DC Sodium Chloride (Normal Saline Flush) 10 ml QSHIFT PRN IV AFTER MEDS AND BLOOD DRAWS; Start 03/07/19 at 13:45 Lidocaine HCl (Xylocaine 2% Topical 5gm Tube) 1 michel 1X ONCE TP ; Start 03/07/19 at 13:45; Stop 03/07/19 at 13:46; Status DC Lidocaine HCl (Viscous Lidocaine) 15 ml 1X ONCE MM ; Start 03/07/19 at 13:45; Stop 03/07/19 at 13:46; Status DC Benzocaine (Hurricaine One) 1 spray 1X ONCE MM ; Start 03/07/19 at 13:45; Stop 03/07/19 at 13:46; Status DC Alteplase, Recombinant 10 mg/ Sterile Water 50 ml @ 0 mls/hr 1X ONCE IV Last administered on 03/07/19at 17:14; Start 03/07/19 at 15:45; Stop 03/07/19 at 15:46; Status DC Propofol 20 ml @ As Directed STK-MED ONCE IV ; Start 03/07/19 at 15:50; Stop 03/07/19 at 15:50; Status DC Lidocaine HCl (Lidocaine Pf 2% Vial) 5 ml STK-MED ONCE .ROUTE ; Start 03/07/19 at 15:50; Stop 03/07/19 at 15:50; Status DC Ephedrine Sulfate (ePHEDrine PF IN SALINE SYRINGE) 50 mg STK-MED ONCE IV ; Start 03/07/19 at 15:50; Stop 03/07/19 at 15:50; Status DC Hydromorphone HCl (Dilaudid) 2 mg PRN Q3HRS PRN IV SEVERE PAIN Last administered on 03/15/19at 09:44; Start 03/08/19 at 10:30; Stop 03/15/19 at 12:13; Status DC Cefazolin Sodium 2 gm/Dextrose 50 ml @ 100 mls/hr Q8HRS IV Last administered on 03/16/19at 13:45; Start 03/09/19 at 14:00 Famotidine (Pepcid) 20 mg BID PO Last administered on 03/16/19at 07:47; Start 03/11/19 at 21:00 Iohexol (Omnipaque 300 Mg/ml) 75 ml 1X ONCE IV Last administered on 03/13/19at 12:35; Start 03/13/19 at 12:15; Stop 03/13/19 at 12:16; Status DC Info (CONTRAST GIVEN -- Rx MONITORING) 1 each PRN DAILY PRN MC SEE COMMENTS; Start 03/13/19 at 12:15; Stop 03/15/19 at 12:14; Status DC Lidocaine/Sodium Bicarbonate (Buffered Lidocaine 1%) 3 ml STK-MED ONCE .ROUTE ; Start 03/14/19 at 14:41; Stop 03/14/19 at 14:41; Status DC Lidocaine/Sodium Bicarbonate (Buffered Lidocaine 1%) 3 ml STK-MED ONCE .ROUTE ; Start 03/14/19 at 14:58; Stop 03/14/19 at 14:58; Status DC Midazolam HCl (Versed) 5 mg STK-MED ONCE .ROUTE ; Start 03/14/19 at 15:21; Stop 03/14/19 at 15:21; Status DC Fentanyl Citrate (Fentanyl 5ml Vial) 250 mcg STK-MED ONCE .ROUTE ; Start 03/14/19 at 15:21; Stop 03/14/19 at 15:21; Status DC Flumazenil (Romazicon) 0.5 mg STK-MED ONCE IV ; Start 03/14/19 at 15:21; Stop 03/14/19 at 15:21; Status DC Naloxone HCl (Narcan) 0.4 mg STK-MED ONCE .ROUTE ; Start 03/14/19 at 15:21; Stop 03/14/19 at 15:21; Status DC Lidocaine/Sodium Bicarbonate (Buffered Lidocaine 1%) 12 ml 1X ONCE IJ Last administered on 03/14/19at 16:00; Start 03/14/19 at 15:45; Stop 03/14/19 at 15:49; Status DC Midazolam HCl (Versed) 5 mg 1X ONCE IV Last administered on 03/14/19at 16:00; Start 03/14/19 at 15:45; Stop 03/14/19 at 15:49; Status DC Fentanyl Citrate (Fentanyl 5ml Vial) 150 mcg 1X ONCE IV Last administered on 03/14/19 16:00; Start 03/14/19 at 15:45; Stop 03/14/19 at 15:49; Status DC Lorazepam (Ativan Inj) 2 mg PRN Q6HRS PRN IV ANXIETY / AGITATION Last administered on 03/15/19 07:36; Start 03/14/19 at 18:00; Stop 03/15/19 at 12:14; Status DC Hydromorphone HCl (Dilaudid) 2 mg PRN Q2HR PRN IV SEVERE PAIN Last administered on 03/16/19 13:45; Start 03/15/19 at 12:15 Lorazepam (Ativan) 1 mg PRN Q6HRS PRN PO ANXIETY / AGITATION Last administered on 03/16/19 13:45; Start 03/15/19 at 12:15 Morphine Sulfate (Ms Contin) 15 mg BID PO Last administered on 03/16/19 12:50; Start 03/16/19 at 13:00 Vitals/I & O Vital Sign - Last 24 Hours 03/15/19 03/15/19 03/15/19 03/15/19 16:48 16:48 17:21 17:51 Pulse Ox 98 98 98 98 O2 Delivery Room Air Room Air Room Air Room Air O2 Flow Rate 2.0 2.0 2.0 2.0 03/15/19 03/15/19 03/15/19 03/15/19 19:35 19:56 19:58 20:54 Temp 97.3 97.3 Pulse 106 Resp 16 B/P (MAP) 123/76 (92) Pulse Ox 98 O2 Delivery Room Air Room Air Room Air Room Air 03/15/19 03/15/19 03/15/19 03/15/19 21:02 22:21 22:46 23:33 Temp 97.7 97.7 Pulse 110 Resp 16 B/P (MAP) 126/69 (88) Pulse Ox 99 O2 Delivery Room Air Room Air Room Air Room Air 03/16/19 03/16/19 03/16/19 03/16/19 00:45 01:53 01:55 02:53 O2 Delivery Room Air Room Air Room Air Room Air 03/16/19 03/16/19 03/16/19 03/16/19 03:40 06:37 06:37 07:00 Temp 97.6 97.5 97.6 97.5 Pulse 90 113 Resp 16 18 B/P (MAP) 115/69 (84) 123/82 (96) Pulse Ox 96 99 O2 Delivery Room Air Room Air Room Air Room Air O2 Flow Rate 2.0 03/16/19 03/16/19 03/16/19 03/16/19 07:17 07:47 07:54 09:14 O2 Delivery Room Air Room Air Room Air Room Air O2 Flow Rate 2.0 03/16/19 03/16/19 03/16/19 03/16/19 10:41 10:51 10:56 11:26 Temp 97.4 97.4 Pulse 96 Resp 18 B/P (MAP) 126/77 (93) Pulse Ox 99 O2 Delivery Room Air Room Air Room Air Room Air O2 Flow Rate 2.0 03/16/19 03/16/19 03/16/19 03/16/19 12:07 12:07 12:50 13:45 O2 Delivery Room Air Room Air Room Air Room Air 03/16/19 03/16/19 03/16/19 14:20 15:00 15:15 Temp 97.4 97.4 Pulse 92 Resp 18 B/P (MAP) 118/76 (90) Pulse Ox 98 O2 Delivery Room Air Room Air Room Air O2 Flow Rate 2.0 Intake and Output 03/15/19 03/15/19 03/16/19 15:00 23:00 07:00 Intake Total 460 ml 200 ml 700 ml Output Total 70 ml Balance 460 ml 200 ml 630 ml LENO VINCENT MD Mar 16, 2019 15:37
--- NOTE | 2019-03-16 18:35 | NUR ---
Removed dressing on left lateral chest from previous chest tube. Site is reddened but scabbed over. Site cleansed with chloraprep and bandaid was applied. Removed dressing from right upper chest where JAYDEN was. Site was closed and left KATHIE. Asked to change chest tube dressing. Pt refused stating it is too painful.
[2019-03-16 19:40] VITALS: BP 121/71
[2019-03-16 23:40] VITALS: BP 116/65
[2019-03-17] MEDS: oxyCODONE/APAP 10/325 1 TAB TABLET PO PRN ×6 (03:30→23:31)
[2019-03-17] MEDS: LORazepam 1 MG TABLET PO PRN ×4 (03:30→21:33)
[2019-03-17] MEDS: HYDROmorphone 2 MG/ML VIAL IV PRN ×10 (03:31→23:31)
[2019-03-17 03:40] VITALS: BP 112/64
[2019-03-17] MEDS: ceFAZolin SODIUM 2 GM in IV DEXTROSE 5% 50 ML IV SCH ×3 (06:24→21:33)
[2019-03-17 07:16] VITALS: BP 114/77
[2019-03-17] MEDS: MORPHINE ER 15 MG TABLET.ER PO SCH ×2 (08:39→19:29)
[2019-03-17] MEDS: FAMOTIDINE 20 MG TABLET. PO SCH ×2 (08:39→19:28)
[2019-03-17] MEDS: LACTOBACILLUS RHAMNOSUS GG 1 CAPSULE. PO SCH ×2 (08:39→19:28)
[2019-03-17] MEDS: SENNOSIDES/DOCUSATE 8.6/50MG TABLET. PO SCH ×3 (08:40→19:29)
[2019-03-17] MEDS: DOCUSATE SODIUM 100 MG CAPSULE. PO SCH ×2 (08:40→19:28)
[2019-03-17] MEDS: HEPARIN for SUB-Q USE 5,000 UNIT/ML VIAL. SQ SCH ×2 (08:40→19:27)
--- NOTE | 2019-03-17 09:01 | PDOC ---
PULMONARY PROGRESS NOTES Subjective NOT MORE SOA, no cough, has chest tightness S/P ANOTHER LEFT CHEST TUBE Vitals Vital Signs Date Time Temp Pulse Resp B/P (MAP) Pulse Ox O2 Delivery O2 Flow Rate FiO2 03/17/19 08:40 Room Air 03/17/19 07:16 98.0 98 16 114/77 (89) 97 98.0 03/16/19 15:00 2.0 ROS: No Nausea, No Abdominal Pain, No Increase Cough General: Alert, No acute distress Lungs: Other (decrease left base l ct) Cardiovascular: S1, S2 Abdomen: Soft Neuro Exam: Alert Extremities: No Edema Skin: Warm Impression . IMPRESSION: 1. Empyema.S/P CHEST TUBE for empyema, removed.( MSSA)/ HAD LOCULATED FLUID COLLECTION ON REPEAT CT CHEST , CHEST TUBE PLACE AGAIN IN [facility] 2. Anterior mediastinal abscess extending into the left anterior chest wall muscular structures. 3. Small pericardial effusion. 4. Elevated liver chemistries. 5. Protein malnutrition. 6. Methamphetamine use., h/o vaping 7. MSSA BACTEREMIA Plan . CHEST TUBE REMOVED 03/11, ANOTHER ONE PLACED 03/14, cont suction -40 , cxr in am MEDIASTINAL TUBE REMOVED 03/13 ANTIBX PER ID CULTURES C/W MSSA FOLLW REPEAT PLEURAL CULTURES, neg cx D/W RN/ pt KARINA SANCHEZ MD Mar 17, 2019 09:01
--- NOTE | 2019-03-17 10:18 | PDOC ---
Infectious Disease Note Subjective Subjective Comfortable Less clavicular pain Denies SOA/CP/F/C/N/V/D ROS ROS per HPI Vital Sign Vital Signs Vital Signs Date Time Temp Pulse Resp B/P (MAP) Pulse Ox O2 Delivery O2 Flow Rate FiO2 03/17/19 09:42 Room Air 03/17/19 07:16 98.0 98 16 114/77 (89) 97 98.0 03/16/19 15:00 2.0 Physical Exam PHYSICAL EXAM GENERAL: Propped up in bed, alert, watching TV HEENT: Pupils equal, Oral cavity clear NECK: Supple. Good range of motion. LUNGS: Diminished aeration on the left, left sided CT in place. sternal/left clavicular area mildly tender HEART: S1, S2, without gross murmur. ABDOMEN: Soft, nontender EXTREMITIES: No edema or cyanosis. SKIN: Warm to touch. multiple tattoos. NEUROLOGIC: Alert and oriented, cooperative. PIV Labs Micro 03/14. Pleural fluid GRAM STAIN RES 2 Final No organisms seen AEROBIC RES 1 Preliminary Comment No growth in 36 - 48 hours. Objective Assessment MSSA bacteremia from 03/05. -ANTONIA 03/07 - neg. Repeat BC 03/07 neg to date Empyema s/p chest tube 03/05. MSSA. s/p replacement, 03/14 no org gram stain; fluid analysis pending. culture neg so far Left shoulder pain persists but some better Left chest abscess s/p drain 03/05. MSSA ? conduction defect on ECHO Transaminitis - some better Protein malnutrition H/o Meth use H/o Staph infection H/o Hep C - not treated Plan Plan of Care Continue Cefazolin Probiotics am labs Supportive care ? OT/PT Attending Co-Sign Attending Co-Sign The patient was seen and interviewed as well as examined at the bedside. The chart was reviewed. The case was discussed. Agree with the plan of care. KEILY MCMILLAN APRN Mar 17, 2019 10:18 CRISTY GASPAR MD Mar 17, 2019 13:38
--- NOTE | 2019-03-17 10:31 | PDOC ---
PROGRESS NOTES Chief Complaint Chief Complaint Acute chest pain Sirs, sepsis on admit Empyema Left chest abscess H/o Meth use H/o Staph infection H/o Hep C - not treated small pericardial effusion History of Present Illness History of Present Illness 03/16. still in pain despite me changign pain meds, try to hold 03/14/19 Pt has new large effusion Vitals Vitals Vital Signs Date Time Temp Pulse Resp B/P (MAP) Pulse Ox O2 Delivery O2 Flow Rate FiO2 03/17/19 09:42 Room Air 03/17/19 07:16 98.0 98 16 114/77 (89) 97 98.0 03/16/19 15:00 2.0 Physical Exam Physical Exam GENERAL: Propped up in bed, alert, watching TV HEENT: Pupils equal, Oral cavity clear NECK: Supple. Good range of motion. LUNGS: Diminished aeration on the left, left sided CT in place. sternal/left clavicular area mildly tender HEART: S1, S2, without gross murmur. ABDOMEN: Soft, nontender EXTREMITIES: No edema or cyanosis. SKIN: Warm to touch. multiple tattoos. NEUROLOGIC: Alert and oriented, cooperative. PIV General: Alert, Oriented X3, Cooperative, No acute distress Heart: Regular rate, Normal S1, Normal S2 Lungs: Other (decrease left base l ct) Abdomen: Normal bowel sounds, Soft, Other (tender to left abd and back) Extremities: No clubbing, No cyanosis Skin: No significant lesion, Other (3x3cm area of fluctuance and tenderness without significant erythema on the left anterior chest wall) Assessment and Plan Assessmemt and Plan Problems Medical Problems: (1) Chest wall abscess Status: Acute (2) Mediastinal abscess Status: Acute (3) Pleural effusion Status: Acute Comment Review of Relevant I have reviewed the following items nancy (where applicable) has been applied. Labs Microbiology 03/14/19 Gram Stain - Final, Complete 03/07/19 Blood Culture - Final, Complete NO GROWTH AFTER 5 DAYS 03/05/19 AFB Specimen Processing Tissue - Final, Resulted 03/05/19 Acid Fast Bacilli Culture, Resulted Pending 03/05/19 Gram Stain - Final, Resulted 03/05/19 Fungal Culture - Preliminary, Resulted 03/05/19 Fungal Culture Result 1 - Preliminary, Resulted Medications Current Medications Sodium Chloride 1,000 ml @ 1,000 mls/hr Q1H IV Last administered on 03/05/19at 08:42; Start 03/05/19 at 08:18; Stop 03/05/19 at 09:17; Status DC Morphine Sulfate (Morphine Sulfate) 4 mg 1X ONCE IV Last administered on 03/05/19at 08:42; Start 03/05/19 at 09:00; Stop 03/05/19 at 09:01; Status DC Ondansetron HCl (Zofran) 4 mg 1X ONCE IV Last administered on 03/05/19at 08:42; Start 03/05/19 at 09:00; Stop 03/05/19 at 09:01; Status DC Iohexol (Omnipaque 350 Mg/ml) 100 ml 1X ONCE IV Last administered on 03/05/19at 09:05; Start 03/05/19 at 08:30; Stop 03/05/19 at 08:32; Status DC Info (CONTRAST GIVEN -- Rx MONITORING) 1 each PRN DAILY PRN MC SEE COMMENTS; Start 03/05/19 at 08:45; Stop 03/07/19 at 08:44; Status DC Hydromorphone HCl (Dilaudid) 1 mg 1X ONCE IV Last administered on 03/05/19at 09:05; Start 03/05/19 at 09:15; Stop 03/05/19 at 09:16; Status DC Sodium Chloride 1,000 ml @ 1,000 mls/hr 1X ONCE IV Last administered on 03/05/19at 09:54; Start 03/05/19 at 09:30; Stop 03/05/19 at 10:29; Status DC Piperacillin Sod/ Tazobactam Sod 3.375 gm/Sodium Chloride 50 ml @ 100 mls/hr 1X ONCE IV Last administered on 03/05/19at 09:54; Start 03/05/19 at 09:30; Stop 03/05/19 at 09:59; Status DC Vancomycin HCl 250 ml @ 250 mls/hr 1X ONCE IV ; Start 03/05/19 at 09:30; Stop 03/05/19 at 10:29; Status UNV Vancomycin HCl 2 gm/Sodium Chloride 500 ml @ 250 mls/hr 1X ONCE IV Last administered on 03/05/19at 10:35; Start 03/05/19 at 10:00; Stop 03/05/19 at 11:5 9; Status DC Hydromorphone HCl (Dilaudid) 1 mg 1X ONCE IV Last administered on 03/05/19at 10:35; Start 03/05/19 at 10:30; Stop 03/05/19 at 10:31; Status DC Sodium Chloride 1,000 ml @ 150 mls/hr Q6H40M IV Last administered on 03/05/19at 12:20; Start 03/05/19 at 10:26; Stop 03/05/19 at 20:22; Status DC Acetaminophen (Tylenol) 650 mg PRN Q6HRS PRN PO Headaches, Temp > 101.5'; S tart 03/05/19 at 10:45 Lorazepam (Ativan Inj) 0.5 mg PRN Q6HRS PRN IV ANXIETY / AGITATION; Start 03/05/19 at 10:45; Stop 03/15/19 at 11:23; Status DC Ondansetron HCl (Zofran) 4 mg PRN Q6HRS PRN IV NAUSEA/VOMITING, 1ST CHOICE; Start 03/05/19 at 10:45 Prochlorperazine Edisylate (Compazine) 5 mg PRN Q6HRS PRN IV NAUSEA/VOMITING, 2ND CHOICE; Start 03/05/19 at 10:45 Prochlorperazine (Compazine) 25 mg PRN Q12HR PRN [place] NAUSEA/VOMITING; Start 03/05/19 at 10:45 Al Hydroxide/Mg Hydroxide (Mylanta Plus Xs) 30 ml PRN Q3HRS PRN PO HEARTBURN / GAS; Start 03/05/19 at 10:45 Calcium Carbonate/ Glycine (Tums) 500 mg PRN Q3HRS PRN PO HEARTBURN / GAS, 2ND CHOICE Last administered on 03/15/19at 14:49; Start 03/05/19 at 10:45 Famotidine (Pepcid Vial) 20 mg BID IVP Last administered on 03/11/19at 08:31; Start 03/05/19 at 12:00; Stop 03/11/19 at 11:00; Status DC Info (Icu Electrolyte Protocol) 1 ea DAILY MC ; Start 03/06/19 at 09:00; Stop 03/09/19 at 15:55; Status DC Heparin Sodium (Porcine) (Heparin Sodium) 5,000 unit Q12HR SQ Last administered on 03/12/19at 08:48; Start 03/05/19 at 21:00 Sodium Chloride (Normal Saline Flush) 3 ml QSHIFT PRN IV AFTER MEDS AND BLOOD DRAWS; Start 03/05/19 at 10:45; Stop 03/14/19 at 13:07; Status DC Sodium Chloride 1,000 ml @ 100 mls/hr Q10H IV Last administered on 03/07/19at 05:01; Start 03/05/19 at 10:39; Stop 03/07/19 at 11:00; Status DC Acetaminophen/ Hydrocodone Bitart (Lortab 5/325) 1 tab PRN Q4HRS PRN PO MILD PAIN 1-3; Start 03/05/19 at 10:45; Stop 03/06/19 at 09:58; Status DC Acetaminophen/ Hydrocodone Bitart (Lortab 5/325) 2 tab PRN Q4HRS PRN PO MODERATE PAIN, SEVERE PAIN; Start 03/05/19 at 10:45; Stop 03/06/19 at 09:58; Status DC Morphine Sulfate (Morphine Sulfate) 2 mg PRN Q1HR PRN IV MODERATE PAIN Last administered on 03/07/19at 17:14; Start 03/05/19 at 10:45; Stop 03/17/19 at 08:52; Status DC Senna/Docusate Sodium (Senna Plus) 1 tab BID PO Last administered on 03/08/19at 08:46; Start 03/05/19 at 21:00 Docusate Sodium (Colace) 100 mg BID PO Last administered on 03/17/19at 08:40; Start 03/05/19 at 12:00 Bisacodyl (Dulcolax Supp) 10 mg PRN DAILY PRN [place] CONSTIPATION; Start 03/05/19 at 10:45 Sodium Chloride 1,000 ml @ 2,550 mls/hr Q24M IV ; Start 03/05/19 at 10:48; Stop 03/05/19 at 11:48; Status DC Sodium Chloride 500 ml @ 1,000 mls/hr PRN Q30MIN PRN IV PER PROTOCOL; Start 03/05/19 at 11:00 Vancomycin HCl (Vanco Per Pharmacy) 1 each PRN DAILY PRN MC SEE COMMENTS Last administered on 03/05/19at 13:45; Start 03/05/19 at 11:00; Stop 03/06/19 at 08:18; Status DC Piperacillin Sod/ Tazobactam Sod 4.5 gm/Sodium Chloride 100 ml @ 200 mls/hr Q6HRS IV ; Start 03/05/19 at 12:00; Stop 03/05/19 at 11:59; Status DC Norepinephrine Bitartrate 250 ml @ 0 mls/hr CONT PRN IV PER PROTOCOL; Start 03/05/19 at 11:00; Stop 03/09/19 at 15:58; Status DC Dobutamine HCl/ Dextrose 250 ml @ 0 mls/hr CONT PRN IV PER PROTOCOL; Start 03/05/19 at 11:00; Stop 03/07/19 at 11:00; Status DC Vancomycin HCl 2 gm/Sodium Chloride 500 ml @ 250 mls/hr 1X ONCE IV ; Start 03/05/19 at 12:00; Stop 03/05/19 at 13:59; Status Cancel Piperacillin Sod/ Tazobactam Sod 4.5 gm/Sodium Chloride 100 ml @ 200 mls/hr Q6HRS IV Last administered on 03/07/19at 05:01; Start 03/05/19 at 16:00; Stop 03/07/19 at 08:36; Status DC Linezolid/Dextrose 300 ml @ 300 mls/hr Q12HR IV Last administered on 03/07/19at 07:54; Start 03/05/19 at 13:00; Stop 03/07/19 at 09:13; Status DC Lidocaine/Sodium Bicarbonate (Buffered Lidocaine 1%) 3 ml STK-MED ONCE .ROUTE ; Start 03/05/19 at 12:12; Stop 03/05/19 at 12:13; Status DC Midazolam HCl (Versed) 2 mg STK-MED ONCE .ROUTE ; Start 03/05/19 at 12:13; Stop 03/05/19 at 12:13; Status DC Fentanyl Citrate (Fentanyl 2ml Vial) 100 mcg STK-MED ONCE .ROUTE ; Start 03/05/19 at 12:14; Stop 03/05/19 at 12:14; Status DC Lidocaine/Sodium Bicarbonate (Buffered Lidocaine 1%) 3 ml STK-MED ONCE .ROUTE ; Start 03/05/19 at 13:05; Stop 03/05/19 at 13:05; Status DC Hydromorphone HCl (Dilaudid) 1.5 mg PRN Q3HRS PRN IVP SEVERE PAIN Last administered on 03/08/19 08:46; Start 03/05/19 at 13:30; Stop 03/08/19 at 10:24; Status DC Lidocaine/Sodium Bicarbonate (Buffered Lidocaine 1%) 3 ml 1X ONCE IJ Last administered on 03/05/19 13:32; Start 03/05/19 at 13:30; Stop 03/05/19 at 13:31; Status DC Midazolam HCl (Versed) 2 mg 1X ONCE IV Last administered on 03/05/19 13:32; Start 03/05/19 at 13:30; Stop 03/05/19 at 13:31; Status DC Fentanyl Citrate (Fentanyl 2ml Vial) 100 mcg 1X ONCE IV Last administered on 13:32; Start 03/05/19 at 13:30; Stop 03/05/19 at 13:31; Status DC Vancomycin HCl 1.5 gm/Sodium Chloride 500 ml @ 250 mls/hr Q8H IV Last administered on 03/06/19 03:06; Start 03/05/19 at 19:00; Stop 03/06/19 at 08:18; Status DC Vancomycin HCl (Vancomycin Trough Level) 1 each 1X ONCE MC ; Start 03/06/19 at 10:30; Stop 03/06/19 at 08:21; Status DC Daptomycin 600 mg/ Sodium Chloride 50 ml @ 100 mls/hr Q24H IV Last administered on 03/09/19 09:39; Start 03/06/19 at 10:00; Stop 03/09/19 at 11:48 ; Status DC Acetaminophen/ Hydrocodone Bitart (Lortab 5/325) 1 tab PRN Q4HRS PRN PO PAIN; Start 03/06/19 at 08:45; Stop 03/06/19 at 09:58; Status DC Oxycodone/ Acetaminophen (Percocet 10/325) 1 tab PRN Q4HRS PRN PO PAIN Last administered on 03/17/19 07:29; Start 03/06/19 at 10:00 Ketorolac Tromethamine (Toradol 30mg Vial) 30 mg PRN Q6HRS PRN IV INFLAMMATION Last administered on 9/2/19at 04:12; Start 03/06/19 at 10:00; Stop 03/11/19 at 09:59; Status DC Lactobacillus Rhamnosus (Culturelle) 1 cap BID PO Last administered on 03/17/19at 08:40; Start 03/06/19 at 21:00 Linezolid (Zyvox) 600 mg BID PO Last administered on 03/11/19at 08:31; Start 03/07/19 at 13:00; Stop 03/11/19 at 12:27; Status DC Sodium Chloride (Normal Saline Flush) 10 ml QSHIFT PRN IV AFTER MEDS AND BLOOD DRAWS; Start 03/07/19 at 13:45 Lidocaine HCl (Xylocaine 2% Topical 5gm Tube) 1 michel 1X ONCE TP ; Start 03/07/19 at 13:45; Stop 03/07/19 at 13:46; Status DC Lidocaine HCl (Viscous Lidocaine) 15 ml 1X ONCE MM ; Start 03/07/19 at 13:45; Stop 03/07/19 at 13:46; Status DC Benzocaine (Hurricaine One) 1 spray 1X ONCE MM ; Start 03/07/19 at 13:45; Stop 03/07/19 at 13:46; Status DC Alteplase, Recombinant 10 mg/ Sterile Water 50 ml @ 0 mls/hr 1X ONCE IV Last administered on 03/07/19at 17:14; Start 03/07/19 at 15:45; Stop 03/07/19 at 15:46; Status DC Propofol 20 ml @ As Directed STK-MED ONCE IV ; Start 03/07/19 at 15:50; Stop 03/07/19 at 15:50; Status DC Lidocaine HCl (Lidocaine Pf 2% Vial) 5 ml STK-MED ONCE .ROUTE ; Start 03/07/19 at 15:50; Stop 03/07/19 at 15:50; Status DC Ephedrine Sulfate (ePHEDrine PF IN SALINE SYRINGE) 50 mg STK-MED ONCE IV ; Start 03/07/19 at 15:50; Stop 03/07/19 at 15:50; Status DC Hydromorphone HCl (Dilaudid) 2 mg PRN Q3HRS PRN IV SEVERE PAIN Last administered on 03/15/19at 09:44; Start 03/08/19 at 10:30; Stop 03/15/19 at 12:13; Status DC Cefazolin Sodium 2 gm/Dextrose 50 ml @ 100 mls/hr Q8HRS IV Last administered on 03/17/19at 06:26; Start 03/09/19 at 14:00 Famotidine (Pepcid) 20 mg BID PO Last administered on 03/17/19at 08:40; Start 03/11/19 at 21:00 Iohexol (Omnipaque 300 Mg/ml) 75 ml 1X ONCE IV Last administered on 03/13/19at 12:35; Start 03/13/19 at 12:15; Stop 03/13/19 at 12:16; Status DC Info (CONTRAST GIVEN -- Rx MONITORING) 1 each PRN DAILY PRN MC SEE COMMENTS; Start 03/13/19 at 12:15; Stop 03/15/19 at 12:14; Status DC Lidocaine/Sodium Bicarbonate (Buffered Lidocaine 1%) 3 ml STK-MED ONCE .ROUTE ; Start 03/14/19 at 14:41; Stop 03/14/19 at 14:41; Status DC Lidocaine/Sodium Bicarbonate (Buffered Lidocaine 1%) 3 ml STK-MED ONCE .ROUTE ; Start 03/14/19 at 14:58; Stop 03/14/19 at 14:58; Status DC Midazolam HCl (Versed) 5 mg STK-MED ONCE .ROUTE ; Start 03/14/19 at 15:21; Stop 03/14/19 at 15:21; Status DC Fentanyl Citrate (Fentanyl 5ml Vial) 250 mcg STK-MED ONCE .ROUTE ; Start 03/14/19 at 15:21; Stop 03/14/19 at 15:21; Status DC Flumazenil (Romazicon) 0.5 mg STK-MED ONCE IV ; Start 03/14/19 at 15:21; Stop 03/14/19 at 15:21; Status DC Naloxone HCl (Narcan) 0.4 mg STK-MED ONCE .ROUTE ; Start 03/14/19 at 15:21; Stop 03/14/19 at 15:21; Status DC Lidocaine/Sodium Bicarbonate (Buffered Lidocaine 1%) 12 ml 1X ONCE IJ Last administered on 03/14/19at 16:00; Start 03/14/19 at 15:45; Stop 03/14/19 at 15:49; Status DC Midazolam HCl (Versed) 5 mg 1X ONCE IV Last administered on 03/14/19 16:00; S tart 03/14/19 at 15:45; Stop 03/14/19 at 15:49; Status DC Fentanyl Citrate (Fentanyl 5ml Vial) 150 mcg 1X ONCE IV Last administered on 03/14/19 16:00; Start 03/14/19 at 15:45; Stop 03/14/19 at 15:49; Status DC Lorazepam (Ativan Inj) 2 mg PRN Q6HRS PRN IV ANXIETY / AGITATION Last administered on 03/15/19 07:36; Start 03/14/19 at 18:00; Stop 03/15/19 at 12:14; Status DC Hydromorphone HCl (Dilaudid) 2 mg PRN Q2HR PRN IV SEVERE PAIN Last administered on 03/17/19 08:40; Start 03/15/19 at 12:15 Lorazepam (Ativan) 1 mg PRN Q6HRS PRN PO ANXIETY / AGITATION Last administered on 03/17/19 09:57; Start 03/15/19 at 12:15 Morphine Sulfate (Ms Contin) 15 mg BID PO Last administered on 03/17/19 08:40; Start 03/16/19 at 13:00 Vitals/I & O Vital Sign - Last 24 Hours 03/16/19 03/16/19 03/16/19 03/16/19 10:41 10:51 10:56 11:26 Temp 97.4 97.4 Pulse 96 Resp 18 B/P (MAP) 126/77 (93) Pulse Ox 99 O2 Delivery Room Air Room Air Room Air Room Air O2 Flow Rate 2.0 03/16/19 03/16/19 03/16/19 03/16/19 12:07 12:07 12:50 13:45 O2 Delivery Room Air Room Air Room Air Room Air 03/16/19 03/16/19 03/16/19 03/16/19 14:20 15:00 15:15 15:46 Temp 97.4 97.4 Pulse 92 Resp 18 B/P (MAP) 118/76 (90) Pulse Ox 98 O2 Delivery Room Air Room Air Room Air Room Air O2 Flow Rate 2.0 03/16/19 03/16/19 03/16/19 03/16/19 16:13 16:13 17:20 17:40 O2 Delivery Room Air Room Air Room Air Room Air 03/16/19 03/16/19 03/16/19 03/16/19 18:14 18:59 19:40 20:15 Temp 98.2 98.2 Pulse 91 Resp 16 B/P (MAP) 121/71 (88) Pulse Ox 98 O2 Delivery Room Air Room Air Room Air Room Air 03/16/19 03/17/19 03/17/19 03/17/19 23:40 03:40 07:16 07:29 Temp 98.2 98.1 98.0 98.2 98.1 98.0 Pulse 93 95 98 Resp 16 16 16 B/P (MAP) 116/65 (82) 112/64 (80) 114/77 (89) Pulse Ox 97 98 97 O2 Delivery Room Air Room Air Room Air Room Air 03/17/19 03/17/19 03/17/19 03/17/19 07:41 08:40 08:40 08:40 O2 Delivery Room Air Room Air Room Air Room Air 03/17/19 09:42 O2 Delivery Room Air Intake and Output 03/16/19 03/16/19 03/17/19 15:00 23:00 07:00 Intake Total 800 ml Output Total 215 ml Balance -215 ml 800 ml LENO VINCENT MD Mar 17, 2019 10:31
[2019-03-17 11:12] VITALS: BP 126/77
[2019-03-17 15:08] VITALS: BP 126/72
[2019-03-17 19:45] VITALS: BP 113/76
[2019-03-17 23:45] VITALS: BP 115/64
[2019-03-18] MEDS: HYDROmorphone 2 MG/ML VIAL IV PRN ×11 (01:32→22:03)
[2019-03-18] MEDS: oxyCODONE/APAP 10/325 1 TAB TABLET PO PRN ×5 (03:37→19:57)
[2019-03-18 03:45] VITALS: BP 121/76
[2019-03-18] MEDS: LORazepam 1 MG TABLET PO PRN ×3 (05:36→17:51)
[2019-03-18] MEDS: ceFAZolin SODIUM 2 GM in IV DEXTROSE 5% 50 ML IV SCH ×3 (05:40→22:03)
[2019-03-18 07:00] VITALS: BP 126/69
[2019-03-18] MEDS: LACTOBACILLUS RHAMNOSUS GG 1 CAPSULE. PO SCH ×2 (07:37→19:57)
[2019-03-18] MEDS: DOCUSATE SODIUM 100 MG CAPSULE. PO SCH ×2 (07:37→19:58)
[2019-03-18] MEDS: MORPHINE ER 15 MG TABLET.ER PO SCH ×2 (07:38→19:58)
[2019-03-18] MEDS: FAMOTIDINE 20 MG TABLET. PO SCH ×2 (07:38→19:57)
[2019-03-18] MEDS: HEPARIN for SUB-Q USE 5,000 UNIT/ML VIAL. SQ SCH ×2 (07:41→19:58)
--- NOTE | 2019-03-18 08:24 | RAD ---
CT-guided placement of left basilar thoracostomy tube INDICATION: Empyema discussion: 03/18/2019 6:19 AM Discussion: The procedure was explained in its entirety to the patient or the patients designated regional sales representative by a member of the treatment team, including a discussion of the risks, benefits and commonly accepted alternatives to the procedure, as well as the expected consequences of no therapy whatsoever. Discussion of the risks included, but was not limited to, those that are most frequent and those that are rare but possibly severe or life-threatening, as well as the possibility of unforeseen complications. All elements of maximal sterile barrier technique including the use of a cap, mask, sterile gown, sterile gloves, large sterile sheet, appropriate hand hygiene, and 2% chlorhexidine for cutaneous antisepsis (or acceptable alternative antiseptic per current guidelines) were followed for this procedure. CT imaging demonstrates left basilar loculated pleural fluid collection consistent with empyema. Prior empyema drainage noted. The overlying skin was prepped and draped using the aforementioned sterile barrier technique. 1% lidocaine was administered for local anesthesia. Under intermittent CT guidance a 17-gauge needle was advanced into the collection. Purulent material was aspirated. A guidewire was advanced into the collection over which following dilatation a 12 Turkmen drain was placed. Purulent material was aspirated. Catheter was connected to Pleur-evac device and -20 cm water. Sterile dressings were applied. The patient tolerated the procedure without immediate complication. The procedures performed under conscious sedation including continuous cardiopulmonary monitoring via dedicated sedation nurse. [id number] sedation time: 25 minutes Impression: CT-guided placement, left thoracostomy tube into left basilar empyema PQRS Compliance Statement: One or more of the following individualized dose reduction techniques were utilized for this examination: 1. Automated exposure control 2. Adjustment of the mA and/or kV according to patient size 3. Use of iterative reconstruction technique
--- NOTE | 2019-03-18 09:52 | PDOC ---
PULMONARY PROGRESS NOTES Subjective NOT MORE SOA, no cough, has chest tightness S/P ANOTHER LEFT CHEST TUBE Vitals Vital Signs Date Time Temp Pulse Resp B/P (MAP) Pulse Ox O2 Delivery O2 Flow Rate FiO2 03/18/19 09:42 Room Air 03/18/19 07:00 97.1 103 18 126/69 (88) 96 97.1 03/18/19 04:28 2.0 ROS: No Nausea, No Abdominal Pain, No Increase Cough General: Alert, No acute distress Lungs: Other (decrease left base l ct) Cardiovascular: S1, S2 Abdomen: Soft Neuro Exam: Alert Extremities: No Edema Skin: Warm Impression . IMPRESSION: 1. Empyema.S/P CHEST TUBE for empyema, removed.( MSSA)/ HAD LOCULATED FLUID COLLECTION ON REPEAT CT CHEST , CHEST TUBE PLACE AGAIN IN [facility] 2. Anterior mediastinal abscess extending into the left anterior chest wall muscular structures. 3. Small pericardial effusion. 4. Elevated liver chemistries. 5. Protein malnutrition. 6. Methamphetamine use., h/o vaping 7. MSSA BACTEREMIA Plan . CHEST TUBE REMOVED 03/11, ANOTHER ONE PLACED 03/14, cont suction -40 , cxr not much changed. will get ct chest today MEDIASTINAL TUBE REMOVED 03/13 ANTIBX PER ID CULTURES C/W MSSA FOLLW REPEAT PLEURAL CULTURES, neg cx D/W RN/ pt DENISE DRAKE MD Mar 18, 2019 09:52
--- NOTE | 2019-03-18 10:07 | RAD ---
Portable chest x-ray compared to similar study dated 03/15/2019 for empyema. FINDINGS: Right lung remains well aerated. There is elevation left hemidiaphragm, with persistent left pleural effusion and unchanged left basilar pigtail drainage catheter. Vague opacification of the left upper and midlung is slightly improved. Heart size within normal limits. IMPRESSION: 1. Essentially stable chest x-ray, perhaps with slightly improved aeration of the left upper and midlung. Electronically signed by: Gumaro Adler MD (03/18/2019 10:04 AM) [facility]
[2019-03-18 10:58] VITALS: BP 130/81
--- NOTE | 2019-03-18 11:00 | NUR ---
SW following pt. Pt still has chest tube and still anticipate needs for manager intermediate IV. Discussed with ID.
--- NOTE | 2019-03-18 11:06 | PDOC ---
Infectious Disease Note Subjective: Subjective pt says is doing better Less clavicular pain Denies SOA/CP/F/C/N/V/D wondering what the plan is for ct tube today ROS: ROS Negative otherwise. Vital Signs: Vital Signs Vital Signs Date Time Temp Pulse Resp B/P (MAP) Pulse Ox O2 Delivery O2 Flow Rate FiO2 03/18/19 10:19 Room Air 03/18/19 07:00 97.1 103 18 126/69 (88) 96 97.1 03/18/19 04:28 2.0 Physical Exam: PHYSICAL EXAM GENERAL: Propped up in bed, alert, watching TV HEENT: Pupils equal, Oral cavity clear NECK: Supple. Good range of motion. LUNGS: Diminished aeration on the left, left sided CT in place. sternal/left clavicular area mildly tender HEART: S1, S2, without gross murmur. ABDOMEN: Soft, nontender EXTREMITIES: No edema or cyanosis. SKIN: Warm to touch. multiple tattoos. NEUROLOGIC: Alert and oriented, cooperative. PIV Medications: Inpatient Meds: Current Medications Medications (Trade) Dose Ordered Sig/Conrad Start Time Stop Time Status Last Admin Dose Admin Acetaminophen (Tylenol) 650 mg PRN Q6HRS PRN 03/05/19 10:45 Acetaminophen/ Hydrocodone Bitart (Lortab 5/325) 1 tab PRN Q4HRS PRN 03/06/19 08:45 03/06/19 09:58 DC Al Hydroxide/Mg Hydroxide (Mylanta Plus Xs) 30 ml PRN Q3HRS PRN 03/05/19 10:45 Alteplase, Recombinant 10 mg/ Sterile Water 50 ml @ 0 mls/hr 1X ONCE 03/07/19 15:45 03/07/19 15:46 DC 03/07/19 17:14 50 MLS/HR Benzocaine (Hurricaine One) 1 spray 1X ONCE 03/07/19 13:45 03/07/19 13:46 DC Bisacodyl (Dulcolax Supp) 10 mg PRN DAILY PRN 03/05/19 10:45 Calcium Carbonate/ Glycine (Tums) 500 mg PRN Q3HRS PRN 03/05/19 10:45 03/15/19 14:49 500 MG Cefazolin Sodium 2 gm/Dextrose 50 ml @ 100 mls/hr Q8HRS 03/09/19 14:00 03/18/19 05:40 100 MLS/HR Daptomycin 600 mg/ Sodium Chloride 50 ml @ 100 mls/hr Q24H 03/06/19 10:00 03/09/19 11:48 DC 03/09/19 09:39 100 MLS/HR Dobutamine HCl/ Dextrose 250 ml @ 0 mls/hr CONT PRN 03/05/19 11:00 03/07/19 11:00 DC Docusate Sodium (Colace) 100 mg BID 03/05/19 12:00 03/18/19 07:38 100 MG Ephedrine Sulfate (ePHEDrine PF IN SALINE SYRINGE) 50 mg STK-MED ONCE 03/07/19 15:50 03/07/19 15:50 DC Famotidine (Pepcid Vial) 20 mg BID 03/05/19 12:00 03/11/19 11:00 DC 03/11/19 08:31 20 MG Famotidine (Pepcid) 20 mg BID 03/11/19 21:00 03/18/19 07:38 20 MG Fentanyl Citrate (Fentanyl 2ml Vial) 100 mcg 1X ONCE 03/05/19 13:30 03/05/19 13:31 DC 03/05/19 13:32 100 MCG Fentanyl Citrate (Fentanyl 5ml Vial) 150 mcg 1X ONCE 03/14/19 15:45 03/14/19 15:49 DC 03/14/19 16:00 150 MCG Flumazenil (Romazicon) 0.5 mg STK-MED ONCE 03/14/19 15:21 03/14/19 15:21 DC Heparin Sodium (Porcine) (Heparin Sodium) 5,000 unit Q12HR 03/05/19 21:00 03/12/19 08:48 5,000 UNIT Hydromorphone HCl (Dilaudid) 2 mg PRN Q2HR PRN 03/15/19 12:15 03/18/19 09:42 2 MG Info (CONTRAST GIVEN -- Rx MONITORING) 1 each PRN DAILY PRN 03/13/19 12:15 03/15/19 12:14 DC Info (Icu Electrolyte Protocol) 1 ea DAILY 03/06/19 09:00 03/09/19 15:55 DC Iohexol (Omnipaque 300 Mg/ml) 75 ml 1X ONCE 03/13/19 12:15 03/13/19 12:16 DC 03/13/19 12:35 75 ML Iohexol (Omnipaque 350 Mg/ml) 100 ml 1X ONCE 03/05/19 08:30 03/05/19 08:32 DC 03/05/19 09:05 100 ML Ketorolac Tromethamine (Toradol 30mg Vial) 30 mg PRN Q6HRS PRN 03/06/19 10:00 03/11/19 09:59 DC 03/11/19 04:12 30 MG Lactobacillus Rhamnosus (Culturelle) 1 cap BID 03/06/19 21:00 03/18/19 07:38 1 CAP Lidocaine HCl (Lidocaine Pf 2% Vial) 5 ml STK-MED ONCE 03/07/19 15:50 03/07/19 15:50 DC Lidocaine HCl (Viscous Lidocaine) 15 ml 1X ONCE 03/07/19 13:45 03/07/19 13:46 DC Lidocaine HCl (Xylocaine 2% Topical 5gm Tube) 1 michel 1X ONCE 03/07/19 13:45 03/07/19 13:46 DC Lidocaine/Sodium Bicarbonate (Buffered Lidocaine 1%) 12 ml 1X ONCE 03/14/19 15:45 03/14/19 15:49 DC 03/14/19 16:00 10 ML Linezolid (Zyvox) 600 mg BID 03/07/19 13:00 03/11/19 12:27 DC 03/11/19 08:31 600 MG Linezolid/Dextrose 300 ml @ 300 mls/hr Q12HR 03/05/19 13:00 03/07/19 09:13 DC 03/07/19 07:54 300 MLS/HR Lorazepam (Ativan Inj) 2 mg PRN Q6HRS PRN 03/14/19 18:00 03/15/19 12:14 DC 03/15/19 07:36 2 MG Lorazepam (Ativan) 1 mg PRN Q6HRS PRN 03/15/19 12:15 03/18/19 05:36 1 MG Midazolam HCl (Versed) 5 mg 1X ONCE 03/14/19 15:45 03/14/19 15:49 DC 03/14/19 16:00 3 MG Morphine Sulfate (Morphine Sulfate) 2 mg PRN Q1HR PRN 03/05/19 10:45 9/8/19 08:52 DC 03/07/19 17:14 2 MG Morphine Sulfate (Ms Contin) 15 mg BID 03/16/19 13:00 03/18/19 07:38 15 MG Naloxone HCl (Narcan) 0.4 mg STK-MED ONCE 03/14/19 15:21 03/14/19 15:21 DC Norepinephrine Bitartrate 250 ml @ 0 mls/hr CONT PRN 03/05/19 11:00 03/09/19 15:58 DC Ondansetron HCl (Zofran) 4 mg PRN Q6HRS PRN 03/05/19 10:45 Oxycodone/ Acetaminophen (Percocet 10/325) 1 tab PRN Q4HRS PRN 03/06/19 10:00 03/18/19 07:38 1 TAB Piperacillin Sod/ Tazobactam Sod 3.375 gm/Sodium Chloride 50 ml @ 100 mls/hr 1X ONCE 03/05/19 09:30 03/05/19 09:59 DC 03/05/19 09:54 100 MLS/HR Piperacillin Sod/ Tazobactam Sod 4.5 gm/Sodium Chloride 100 ml @ 200 mls/hr Q6HRS 03/05/19 16:00 03/07/19 08:36 DC 03/07/19 05:01 200 MLS/HR Prochlorperazine (Compazine) 25 mg PRN Q12HR PRN 03/05/19 10:45 Prochlorperazine Edisylate (Compazine) 5 mg PRN Q6HRS PRN 03/05/19 10:45 Propofol 20 ml @ As Directed STK-MED ONCE 03/07/19 15:50 03/07/19 15:50 DC Senna/Docusate Sodium (Senna Plus) 1 tab BID 03/05/19 21:00 03/17/19 19:29 1 TAB Sodium Chloride (Normal Saline Flush) 10 ml QSHIFT PRN 03/07/19 13:45 Vancomycin HCl (Vanco Per Pharmacy) 1 each PRN DAILY PRN 03/05/19 11:00 03/06/19 08:18 DC 03/05/19 13:45 1 EACH Vancomycin HCl (Vancomycin Trough Level) 1 each 1X ONCE 03/06/19 10:30 03/06/19 08:21 DC Vancomycin HCl 1.5 gm/Sodium Chloride 500 ml @ 250 mls/hr Q8H 03/05/19 19:00 03/06/19 08:18 DC 03/06/19 03:06 250 MLS/HR Vancomycin HCl 2 gm/Sodium Chloride 500 ml @ 250 mls/hr 1X ONCE 03/05/19 12:00 03/05/19 13:59 Cancel Objective: Assessment: MSSA bacteremia from 03/05. -[place] 03/07 - neg. Repeat BC 03/07 neg Empyema s/p chest tube 03/05. MSSA. s/p replacement, 03/14 no org gram stain; fluid analysis pending. culture neg so far CTS removed on 03/11 another one placed 03/14 Mediastinal tube removed 03/13 Left chest abscess s/p drain 03/05. MSSA Left shoulder pain persists but some better ? conduction defect on ECHO Transaminitis - some better Protein malnutrition H/o Meth use H/o Staph infection H/o Hep C - not treated Plan: Plan of Care Continue Cefazolin f/u CT chest May need TPA per my d/w Dr Broussard Probiotics am labs Supportive care ? OT/PT SHUKRI MAKI MD Mar 18, 2019 11:06
--- NOTE | 2019-03-18 11:54 | RAD ---
Examination: CT CHEST WO CONTRAST History: Empyema Comparison/Correlation: 03/13/2019 CT chest with contrast, 03/14/2019 CT pleural drain with catheter placement images Findings: Axial images of chest were obtained without contrast. Sagittal and coronal reformatted images were provided. At the anterior left upper thoracic cavity adjacent to the superior mediastinal fat and pleura, there is a loculated collection with a small amount of gas within it. This collection measures 3.4 cm anteroposterior by 3.5 cm transverse by 3.7 cm longitudinal. Left costophrenic sulcus pleural collection is small in size with pigtail drain catheter within it. Gas within this collection noted. Adjacent atelectasis is evident involving the lower lobe. Minimal linear atelectasis is noted in the subpleural aspect of the left upper lobe and lingula. Right lung field is unremarkable. No enlarged thoracic lymph nodes. Bony structures are unremarkable. Partially visualized upper abdomen is unremarkable. Moderate quantity of stool in the colon noted. Impression: Moderate to large decrease in the fluid volume of the left posterior basilar empyema. Pigtail catheter is noted within the fluid collection. Adjacent atelectasis. There is a loculated collection at the left upper thoracic cavity anteriorly adjacent to the mediastinum. It is unchanged in size. PQRS Compliance Statement: One or more of the following individualized dose reduction techniques were utilized for this examination: 1. Automated exposure control 2. Adjustment of the mA and/or kV according to patient size 3. Use of iterative reconstruction technique Electronically signed by: Christopher Pino MD (03/18/2019 11:51 AM) [facility]
--- NOTE | 2019-03-18 13:13 | PDOC ---
PROGRESS NOTES Chief Complaint Chief Complaint Acute chest pain Sirs, sepsis on admit Empyema Left chest abscess H/o Meth use H/o Staph infection H/o Hep C - not treated small pericardial effusion History of Present Illness History of Present Illness 03/18 anxoius and walking the rodriguez wants to get tube removed or positioned differently I called Dr. Mcmillan and he reviewed images and plan could be for VATS in follow up, current chest tube has drained area nicely, might be able to loosen up other area with TPA, Dr. Broussard following, will discussed with ID and PULM Vitals Vitals Vital Signs Date Time Temp Pulse Resp B/P (MAP) Pulse Ox O2 Delivery O2 Flow Rate FiO2 03/18/19 11:48 Room Air 03/18/19 10:58 98.1 101 18 130/81 (97) 97 98.1 03/18/19 04:28 2.0 Physical Exam Physical Exam GENERAL: Propped up in bed, alert, watching TV HEENT: Pupils equal, Oral cavity clear NECK: Supple. Good range of motion. LUNGS: Diminished aeration on the left, left sided CT in place. sternal/left clavicular area mildly tender HEART: S1, S2, without gross murmur. ABDOMEN: Soft, nontender EXTREMITIES: No edema or cyanosis. SKIN: Warm to touch. multiple tattoos. NEUROLOGIC: Alert and oriented, cooperative. PIV General: Alert, Oriented X3, Cooperative, No acute distress Heart: Regular rate, Normal S1, Normal S2 Lungs: Other (decrease left base l ct) Abdomen: Normal bowel sounds, Soft, Other (tender to left abd and back) Extremities: No clubbing, No cyanosis Skin: No significant lesion, Other (3x3cm area of fluctuance and tenderness without significant erythema on the left anterior chest wall) Assessment and Plan Assessmemt and Plan Problems Medical Problems: (1) Chest wall abscess Status: Acute (2) Mediastinal abscess Status: Acute (3) Pleural effusion Status: Acute Comment Review of Relevant I have reviewed the following items nancy (where applicable) has been applied. Labs Microbiology 03/14/19 Gram Stain - Final, Complete 03/07/19 Blood Culture - Final, Complete NO GROWTH AFTER 5 DAYS 03/05/19 AFB Specimen Processing Tissue - Final, Resulted 03/05/19 Acid Fast Bacilli Culture, Resulted Pending 03/05/19 Gram Stain - Final, Resulted 03/05/19 Fungal Culture - Preliminary, Resulted 03/05/19 Fungal Culture Result 1 - Preliminary, Resulted Medications Current Medications Sodium Chloride 1,000 ml @ 1,000 mls/hr Q1H IV Last administered on 03/05/19at 08:42; Start 03/05/19 at 08:18; Stop 03/05/19 at 09:17; Status DC Morphine Sulfate (Morphine Sulfate) 4 mg 1X ONCE IV Last administered on 03/05/19at 08:42; Start 03/05/19 at 09:00; Stop 03/05/19 at 09:01; Status DC Ondansetron HCl (Zofran) 4 mg 1X ONCE IV Last administered on 03/05/19at 08:42; Start 03/05/19 at 09:00; Stop 03/05/19 at 09:01; Status DC Iohexol (Omnipaque 350 Mg/ml) 100 ml 1X ONCE IV Last administered on 03/05/19at 09:05; Start 03/05/19 at 08:30; Stop 03/05/19 at 08:32; Status DC Info (CONTRAST GIVEN -- Rx MONITORING) 1 each PRN DAILY PRN MC SEE COMMENTS; Start 03/05/19 at 08:45; Stop 03/07/19 at 08:44; Status DC Hydromorphone HCl (Dilaudid) 1 mg 1X ONCE IV Last administered on 03/05/19at 09:05; Start 03/05/19 at 09:15; Stop 03/05/19 at 09:16; Status DC Sodium Chloride 1,000 ml @ 1,000 mls/hr 1X ONCE IV Last administered on 03/05/19at 09:54; Start 03/05/19 at 09:30; Stop 03/05/19 at 10:29; Status DC Piperacillin Sod/ Tazobactam Sod 3.375 gm/Sodium Chloride 50 ml @ 100 mls/hr 1X ONCE IV Last administered on 03/05/19at 09:54; Start 03/05/19 at 09:30; Stop 03/05/19 at 09:59; Status DC Vancomycin HCl 250 ml @ 250 mls/hr 1X ONCE IV ; Start 03/05/19 at 09:30; Stop 03/05/19 at 10:29; Status UNV Vancomycin HCl 2 gm/Sodium Chloride 500 ml @ 250 mls/hr 1X ONCE IV Last administered on 03/05/19at 10:35; Start 03/05/19 at 10:00; Stop 03/05/19 at 11:59; Status DC Hydromorphone HCl (Dilaudid) 1 mg 1X ONCE IV Last administered on 03/05/19at 10:35; Start 03/05/19 at 10:30; Stop 03/05/19 at 10:31; Status DC Sodium Chloride 1,000 ml @ 150 mls/hr Q6H40M IV Last administered on 03/05/19at 12:20; Start 03/05/19 at 10:26; Stop 03/05/19 at 20:22; Status DC Acetaminophen (Tylenol) 650 mg PRN Q6HRS PRN PO Headaches, Temp > 101.5'; Start 03/05/19 at 10:45 Lorazepam (Ativan Inj) 0.5 mg PRN Q6HRS PRN IV ANXIETY / AGITATION; Start 03/05/19 at 10:45; Stop 03/15/19 at 11:23; Status DC Ondansetron HCl (Zofran) 4 mg PRN Q6HRS PRN IV NAUSEA/VOMITING, 1ST CHOICE; Start 03/05/19 at 10:45 Prochlorperazine Edisylate (Compazine) 5 mg PRN Q6HRS PRN IV NAUSEA/VOMITING, 2ND CHOICE; Start 03/05/19 at 10:45 Prochlorperazine (Compazine) 25 mg PRN Q12HR PRN [place] NAUSEA/VOMITING; Start 03/05/19 at 10:45 Al Hydroxide/Mg Hydroxide (Mylanta Plus Xs) 30 ml PRN Q3HRS PRN PO HEARTBURN / GAS; Start 03/05/19 at 10:45 Calcium Carbonate/ Glycine (Tums) 500 mg PRN Q3HRS PRN PO HEARTBURN / GAS, 2ND CHOICE Last administered on 03/15/19at 14:49; Start 03/05/19 at 10:45 Famotidine (Pepcid Vial) 20 mg BID IVP Last administered on 03/11/19at 08:31; Start 03/05/19 at 12:00; Stop 03/11/19 at 11:00; Status DC Info (Icu Electrolyte Protocol) 1 ea DAILY MC ; Start 03/06/19 at 09:00; Stop 03/09/19 at 15:55; Status DC Heparin Sodium (Porcine) (Heparin Sodium) 5,000 unit Q12HR SQ Last administered on 03/12/19at 08:48; Start 03/05/19 at 21:00 Sodium Chloride (Normal Saline Flush) 3 ml QSHIFT PRN IV AFTER MEDS AND BLOOD DRAWS; Start 03/05/19 at 10:45; Stop 03/14/19 at 13:07; Status DC Sodium Chloride 1,000 ml @ 100 mls/hr Q10H IV Last administered on 03/07/19at 05:01; Start 03/05/19 at 10:39; Stop 03/07/19 at 11:00; Status DC Acetaminophen/ Hydrocodone Bitart (Lortab 5/325) 1 tab PRN Q4HRS PRN PO MILD PAIN 1-3; Start 03/05/19 at 10:45; Stop 03/06/19 at 09:58; Status DC Acetaminophen/ Hydrocodone Bitart (Lortab 5/325) 2 tab PRN Q4HRS PRN PO MODERATE PAIN, SEVERE PAIN; Start 03/05/19 at 10:45; Stop 03/06/19 at 09:58; Status DC Morphine Sulfate (Morphine Sulfate) 2 mg PRN Q1HR PRN IV MODERATE PAIN Last administered on 03/07/19at 17:14; Start 03/05/19 at 10:45; Stop 03/17/19 at 08:52; Status DC Senna/Docusate Sodium (Senna Plus) 1 tab BID PO Last administered on 03/17/19at 19:29; Start 03/05/19 at 21:00 Docusate Sodium (Colace) 100 mg BID PO Last administered on 03/18/19at 07:38; Start 03/05/19 at 12:00 Bisacodyl (Dulcolax Supp) 10 mg PRN DAILY PRN [place] CONSTIPATION; Start 03/05/19 at 10:45 Sodium Chloride 1,000 ml @ 2,550 mls/hr Q24M IV ; Start 03/05/19 at 10:48; Stop 03/05/19 at 11:48; Status DC Sodium Chloride 500 ml @ 1,000 mls/hr PRN Q30MIN PRN IV PER PROTOCOL; Start 03/05/19 at 11:00 Vancomycin HCl (Vanco Per Pharmacy) 1 each PRN DAILY PRN MC SEE COMMENTS Last administered on 03/05/19at 13:45; Start 03/05/19 at 11:00; Stop 03/06/19 at 08:18; Status DC Piperacillin Sod/ Tazobactam Sod 4.5 gm/Sodium Chloride 100 ml @ 200 mls/hr Q6HRS IV ; Start 03/05/19 at 12:00; Stop 03/05/19 at 11:59; Status DC Norepinephrine Bitartrate 250 ml @ 0 mls/hr CONT PRN IV PER PROTOCOL; Start 03/05/19 at 11:00; Stop 03/09/19 at 15:58; Status DC Dobutamine HCl/ Dextrose 250 ml @ 0 mls/hr CONT PRN IV PER PROTOCOL; Start 03/05/19 at 11:00; Stop 03/07/19 at 11:00; Status DC Vancomycin HCl 2 gm/Sodium Chloride 500 ml @ 250 mls/hr 1X ONCE IV ; Start 03/05/19 at 12:00; Stop 03/05/19 at 13:59; Status Cancel Piperacillin Sod/ Tazobactam Sod 4.5 gm/Sodium Chloride 100 ml @ 200 mls/hr Q6HRS IV Last administered on 03/07/19at 05:01; Start 03/05/19 at 16:00; Stop 03/07/19 at 08:36; Status DC Linezolid/Dextrose 300 ml @ 300 mls/hr Q12HR IV Last administered on 03/07/19at 07:54; Start 03/05/19 at 13:00; Stop 03/07/19 at 09:13; Status DC Lidocaine/Sodium Bicarbonate (Buffered Lidocaine 1%) 3 ml STK-MED ONCE .ROUTE ; Start 03/05/19 at 12:12; Stop 03/05/19 at 12:13; Status DC Midazolam HCl (Versed) 2 mg STK-MED ONCE .ROUTE ; Start 03/05/19 at 12:13; Stop 03/05/19 at 12:13; Status DC Fentanyl Citrate (Fentanyl 2ml Vial) 100 mcg STK-MED ONCE .ROUTE ; Start 03/05/19 at 12:14; Stop 03/05/19 at 12:14; Status DC Lidocaine/Sodium Bicarbonate (Buffered Lidocaine 1%) 3 ml STK-MED ONCE .ROUTE ; Start 03/05/19 at 13:05; Stop 03/05/19 at 13:05; Status DC Hydromorphone HCl (Dilaudid) 1.5 mg PRN Q3HRS PRN IVP SEVERE PAIN Last ad ministered on 03/08/19at 08:46; Start 03/05/19 at 13:30; Stop 03/08/19 at 10:24; Status DC Lidocaine/Sodium Bicarbonate (Buffered Lidocaine 1%) 3 ml 1X ONCE IJ Last administered on 03/05/19at 13:32; Start 03/05/19 at 13:30; Stop 03/05/19 at 13:31; Status DC Midazolam HCl (Versed) 2 mg 1X ONCE IV Last administered on 03/05/19at 13:32; Start 03/05/19 at 13:30; Stop 03/05/19 at 13:31; Status DC Fentanyl Citrate (Fentanyl 2ml Vial) 100 mcg 1X ONCE IV Last administered on 03/05/19at 13:32; Start 03/05/19 at 13:30; Stop 03/05/19 at 13:31; Status DC Vancomycin HCl 1.5 gm/Sodium Chloride 500 ml @ 250 mls/hr Q8H IV Last administered on 03/06/19at 03:06; Start 03/05/19 at 19:00; Stop 03/06/19 at 08:18; Status DC Vancomycin HCl (Vancomycin Trough Level) 1 each 1X ONCE MC ; Start 03/06/19 at 10:30; Stop 03/06/19 at 08:21; Status DC Daptomycin 600 mg/ Sodium Chloride 50 ml @ 100 mls/hr Q24H IV Last administered on 03/09/19at 09:39; Start 03/06/19 at 10:00; Stop 03/09/19 at 11:48; Status DC Acetaminophen/ Hydrocodone Bitart (Lortab 5/325) 1 tab PRN Q4HRS PRN PO PAIN; Start 03/06/19 at 08:45; Stop 03/06/19 at 09:58; Status DC Oxycodone/ Acetaminophen (Percocet 10/325) 1 tab PRN Q4HRS PRN PO PAIN Last administered on 03/18/19at 11:46; Start 03/06/19 at 10:00 Ketorolac Tromethamine (Toradol 30mg Vial) 30 mg PRN Q6HRS PRN IV INFLAMMATION Last administered on 03/11/19at 04:12; Start 03/06/19 at 10:00; Stop 03/11/19 at 09:59; Status DC Lactobacillus Rhamnosus (Culturelle) 1 cap BID PO Last administered on 03/18/19at 07:38; Start 03/06/19 at 21:00 Linezolid (Zyvox) 600 mg BID PO Last administered on 03/11/19at 08:31; Start 03/07/19 at 13:00; Stop 03/11/19 at 12:27; Status DC Sodium Chloride (Normal Saline Flush) 10 ml QSHIFT PRN IV AFTER MEDS AND BLOOD DRAWS; Start 03/07/19 at 13:45 Lidocaine HCl (Xylocaine 2% Topical 5gm Tube) 1 michel 1X ONCE TP ; Start 03/07/19 at 13:45; Stop 03/07/19 at 13:46; Status DC Lidocaine HCl (Viscous Lidocaine) 15 ml 1X ONCE MM ; Start 03/07/19 at 13:45; Stop 03/07/19 at 13:46; Status DC Benzocaine (Hurricaine One) 1 spray 1X ONCE MM ; Start 03/07/19 at 13:45; Stop 03/07/19 at 13:46; Status DC Alteplase, Recombinant 10 mg/ Sterile Water 50 ml @ 0 mls/hr 1X ONCE IV Last administered on 03/07/19at 17:14; Start 03/07/19 at 15:45; Stop 03/07/19 at 15:46; Status DC Propofol 20 ml @ As Directed STK-MED ONCE IV ; Start 03/07/19 at 15:50; Stop 03/07/19 at 15:50; Status DC Lidocaine HCl (Lidocaine Pf 2% Vial) 5 ml STK-MED ONCE .ROUTE ; Start 03/07/19 at 15:50; Stop 03/07/19 at 15:50; Status DC Ephedrine Sulfate (ePHEDrine PF IN SALINE SYRINGE) 50 mg STK-MED ONCE IV ; Start 03/07/19 at 15:50; Stop 03/07/19 at 15:50; Status DC Hydromorphone HCl (Dilaudid) 2 mg PRN Q3HRS PRN IV SEVERE PAIN Last administered on 03/15/19at 09:44; Start 03/08/19 at 10:30; Stop 03/15/19 at 12:13; Status DC Cefazolin Sodium 2 gm/Dextrose 50 ml @ 100 mls/hr Q8HRS IV Last administered on 03/18/19at 05:40; Start 03/09/19 at 14:00 Famotidine (Pepcid) 20 mg BID PO Last administered on 03/18/19at 07:38; Start 03/11/19 at 21:00 Iohexol (Omnipaque 300 Mg/ml) 75 ml 1X ONCE IV Last administered on 03/13/19at 12:35; Start 03/13/19 at 12:15; Stop 03/13/19 at 12:16; Status DC Info (CONTRAST GIVEN -- Rx MONITORING) 1 each PRN DAILY PRN MC SEE COMMENTS; Start 03/13/19 at 12:15; Stop 03/15/19 at 12:14; Status DC Lidocaine/Sodium Bicarbonate (Buffered Lidocaine 1%) 3 ml STK-MED ONCE .ROUTE ; Start 03/14/19 at 14:41; Stop 03/14/19 at 14:41; Status DC Lidocaine/Sodium Bicarbonate (Buffered Lidocaine 1%) 3 ml STK-MED ONCE .ROUTE ; Start 03/14/19 at 14:58; Stop 03/14/19 at 14:58; Status DC Midazolam HCl (Versed) 5 mg STK-MED ONCE .ROUTE ; Start 03/14/19 at 15:21; Stop 03/14/19 at 15:21; Status DC Fentanyl Citrate (Fentanyl 5ml Vial) 250 mcg STK-MED ONCE .ROUTE ; Start 03/14/19 at 15:21; Stop 03/14/19 at 15:21; Status DC Flumazenil (Romazicon) 0.5 mg STK-MED ONCE IV ; Start 03/14/19 at 15:21; Stop 03/14/19 at 15:21; Status DC Naloxone HCl (Narcan) 0.4 mg STK-MED ONCE .ROUTE ; Start 03/14/19 at 15:21; Stop 03/14/19 at 15:21; Status DC Lidocaine/Sodium Bicarbonate (Buffered Lidocaine 1%) 12 ml 1X ONCE IJ Last administered on 03/14/19 16:00; Start 03/14/19 at 15:45; Stop 03/14/19 at 15:49; Status DC Midazolam HCl (Versed) 5 mg 1X ONCE IV Last administered on 03/14/19 16:00; Start 03/14/19 at 15:45; Stop 03/14/19 at 15:49; Status DC Fentanyl Citrate (Fentanyl 5ml Vial) 150 mcg 1X ONCE IV Last administered on 03/14/19 16:00; Start 03/14/19 at 15:45; Stop 03/14/19 at 15:49; Status DC Lorazepam (Ativan Inj) 2 mg PRN Q6HRS PRN IV ANXIETY / AGITATION Last administe red on 03/15/19 07:36; Start 03/14/19 at 18:00; Stop 03/15/19 at 12:14; Status DC Hydromorphone HCl (Dilaudid) 2 mg PRN Q2HR PRN IV SEVERE PAIN Last administered on 03/18/19 11:46; Start 03/15/19 at 12:15 Lorazepam (Ativan) 1 mg PRN Q6HRS PRN PO ANXIETY / AGITATION Last administered on 03/18/19 11:46; Start 03/15/19 at 12:15 Morphine Sulfate (Ms Contin) 15 mg BID PO Last administered on 03/18/19 07:38; Start 03/16/19 at 13:00 Vitals/I & O Vital Sign - Last 24 Hours 03/17/19 03/17/19 03/17/19 03/17/19 13:23 13:23 13:23 14:55 O2 Delivery Room Air Room Air Room Air Room Air 03/17/19 03/17/19 03/17/19 03/17/19 15:08 16:00 17:06 17:09 Temp 98.2 98.2 Pulse 98 Resp 16 B/P (MAP) 126/72 (90) Pulse Ox 96 O2 Delivery Room Air Room Air Room Air Room Air 03/17/19 03/17/19 03/17/19 03/17/19 17:09 18:15 19:29 19:29 Pulse Ox 96 96 O2 Delivery Room Air Room Air Room Air Room Air 03/17/19 03/17/19 03/17/1903/17/19 19:29 19:45 20:00 21:01 Temp 98.1 98.1 Pulse 86 Resp 18 B/P (MAP) 113/76 (88) Pulse Ox 96 99 99 O2 Delivery Room Air Room Air Room Air Room Air O2 Flow Rate 2.0 2.0 03/17/19 03/17/19 03/17/19 03/17/19 21:01 21:34 23:29 23:31 Pulse Ox 99 99 99 99 O2 Delivery Room Air Room Air Room Air Room Air O2 Flow Rate 2.0 2.0 03/17/19 03/17/19 03/17/19 03/18/19 23:31 23:33 23:45 00:13 Temp 98.5 98.5 Pulse 97 Resp 18 B/P (MAP) 115/64 (81) Pulse Ox 99 99 96 97 O2 Delivery Room Air Room Air Room Air Room Air 03/18/19 03/18/19 03/18/19 03/18/19 01:03 01:32 02:04 03:37 Resp 18 Pulse Ox 97 97 96 96 O2 Delivery Room Air Room Air Room Air Room Air 03/18/19 03/18/19 03/18/19 03/18/19 03:37 03:45 04:28 05:36 Temp 97.7 97.7 Pulse 95 Resp 18 18 B/P (MAP) 121/76 (91) Pulse Ox 96 96 96 96 O2 Delivery Room Air Room Air Room Air Room Air O2 Flow Rate 2.0 03/18/19 03/18/19 03/18/19 03/18/19 05:38 06:16 07:00 07:38 Temp 97.1 97.1 Pulse 103 Resp 18 B/P (MAP) 126/69 (88) Pulse Ox 96 96 96 O2 Delivery Room Air Room Air Room Air Room Air 03/18/19 03/18/19 03/18/19 03/18/19 07:38 07:38 07:58 08:36 O2 Delivery Room Air Room Air Room Air Room Air 03/18/19 03/18/19 03/18/19 03/18/19 08:36 09:42 10:19 10:58 Temp 98.1 98.1 Pulse 101 Resp 18 B/P (MAP) 130/81 (97) Pulse Ox 97 O2 Delivery Room Air Room Air Room Air Room Air 03/18/19 03/18/19 03/18/19 11:46 11:46 11:48 O2 Delivery Room Air Room Air Room Air Intake and Output 03/17/19 03/17/19 03/18/19 14:59 22:59 06:59 Intake Total 476 ml 240 ml 900 ml Output Total 60 ml Balance 476 ml 180 ml 900 ml LENO VINCENT MD Mar 18, 2019 13:13
[2019-03-18 15:00] VITALS: BP 126/74
[2019-03-18 19:48] VITALS: BP 127/74
[2019-03-18] MEDS: SENNOSIDES/DOCUSATE 8.6/50MG TABLET. PO SCH (19:58)
[2019-03-18 23:40] VITALS: BP 117/54
[2019-03-19] VITALS (7 sets, daily range): BP systolic 113–137; BP diastolic 59–80
[2019-03-19] MEDS: oxyCODONE/APAP 10/325 1 TAB TABLET PO PRN ×5 (00:02→22:09)
[2019-03-19] MEDS: HYDROmorphone 2 MG/ML VIAL IV PRN ×9 (00:02→23:16)
[2019-03-19] MEDS: LORazepam 1 MG TABLET PO PRN ×4 (00:06→19:24)
[2019-03-19] MEDS: ceFAZolin SODIUM 2 GM in IV DEXTROSE 5% 50 ML IV SCH ×3 (05:05→21:22)
--- NOTE | 2019-03-19 08:02 | PDOC ---
Provider Note Provider Note I reviewed recent non contrast chest CT. No indication for VATS for pleural effusion, given it's small size. Even if pleural effusion was larger, would not proceed with VATS unless large bore tube thoracostomy was inserted, and intrapleural tPA was injected. In terms of the anterior mediastinal abscess, 6 weeks of iv abx should suffice, given the size of the abscess (3cm). Would certainly consider repeat drain placement into that collection, owing to its location which provides easy IR access. Also, patient is not septic. Currently, no indication for thoracic surgery. STEPHANY MILLER MD Mar 19, 2019 08:02
[2019-03-19] MEDS: SENNOSIDES/DOCUSATE 8.6/50MG TABLET. PO SCH ×2 (09:00→19:20)
[2019-03-19] MEDS: HEPARIN for SUB-Q USE 5,000 UNIT/ML VIAL. SQ SCH ×2 (09:00→19:20)
[2019-03-19] MEDS ORDERED: MAGNESIUM HYDROXIDE 2,400 MG/30 ML ORAL.SUSP. PO PRN (09:00)
[2019-03-19] MEDS: DOCUSATE SODIUM 100 MG CAPSULE. PO SCH ×2 (09:33→19:20)
[2019-03-19] MEDS: LACTOBACILLUS RHAMNOSUS GG 1 CAPSULE. PO SCH ×2 (09:33→19:24)
[2019-03-19] MEDS: FAMOTIDINE 20 MG TABLET. PO SCH ×2 (09:38→19:24)
--- NOTE | 2019-03-19 09:54 | PDOC ---
PULMONARY PROGRESS NOTES Subjective no new complain Vitals Vital Signs Date Time Temp Pulse Resp B/P (MAP) Pulse Ox O2 Delivery O2 Flow Rate FiO2 03/19/19 09:39 19 94 Room Air 03/19/19 07:00 97.8 71 113/62 (79) 97.8 03/19/19 05:21 2.0 ROS: No Nausea, No Abdominal Pain, No Increase Cough General: Alert, No acute distress Lungs: Other (decrease left base l ct) Cardiovascular: S1, S2 Abdomen: Soft Neuro Exam: Alert Extremities: No Edema Skin: Warm Comments CT CHEST 03/18 REVIEWED Empyema left chest is almost resoved/ moderate left atelectasis increase mediastinal abscess Impression . IMPRESSION: 1. Empyema.S/P recurrent CHEST TUBE for empyema,.( MSSA)/ HAD LOCULATED FLUID COLLECTION ON REPEAT CT CHEST , s/p treatment with CHEST TUBE . repeat ct 03/18 near complete resolution of left empyema 2. Anterior mediastinal abscess extending into the left anterior chest wall muscular structures. Now increase on ct 03/18. will need drainage 3. Small pericardial effusion. 4. Elevated liver chemistries.improved 5. Protein malnutrition. 6. Methamphetamine use., h/o vaping 7. MSSA BACTEREMIA Plan . CHEST TUBE REMOVED 03/11, ANOTHER ONE PLACED 03/14, ct chest shows complete resolution of left empyema. No need for TPA. will remove chest tube today MEDIASTINAL TUBE REMOVED 03/13/ unfortunately abscess has increased. will need repeat drain today. cannot go home today ANTIBX PER ID CULTURES C/W MSSA, repeat neg so far FOLLW REPEAT PLEURAL CULTURES, neg cx D/W RN/ patient in detail. d/w DENISE Luna MD Mar 19, 2019 09:54
[2019-03-19 10:01] LABS: BASO % 1 % (0-3); EOS # 0.3 x10^3/uL (0.0-0.7); EOS % 4 % (0-3); HEMATOCRIT 32.4 % (39.0-53.0); HEMOGLOBIN 11.1 g/dL (13.0-17.5); LYMPH # 1.1 x10^3/uL (1.0-4.8); LYMPH % 18 % (24-48); MEAN CORPUSCULAR HEMOGLOBIN 30 pg (25-35); MEAN CORPUSCULAR HGB CONC 34 g/dL (31-37); MEAN CORPUSCULAR VOLUME 88 fL (79-100); MONO # 0.4 x10^3/uL (0.0-1.1); MONO % 7 % (0-9); NEUT # 4.4 x10^3/uL (1.8-7.7); NEUT % 71 % (31-73); PLATELET COUNT 487 x10^3/uL (140-400); RED CELL DISTRIBUTION WIDTH 12.7 % (11.5-14.5); WHITE BLOOD COUNT 6.2 x10^3/uL (4.0-11.0)
[2019-03-19 10:12] LABS: CALCIUM 8.6 mg/dL (8.5-10.1); CREATININE 0.8 mg/dL (0.7-1.3); GFR 115.1; POTASSIUM 4.1 mmol/L (3.5-5.1)
[2019-03-19] MEDS: MORPHINE ER 15 MG TABLET.ER PO SCH ×2 (10:45→19:24)
--- NOTE | 2019-03-19 11:04 | PDOC ---
Infectious Disease Note Subjective: Subjective pt says is doing better has pain in the chest ct tube out Denies SOA/CP/F/C/N/V/D ROS: ROS Negative otherwise. Vital Signs: Vital Signs Vital Signs Date Time Temp Pulse Resp B/P (MAP) Pulse Ox O2 Delivery O2 Flow Rate FiO2 03/19/19 10:46 20 94 Room Air 03/19/19 07:00 97.8 71 113/62 (79) 97.8 03/19/19 05:21 2.0 Physical Exam: PHYSICAL EXAM GENERAL: Propped up in bed, alert, watching TV HEENT: Pupils equal, Oral cavity clear NECK: Supple. Good range of motion. LUNGS: Diminished aeration on the left, left sided CT in place. sternal/left clavicular area mildly tender HEART: S1, S2, without gross murmur. ABDOMEN: Soft, nontender EXTREMITIES: No edema or cyanosis. SKIN: Warm to touch. multiple tattoos. NEUROLOGIC: Alert and oriented, cooperative. PIV Medications: Inpatient Meds: Current Medications Medications (Trade) Dose Ordered Sig/Conrad Start Time Stop Time Status Last Admin Dose Admin Acetaminophen (Tylenol) 650 mg PRN Q6HRS PRN 03/05/19 10:45 Acetaminophen/ Hydrocodone Bitart (Lortab 5/325) 1 tab PRN Q4HRS PRN 03/06/19 08:45 03/06/19 09:58 DC Al Hydroxide/Mg Hydroxide (Mylanta Plus Xs) 30 ml PRN Q3HRS PRN 03/05/19 10:45 Alteplase, Recombinant 10 mg/ Sterile Water 50 ml @ 0 mls/hr 1X ONCE 03/07/19 15:45 03/07/19 15:46 DC 03/07/19 17:14 50 MLS/HR Benzocaine (Hurricaine One) 1 spray 1X ONCE 03/07/19 13:45 03/07/19 13:46 DC Bisacodyl (Dulcolax Supp) 10 mg PRN DAILY PRN 03/05/19 10:45 Calcium Carbonate/ Glycine (Tums) 500 mg PRN Q3HRS PRN 03/05/19 10:45 03/15/19 14:49 500 MG Cefazolin Sodium 2 gm/Dextrose 50 ml @ 100 mls/hr Q8HRS 03/09/19 14:00 03/19/19 05:05 100 MLS/HR Daptomycin 600 mg/ Sodium Chloride 50 ml @ 100 mls/hr Q24H 03/06/19 10:00 03/09/19 11:48 DC 03/09/19 09:39 100 MLS/HR Dobutamine HCl/ Dextrose 250 ml @ 0 mls/hr CONT PRN 03/05/19 11:00 03/07/19 11:00 DC Docusate Sodium (Colace) 100 mg BID 03/05/19 12:00 03/19/19 09:39 100 MG Ephedrine Sulfate (ePHEDrine PF IN SALINE SYRINGE) 50 mg STK-MED ONCE 03/07/19 15:50 03/07/19 15:50 DC Famotidine (Pepcid Vial) 20 mg BID 03/05/19 12:00 03/11/19 11:00 DC 03/11/19 08:31 20 MG Famotidine (Pepcid) 20 mg BID 03/11/19 21:00 03/19/19 09:39 20 MG Fentanyl Citrate (Fentanyl 2ml Vial) 100 mcg 1X ONCE 03/05/19 13:30 03/05/19 13:31 DC 03/05/19 13:32 100 MCG Fentanyl Citrate (Fentanyl 5ml Vial) 150 mcg 1X ONCE 03/14/19 15:45 03/14/19 15:49 DC 03/14/19 16:00 150 MCG Flumazenil (Romazicon) 0.5 mg STK-MED ONCE 03/14/19 15:21 03/14/19 15:21 DC Heparin Sodium (Porcine) (Heparin Sodium) 5,000 unit Q12HR 03/05/19 21:00 03/12/19 08:48 5,000 UNIT Hydromorphone HCl (Dilaudid) 2 mg PRN Q2HR PRN 03/15/19 12:15 03/19/19 07:22 2 MG Info (CONTRAST GIVEN -- Rx MONITORING) 1 each PRN DAILY PRN 03/13/19 12:15 03/15/19 12:14 DC Info (Icu Electrolyte Protocol) 1 ea DAILY 03/06/19 09:00 03/09/19 15:55 DC Iohexol (Omnipaque 300 Mg/ml) 75 ml 1X ONCE 03/13/19 12:15 03/13/19 12:16 DC 03/13/19 12:35 75 ML Iohexol (Omnipaque 350 Mg/ml) 100 ml 1X ONCE 03/05/19 08:30 03/05/19 08:32 DC 03/05/19 09:05 100 ML Ketorolac Tromethamine (Toradol 30mg Vial) 30 mg PRN Q6HRS PRN 03/06/19 10:00 03/11/19 09:59 DC 03/11/19 04:12 30 MG Lactobacillus Rhamnosus (Culturelle) 1 cap BID 03/06/19 21:00 03/19/19 09:39 1 CAP Lidocaine HCl (Lidocaine Pf 2% Vial) 5 ml STK-MED ONCE 03/07/19 15:50 03/07/19 15:50 DC Lidocaine HCl (Viscous Lidocaine) 15 ml 1X ONCE 03/07/19 13:45 03/07/19 13:46 DC Lidocaine HCl (Xylocaine 2% Topical 5gm Tube) 1 michel 1X ONCE 03/07/19 13:45 03/07/19 13:46 DC Lidocaine/Sodium Bicarbonate (Buffered Lidocaine 1%) 12 ml 1X ONCE 03/14/19 15:45 03/14/19 15:49 DC 03/14/19 16:00 10 ML Linezolid (Zyvox) 600 mg BID 03/07/19 13:00 03/11/19 12:27 DC 03/11/19 08:31 600 MG Linezolid/Dextrose 300 ml @ 300 mls/hr Q12HR 03/05/19 13:00 03/07/19 09:13 DC 03/07/19 07:54 300 MLS/HR Lorazepam (Ativan Inj) 2 mg PRN Q4HRS PRN 03/18/19 13:15 03/18/19 18:10 DC 03/18/19 13:19 2 MG Lorazepam (Ativan) 1 mg PRN Q6HRS PRN 03/15/19 12:15 03/19/19 06:18 1 MG Magnesium Hydroxide (Milk Of Magnesia) 2,400 mg PRN DAILY PRN 03/19/19 09:00 Midazolam HCl (Versed) 5 mg 1X ONCE 03/14/19 15:45 03/14/19 15:49 DC 03/14/19 16:00 3 MG Morphine Sulfate (Morphine Sulfate) 2 mg PRN Q1HR PRN 03/05/19 10:45 03/17/19 08:52 DC 03/07/19 17:14 2 MG Morphine Sulfate (Ms Contin) 15 mg BID 03/16/19 13:00 03/19/19 10:46 15 MG Naloxone HCl (Narcan) 0.4 mg STK-MED ONCE 03/14/19 15:21 03/14/19 15:21 DC Norepinephrine Bitartrate 250 ml @ 0 mls/hr CONT PRN 03/05/19 11:00 03/09/19 15:58 DC Ondansetron HCl (Zofran) 4 mg PRN Q6HRS PRN 03/05/19 10:45 Oxycodone/ Acetaminophen (Percocet 10/325) 1 tab PRN Q4HRS PRN 03/06/19 10:00 03/19/19 09:39 1 TAB Piperacillin Sod/ Tazobactam Sod 3.375 gm/Sodium Chloride 50 ml @ 100 mls/hr 1X ONCE 03/05/19 09:30 03/05/19 09:59 DC 03/05/19 09:54 100 MLS/HR Piperacillin Sod/ Tazobactam Sod 4.5 gm/Sodium Chloride 100 ml @ 200 mls/hr Q6HRS 03/05/19 16:00 03/07/19 08:36 DC 03/07/19 05:01 200 MLS/HR Prochlorperazine (Compazine) 25 mg PRN Q12HR PRN 03/05/19 10:45 Prochlorperazine Edisylate (Compazine) 5 mg PRN Q6HRS PRN 03/05/19 10:45 Propofol 20 ml @ As Directed STK-MED ONCE 03/07/19 15:50 03/07/19 15:50 DC Senna/Docusate Sodium (Senna Plus) 1 tab BID 03/05/19 21:00 03/17/19 19:29 1 TAB Sodium Chloride (Normal Saline Flush) 10 ml QSHIFT PRN 03/07/19 13:45 Vancomycin HCl (Vanco Per Pharmacy) 1 each PRN DAILY PRN 03/05/19 11:00 03/06/19 08:18 DC 03/05/19 13:45 1 EACH Vancomycin HCl (Vancomycin Trough Level) 1 each 1X ONCE 03/06/19 10:30 03/06/19 08:21 DC Vancomycin HCl 1.5 gm/Sodium Chloride 500 ml @ 250 mls/hr Q8H 03/05/19 19:00 03/06/19 08:18 DC 03/06/19 03:06 250 MLS/HR Vancomycin HCl 2 gm/Sodium Chloride 500 ml @ 250 mls/hr 1X ONCE 03/05/19 12:00 03/05/19 13:59 Cancel Labs: Lab Laboratory Tests Test 03/19/19 09:30 White Blood Count 6.2 x10^3/uL (4.0-11.0) Red Blood Count 3.70 x10^6/uL (4.30-5.70) Hemoglobin 11.1 g/dL (13.0-17.5) Hematocrit 32.4 % (39.0-53.0) Mean Corpuscular Volume 88 fL (79-100) Mean Corpuscular Hemoglobin 30 pg (25-35) Mean Corpuscular Hemoglobin Concent 34 g/dL (31-37) Red Cell Distribution Width 12.7 % (11.5-14.5) Platelet Count 487 x10^3/uL (140-400) Neutrophils (%) (Auto) 71 % (31-73) Lymphocytes (%) (Auto) 18 % (24-48) Monocytes (%) (Auto) 7 % (0-9) Eosinophils (%) (Auto) 4 % (0-3) Basophils (%) (Auto) 1 % (0-3) Neutrophils # (Auto) 4.4 x10^3/uL (1.8-7.7) Lymphocytes # (Auto) 1.1 x10^3/uL (1.0-4.8) Monocytes # (Auto) 0.4 x10^3/uL (0.0-1.1) Eosinophils # (Auto) 0.3 x10^3/uL (0.0-0.7) Basophils # (Auto) 0.0 x10^3/uL (0.0-0.2) Sodium Level 141 mmol/L (136-145) Potassium Level 4.1 mmol/L (3.5-5.1) Chloride Level 104 mmol/L (98-107) Carbon Dioxide Level 31 mmol/L (21-32) Anion Gap 6 (6-14) Blood Urea Nitrogen 13 mg/dL (8-26) Creatinine 0.8 mg/dL (0.7-1.3) Estimated GFR (Cockcroft-Gault) 115.1 Glucose Level 109 mg/dL (70-99) Calcium Level 8.6 mg/dL (8.5-10.1) Objective: Assessment: MSSA bacteremia from 03/05. -[place] 03/07 - neg. - Repeat BC 03/07 neg Empyema s/p chest tube 03/05. MSSA. s/p replacement, CTS removed on 03/11 another one placed 03/14, no org gram stain; culture neg so far Mediastinal tube removed 03/13, Repeat CT Chest 03/18 Empyema left chest is almost resoved/ moderate left atelectasis increase mediastinal abscess Left chest abscess s/p drain 03/05. MSSA Left shoulder pain persists but some better ? conduction defect on ECHO Transaminitis - some better Protein malnutrition H/o Meth use H/o Staph infection H/o Hep C - not treated Plan: Plan of Care Continue Cefazolin awaiting repeat drain placement of mediastinal loculated fluid collection today ?? CTS input noted,not a candidate for VATS,trial with drainage tube and antibiotics Probiotics f/u labs and cults Supportive care D/W Dr Broussard When ready for dc will need Daptomycin 6mg/kg/day for 6 weeks Keflex 500 mg po QID for 6 weeks Probiotics PICC line single lumen picc line for use of iv antibiotics only complications of picc line and abx discussed weekly labs q mon cbcd.bun,creat,,lfts ,cpk D/W SHUKRI WHEELER MD Mar 19, 2019 11:04
--- NOTE | 2019-03-19 12:13 | PDOC ---
PROGRESS NOTES Chief Complaint Chief Complaint Acute chest pain Sirs, sepsis on admit Empyema Left chest abscess H/o Meth use H/o Staph infection H/o Hep C - not treated small pericardial effusion History of Present Illness History of Present Illness transferred out of tele My first day with him, tells me people are telling him diff things or no one talks to him BAd interaction today, frustrated and wants to speak with IR not me - then he l ater apologizes Wants to go home But pulmo recs mediastinal chest tube by IR NO VATS or talc pleurodecis needed PLANL IR for mediastinal chest tube insertion ID will discuss about PICC or IV abx mcc dw Pulmo Vitals Vitals Vital Signs Date Time Temp Pulse Resp B/P (MAP) Pulse Ox O2 Delivery O2 Flow Rate FiO2 03/19/19 11:55 20 94 Room Air 03/19/19 11:00 98.0 97 137/79 (98) 98.0 03/19/19 05:21 2.0 Physical Exam Physical Exam GENERAL: Propped up in bed, alert, watching TV HEENT: Pupils equal, Oral cavity clear NECK: Supple. Good range of motion. LUNGS: Diminished aeration on the left, left sided CT in place. sternal/left clavicular area mildly tender HEART: S1, S2, without gross murmur. ABDOMEN: Soft, nontender EXTREMITIES: No edema or cyanosis. SKIN: Warm to touch. multiple tattoos. NEUROLOGIC: Alert and oriented, cooperative. PIV General: Alert, Oriented X3, Cooperative, No acute distress Heart: Regular rate, Normal S1, Normal S2 Lungs: Other (decrease left base l ct) Abdomen: Normal bowel sounds, Soft, Other (tender to left abd and back) Extremities: No clubbing, No cyanosis Skin: No significant lesion, Other (3x3cm area of fluctuance and tenderness without significant erythema on the left anterior chest wall) Labs LABS Laboratory Tests Test 03/19/19 09:30 White Blood Count 6.2 x10^3/uL (4.0-11.0) Red Blood Count 3.70 x10^6/uL (4.30-5.70) Hemoglobin 11.1 g/dL (13.0-17.5) Hematocrit 32.4 % (39.0-53.0) Mean Corpuscular Volume 88 fL (79-100) Mean Corpuscular Hemoglobin 30 pg (25-35) Mean Corpuscular Hemoglobin Concent 34 g/dL (31-37) Red Cell Distribution Width 12.7 % (11.5-14.5) Platelet Count 487 x10^3/uL (140-400) Neutrophils (%) (Auto) 71 % (31-73) Lymphocytes (%) (Auto) 18 % (24-48) Monocytes (%) (Auto) 7 % (0-9) Eosinophils (%) (Auto) 4 % (0-3) Basophils (%) (Auto) 1 % (0-3) Neutrophils # (Auto) 4.4 x10^3/uL (1.8-7.7) Lymphocytes # (Auto) 1.1 x10^3/uL (1.0-4.8) Monocytes # (Auto) 0.4 x10^3/uL (0.0-1.1) Eosinophils # (Auto) 0.3 x10^3/uL (0.0-0.7) Basophils # (Auto) 0.0 x10^3/uL (0.0-0.2) Erythrocyte Sedimentation Rate 67 (0-15) Sodium Level 141 mmol/L (136-145) Potassium Level 4.1 mmol/L (3.5-5.1) Chloride Level 104 mmol/L (98-107) Carbon Dioxide Level 31 mmol/L (21-32) Anion Gap 6 (6-14) Blood Urea Nitrogen 13 mg/dL (8-26) Creatinine 0.8 mg/dL (0.7-1.3) Estimated GFR (Cockcroft-Gault) 115.1 Glucose Level 109 mg/dL (70-99) Calcium Level 8.6 mg/dL (8.5-10.1) Review of Systems Review of Systems neg 14 pt, reviewed Assessment and Plan Assessmemt and Plan Problems Medical Problems: (1) Chest wall abscess Status: Acute (2) Mediastinal abscess Status: Acute (3) Pleural effusion Status: Acute Comment Review of Relevant I have reviewed the following items nancy (where applicable) has been applied. Labs Laboratory Tests Test 03/19/19 09:30 White Blood Count 6.2 x10^3/uL (4.0-11.0) Red Blood Count 3.70 x10^6/uL (4.30-5.70) Hemoglobin 11.1 g/dL (13.0-17.5) Hematocrit 32.4 % (39.0-53.0) Mean Corpuscular Volume 88 fL (79-100) Mean Corpuscular Hemoglobin 30 pg (25-35) Mean Corpuscular Hemoglobin Concent 34 g/dL (31-37) Red Cell Distribution Width 12.7 % (11.5-14.5) Platelet Count 487 x10^3/uL (140-400) Neutrophils (%) (Auto) 71 % (31-73) Lymphocytes (%) (Auto) 18 % (24-48) Monocytes (%) (Auto) 7 % (0-9) Eosinophils (%) (Auto) 4 % (0-3) Basophils (%) (Auto) 1 % (0-3) Neutrophils # (Auto) 4.4 x10^3/uL (1.8-7.7) Lymphocytes # (Auto) 1.1 x10^3/uL (1.0-4.8) Monocytes # (Auto) 0.4 x10^3/uL (0.0-1.1) Eosinophils # (Auto) 0.3 x10^3/uL (0.0-0.7) Basophils # (Auto) 0.0 x10^3/uL (0.0-0.2) Erythrocyte Sedimentation Rate 67 (0-15) Sodium Level 141 mmol/L (136-145) Potassium Level 4.1 mmol/L (3.5-5.1) Chloride Level 104 mmol/L (98-107) Carbon Dioxide Level 31 mmol/L (21-32) Anion Gap 6 (6-14) Blood Urea Nitrogen 13 mg/dL (8-26) Creatinine 0.8 mg/dL (0.7-1.3) Estimated GFR (Cockcroft-Gault) 115.1 Glucose Level 109 mg/dL (70-99) Calcium Level 8.6 mg/dL (8.5-10.1) Laboratory Tests Test 03/19/19 09:30 White Blood Count 6.2 x10^3/uL (4.0-11.0) Red Blood Count 3.70 x10^6/uL (4.30-5.70) Hemoglobin 11.1 g/dL (13.0-17.5) Hematocrit 32.4 % (39.0-53.0) Mean Corpuscular Volume 88 fL (79-100) Mean Corpuscular Hemoglobin 30 pg (25-35) Mean Corpuscular Hemoglobin Concent 34 g/dL (31-37) Red Cell Distribution Width 12.7 % (11.5-14.5) Platelet Count 487 x10^3/uL (140-400) Neutrophils (%) (Auto) 71 % (31-73) Lymphocytes (%) (Auto) 18 % (24-48) Monocytes (%) (Auto) 7 % (0-9) Eosinophils (%) (Auto) 4 % (0-3) Basophils (%) (Auto) 1 % (0-3) Neutrophils # (Auto) 4.4 x10^3/uL (1.8-7.7) Lymphocytes # (Auto) 1.1 x10^3/uL (1.0-4.8) Monocytes # (Auto) 0.4 x10^3/uL (0.0-1.1) Eosinophils # (Auto) 0.3 x10^3/uL (0.0-0.7) Basophils # (Auto) 0.0 x10^3/uL (0.0-0.2) Erythrocyte Sedimentation Rate 67 (0-15) Sodium Level 141 mmol/L (136-145) Potassium Level 4.1 mmol/L (3.5-5.1) Chloride Level 104 mmol/L (98-107) Carbon Dioxide Level 31 mmol/L (21-32) Anion Gap 6 (6-14) Blood Urea Nitrogen 13 mg/dL (8-26) Creatinine 0.8 mg/dL (0.7-1.3) Estimated GFR (Cockcroft-Gault) 115.1 Glucose Level 109 mg/dL (70-99) Calcium Level 8.6 mg/dL (8.5-10.1) Microbiology 03/14/19 Gram Stain - Final, Complete 03/07/19 Blood Culture - Final, Complete NO GROWTH AFTER 5 DAYS 03/05/19 AFB Specimen Processing Tissue - Final, Resulted 03/05/19 Acid Fast Bacilli Culture, Resulted Pending 03/05/19 Gram Stain - Final, Resulted 03/05/19 Fungal Culture - Preliminary, Resulted 03/05/19 Fungal Culture Result 1 - Preliminary, Resulted Medications Current Medications Sodium Chloride 1,000 ml @ 1,000 mls/hr Q1H IV Last administered on 03/05/19at 08:42; Start 03/05/19 at 08:18; Stop 03/05/19 at 09:17; Status DC Morphine Sulfate (Morphine Sulfate) 4 mg 1X ONCE IV Last administered on 03/05/19at 08:42; Start 03/05/19 at 09:00; Stop 03/05/19 at 09:01; Status DC Ondansetron HCl (Zofran) 4 mg 1X ONCE IV Last administered on 03/05/19at 08:42; Start 03/05/19 at 09:00; Stop 03/05/19 at 09:01; Status DC Iohexol (Omnipaque 350 Mg/ml) 100 ml 1X ONCE IV Last administered on 03/05/19at 09:05; Start 03/05/19 at 08:30; Stop 03/05/19 at 08:32; Status DC Info (CONTRAST GIVEN -- Rx MONITORING) 1 each PRN DAILY PRN MC SEE COMMENTS; Start 03/05/19 at 08:45; Stop 03/07/19 at 08:44; Status DC Hydromorphone HCl (Dilaudid) 1 mg 1X ONCE IV Last administered on 03/05/19at 09:05; Start 03/05/19 at 09:15; Stop 03/05/19 at 09:16; Status DC Sodium Chloride 1,000 ml @ 1,000 mls/hr 1X ONCE IV Last administered on 03/05/19at 09:54; Start 03/05/19 at 09:30; Stop 03/05/19 at 10:29; Status DC Piperacillin Sod/ Tazobactam Sod 3.375 gm/Sodium Chloride 50 ml @ 100 mls/hr 1X ONCE IV Last administered on 03/05/19at 09:54; Start 03/05/19 at 09:30; Stop 03/05/19 at 09:59; Status DC Vancomycin HCl 250 ml @ 250 mls/hr 1X ONCE IV ; Start 03/05/19 at 09:30; Stop 03/05/19 at 10:29; Status UNV Vancomycin HCl 2 gm/Sodium Chloride 500 ml @ 250 mls/hr 1X ONCE IV Last administered on 03/05/19at 10:35; Start 03/05/19 at 10:00; Stop 03/05/19 at 11:59; Status DC Hydromorphone HCl (Dilaudid) 1 mg 1X ONCE IV Last administered on 03/05/19at 10:35; Start 03/05/19 at 10:30; Stop 03/05/19 at 10:31; Status DC Sodium Chloride 1,000 ml @ 150 mls/hr Q6H40M IV Last administered on 03/05/19at 12:20; Start 03/05/19 at 10:26; Stop 03/05/19 at 20:22; Status DC Acetaminophen (Tylenol) 650 mg PRN Q6HRS PRN PO Headaches, Temp > 101.5'; Start 03/05/19 at 10:45 Lorazepam (Ativan Inj) 0.5 mg PRN Q6HRS PRN IV ANXIETY / AGITATION; Start 03/05/19 at 10:45; Stop 03/15/19 at 11:23; Status DC Ondansetron HCl (Zofran) 4 mg PRN Q6HRS PRN IV NAUSEA/VOMITING, 1ST CHOICE; Start 03/05/19 at 10:45 Prochlorperazine Edisylate (Compazine) 5 mg PRN Q6HRS PRN IV NAUSEA/VOMITING, 2ND CHOICE; Start 03/05/19 at 10:45 Prochlorperazine (Compazine) 25 mg PRN Q12HR PRN [place] NAUSEA/VOMITING; Start 03/05/19 at 10:45 Al Hydroxide/Mg Hydroxide (Mylanta Plus Xs) 30 ml PRN Q3HRS PRN PO HEARTBURN / GAS; Start 03/05/19 at 10:45 Calcium Carbonate/ Glycine (Tums) 500 mg PRN Q3HRS PRN PO HEARTBURN / GAS, 2ND CHOICE Last administered on 03/15/19at 14:49; Start 03/05/19 at 10:45 Famotidine (Pepcid Vial) 20 mg BID IVP Last administered on 03/11/19at 08:31; Start 03/05/19 at 12:00; Stop 03/11/19 at 11:00; Status DC Info (Icu Electrolyte Protocol) 1 ea DAILY MC ; Start 03/06/19 at 09:00; Stop 03/09/19 at 15:55; Status DC Heparin Sodium (Porcine) (Heparin Sodium) 5,000 unit Q12HR SQ Last administered on 03/12/19at 08:48; Start 03/05/19 at 21:00 Sodium Chloride (Normal Saline Flush) 3 ml QSHIFT PRN IV AFTER MEDS AND BLOOD DRAWS; Start 03/05/19 at 10:45; Stop 03/14/19 at 13:07; Status DC Sodium Chloride 1,000 ml @ 100 mls/hr Q10H IV Last administered on 03/07/19at 05:01; Start 03/05/19 at 10:39; Stop 03/07/19 at 11:00; Status DC Acetaminophen/ Hydrocodone Bitart (Lortab 5/325) 1 tab PRN Q4HRS PRN PO MILD PAIN 1-3; Start 03/05/19 at 10:45; Stop 03/06/19 at 09:58; Status DC Acetaminophen/ Hydrocodone Bitart (Lortab 5/325) 2 tab PRN Q4HRS PRN PO MODERATE PAIN, SEVERE PAIN; Start 03/05/19 at 10:45; Stop 03/06/19 at 09:58; Status DC Morphine Sulfate (Morphine Sulfate) 2 mg PRN Q1HR PRN IV MODERATE PAIN Last administered on 03/07/19at 17:14; Start 03/05/19 at 10:45; Stop 03/17/19 at 08:52; Status DC Senna/Docusate Sodium (Senna Plus) 1 tab BID PO Last administered on 03/17/19at 19:29; Start 03/05/19 at 21:00 Docusate Sodium (Colace) 100 mg BID PO Last administered on 03/19/19at 09:39; Start 03/05/19 at 12:00 Bisacodyl (Dulcolax Supp) 10 mg PRN DAILY PRN [place] CONSTIPATION; Start 03/05/19 at 10:45 Sodium Chloride 1,000 ml @ 2,550 mls/hr Q24M IV ; Start 03/05/19 at 10:48; Stop 03/05/19 at 11:48; Status DC Sodium Chloride 500 ml @ 1,000 mls/hr PRN Q30MIN PRN IV PER PROTOCOL; Start 03/05/19 at 11:00 Vancomycin HCl (Vanco Per Pharmacy) 1 each PRN DAILY PRN MC SEE COMMENTS Last administered on 03/05/19at 13:45; Start 03/05/19 at 11:00; Stop 03/06/19 at 08:18; Status DC Piperacillin Sod/ Tazobactam Sod 4.5 gm/Sodium Chloride 100 ml @ 200 mls/hr Q6HRS IV ; Start 03/05/19 at 12:00; Stop 03/05/19 at 11:59; Status DC Norepinephrine Bitartrate 250 ml @ 0 mls/hr CONT PRN IV PER PROTOCOL; Start 03/05/19 at 11:00; Stop 03/09/19 at 15:58; Status DC Dobutamine HCl/ Dextrose 250 ml @ 0 mls/hr CONT PRN IV PER PROTOCOL; Start 03/05/19 at 11:00; Stop 03/07/19 at 11:00; Status DC Vancomycin HCl 2 gm/Sodium Chloride 500 ml @ 250 mls/hr 1X ONCE IV ; Start 03/05/19 at 12:00; Stop 03/05/19 at 13:59; Status Cancel Piperacillin Sod/ Tazobactam Sod 4.5 gm/Sodium Chloride 100 ml @ 200 mls/hr Q6HRS IV Last administered on 03/07/19at 05:01; Start 03/05/19 at 16:00; Stop 03/07/19 at 08:36; Status DC Linezolid/Dextrose 300 ml @ 300 mls/hr Q12HR IV Last administered on 03/07/19at 07:54; Start 03/05/19 at 13:00; Stop 03/07/19 at 09:13; Status DC Lidocaine/Sodium Bicarbonate (Buffered Lidocaine 1%) 3 ml STK-MED ONCE .ROUTE ; Start 03/05/19 at 12:12; Stop 03/05/19 at 12:13; Status DC Midazolam HCl (Versed) 2 mg STK-MED ONCE .ROUTE ; Start 03/05/19 at 12:13; Stop 03/05/19 at 12:13; Status DC Fentanyl Citrate (Fentanyl 2ml Vial) 100 mcg STK-MED ONCE .ROUTE ; Start 03/05/19 at 12:14; Stop 03/05/19 at 12:14; Status DC Lidocaine/Sodium Bicarbonate (Buffered Lidocaine 1%) 3 ml STK-MED ONCE .ROUTE ; Start 03/05/19 at 13:05; Stop 03/05/19 at 13:05; Status DC Hydromorphone HCl (Dilaudid) 1.5 mg PRN Q3HRS PRN IVP SEVERE PAIN Last administered on 03/08/19at 08:46; Start 03/05/19 at 13:30; Stop 03/08/19 at 10:24; Status DC Lidocaine/Sodium Bicarbonate (Buffered Lidocaine 1%) 3 ml 1X ONCE IJ Last administered on 03/05/19at 13:32; Start 03/05/19 at 13:30; Stop 03/05/19 at 13:31; Status DC Midazolam HCl (Versed) 2 mg 1X ONCE IV Last administered on 03/05/19at 13:32; Start 03/05/19 at 13:30; Stop 03/05/19 at 13:31; Status DC Fentanyl Citrate (Fentanyl 2ml Vial) 100 mcg 1X ONCE IV Last administered on 03/05/19at 13:32; Start 03/05/19 at 13:30; Stop 03/05/19 at 13:31; Status DC Vancomycin HCl 1.5 gm/Sodium Chloride 500 ml @ 250 mls/hr Q8H IV Last administered on 03/06/19at 03:06; Start 03/05/19 at 19:00; Stop 03/06/19 at 08:18; Status DC Vancomycin HCl (Vancomycin Trough Level) 1 each 1X ONCE MC ; Start 03/06/19 at 10:30; Stop 03/06/19 at 08:21; Status DC Daptomycin 600 mg/ Sodium Chloride 50 ml @ 100 mls/hr Q24H IV Last administered on 03/09/19at 09:39; Start 03/06/19 at 10:00; Stop 03/09/19 at 11:48; Status DC Acetaminophen/ Hydrocodone Bitart (Lortab 5/325) 1 tab PRN Q4HRS PRN PO PAIN; Start 03/06/19 at 08:45; Stop 03/06/19 at 09:58; Status DC Oxycodone/ Acetaminophen (Percocet 10/325) 1 tab PRN Q4HRS PRN PO PAIN Last administered on 03/19/19at 09:39; Start 03/06/19 at 10:00 Ketorolac Tromethamine (Toradol 30mg Vial) 30 mg PRN Q6HRS PRN IV INFLAMMATION Last administered on 03/11/19at 04:12; Start 03/06/19 at 10:00; Stop 03/11/19 at 09:59; Status DC Lactobacillus Rhamnosus (Culturelle) 1 cap BID PO Last administered on 03/19/19at 09:39; Start 03/06/19 at 21:00 Linezolid (Zyvox) 600 mg BID PO Last administered on 03/11/19at 08:31; Start 03/07/19 at 13:00; Stop 03/11/19 at 12:27; Status DC Sodium Chloride (Normal Saline Flush) 10 ml QSHIFT PRN IV AFTER MEDS AND BLOOD DRAWS; Start 03/07/19 at 13:45 Lidocaine HCl (Xylocaine 2% Topical 5gm Tube) 1 michel 1X ONCE TP ; Start 03/07/19 at 13:45; Stop 03/07/19 at 13:46; Status DC Lidocaine HCl (Viscous Lidocaine) 15 ml 1X ONCE MM ; Start 03/07/19 at 13:45; Stop 03/07/19 at 13:46; Status DC Benzocaine (Hurricaine One) 1 spray 1X ONCE MM ; Start 03/07/19 at 13:45; Stop 03/07/19 at 13:46; Status DC Alteplase, Recombinant 10 mg/ Sterile Water 50 ml @ 0 mls/hr 1X ONCE IV Last administered on 03/07/19at 17:14; Start 03/07/19 at 15:45; Stop 03/07/19 at 15:46; Status DC Propofol 20 ml @ As Directed STK-MED ONCE IV ; Start 03/07/19 at 15:50; Stop 03/07/19 at 15:50; Status DC Lidocaine HCl (Lidocaine Pf 2% Vial) 5 ml STK-MED ONCE .ROUTE ; Start 03/07/19 at 15:50; Stop 03/07/19 at 15:50; Status DC Ephedrine Sulfate (ePHEDrine PF IN SALINE SYRINGE) 50 mg STK-MED ONCE IV ; Start 03/07/19 at 15:50; Stop 03/07/19 at 15:50; Status DC Hydromorphone HCl (Dilaudid) 2 mg PRN Q3HRS PRN IV SEVERE PAIN Last administered on 03/15/19at 09:44; Start 03/08/19 at 10:30; Stop 03/15/19 at 12:13; Status DC Cefazolin Sodium 2 gm/Dextrose 50 ml @ 100 mls/hr Q8HRS IV Last administered on 03/19/19at 05:05; Start 03/09/19 at 14:00 Famotidine (Pepcid) 20 mg BID PO Last administered on 03/19/19at 09:39; Start 03/11/19 at 21:00 Iohexol (Omnipaque 300 Mg/ml) 75 ml 1X ONCE IV Last administered on 03/13/19at 12:35; Start 03/13/19 at 12:15; Stop 03/13/19 at 12:16; Status DC Info (CONTRAST GIVEN -- Rx MONITORING) 1 each PRN DAILY PRN MC SEE COMMENTS; Start 03/13/19 at 12:15; Stop 03/15/19 at 12:14; Status DC Lidocaine/Sodium Bicarbonate (Buffered Lidocaine 1%) 3 ml STK-MED ONCE .ROUTE ; Start 03/14/19 at 14:41; Stop 03/14/19 at 14:41; Status DC Lidocaine/Sodium Bicarbonate (Buffered Lidocaine 1%) 3 ml STK-MED ONCE .ROUTE ; Start 03/14/19 at 14:58; Stop 03/14/19 at 14:58; Status DC Midazolam HCl (Versed) 5 mg STK-MED ONCE .ROUTE ; Start 03/14/19 at 15:21; Stop 03/14/19 at 15:21; Status DC Fentanyl Citrate (Fentanyl 5ml Vial) 250 mcg STK-MED ONCE .ROUTE ; Start 03/14/19 at 15:21; Stop 03/14/19 at 15:21; Status DC Flumazenil (Romazicon) 0.5 mg STK-MED ONCE IV ; Start 03/14/19 at 15:21; Stop 03/14/19 at 15:21; Status DC Naloxone HCl (Narcan) 0.4 mg STK-MED ONCE .ROUTE ; Start 03/14/19 at 15:21; Stop 03/14/19 at 15:21; Status DC Lidocaine/Sodium Bicarbonate (Buffered Lidocaine 1%) 12 ml 1X ONCE IJ Last administered on 03/14/19at 16:00; Start 03/14/19 at 15:45; Stop 03/14/19 at 15:49; Status DC Midazolam HCl (Versed) 5 mg 1X ONCE IV Last administered on 03/14/19at 16:00; Start 03/14/19 at 15:45; Stop 03/14/19 at 15:49; Status DC Fentanyl Citrate (Fentanyl 5ml Vial) 150 mcg 1X ONCE IV Last administered on 03/14/19at 16:00; Start 03/14/19 at 15:45; Stop 03/14/19 at 15:49; Status DC Lorazepam (Ativan Inj) 2 mg PRN Q6HRS PRN IV ANXIETY / AGITATION Last administered on 03/15/19at 07:36; Start 03/14/19 at 18:00; Stop 03/15/19 at 12:14; Status DC Hydromorphone HCl (Dilaudid) 2 mg PRN Q2HR PRN IV SEVERE PAIN Last administered on 03/19/19at 11:55; Start 03/15/19 at 12:15 Lorazepam (Ativan) 1 mg PRN Q6HRS PRN PO ANXIETY / AGITATION Last administered on 03/19/19at 06:18; Start 03/15/19 at 12:15 Morphine Sulfate (Ms Contin) 15 mg BID PO Last administered on 03/19/19at 10:46; Start 03/16/19 at 13:00 Lorazepam (Ativan Inj) 2 mg PRN Q4HRS PRN IV ANXIETY / AGITATION Last administered on 03/18/19at 13:19; Start 03/18/19 at 13:15; Stop 03/18/19 at 18:10; Status DC Magnesium Hydroxide (Milk Of Magnesia) 2,400 mg PRN DAILY PRN PO CONSTIPATION; Start 03/19/19 at 09:00 Vitals/I & O Vital Sign - Last 24 Hours 03/18/19 03/18/19 03/18/19 03/18/19 13:08 13:08 13:54 15:00 Temp 98.1 98.1 Pulse 98 Resp 18 B/P (MAP) 126/74 (91) Pulse Ox 95 O2 Delivery Room Air Room Air Room Air Room Air 03/18/19 03/18/19 03/18/19 03/18/19 15:10 15:52 15:52 16:26 O2 Delivery Room Air Room Air Room Air Room Air 03/18/19 03/18/19 03/18/19 03/18/19 17:12 17:53 18:31 19:48 Temp 97.9 97.9 Pulse 96 Resp 20 B/P (MAP) 127/74 (91) Pulse Ox 99 O2 Delivery Room Air Room Air Room Air Room Air 03/18/19 03/18/19 03/19/19 03/19/19 20:00 23:40 01:54 01:54 Temp 98.0 98.0 Pulse 104 Resp 18 18 B/P (MAP) 117/54 (75) Pulse Ox 98 98 98 O2 Delivery Room Air Room Air Room Air Room Air 03/19/19 03/19/19 03/19/19 03/19/19 03:00 03:05 03:45 04:18 Temp 98.2 98.2 Pulse 88 Resp 20 18 18 18 B/P (MAP) 126/75 (92) Pulse Ox 98 98 98 98 O2 Delivery Room Air Room Air Room Air Room Air 03/19/19 03/19/19 03/19/19 03/19/19 05:05 05:21 05:21 07:00 Temp 97.8 97.8 Pulse 71 Resp 18 14 B/P (MAP) 113/62 (79) Pulse Ox 98 98 98 97 O2 Delivery Room Air Room Air Room Air Room Air O2 Flow Rate 2.0 2.0 03/19/19 03/19/19 03/19/19 03/19/19 07:22 07:58 09:39 10:46 Resp 18 19 20 Pulse Ox 98 94 93 O2 Delivery Room Air Room Air Room Air Room Air 03/19/19 03/19/19 03/19/19 10:46 11:00 11:55 Temp 98.0 98.0 Pulse 97 Resp 20 16 20 B/P (MAP) 137/79 (98) Pulse Ox 94 97 94 O2 Delivery Room Air Room Air Room Air Intake and Output 03/18/19 03/18/19 03/19/19 15:00 23:00 07:00 Intake Total 760 ml 300 ml Balance 760 ml 300 ml CANDIDO العراقي MD Mar 19, 2019 12:13
--- NOTE | 2019-03-19 12:55 | PDOC ---
Provider Note Provider Note IR NOTE Asked to replace mediastinal drain. Collection is small, approximately [address] surg notes, borderline in size for drain vs antibiotics. ID and IM would like new drain placed. Abscess previously drained with drain removed. Collection now smaller than at initial presentation, and subcostal by ct. Will repalce drain but somewhat higher risk of pneumothorax and lung traversal due to decrease in size in the interim with shift of position since prior drain place. Right basilar chest tube remains within pleural gas and fluid collection though significantly smaller. Underlying atelectasis and volume loss in the LLL with elevation of the left diaphragm noted. Unsure of component of trapped lung or not. JANET CORRALES MD Mar 19, 2019 12:55
--- NOTE | 2019-03-19 19:26 | NUR ---
Pt. refusing to sign consents for procedure tomorrow until he speaks with doctor.
[2019-03-20] VITALS (11 sets, daily range): BP systolic 99–117; BP diastolic 57–93
[2019-03-20] MEDS: HYDROmorphone 2 MG/ML VIAL IV PRN ×10 (01:24→22:14)
[2019-03-20] MEDS: LORazepam 1 MG TABLET PO PRN ×3 (01:28→18:04)
[2019-03-20] MEDS: oxyCODONE/APAP 10/325 1 TAB TABLET PO PRN ×4 (03:14→20:16)
[2019-03-20] MEDS: ceFAZolin SODIUM 2 GM in IV DEXTROSE 5% 50 ML IV SCH ×3 (05:34→22:13)
[2019-03-20] MEDS: DOCUSATE SODIUM 100 MG CAPSULE. PO SCH ×2 (09:00→20:10)
[2019-03-20] MEDS: SENNOSIDES/DOCUSATE 8.6/50MG TABLET. PO SCH ×2 (09:00→20:10)
[2019-03-20] MEDS: HEPARIN for SUB-Q USE 5,000 UNIT/ML VIAL. SQ SCH ×2 (09:00→20:10)
[2019-03-20] MEDS ORDERED: LIDOCAINE WITH 8.4% SOD BICARB 3 ML DISP.SYRIN. ONE (09:26)
[2019-03-20] MEDS ORDERED: fentaNYL PF VIAL 250 MCG/5 ML VIAL ONE (09:55)
[2019-03-20] MEDS ORDERED: MIDAZOLAM HCL/PF 5 MG/5 ML VIAL. ONE (09:55)
[2019-03-20] MEDS ORDERED: fentaNYL PF VIAL 250 MCG/5 ML VIAL IV ONE (10:30)
[2019-03-20] MEDS ORDERED: LIDOCAINE WITH 8.4% SOD BICARB 3 ML DISP.SYRIN. IJ ONE (10:30)
[2019-03-20] MEDS ORDERED: MIDAZOLAM HCL/PF 5 MG/5 ML VIAL. IV ONE (10:30)
--- NOTE | 2019-03-20 10:39 | PDOC ---
PROGRESS NOTES Chief Complaint Chief Complaint POST PROCEDURE chest pain Sirs, sepsis on admit Empyema Left chest abscess H/o Meth use H/o Staph infection H/o Hep C - not treated small pericardial effusion Moderate to large decrease in the fluid volume of the left posterior basilar empyema. Pigtail catheter is noted within the fluid collection. Adjacent atelectasis.There is a loculated collection at the left upper thoracic cavity anteriorly adjacent to the mediastinum. It is unchanged in size. mediastinal drain placement 03/20 39 MIN PT EXAM, CHART REVIEW, > 50% OF TIME SPENT WITH EXAM, CHART REVIEW, PT CARE COORDINATION History of Present Illness History of Present Illness transferred out of tele My first day with him, tells me people are telling him diff things or no one talks to him BAd interaction today, frustrated and wants to speak with IR not me - then he later apologizes Wants to go home But pulmo recs mediastinal chest tube by IR NO VATS or talc pleurodecis needed PLANL IR for mediastinal chest tube insertion ID will discuss about PICC or IV abx rodent exterminator dw Pulmo Vitals Vitals Vital Signs Date Time Temp Pulse Resp B/P (MAP) Pulse Ox O2 Delivery O2 Flow Rate FiO2 03/20/19 10:36 16 96 Nasal Cannula 2.0 03/20/19 10:36 80 03/20/19 07:00 98.0 114/93 (100) 98.0 Physical Exam Physical Exam GENERAL: Propped up in bed, alert, watching TV HEENT: Pupils equal, Oral cavity clear NECK: Supple. Good range of motion. LUNGS: Diminished aeration on the left, left sided CT in place. sternal/left clavicular area mildly tender HEART: S1, S2, without gross murmur. ABDOMEN: Soft, nontender EXTREMITIES: No edema or cyanosis. SKIN: Warm to touch. multiple tattoos. NEUROLOGIC: Alert and oriented, cooperative. PIV General: Alert, Oriented X3, Cooperative, No acute distress, mild distress, moderate distress Heart: Regular rate, Normal S1, Normal S2 Lungs: Other (decrease left base l ct) Abdomen: Normal bowel sounds, Soft, Other (tender to left abd and back) Extremities: No clubbing, No cyanosis Skin: No significant lesion, Other (3x3cm area of fluctuance and tenderness without significant erythema on the left anterior chest wall) Labs LABS Examination: CT CHEST WO CONTRAST History: Empyema Comparison/Correlation: 03/13/2019 CT chest with contrast, 03/14/2019 CT pleural drain with catheter placement images Findings: Axial images of chest were obtained without contrast. Sagittal and coronal reformatted images were provided. At the anterior left upper thoracic cavity adjacent to the superior mediastinal fat and pleura, there is a loculated collection with a small amount of gas within it. This collection measures 3.4 cm anteroposterior by 3.5 cm transverse by 3.7 cm longitudinal. Left costophrenic sulcus pleural collection is small in size with pigtail drain catheter within it. Gas within this collection noted. Adjacent atelectasis is evident involving the lower lobe. Minimal linear atelectasis is noted in the subpleural aspect of the left upper lobe and lingula. Right lung field is unremarkable. No enlarged thoracic lymph nodes. Bony structures are unremarkable. Partially visualized upper abdomen is unremarkable. Moderate quantity of stool in the colon noted. Impression: Moderate to large decrease in the fluid volume of the left posterior basilar empyema. Pigtail catheter is noted within the fluid collection. Adjacent atelectasis. There is a loculated collection at the left upper thoracic cavity anteriorly adjacent to the mediastinum. It is unchanged in size. Assessment and Plan Assessmemt and Plan Problems Medical Problems: (1) Chest wall abscess Status: Acute (2) Mediastinal abscess Status: Acute (3) Pleural effusion Status: Acute Comment Review of Relevant I have reviewed the following items nancy (where applicable) has been applied. Labs Laboratory Tests Test 03/19/19 09:30 White Blood Count 6.2 x10^3/uL (4.0-11.0) Red Blood Count 3.70 x10^6/uL (4.30-5.70) Hemoglobin 11.1 g/dL (13.0-17.5) Hematocrit 32.4 % (39.0-53.0) Mean Corpuscular Volume 88 fL (79-100) Mean Corpuscular Hemoglobin 30 pg (25-35) Mean Corpuscular Hemoglobin Concent 34 g/dL (31-37) Red Cell Distribution Width 12.7 % (11.5-14.5) Platelet Count 487 x10^3/uL (140-400) Neutrophils (%) (Auto) 71 % (31-73) Lymphocytes (%) (Auto) 18 % (24-48) Monocytes (%) (Auto) 7 % (0-9) Eosinophils (%) (Auto) 4 % (0-3) Basophils (%) (Auto) 1 % (0-3) Neutrophils # (Auto) 4.4 x10^3/uL (1.8-7.7) Lymphocytes # (Auto) 1.1 x10^3/uL (1.0-4.8) Monocytes # (Auto) 0.4 x10^3/uL (0.0-1.1) Eosinophils # (Auto) 0.3 x10^3/uL (0.0-0.7) Basophils # (Auto) 0.0 x10^3/uL (0.0-0.2) Erythrocyte Sedimentation Rate 67 (0-15) Sodium Level 141 mmol/L (136-145) Potassium Level 4.1 mmol/L (3.5-5.1) Chloride Level 104 mmol/L (98-107) Carbon Dioxide Level 31 mmol/L (21-32) Anion Gap 6 (6-14) Blood Urea Nitrogen 13 mg/dL (8-26) Creatinine 0.8 mg/dL (0.7-1.3) Estimated GFR (Cockcroft-Gault) 115.1 Glucose Level 109 mg/dL (70-99) Calcium Level 8.6 mg/dL (8.5-10.1) Microbiology 03/14/19 Gram Stain - Final, Complete 03/07/19 Blood Culture - Final, Complete NO GROWTH AFTER 5 DAYS 03/05/19 AFB Specimen Processing Tissue - Final, Resulted 03/05/19 Acid Fast Bacilli Culture, Resulted Pending 03/05/19 Gram Stain - Final, Resulted 03/05/19 Fungal Culture - Preliminary, Resulted 03/05/19 Fungal Culture Result 1 - Preliminary, Resulted Medications Current Medications Sodium Chloride 1,000 ml @ 1,000 mls/hr Q1H IV Last administered on 03/05/19at 08:42; Start 03/05/19 at 08:18; Stop 03/05/19 at 09:17; Status DC Morphine Sulfate (Morphine Sulfate) 4 mg 1X ONCE IV Last administered on 03/05/19at 08:42; Start 03/05/19 at 09:00; Stop 03/05/19 at 09:01; Status DC Ondansetron HCl (Zofran) 4 mg 1X ONCE IV Last administered on 03/05/19at 08:42; Start 03/05/19 at 09:00; Stop 03/05/19 at 09:01; Status DC Iohexol (Omnipaque 350 Mg/ml) 100 ml 1X ONCE IV Last administered on 03/05/19at 09:05; Start 03/05/19 at 08:30; Stop 03/05/19 at 08:32; Status DC Info (CONTRAST GIVEN -- Rx MONITORING) 1 each PRN DAILY PRN MC SEE COMMENTS; Start 03/05/19 at 08:45; Stop 03/07/19 at 08:44; Status DC Hydromorphone HCl (Dilaudid) 1 mg 1X ONCE IV Last administered on 03/05/19at 09:05; Start 03/05/19 at 09:15; Stop 03/05/19 at 09:16; Status DC Sodium Chloride 1,000 ml @ 1,000 mls/hr 1X ONCE IV Last administered on 03/05/19at 09:54; Start 03/05/19 at 09:30; Stop 03/05/19 at 10:29; Status DC Piperacillin Sod/ Tazobactam Sod 3.375 gm/Sodium Chloride 50 ml @ 100 mls/hr 1X ONCE IV Last administered on 03/05/19at 09:54; Start 03/05/19 at 09:30; Stop 03/05/19 at 09:59; Status DC Vancomycin HCl 250 ml @ 250 mls/hr 1X ONCE IV ; Start 03/05/19 at 09:30; Stop 03/05/19 at 10:29; Status UNV Vancomycin HCl 2 gm/Sodium Chloride 500 ml @ 250 mls/hr 1X ONCE IV Last administered on 03/05/19at 10:35; Start 03/05/19 at 10:00; Stop 03/05/19 at 1 1:59; Status DC Hydromorphone HCl (Dilaudid) 1 mg 1X ONCE IV Last administered on 03/05/19at 10:35; Start 03/05/19 at 10:30; Stop 03/05/19 at 10:31; Status DC Sodium Chloride 1,000 ml @ 150 mls/hr Q6H40M IV Last administered on 03/05/19at 12:20; Start 03/05/19 at 10:26; Stop 03/05/19 at 20:22; Status DC Acetaminophen (Tylenol) 650 mg PRN Q6HRS PRN PO Headaches, Temp > 101.5'; Start 03/05/19 at 10:45 Lorazepam (Ativan Inj) 0.5 mg PRN Q6HRS PRN IV ANXIETY / AGITATION; Start 03/05/19 at 10:45; Stop 03/15/19 at 11:23; Status DC Ondansetron HCl (Zofran) 4 mg PRN Q6HRS PRN IV NAUSEA/VOMITING, 1ST CHOICE; Start 03/05/19 at 10:45 Prochlorperazine Edisylate (Compazine) 5 mg PRN Q6HRS PRN IV NAUSEA/VOMITING, 2ND CHOICE; Start 03/05/19 at 10:45 Prochlorperazine (Compazine) 25 mg PRN Q12HR PRN MT NAUSEA/VOMITING; Start 03/05/19 at 10:45 Al Hydroxide/Mg Hydroxide (Mylanta Plus Xs) 30 ml PRN Q3HRS PRN PO HEARTBURN / GAS; Start 03/05/19 at 10:45 Calcium Carbonate/ Glycine (Tums) 500 mg PRN Q3HRS PRN PO HEARTBURN / GAS, 2ND CHOICE Last administered on 03/15/19at 14:49; Start 03/05/19 at 10:45 Famotidine (Pepcid Vial) 20 mg BID IVP Last administered on 03/11/19at 08:31; Start 03/05/19 at 12:00; Stop 03/11/19 at 11:00; Status DC Info (Icu Electrolyte Protocol) 1 ea DAILY MC ; Start 03/06/19 at 09:00; Stop 03/09/19 at 15:55; Status DC Heparin Sodium (Porcine) (Heparin Sodium) 5,000 unit Q12HR SQ Last administered on 03/12/19at 08:48; Start 03/05/19 at 21:00 Sodium Chloride (Normal Saline Flush) 3 ml QSHIFT PRN IV AFTER MEDS AND BLOOD DRAWS; Start 03/05/19 at 10:45; Stop 03/14/19 at 13:07; Status DC Sodium Chloride 1,000 ml @ 100 mls/hr Q10H IV Last administered on 03/07/19at 05:01; Start 03/05/19 at 10:39; Stop 03/07/19 at 11:00; Status DC Acetaminophen/ Hydrocodone Bitart (Lortab 5/325) 1 tab PRN Q4HRS PRN PO MILD PAIN 1-3; Start 03/05/19 at 10:45; Stop 03/06/19 at 09:58; Status DC Acetaminophen/ Hydrocodone Bitart (Lortab 5/325) 2 tab PRN Q4HRS PRN PO MODERATE PAIN, SEVERE PAIN; Start 03/05/19 at 10:45; Stop 03/06/19 at 09:58; Status DC Morphine Sulfate (Morphine Sulfate) 2 mg PRN Q1HR PRN IV MODERATE PAIN Last administered on 03/07/19at 17:14; Start 03/05/19 at 10:45; Stop 03/17/19 at 08:52; Status DC Senna/Docusate Sodium (Senna Plus) 1 tab BID PO Last administered on 03/17/19at 19:29; Start 03/05/19 at 21:00 Docusate Sodium (Colace) 100 mg BID PO Last administered on 03/19/19at 09:39; Start 03/05/19 at 12:00 Bisacodyl (Dulcolax Supp) 10 mg PRN DAILY PRN MT CONSTIPATION; Start 03/05/19 at 10:45 Sodium Chloride 1,000 ml @ 2,550 mls/hr Q24M IV ; Start 03/05/19 at 10:48; Stop 03/05/19 at 11:48; Status DC Sodium Chloride 500 ml @ 1,000 mls/hr PRN Q30MIN PRN IV PER PROTOCOL; Start 03/05/19 at 11:00 Vancomycin HCl (Vanco Per Pharmacy) 1 each PRN DAILY PRN MC SEE COMMENTS Last administered on 03/05/19at 13:45; Start 03/05/19 at 11:00; Stop 03/06/19 at 08:18; Status DC Piperacillin Sod/ Tazobactam Sod 4.5 gm/Sodium Chloride 100 ml @ 200 mls/hr Q6HRS IV ; Start 03/05/19 at 12:00; Stop 03/05/19 at 11:59; Status DC Norepinephrine Bitartrate 250 ml @ 0 mls/hr CONT PRN IV PER PROTOCOL; Start 03/05/19 at 11:00; Stop 03/09/19 at 15:58; Status DC Dobutamine HCl/ Dextrose 250 ml @ 0 mls/hr CONT PRN IV PER PROTOCOL; Start 03/05/19 at 11:00; Stop 03/07/19 at 11:00; Status DC Vancomycin HCl 2 gm/Sodium Chloride 500 ml @ 250 mls/hr 1X ONCE IV ; Start 03/05/19 at 12:00; Stop 03/05/19 at 13:59; Status Cancel Piperacillin Sod/ Tazobactam Sod 4.5 gm/Sodium Chloride 100 ml @ 200 mls/hr Q6HRS IV Last administered on 03/07/19at 05:01; Start 03/05/19 at 16:00; Stop 03/07/19 at 08:36; Status DC Linezolid/Dextrose 300 ml @ 300 mls/hr Q12HR IV Last administered on 03/07/19at 07:54; Start 03/05/19 at 13:00; Stop 03/07/19 at 09:13; Status DC Lidocaine/Sodium Bicarbonate (Buffered Lidocaine 1%) 3 ml STK-MED ONCE .ROUTE ; Start 03/05/19 at 12:12; Stop 03/05/19 at 12:13; Status DC Midazolam HCl (Versed) 2 mg STK-MED ONCE .ROUTE ; Start 03/05/19 at 12:13; Stop 03/05/19 at 12:13; Status DC Fentanyl Citrate (Fentanyl 2ml Vial) 100 mcg STK-MED ONCE .ROUTE ; Start 03/05/19 at 12:14; Stop 03/05/19 at 12:14; Status DC Lidocaine/Sodium Bicarbonate (Buffered Lidocaine 1%) 3 ml STK-MED ONCE .ROUTE ; Start 03/05/19 at 13:05; Stop 03/05/19 at 13:05; Status DC Hydromorphone HCl (Dilaudid) 1.5 mg PRN Q3HRS PRN IVP SEVERE PAIN Last administered on 03/08/19at 08:46; Start 03/05/19 at 13:30; Stop 03/08/19 at 10:24; Status DC Lidocaine/Sodium Bicarbonate (Buffered Lidocaine 1%) 3 ml 1X ONCE IJ Last administered on 03/05/19at 13:32; Start 03/05/19 at 13:30; Stop 03/05/19 at 13:31; Status DC Midazolam HCl (Versed) 2 mg 1X ONCE IV Last administered on 03/05/19at 13:32; Start 03/05/19 at 13:30; Stop 03/05/19 at 13:31; Status DC Fentanyl Citrate (Fentanyl 2ml Vial) 100 mcg 1X ONCE IV Last administered on 03/05/19 13:32; Start 03/05/19 at 13:30; Stop 03/05/19 at 13:31; Status DC Vancomycin HCl 1.5 gm/Sodium Chloride 500 ml @ 250 mls/hr Q8H IV Last administered on 03/06/19 03:06; Start 03/05/19 at 19:00; Stop 03/06/19 at 08:18; Status DC Vancomycin HCl (Vancomycin Trough Level) 1 each 1X ONCE MC ; Start 03/06/19 at 10:30; Stop 03/06/19 at 08:21; Status DC Daptomycin 600 mg/ Sodium Chloride 50 ml @ 100 mls/hr Q24H IV Last administered on 03/09/19at 09:39; Start 03/06/19 at 10:00; Stop 03/09/19 at 11 :48; Status DC Acetaminophen/ Hydrocodone Bitart (Lortab 5/325) 1 tab PRN Q4HRS PRN PO PAIN; Start 03/06/19 at 08:45; Stop 03/06/19 at 09:58; Status DC Oxycodone/ Acetaminophen (Percocet 10/325) 1 tab PRN Q4HRS PRN PO PAIN Last administered on 03/20/19at 03:15; Start 03/06/19 at 10:00 Ketorolac Tromethamine (Toradol 30mg Vial) 30 mg PRN Q6HRS PRN IV INFLAMMATION Last administered on 03/11/19 04:12; Start 03/06/19 at 10:00; Stop 03/11/19 at 09:59; Status DC Lactobacillus Rhamnosus (Culturelle) 1 cap BID PO Last administered on 03/19/19at 19:24; Start 03/06/19 at 21:00 Linezolid (Zyvox) 600 mg BID PO Last administered on 03/11/19at 08:31; Start 03/07/19 at 13:00; Stop 03/11/19 at 12:27; Status DC Sodium Chloride (Normal Saline Flush) 10 ml QSHIFT PRN IV AFTER MEDS AND BLOOD DRAWS; Start 03/07/19 at 13:45 Lidocaine HCl (Xylocaine 2% Topical 5gm Tube) 1 michel 1X ONCE TP ; Start 03/07/19 at 13:45; Stop 03/07/19 at 13:46; Status DC Lidocaine HCl (Viscous Lidocaine) 15 ml 1X ONCE MM ; Start 03/07/19 at 13:45; Stop 03/07/19 at 13:46; Status DC Benzocaine (Hurricaine One) 1 spray 1X ONCE MM ; Start 03/07/19 at 13:45; Stop 03/07/19 at 13:46; Status DC Alteplase, Recombinant 10 mg/ Sterile Water 50 ml @ 0 mls/hr 1X ONCE IV Last administered on 03/07/19at 17:14; Start 03/07/19 at 15:45; Stop 03/07/19 at 15:46; Status DC Propofol 20 ml @ As Directed STK-MED ONCE IV ; Start 03/07/19 at 15:50; Stop 03/07/19 at 15:50; Status DC Lidocaine HCl (Lidocaine Pf 2% Vial) 5 ml STK-MED ONCE .ROUTE ; Start 03/07/19 at 15:50; Stop 03/07/19 at 15:50; Status DC Ephedrine Sulfate (ePHEDrine PF IN SALINE SYRINGE) 50 mg STK-MED ONCE IV ; Start 03/07/19 at 15:50; Stop 03/07/19 at 15:50; Status DC Hydromorphone HCl (Dilaudid) 2 mg PRN Q3HRS PRN IV SEVERE PAIN Last administered on 03/15/19at 09:44; Start 03/08/19 at 10:30; Stop 03/15/19 at 12:13; Status DC Cefazolin Sodium 2 gm/Dextrose 50 ml @ 100 mls/hr Q8HRS IV Last administered on 03/20/19at 05:34; Start 03/09/19 at 14:00 Famotidine (Pepcid) 20 mg BID PO Last administered on 03/19/19at 19:24; Start 03/11/19 at 21:00 Iohexol (Omnipaque 300 Mg/ml) 75 ml 1X ONCE IV Last administered on 03/13/19at 12:35; Start 03/13/19 at 12:15; Stop 03/13/19 at 12:16; Status DC Info (CONTRAST GIVEN -- Rx MONITORING) 1 each PRN DAILY PRN MC SEE COMMENTS; Start 03/13/19 at 12:15; Stop 03/15/19 at 12:14; Status DC Lidocaine/Sodium Bicarbonate (Buffered Lidocaine 1%) 3 ml STK-MED ONCE .ROUTE ; Start 03/14/19 at 14:41; Stop 03/14/19 at 14:41; Status DC Lidocaine/Sodium Bicarbonate (Buffered Lidocaine 1%) 3 ml STK-MED ONCE .ROUTE ; Start 03/14/19 at 14:58; Stop 03/14/19 at 14:58; Status DC Midazolam HCl (Versed) 5 mg STK-MED ONCE .ROUTE ; Start 03/14/19 at 15:21; Stop 03/14/19 at 15:21; Status DC Fentanyl Citrate (Fentanyl 5ml Vial) 250 mcg STK-MED ONCE .ROUTE ; Start 03/14/19 at 15:21; Stop 03/14/19 at 15:21; Status DC Flumazenil (Romazicon) 0.5 mg STK-MED ONCE IV ; Start 03/14/19 at 15:21; Stop 03/14/19 at 15:21; Status DC Naloxone HCl (Narcan) 0.4 mg STK-MED ONCE .ROUTE ; Start 03/14/19 at 15:21; Stop 03/14/19 at 15:21; Status DC Lidocaine/Sodium Bicarbonate (Buffered Lidocaine 1%) 12 ml 1X ONCE IJ Last administered on 03/14/19at 16:00; Start 03/14/19 at 15:45; Stop 03/14/19 at 15:49; Status DC Midazolam HCl (Versed) 5 mg 1X ONCE IV Last administered on 03/14/19at 16:00; Start 03/14/19 at 15:45; Stop 03/14/19 at 15:49; Status DC Fentanyl Citrate (Fentanyl 5ml Vial) 150 mcg 1X ONCE IV Last administered on 03/14/19at 16:00; Start 03/14/19 at 15:45; Stop 03/14/19 at 15:49; Status DC Lorazepam (Ativan Inj) 2 mg PRN Q6HRS PRN IV ANXIETY / AGITATION Last administered on 03/15/19at 07:36; Start 03/14/19 at 18:00; Stop 03/15/19 at 12:14; Status DC Hydromorphone HCl (Dilaudid) 2 mg PRN Q2HR PRN IV SEVERE PAIN Last administered on 03/20/19at 08:20; Start 03/15/19 at 12:15 Lorazepam (Ativan) 1 mg PRN Q6HRS PRN PO ANXIETY / AGITATION Last administered on 03/20/19at 01:28; Start 03/15/19 at 12:15 Morphine Sulfate (Ms Contin) 15 mg BID PO Last administered on 03/19/19at 19:24; Start 03/16/19 at 13:00 Lorazepam (Ativan Inj) 2 mg PRN Q4HRS PRN IV ANXIETY / AGITATION Last administered on 03/18/19at 13:19; Start 03/18/19 at 13:15; Stop 03/18/19 at 18:10; Status DC Magnesium Hydroxide (Milk Of Magnesia) 2,400 mg PRN DAILY PRN PO CONSTIPATION; Start 03/19/19 at 09:00 Lidocaine/Sodium Bicarbonate (Buffered Lidocaine 1%) 3 ml STK-MED ONCE .ROUTE ; Start 03/20/19 at 09:26; Stop 03/20/19 at 09:26; Status DC Midazolam HCl (Versed) 5 mg STK-MED ONCE .ROUTE ; Start 03/20/19 at 09:55; Stop 03/20/19 at 09:56; Status DC Fentanyl Citrate (Fentanyl 5ml Vial) 250 mcg STK-MED ONCE .ROUTE ; Start 03/20/19 at 09:55; Stop 03/20/19 at 09:56; Status DC Lidocaine/Sodium Bicarbonate (Buffered Lidocaine 1%) 12 ml 1X ONCE IJ Last administered on 03/20/19at 10:36; Start 03/20/19 at 10:30; Stop 03/20/19 at 10:31; Status DC Midazolam HCl (Versed) 5 mg 1X ONCE IV Last administered on 03/20/19at 10:36; Start 03/20/19 at 10:30; Stop 03/20/19 at 10:31; Status DC Fentanyl Citrate (Fentanyl 5ml Vial) 200 mcg 1X ONCE IV Last administered on 03/20/19at 10:36; Start 03/20/19 at 10:30; Stop 03/20/19 at 10:31; Status DC Vitals/I & O Vital Sign - Last 24 Hours 03/19/19 03/19/19 03/19/19 03/19/19 10:46 10:46 11:00 11:55 Temp 98.0 98.0 Pulse 97 Resp 20 20 16 20 B/P (MAP) 137/79 (98) Pulse Ox 93 94 97 94 O2 Delivery Room Air Room Air Room Air Room Air 03/19/19 03/19/19 03/19/19 03/19/19 14:02 15:00 16:41 17:00 Temp 98.0 98.0 Pulse 105 Resp 20 19 19 B/P (MAP) 127/75 (92) Pulse Ox 94 95 93 94 O2 Delivery Room Air Room Air Room Air Room Air 03/19/19 03/19/19 03/19/19 03/19/19 18:06 19:00 19:05 19:20 Temp 98.6 98.6 Pulse 109 Resp 18 16 B/P (MAP) 130/80 (97) Pulse Ox 94 96 94 O2 Delivery Room Air Room Air Room Air Room Air O2 Flow Rate 2.0 03/19/19 03/19/19 03/19/19 03/19/19 19:24 19:26 19:26 19:55 Resp 16 19 16 Pulse Ox 94 93 94 94 O2 Delivery Room Air Room Air Room Air Room Air O2 Flow Rate 2.0 03/19/19 03/19/19 03/19/19 03/19/19 21:17 21:37 21:47 22:09 Temp 98.2 98.2 Pulse 109 Resp 16 18 15 16 B/P (MAP) 130/80 (97) Pulse Ox 94 96 96 96 O2 Delivery Room Air Room Air Room Air Room Air 03/19/19 03/19/19 03/19/19 03/19/19 22:57 23:00 23:14 23:16 Temp 97.4 97.4 Pulse 105 Resp 16 18 15 16 B/P (MAP) 114/59 (77) Pulse Ox 96 97 96 96 O2 Delivery Room Air Room Air Room Air Room Air 03/19/19 03/20/19 03/20/19 9/11/19 23:43 01:24 01:55 03:00 Temp 97.8 97.8 Pulse 89 Resp 16 15 15 18 B/P (MAP) 110/64 (79) Pulse Ox 96 96 96 96 O2 Delivery Room Air Room Air Room Air Room Air 03/20/19 03/20/19 03/20/19 03/20/19 03:15 03:15 03:59 04:06 Resp 17 17 15 15 Pulse Ox 96 96 96 96 O2 Delivery Room Air Room Air Room Air Room Air 03/20/19 03/20/19 03/20/19 03/20/19 05:34 06:01 07:00 10:10 Temp 98.0 98.0 Pulse 80 Resp 16 16 20 B/P (MAP) 114/93 (100) Pulse Ox 96 96 98 98 O2 Delivery Room Air Room Air Room Air Room Air O2 Flow Rate 2.0 03/20/19 03/20/19 03/20/19 03/20/19 10:14 10:19 10:24 10:29 Pulse 91 94 94 79 Resp 10 12 18 12 Pulse Ox 92 93 94 94 O2 Delivery Nasal Cannula O2 Flow Rate 2.0 03/20/19 03/20/19 10:36 10:36 Pulse 80 Resp 10 16 Pulse Ox 96 O2 Delivery Nasal Cannula O2 Flow Rate 2.0 Intake and Output 03/19/19 03/19/19 03/20/19 15:00 23:00 07:00 Intake Total 530 ml 410 ml Balance 530 ml 410 ml NICHOLE WADE MD Mar 20, 2019 10:39
--- NOTE | 2019-03-20 10:52 | PDOC ---
Infectious Disease Note Subjective: Subjective pt underwent mediastinal drain placement today has pain at the drain site O2 sat >90%on RA Denies SOA/CP/F/C/N/V/D ROS: ROS Negative otherwise. Vital Signs: Vital Signs Vital Signs Date Time Temp Pulse Resp B/P (MAP) Pulse Ox O2 Delivery O2 Flow Rate FiO2 03/20/19 10:39 90 11 96 Room Air 03/20/19 10:36 2.0 03/20/19 07:00 98.0 114/93 (100) 98.0 Physical Exam: PHYSICAL EXAM GENERAL: Propped up in bed, alert, watching TV HEENT: Pupils equal, Oral cavity clear NECK: Supple. Good range of motion. LUNGS: Diminished aeration on the left, left sided CT in place. sternal/left clavicular area mildly tender HEART: S1, S2, without gross murmur. ABDOMEN: Soft, nontender EXTREMITIES: No edema or cyanosis. SKIN: Warm to touch. multiple tattoos. NEUROLOGIC: Alert and oriented, cooperative. PIV Medications: Inpatient Meds: Current Medications Medications (Trade) Dose Ordered Sig/Conrad Start Time Stop Time Status Last Admin Dose Admin Acetaminophen (Tylenol) 650 mg PRN Q6HRS PRN 03/05/19 10:45 Acetaminophen/ Hydrocodone Bitart (Lortab 5/325) 1 tab PRN Q4HRS PRN 03/06/19 08:45 03/06/19 09:58 DC Al Hydroxide/Mg Hydroxide (Mylanta Plus Xs) 30 ml PRN Q3HRS PRN 03/05/19 10:45 Alteplase, Recombinant 10 mg/ Sterile Water 50 ml @ 0 mls/hr 1X ONCE 03/07/19 15:45 03/07/19 15:46 DC 03/07/19 17:14 50 MLS/HR Benzocaine (Hurricaine One) 1 spray 1X ONCE 03/07/19 13:45 03/07/19 13:46 DC Bisacodyl (Dulcolax Supp) 10 mg PRN DAILY PRN 03/05/19 10:45 Calcium Carbonate/ Glycine (Tums) 500 mg PRN Q3HRS PRN 03/05/19 10:45 03/15/19 14:49 500 MG Cefazolin Sodium 2 gm/Dextrose 50 ml @ 100 mls/hr Q8HRS 03/09/19 14:00 03/20/19 05:34 100 MLS/HR Daptomycin 600 mg/ Sodium Chloride 50 ml @ 100 mls/hr Q24H 03/06/19 10:00 03/09/19 11:48 DC 03/09/19 09:39 100 MLS/HR Dobutamine HCl/ Dextrose 250 ml @ 0 mls/hr CONT PRN 03/05/19 11:00 03/07/19 11:00 DC Docusate Sodium (Colace) 100 mg BID 03/05/19 12:00 03/19/19 09:39 100 MG Ephedrine Sulfate (ePHEDrine PF IN SALINE SYRINGE) 50 mg STK-MED ONCE 03/07/19 15:50 03/07/19 15:50 DC Famotidine (Pepcid Vial) 20 mg BID 03/05/19 12:00 03/11/19 11:00 DC 03/11/19 08:31 20 MG Famotidine (Pepcid) 20 mg BID 03/11/19 21:00 03/19/19 19:24 20 MG Fentanyl Citrate (Fentanyl 2ml Vial) 100 mcg 1X ONCE 03/05/19 13:30 03/05/19 13:31 DC 03/05/19 13:32 100 MCG Fentanyl Citrate (Fentanyl 5ml Vial) 200 mcg 1X ONCE 03/20/19 10:30 03/20/19 10:31 DC 03/20/19 10:36 200 MCG Flumazenil (Romazicon) 0.5 mg STK-MED ONCE 03/14/19 15:21 03/14/19 15:21 DC Heparin Sodium (Porcine) (Heparin Sodium) 5,000 unit Q12HR 03/05/19 21:00 03/12/19 08:48 5,000 UNIT Hydromorphone HCl (Dilaudid) 2 mg PRN Q2HR PRN 03/15/19 12:15 03/20/19 08:20 2 MG Info (CONTRAST GIVEN -- Rx MONITORING) 1 each PRN DAILY PRN 03/13/19 12:15 03/15/19 12:14 DC Info (Icu Electrolyte Protocol) 1 ea DAILY 03/06/19 09:00 03/09/19 15:55 DC Iohexol (Omnipaque 300 Mg/ml) 75 ml 1X ONCE 03/13/19 12:15 03/13/19 12:16 DC 03/13/19 12:35 75 ML Iohexol (Omnipaque 350 Mg/ml) 100 ml 1X ONCE 03/05/19 08:30 03/05/19 08:32 DC 03/05/19 09:05 100 ML Ketorolac Tromethamine (Toradol 30mg Vial) 30 mg PRN Q6HRS PRN 03/06/19 10:00 03/11/19 09:59 DC 03/11/19 04:12 30 MG Lactobacillus Rhamnosus (Culturelle) 1 cap BID 03/06/19 21:00 03/19/19 19:24 1 CAP Lidocaine HCl (Lidocaine Pf 2% Vial) 5 ml STK-MED ONCE 03/07/19 15:50 03/07/19 15:50 DC Lidocaine HCl (Viscous Lidocaine) 15 ml 1X ONCE 03/07/19 13:45 03/07/19 13:46 DC Lidocaine HCl (Xylocaine 2% Topical 5gm Tube) 1 michel 1X ONCE 03/07/19 13:45 03/07/19 13:46 DC Lidocaine/Sodium Bicarbonate (Buffered Lidocaine 1%) 12 ml 1X ONCE 03/20/19 10:30 03/20/19 10:31 DC 03/20/19 10:36 9 ML Linezolid (Zyvox) 600 mg BID 03/07/19 13:00 03/11/19 12:27 DC 03/11/19 08:31 600 MG Linezolid/Dextrose 300 ml @ 300 mls/hr Q12HR 03/05/19 13:00 03/07/19 09:13 DC 03/07/19 07:54 300 MLS/HR Lorazepam (Ativan Inj) 2 mg PRN Q4HRS PRN 03/18/19 13:15 03/18/19 18:10 DC 03/18/19 13:19 2 MG Lorazepam (Ativan) 1 mg PRN Q6HRS PRN 03/15/19 12:15 03/20/19 01:28 1 MG Magnesium Hydroxide (Milk Of Magnesia) 2,400 mg PRN DAILY PRN 03/19/19 09:00 Midazolam HCl (Versed) 5 mg 1X ONCE 03/20/19 10:30 03/20/19 10:31 DC 03/20/19 10:36 4 MG Morphine Sulfate (Morphine Sulfate) 2 mg PRN Q1HR PRN 03/05/19 10:45 03/17/19 08:52 DC 03/07/19 17:14 2 MG Morphine Sulfate (Ms Contin) 15 mg BID 03/16/19 13:00 03/19/19 19:24 15 MG Naloxone HCl (Narcan) 0.4 mg STK-MED ONCE 03/14/19 15:21 03/14/19 15:21 DC Norepinephrine Bitartrate 250 ml @ 0 mls/hr CONT PRN 03/05/19 11:00 03/09/19 15:58 DC Ondansetron HCl (Zofran) 4 mg PRN Q6HRS PRN 03/05/19 10:45 Oxycodone/ Acetaminophen (Percocet 10325) 1 tab PRN Q4HRS PRN 03/06/19 10:00 03/20/19 03:15 1 TAB Piperacillin Sod/ Tazobactam Sod 3.375 gm/Sodium Chloride 50 ml @ 100 mls/hr 1X ONCE 03/05/19 09:30 03/05/19 09:59 DC 03/05/19 09:54 100 MLS/HR Piperacillin Sod/ Tazobactam Sod 4.5 gm/Sodium Chloride 100 ml @ 200 mls/hr Q6HRS 03/05/19 16:00 03/07/19 08:36 DC 03/07/19 05:01 200 MLS/HR Prochlorperazine (Compazine) 25 mg PRN Q12HR PRN 03/05/19 10:45 Prochlorperazine Edisylate (Compazine) 5 mg PRN Q6HRS PRN 03/05/19 10:45 Propofol 20 ml @ As Directed STK-MED ONCE 03/07/19 15:50 03/07/19 15:50 DC Senna/Docusate Sodium (Senna Plus) 1 tab BID 03/05/19 21:00 03/17/19 19:29 1 TAB Sodium Chloride (Normal Saline Flush) 10 ml QSHIFT PRN 03/07/19 13:45 Vancomycin HCl (Vanco Per Pharmacy) 1 each PRN DAILY PRN 03/05/19 11:00 03/06/19 08:18 DC 03/05/19 13:45 1 EACH Vancomycin HCl (Vancomycin Trough Level) 1 each 1X ONCE 03/06/19 10:30 03/06/19 08:21 DC Vancomycin HCl 1.5 gm/Sodium Chloride 500 ml @ 250 mls/hr Q8H 03/05/19 19:00 03/06/19 08:18 DC 03/06/19 03:06 250 MLS/HR Vancomycin HCl 2 gm/Sodium Chloride 500 ml @ 250 mls/hr 1X ONCE 03/05/19 12:00 03/05/19 13:59 Cancel Objective: Assessment: MSSA bacteremia from 03/05. -[facility] 03/07 - neg. - Repeat BC 03/07 neg Empyema s/p chest tube 03/05. MSSA. s/p replacement, CTS removed on 03/11 another one placed 03/14, no org gram stain; culture neg so far Repeat CT Chest 03/18 Empyema left chest is almost resoved/ moderate left atelectasis increase mediastinal abscess Mediastinal tube removed 03/13,another drain placed 03/20 Left chest abscess s/p drain 03/05. MSSA Left shoulder pain persists but some better ? conduction defect on ECHO Transaminitis - some better Protein malnutrition H/o Meth use H/o Staph infection H/o Hep C - not treated Plan: Plan of Care Continue Cefazolin f/u c/s from drain placement of mediastinal loculated fluid collection 03/20 CTS input noted,not a candidate for VATS,trial with drainage tube and antibiotics Probiotics f/u labs and cults Supportive care D/W Dr Broussard When ready for dc will need Daptomycin 6mg/kg/day for 6 weeks Ceftriaxone 2gm IV qd for 6 weeks Probiotics PICC line single lumen picc line for use of iv antibiotics only complications of picc line and abx discussed weekly labs q mon cbcd.bun,creat,,lfts ,cpk D/W SHUKRI WHEELER MD Mar 20, 2019 10:52
[2019-03-20] MEDS: MORPHINE ER 15 MG TABLET.ER PO SCH ×2 (11:12→20:06)
[2019-03-20] MEDS: FAMOTIDINE 20 MG TABLET. PO SCH ×2 (11:12→20:06)
[2019-03-20] MEDS: LACTOBACILLUS RHAMNOSUS GG 1 CAPSULE. PO SCH ×2 (11:12→20:06)
--- NOTE | 2019-03-20 11:31 | NUR ---
pt refusing stool softeners. requesting higher dose of ativan. when questioned what his home dose is, pt states "i don't take any meds at home". when questioned why he tested positive for benzos and opiates at admission if he takes no home meds, pt states "my girlfriend must have given me something."
[2019-03-20] MEDS: KETOROLAC 30 MG/ML VIAL. IV PRN ×2 (14:56→22:13)
[2019-03-20] MEDS: CALCIUM CARBONATE 500 MG TAB.CHEW PO PRN (18:12)
[2019-03-21] MEDS: HYDROmorphone 2 MG/ML VIAL IV PRN ×6 (00:13→15:26)
[2019-03-21] MEDS: LORazepam 1 MG TABLET PO PRN ×3 (00:13→13:23)
[2019-03-21] MEDS: oxyCODONE/APAP 10/325 1 TAB TABLET PO PRN ×4 (00:13→14:14)
[2019-03-21 03:00] VITALS: BP 103/54
[2019-03-21] MEDS: ceFAZolin SODIUM 2 GM in IV DEXTROSE 5% 50 ML IV SCH (05:53)
[2019-03-21] MEDS: KETOROLAC 30 MG/ML VIAL. IV PRN ×2 (06:49→13:22)
[2019-03-21 07:00] VITALS: BP 107/57
[2019-03-21 07:16] LABS: BASO % 1 % (0-3); EOS # 0.4 x10^3/uL (0.0-0.7); EOS % 9 % (0-3); HEMATOCRIT 33.8 % (39.0-53.0); HEMOGLOBIN 11.4 g/dL (13.0-17.5); LYMPH # 1.3 x10^3/uL (1.0-4.8); LYMPH % 29 % (24-48); MEAN CORPUSCULAR HEMOGLOBIN 30 pg (25-35); MEAN CORPUSCULAR HGB CONC 34 g/dL (31-37); MEAN CORPUSCULAR VOLUME 88 fL (79-100); MONO # 0.4 x10^3/uL (0.0-1.1); MONO % 9 % (0-9); NEUT # 2.3 x10^3/uL (1.8-7.7); NEUT % 52 % (31-73); PLATELET COUNT 495 x10^3/uL (140-400); RED BLOOD COUNT 3.84 x10^6/uL (4.30-5.70); RED CELL DISTRIBUTION WIDTH 13.1 % (11.5-14.5); WHITE BLOOD COUNT 4.5 x10^3/uL (4.0-11.0)
[2019-03-21 07:41] LABS: ALBUMIN 2.3 g/dL (3.4-5.0); ALBUMIN/GLOBULIN RATIO 0.5 (1.0-1.7); CALCIUM 8.8 mg/dL (8.5-10.1); CREATININE 0.9 mg/dL (0.7-1.3); GFR 100.5; TOTAL BILIRUBIN 0.2 mg/dL (0.2-1.0); TOTAL PROTEIN 6.7 g/dL (6.4-8.2)
[2019-03-21 08:13] LABS: POTASSIUM 4.2 mmol/L (3.5-5.1)
[2019-03-21] MEDS: FAMOTIDINE 20 MG TABLET. PO SCH (08:48)
[2019-03-21] MEDS: LACTOBACILLUS RHAMNOSUS GG 1 CAPSULE. PO SCH (08:48)
[2019-03-21] MEDS: MORPHINE ER 15 MG TABLET.ER PO SCH (08:48)
[2019-03-21] MEDS: DOCUSATE SODIUM 100 MG CAPSULE. PO SCH (08:49)
[2019-03-21] MEDS: SENNOSIDES/DOCUSATE 8.6/50MG TABLET. PO SCH (08:50)
[2019-03-21] MEDS: HEPARIN for SUB-Q USE 5,000 UNIT/ML VIAL. SQ SCH (08:50)
--- NOTE | 2019-03-21 10:44 | PDOC ---
Infectious Disease Note Subjective: Subjective Pt doing well ambulating in room . When I entered the room Pt had tweezers in his hand and he got a needle from the sharp's container.... When I asked him what he was doing with the sharps container with tweezers in his hand, he states " I found a needle on the floor and was placing it back in the sharp's container...." eager to go home Denies SOA/CP/F/C/N/V/D /Chestpain ROS: ROS Negative otherwise. Vital Signs: Vital Signs Vital Signs Date Time Temp Pulse Resp B/P (MAP) Pulse Ox O2 Delivery O2 Flow Rate FiO2 03/21/19 10:02 Room Air 03/21/19 08:50 18 03/21/19 07:00 97.9 82 107/57 (74) 99 97.9 03/20/19 10:36 2.0 Physical Exam: PHYSICAL EXAM GENERAL: Propped up in bed, alert, watching TV HEENT: Pupils equal, Oral cavity clear NECK: Supple. Good range of motion. LUNGS: Diminished aeration on the left, left sided CT in place. sternal/left clavicular area mildly tender HEART: S1, S2, without gross murmur. ABDOMEN: Soft, nontender EXTREMITIES: No edema or cyanosis. SKIN: Warm to touch. multiple tattoos. NEUROLOGIC: Alert and oriented, cooperative. PIV Medications: Inpatient Meds: Current Medications Medications (Trade) Dose Ordered Sig/Conrad Start Time Stop Time Status Last Admin Dose Admin Acetaminophen (Tylenol) 650 mg PRN Q6HRS PRN 03/05/19 10:45 Acetaminophen/ Hydrocodone Bitart (Lortab 5/325) 1 tab PRN Q4HRS PRN 03/06/19 08:45 03/06/19 09:58 DC Al Hydroxide/Mg Hydroxide (Mylanta Plus Xs) 30 ml PRN Q3HRS PRN 03/05/19 10:45 Alteplase, Recombinant 10 mg/ Sterile Water 50 ml @ 0 mls/hr 1X ONCE 03/07/19 15:45 03/07/19 15:46 DC 03/07/19 17:14 50 MLS/HR Benzocaine (Hurricaine One) 1 spray 1X ONCE 03/07/19 13:45 03/07/19 13:46 DC Bisacodyl (Dulcolax Supp) 10 mg PRN DAILY PRN 03/05/19 10:45 Calcium Carbonate/ Glycine (Tums) 500 mg PRN Q3HRS PRN 03/05/19 10:45 03/20/19 18:12 500 MG Cefazolin Sodium 2 gm/Dextrose 50 ml @ 100 mls/hr Q8HRS 03/09/19 14:00 03/21/19 05:53 100 MLS/HR Daptomycin 600 mg/ Sodium Chloride 50 ml @ 100 mls/hr Q24H 03/06/19 10:00 03/09/19 11:48 DC 03/09/19 09:39 100 MLS/HR Dobutamine HCl/ Dextrose 250 ml @ 0 mls/hr CONT PRN 03/05/19 11:00 03/07/19 11:00 DC Docusate Sodium (Colace) 100 mg BID 03/05/19 12:00 03/19/19 09:39 100 MG Ephedrine Sulfate (ePHEDrine PF IN SALINE SYRINGE) 50 mg STK-MED ONCE 03/07/19 15:50 03/07/19 15:50 DC Famotidine (Pepcid Vial) 20 mg BID 03/05/19 12:00 03/11/19 11:00 DC 03/11/19 08:31 20 MG Famotidine (Pepcid) 20 mg BID 03/11/19 21:00 03/21/19 08:50 20 MG Fentanyl Citrate (Fentanyl 2ml Vial) 100 mcg 1X ONCE 03/05/19 13:30 03/05/19 13:31 DC 03/05/19 13:32 100 MCG Fentanyl Citrate (Fentanyl 5ml Vial) 200 mcg 1X ONCE 03/20/19 10:30 03/20/19 10:31 DC 03/20/19 10:36 200 MCG Flumazenil (Romazicon) 0.5 mg STK-MED ONCE 03/14/19 15:21 03/14/19 15:21 DC Heparin Sodium (Porcine) (Heparin Sodium) 5,000 unit Q12HR 03/05/19 21:00 03/12/19 08:48 5,000 UNIT Hydromorphone HCl (Dilaudid) 2.5 mg PRN Q2HR PRN 03/20/19 14:45 03/21/19 08:50 2.5 MG Info (CONTRAST GIVEN -- Rx MONITORING) 1 each PRN DAILY PRN 03/13/19 12:15 03/15/19 12:14 DC Info (Icu Electrolyte Protocol) 1 ea DAILY 03/06/19 09:00 03/09/19 15:55 DC Iohexol (Omnipaque 300 Mg/ml) 75 ml 1X ONCE 03/13/19 12:15 03/13/19 12:16 DC 03/13/19 12:35 75 ML Iohexol (Omnipaque 350 Mg/ml) 100 ml 1X ONCE 03/05/19 08:30 03/05/19 08:32 DC 03/05/19 09:05 100 ML Ketorolac Tromethamine (Toradol 30mg Vial) 30 mg PRN Q6HRS PRN 03/20/19 14:45 03/25/19 14:44 03/21/19 06:50 30 MG Lactobacillus Rhamnosus (Culturelle) 1 cap BID 03/06/19 21:00 03/21/19 08:50 1 CAP Lidocaine HCl (Lidocaine Pf 2% Vial) 5 ml STK-MED ONCE 03/07/19 15:50 03/07/19 15:50 DC Lidocaine HCl (Viscous Lidocaine) 15 ml 1X ONCE 03/07/19 13:45 03/07/19 13:46 DC Lidocaine HCl (Xylocaine 2% Topical 5gm Tube) 1 michel 1X ONCE 03/07/19 13:45 03/07/19 13:46 DC Lidocaine/Sodium Bicarbonate (Buffered Lidocaine 1%) 12 ml 1X ONCE 03/20/19 10:30 03/20/19 10:31 DC 03/20/19 10:36 9 ML Linezolid (Zyvox) 600 mg BID 03/07/19 13:00 03/11/19 12:27 DC 03/11/19 08:31 600 MG Linezolid/Dextrose 300 ml @ 300 mls/hr Q12HR 03/05/19 13:00 03/07/19 09:13 DC 03/07/19 07:54 300 MLS/HR Lorazepam (Ativan Inj) 2 mg PRN Q4HRS PRN 03/18/19 13:15 03/18/19 18:10 DC 03/18/19 13:19 2 MG Lorazepam (Ativan) 2 mg PRN Q6HRS PRN 03/20/19 19:15 03/21/19 06:50 2 MG Magnesium Hydroxide (Milk Of Magnesia) 2,400 mg PRN DAILY PRN 03/19/19 09:00 Midazolam HCl (Versed) 5 mg 1X ONCE 03/20/19 10:30 03/20/19 10:31 DC 03/20/19 10:36 4 MG Morphine Sulfate (Morphine Sulfate) 2 mg PRN Q1HR PRN 03/05/19 10:45 03/17/19 08:52 DC 03/07/19 17:14 2 MG Morphine Sulfate (Ms Contin) 15 mg BID 03/16/19 13:00 03/21/19 08:50 15 MG Naloxone HCl (Narcan) 0.4 mg STK-MED ONCE 03/14/19 15:21 03/14/19 15:21 DC Norepinephrine Bitartrate 250 ml @ 0 mls/hr CONT PRN 03/05/19 11:00 03/09/19 15:58 DC Ondansetron HCl (Zofran) 4 mg PRN Q6HRS PRN 03/05/19 10:45 Oxycodone/ Acetaminophen (Percocet 10/325) 1 tab PRN Q4HRS PRN 03/06/19 10:00 03/21/19 10:02 1 TAB Piperacillin Sod/ Tazobactam Sod 3.375 gm/Sodium Chloride 50 ml @ 100 mls/hr 1X ONCE 03/05/19 09:30 03/05/19 09:59 DC 03/05/19 09:54 100 MLS/HR Piperacillin Sod/ Tazobactam Sod 4.5 gm/Sodium Chloride 100 ml @ 200 mls/hr Q6HRS 03/05/19 16:00 03/07/19 08:36 DC 03/07/19 05:01 200 MLS/HR Prochlorperazine (Compazine) 25 mg PRN Q12HR PRN 03/05/19 10:45 Prochlorperazine Edisylate (Compazine) 5 mg PRN Q6HRS PRN 03/05/19 10:45 Propofol 20 ml @ As Directed STK-MED ONCE 03/07/19 15:50 03/07/19 15:50 DC Senna/Docusate Sodium (Senna Plus) 1 tab BID 03/05/19 21:00 03/17/19 19:29 1 TAB Sodium Chloride (Normal Saline Flush) 10 ml QSHIFT PRN 03/07/19 13:45 Vancomycin HCl (Vanco Per Pharmacy) 1 each PRN DAILY PRN 03/05/19 11:00 03/06/19 08:18 DC 03/05/19 13:45 1 EACH Vancomycin HCl (Vancomycin Trough Level) 1 each 1X ONCE 03/06/19 10:30 03/06/19 08:21 DC Vancomycin HCl 1.5 gm/Sodium Chloride 500 ml @ 250 mls/hr Q8H 03/05/19 19:00 03/06/19 08:18 DC 03/06/19 03:06 250 MLS/HR Vancomycin HCl 2 gm/Sodium Chloride 500 ml @ 250 mls/hr 1X ONCE 03/05/19 12:00 03/05/19 13:59 Cancel Labs: Lab Laboratory Tests Test 03/21/19 06:00 White Blood Count 4.5 x10^3/uL (4.0-11.0) Red Blood Count 3.84 x10^6/uL (4.30-5.70) Hemoglobin 11.4 g/dL (13.0-17.5) Hematocrit 33.8 % (39.0-53.0) Mean Corpuscular Volume 88 fL (79-100) Mean Corpuscular Hemoglobin 30 pg (25-35) Mean Corpuscular Hemoglobin Concent 34 g/dL (31-37) Red Cell Distribution Width 13.1 % (11.5-14.5) Platelet Count 495 x10^3/uL (140-400) Neutrophils (%) (Auto) 52 % (31-73) Lymphocytes (%) (Auto) 29 % (24-48) Monocytes (%) (Auto) 9 % (0-9) Eosinophils (%) (Auto) 9 % (0-3) Basophils (%) (Auto) 1 % (0-3) Neutrophils # (Auto) 2.3 x10^3/uL (1.8-7.7) Lymphocytes # (Auto) 1.3 x10^3/uL (1.0-4.8) Monocytes # (Auto) 0.4 x10^3/uL (0.0-1.1) Eosinophils # (Auto) 0.4 x10^3/uL (0.0-0.7) Basophils # (Auto) 0.0 x10^3/uL (0.0-0.2) Sodium Level 143 mmol/L (136-145) Potassium Level 4.2 mmol/L (3.5-5.1) Chloride Level 105 mmol/L (98-107) Carbon Dioxide Level 32 mmol/L (21-32) Anion Gap 6 (6-14) Blood Urea Nitrogen 16 mg/dL (8-26) Creatinine 0.9 mg/dL (0.7-1.3) Estimated GFR (Cockcroft-Gault) 100.5 BUN/Creatinine Ratio 18 (6-20) Glucose Level 90 mg/dL (70-99) Calcium Level 8.8 mg/dL (8.5-10.1) Total Bilirubin 0.2 mg/dL (0.2-1.0) Aspartate Amino Transf (AST/SGOT) 34 U/L (15-37) Alanine Aminotransferase (ALT/SGPT) 43 U/L (16-63) Alkaline Phosphatase 132 U/L (46-116) Total Protein 6.7 g/dL (6.4-8.2) Albumin 2.3 g/dL (3.4-5.0) Albumin/Globulin Ratio 0.5 (1.0-1.7) Micro Mediastinal fluid g/s and c/s 03/20 Objective: Assessment: MSSA bacteremia from 03/05. -[place] 03/07 - neg. - Repeat BC 03/07 neg Empyema s/p chest tube 03/05. MSSA. s/p replacement, CTS removed on 03/11 another one placed 03/14, no org gram stain; culture neg so far Repeat CT Chest 03/18 Empyema left chest is almost resoved/ moderate left atelectasis increase mediastinal abscess Mediastinal tube removed 03/13,another drain placed 03/20 cults 03/20 CTS input noted,not a candidate for VATS,trial with drainage tube and antibiotics Left chest abscess s/p drain 03/05. MSSA Left shoulder pain persists but some better ? conduction defect on ECHO Transaminitis - some better Protein malnutrition H/o Meth use H/o Staph infection H/o Hep C - not treated Plan: Plan of Care Cont cefazolin F/U C/S from drain placement of mediastinal loculated fluid collection 03/20 f/u labs and cults Pt ready for dc home today Midline ; emphasized for use of IV antibiotics only complications of picc line and abx discussed at length quit street drugs Daptomycin 6mg/kg/day for 6 weeks,first dose here Ceftriaxone 2gm IV qd for 6 weeks,first dose here Duration will be atleast 4 more weeks, tentative stop date Apr 11 2019 after the dose SW to assist with dc antibiotics Probiotics Drain management per IR Weekly labs q mon cbcd.bun,creat,,lfts ,cpk,fax results to [phone] f/u pcp for all other medical issues. D/W KARLA D/W Dr Upton D/W SHUKRI WHEELER MD Mar 21, 2019 10:44
--- NOTE | 2019-03-21 10:46 | PDOC ---
PROGRESS NOTES Chief Complaint Chief Complaint POST PROCEDURE chest pain Sirs, sepsis on admit Empyema Left chest abscess H/o Meth use H/o Staph infection H/o Hep C - not treated small pericardial effusion Moderate to large decrease in the fluid volume of the left posterior basilar empyema. Pigtail catheter is noted within the fluid collection. Adjacent atelectasis.There is a loculated collection at the left upper thoracic cavity anteriorly adjacent to the mediastinum. It is unchanged in size. severe protein-caloric malnutrition mediastinal drain placement 03/20 HIGH RISK OF SUDDEN DUE TO HX IV DRUG ABUSE 34 MIN PT EXAM, CHART REVIEW, D/C PLANNING> 50% OF TIME SPENT WITH EXAM, CHART REVIEW, PT CARE COORDINATION History of Present Illness History of Present Illness transferred out of tele DR MAKI WITNESSED PT IN ROOM TRYING TO OBTAIN NEEDLE FROM SHARKS CONTAINER WITH TWEESERS concered he may be trying to inject drugs such as meth Wants to go home But pulmo recs mediastinal chest tube by IR d/w LIBAN LYON TO D/C TO OUTPT F/U WITH MIDLINE IV, IV ANTIBIOTICS PLAN IR for mediastinal chest tube insertion IV abx longterm SEE DR ANTONI VINCENT IN HIS CLINIC dw Pulmo Vitals Vitals Vital Signs Date Time Temp Pulse Resp B/P (MAP) Pulse Ox O2 Delivery O2 Flow Rate FiO2 03/21/19 10:02 Room Air 03/21/19 08:50 18 03/21/19 07:00 97.9 82 107/57 (74) 99 97.9 03/20/19 10:36 2.0 Physical Exam Physical Exam GENERAL: Propped up in bed, alert, watching TV HEENT: Pupils equal, Oral cavity clear NECK: Supple. Good range of motion. LUNGS: Diminished aeration on the left, left sided CT in place. sternal/left clavicular area mildly tender HEART: S1, S2, without gross murmur. ABDOMEN: Soft, nontender EXTREMITIES: No edema or cyanosis. SKIN: Warm to touch. multiple tattoos. NEUROLOGIC: Alert and oriented, cooperative. PIV General: Alert, Oriented X3, Cooperative, No acute distress Heart: Regular rate, Normal S1, Normal S2, No murmurs Lungs: Clear, Other (decrease left base l ct) Abdomen: Normal bowel sounds, Soft, Other (tender to left abd and back) Extremities: No clubbing, No cyanosis Skin: No significant lesion, Other (3x3cm area of fluctuance and tenderness without significant erythema on the left anterior chest wall) Labs LABS Laboratory Tests Test 03/21/19 06:00 White Blood Count 4.5 x10^3/uL (4.0-11.0) Red Blood Count 3.84 x10^6/uL (4.30-5.70) Hemoglobin 11.4 g/dL (13.0-17.5) Hematocrit 33.8 % (39.0-53.0) Mean Corpuscular Volume 88 fL (79-100) Mean Corpuscular Hemoglobin 30 pg (25-35) Mean Corpuscular Hemoglobin Concent 34 g/dL (31-37) Red Cell Distribution Width 13.1 % (11.5-14.5) Platelet Count 495 x10^3/uL (140-400) Neutrophils (%) (Auto) 52 % (31-73) Lymphocytes (%) (Auto) 29 % (24-48) Monocytes (%) (Auto) 9 % (0-9) Eosinophils (%) (Auto) 9 % (0-3) Basophils (%) (Auto) 1 % (0-3) Neutrophils # (Auto) 2.3 x10^3/uL (1.8-7.7) Lymphocytes # (Auto) 1.3 x10^3/uL (1.0-4.8) Monocytes # (Auto) 0.4 x10^3/uL (0.0-1.1) Eosinophils # (Auto) 0.4 x10^3/uL (0.0-0.7) Basophils # (Auto) 0.0 x10^3/uL (0.0-0.2) Sodium Level 143 mmol/L (136-145) Potassium Level 4.2 mmol/L (3.5-5.1) Chloride Level 105 mmol/L (98-107) Carbon Dioxide Level 32 mmol/L (21-32) Anion Gap 6 (6-14) Blood Urea Nitrogen 16 mg/dL (8-26) Creatinine 0.9 mg/dL (0.7-1.3) Estimated GFR (Cockcroft-Gault) 100.5 BUN/Creatinine Ratio 18 (6-20) Glucose Level 90 mg/dL (70-99) Calcium Level 8.8 mg/dL (8.5-10.1) Total Bilirubin 0.2 mg/dL (0.2-1.0) Aspartate Amino Transf (AST/SGOT) 34 U/L (15-37) Alanine Aminotransferase (ALT/SGPT) 43 U/L (16-63) Alkaline Phosphatase 132 U/L (46-116) Total Protein 6.7 g/dL (6.4-8.2) Albumin 2.3 g/dL (3.4-5.0) Albumin/Globulin Ratio 0.5 (1.0-1.7) Assessment and Plan Assessmemt and Plan Problems Medical Problems: (1) Chest wall abscess Status: Acute (2) Mediastinal abscess Status: Acute (3) Pleural effusion Status: Acute Comment Review of Relevant I have reviewed the following items nancy (where applicable) has been applied. Labs Laboratory Tests Test 03/21/19 06:00 White Blood Count 4.5 x10^3/uL (4.0-11.0) Red Blood Count 3.84 x10^6/uL (4.30-5.70) Hemoglobin 11.4 g/dL (13.0-17.5) Hematocrit 33.8 % (39.0-53.0) Mean Corpuscular Volume 88 fL (79-100) Mean Corpuscular Hemoglobin 30 pg (25-35) Mean Corpuscular Hemoglobin Concent 34 g/dL (31-37) Red Cell Distribution Width 13.1 % (11.5-14.5) Platelet Count 495 x10^3/uL (140-400) Neutrophils (%) (Auto) 52 % (31-73) Lymphocytes (%) (Auto) 29 % (24-48) Monocytes (%) (Auto) 9 % (0-9) Eosinophils (%) (Auto) 9 % (0-3) Basophils (%) (Auto) 1 % (0-3) Neutrophils # (Auto) 2.3 x10^3/uL (1.8-7.7) Lymphocytes # (Auto) 1.3 x10^3/uL (1.0-4.8) Monocytes # (Auto) 0.4 x10^3/uL (0.0-1.1) Eosinophils # (Auto) 0.4 x10^3/uL (0.0-0.7) Basophils # (Auto) 0.0 x10^3/uL (0.0-0.2) Sodium Level 143 mmol/L (136-145) Potassium Level 4.2 mmol/L (3.5-5.1) Chloride Level 105 mmol/L (98-107) Carbon Dioxide Level 32 mmol/L (21-32) Anion Gap 6 (6-14) Blood Urea Nitrogen 16 mg/dL (8-26) Creatinine 0.9 mg/dL (0.7-1.3) Estimated GFR (Cockcroft-Gault) 100.5 BUN/Creatinine Ratio 18 (6-20) Glucose Level 90 mg/dL (70-99) Calcium Level 8.8 mg/dL (8.5-10.1) Total Bilirubin 0.2 mg/dL (0.2-1.0) Aspartate Amino Transf (AST/SGOT) 34 U/L (15-37) Alanine Aminotransferase (ALT/SGPT) 43 U/L (16-63) Alkaline Phosphatase 132 U/L (46-116) Total Protein 6.7 g/dL (6.4-8.2) Albumin 2.3 g/dL (3.4-5.0) Albumin/Globulin Ratio 0.5 (1.0-1.7) Laboratory Tests Test 03/21/19 06:00 White Blood Count 4.5 x10^3/uL (4.0-11.0) Red Blood Count 3.84 x10^6/uL (4.30-5.70) Hemoglobin 11.4 g/dL (13.0-17.5) Hematocrit 33.8 % (39.0-53.0) Mean Corpuscular Volume 88 fL (79-100) Mean Corpuscular Hemoglobin 30 pg (25-35) Mean Corpuscular Hemoglobin Concent 34 g/dL (31-37) Red Cell Distribution Width 13.1 % (11.5-14.5) Platelet Count 495 x10^3/uL (140-400) Neutrophils (%) (Auto) 52 % (31-73) Lymphocytes (%) (Auto) 29 % (24-48) Monocytes (%) (Auto) 9 % (0-9) Eosinophils (%) (Auto) 9 % (0-3) Basophils (%) (Auto) 1 % (0-3) Neutrophils # (Auto) 2.3 x10^3/uL (1.8-7.7) Lymphocytes # (Auto) 1.3 x10^3/uL (1.0-4.8) Monocytes # (Auto) 0.4 x10^3/uL (0.0-1.1) Eosinophils # (Auto) 0.4 x10^3/uL (0.0-0.7) Basophils # (Auto) 0.0 x10^3/uL (0.0-0.2) Sodium Level 143 mmol/L (136-145) Potassium Level 4.2 mmol/L (3.5-5.1) Chloride Level 105 mmol/L (98-107) Carbon Dioxide Level 32 mmol/L (21-32) Anion Gap 6 (6-14) Blood Urea Nitrogen 16 mg/dL (8-26) Creatinine 0.9 mg/dL (0.7-1.3) Estimated GFR (Cockcroft-Gault) 100.5 BUN/Creatinine Ratio 18 (6-20) Glucose Level 90 mg/dL (70-99) Calcium Level 8.8 mg/dL (8.5-10.1) Total Bilirubin 0.2 mg/dL (0.2-1.0) Aspartate Amino Transf (AST/SGOT) 34 U/L (15-37) Alanine Aminotransferase (ALT/SGPT) 43 U/L (16-63) Alkaline Phosphatase 132 U/L (46-116) Total Protein 6.7 g/dL (6.4-8.2) Albumin 2.3 g/dL (3.4-5.0) Albumin/Globulin Ratio 0.5 (1.0-1.7) Microbiology 03/14/19 Gram Stain - Final, Complete 03/07/19 Blood Culture - Final, Complete NO GROWTH AFTER 5 DAYS 03/05/19 AFB Specimen Processing Tissue - Final, Resulted 03/05/19 Acid Fast Bacilli Culture, Resulted Pending 03/05/19 Gram Stain - Final, Resulted 03/05/19 Fungal Culture - Preliminary, Resulted 03/05/19 Fungal Culture Result 1 - Preliminary, Resulted Medications Current Medications Sodium Chloride 1,000 ml @ 1,000 mls/hr Q1H IV Last administered on 03/05/19at 08:42; Start 03/05/19 at 08:18; Stop 03/05/19 at 09:17; Status DC Morphine Sulfate (Morphine Sulfate) 4 mg 1X ONCE IV Last administered on 03/05/19at 08:42; Start 03/05/19 at 09:00; Stop 03/05/19 at 09:01; Status DC Ondansetron HCl (Zofran) 4 mg 1X ONCE IV Last administered on 03/05/19at 08:42; Start 03/05/19 at 09:00; Stop 03/05/19 at 09:01; Status DC Iohexol (Omnipaque 350 Mg/ml) 100 ml 1X ONCE IV Last administered on 03/05/19 09:05; Start 03/05/19 at 08:30; Stop 03/05/19 at 08:32; Status DC Info (CONTRAST GIVEN -- Rx MONITORING) 1 each PRN DAILY PRN MC SEE COMMENTS; S tart 03/05/19 at 08:45; Stop 03/07/19 at 08:44; Status DC Hydromorphone HCl (Dilaudid) 1 mg 1X ONCE IV Last administered on 03/05/19at 09:05; Start 03/05/19 at 09:15; Stop 03/05/19 at 09:16; Status DC Sodium Chloride 1,000 ml @ 1,000 mls/hr 1X ONCE IV Last administered on 03/05/19at 09:54; Start 03/05/19 at 09:30; Stop 03/05/19 at 10:29; Status DC Piperacillin Sod/ Tazobactam Sod 3.375 gm/Sodium Chloride 50 ml @ 100 mls/hr 1X ONCE IV Last administered on 03/05/19at 09:54; Start 03/05/19 at 09:30; Stop 03/05/19 at 09:59; Status DC Vancomycin HCl 250 ml @ 250 mls/hr 1X ONCE IV ; Start 03/05/19 at 09:30; Stop 03/05/19 at 10:29; Status UNV Vancomycin HCl 2 gm/Sodium Chloride 500 ml @ 250 mls/hr 1X ONCE IV Last administered on 03/05/19at 10:35; Start 03/05/19 at 10:00; Stop 03/05/19 at 11:59; Status DC Hydromorphone HCl (Dilaudid) 1 mg 1X ONCE IV Last administered on 03/05/19at 10:35; Start 03/05/19 at 10:30; Stop 03/05/19 at 10:31; Status DC Sodium Chloride 1,000 ml @ 150 mls/hr Q6H40M IV Last administered on 03/05/19at 12:20; Start 03/05/19 at 10:26; Stop 03/05/19 at 20:22; Status DC Acetaminophen (Tylenol) 650 mg PRN Q6HRS PRN PO Headaches, Temp > 101.5'; Start 03/05/19 at 10:45 Lorazepam (Ativan Inj) 0.5 mg PRN Q6HRS PRN IV ANXIETY / AGITATION; Start 03/05/19 at 10:45; Stop 03/15/19 at 11:23; Status DC Ondansetron HCl (Zofran) 4 mg PRN Q6HRS PRN IV NAUSEA/VOMITING, 1ST CHOICE; Start 03/05/19 at 10:45 Prochlorperazine Edisylate (Compazine) 5 mg PRN Q6HRS PRN IV NAUSEA/VOMITING, 2ND CHOICE; Start 03/05/19 at 10:45 Prochlorperazine (Compazine) 25 mg PRN Q12HR PRN PA NAUSEA/VOMITING; Start 03/05/19 at 10:45 Al Hydroxide/Mg Hydroxide (Mylanta Plus Xs) 30 ml PRN Q3HRS PRN PO HEARTBURN / GAS; Start 03/05/19 at 10:45 Calcium Carbonate/ Glycine (Tums) 500 mg PRN Q3HRS PRN PO HEARTBURN / GAS, 2ND CHOICE Last administered on 03/20/19at 18:12; Start 03/05/19 at 10:45 Famotidine (Pepcid Vial) 20 mg BID IVP Last administered on 03/11/19at 08:31; Start 03/05/19 at 12:00; Stop 03/11/19 at 11:00; Status DC Info (Icu Electrolyte Protocol) 1 ea DAILY ; Start 03/06/19 at 09:00; Stop 03/09/19 at 15:55; Status DC Heparin Sodium (Porcine) (Heparin Sodium) 5,000 unit Q12HR SQ Last administered on 03/12/19at 08:48; Start 03/05/19 at 21:00 Sodium Chloride (Normal Saline Flush) 3 ml QSHIFT PRN IV AFTER MEDS AND BLOOD DRAWS; Start 03/05/19 at 10:45; Stop 03/14/19 at 13:07; Status DC Sodium Chloride 1,000 ml @ 100 mls/hr Q10H IV Last administered on 03/07/19at 05:01; Start 03/05/19 at 10:39; Stop 03/07/19 at 11:00; Status DC Acetaminophen/ Hydrocodone Bitart (Lortab 5/325) 1 tab PRN Q4HRS PRN PO MILD PAIN 1-3; Start 03/05/19 at 10:45; Stop 03/06/19 at 09:58; Status DC Acetaminophen/ Hydrocodone Bitart (Lortab 5/325) 2 tab PRN Q4HRS PRN PO MODERATE PAIN, SEVERE PAIN; Start 03/05/19 at 10:45; Stop 03/06/19 at 09:58; Status DC Morphine Sulfate (Morphine Sulfate) 2 mg PRN Q1HR PRN IV MODERATE PAIN Last administered on 03/07/19at 17:14; Start 03/05/19 at 10:45; Stop 03/17/19 at 08:52; Status DC Senna/Docusate Sodium (Senna Plus) 1 tab BID PO Last administered on 03/17/19at 19:29; Start 03/05/19 at 21:00 Docusate Sodium (Colace) 100 mg BID PO Last administered on 03/19/19at 09:39; Start 03/05/19 at 12:00 Bisacodyl (Dulcolax Supp) 10 mg PRN DAILY PRN PA CONSTIPATION; Start 03/05/19 at 10:45 Sodium Chloride 1,000 ml @ 2,550 mls/hr Q24M IV ; Start 03/05/19 at 10:48; Stop 03/05/19 at 11:48; Status DC Sodium Chloride 500 ml @ 1,000 mls/hr PRN Q30MIN PRN IV PER PROTOCOL; Start 03/05/19 at 11:00 Vancomycin HCl (Vanco Per Pharmacy) 1 each PRN DAILY PRN MC SEE COMMENTS Last administered on 03/05/19at 13:45; Start 03/05/19 at 11:00; Stop 03/06/19 at 08: 18; Status DC Piperacillin Sod/ Tazobactam Sod 4.5 gm/Sodium Chloride 100 ml @ 200 mls/hr Q6HRS IV ; Start 03/05/19 at 12:00; Stop 03/05/19 at 11:59; Status DC Norepinephrine Bitartrate 250 ml @ 0 mls/hr CONT PRN IV PER PROTOCOL; Start 03/05/19 at 11:00; Stop 03/09/19 at 15:58; Status DC Dobutamine HCl/ Dextrose 250 ml @ 0 mls/hr CONT PRN IV PER PROTOCOL; Start 03/05/19 at 11:00; Stop 03/07/19 at 11:00; Status DC Vancomycin HCl 2 gm/Sodium Chloride 500 ml @ 250 mls/hr 1X ONCE IV ; Start 03/05/19 at 12:00; Stop 03/05/19 at 13:59; Status Cancel Piperacillin Sod/ Tazobactam Sod 4.5 gm/Sodium Chloride 100 ml @ 200 mls/hr Q6HRS IV Last administered on 03/07/19at 05:01; Start 03/05/19 at 16:00; Stop 03/07/19 at 08:36; Status DC Linezolid/Dextrose 300 ml @ 300 mls/hr Q12HR IV Last administered on 03/07/19at 07:54; Start 03/05/19 at 13:00; Stop 03/07/19 at 09:13; Status DC Lidocaine/Sodium Bicarbonate (Buffered Lidocaine 1%) 3 ml STK-MED ONCE .ROUTE ; Start 03/05/19 at 12:12; Stop 03/05/19 at 12:13; Status DC Midazolam HCl (Versed) 2 mg STK-MED ONCE .ROUTE ; Start 03/05/19 at 12:13; Stop 03/05/19 at 12:13; Status DC Fentanyl Citrate (Fentanyl 2ml Vial) 100 mcg STK-MED ONCE .ROUTE ; Start 03/05/19 at 12:14; Stop 03/05/19 at 12:14; Status DC Lidocaine/Sodium Bicarbonate (Buffered Lidocaine 1%) 3 ml STK-MED ONCE .ROUTE ; Start 03/05/19 at 13:05; Stop 03/05/19 at 13:05; Status DC Hydromorphone HCl (Dilaudid) 1.5 mg PRN Q3HRS PRN IVP SEVERE PAIN Last administered on 03/08/19at 08:46; Start 03/05/19 at 13:30; Stop 03/08/19 at 10:24; Status DC Lidocaine/Sodium Bicarbonate (Buffered Lidocaine 1%) 3 ml 1X ONCE IJ Last administered on 03/05/19at 13:32; Start 03/05/19 at 13:30; Stop 03/05/19 at 13:31; Status DC Midazolam HCl (Versed) 2 mg 1X ONCE IV Last administered on 03/05/19at 13:32; Start 03/05/19 at 13:30; Stop 03/05/19 at 13:31; Status DC Fentanyl Citrate (Fentanyl 2ml Vial) 100 mcg 1X ONCE IV Last administered on 03/05/19at 13:32; Start 03/05/19 at 13:30; Stop 03/05/19 at 13:31; Status DC Vancomycin HCl 1.5 gm/Sodium Chloride 500 ml @ 250 mls/hr Q8H IV Last administered on 03/06/19at 03:06; Start 03/05/19 at 19:00; Stop 03/06/19 at 08:18; Status DC Vancomycin HCl (Vancomycin Trough Level) 1 each 1X ONCE MC ; Start 03/06/19 at 10:30; Stop 03/06/19 at 08:21; Status DC Daptomycin 600 mg/ Sodium Chloride 50 ml @ 100 mls/hr Q24H IV Last administered on 03/09/19at 09:39; Start 03/06/19 at 10:00; Stop 03/09/19 at 11:48; Status DC Acetaminophen/ Hydrocodone Bitart (Lortab 5/325) 1 tab PRN Q4HRS PRN PO PAIN; Start 03/06/19 at 08:45; Stop 03/06/19 at 09:58; Status DC Oxycodone/ Acetaminophen (Percocet 10/325) 1 tab PRN Q4HRS PRN PO PAIN Last administered on 03/21/19at 10:02; Start 03/06/19 at 10:00 Ketorolac Tromethamine (Toradol 30mg Vial) 30 mg PRN Q6HRS PRN IV INFLAMMATION Last administered on 03/11/19at 04:12; Start 03/06/19 at 10:00; Stop 03/11/19 at 09:59; Status DC Lactobacillus Rhamnosus (Culturelle) 1 cap BID PO Last administered on 03/21/19at 08:50; Start 03/06/19 at 21:00 Linezolid (Zyvox) 600 mg BID PO Last administered on 03/11/19at 08:31; Start 03/07/19 at 13:00; Stop 03/11/19 at 12:27; Status DC Sodium Chloride (Normal Saline Flush) 10 ml QSHIFT PRN IV AFTER MEDS AND BLOOD DRAWS; Start 03/07/19 at 13:45 Lidocaine HCl (Xylocaine 2% Topical 5gm Tube) 1 michel 1X ONCE TP ; Start 03/07/19 at 13:45; Stop 03/07/19 at 13:46; Status DC Lidocaine HCl (Viscous Lidocaine) 15 ml 1X ONCE MM ; Start 03/07/19 at 13:45; Stop 03/07/19 at 13:46; Status DC Benzocaine (Hurricaine One) 1 spray 1X ONCE MM ; Start 03/07/19 at 13:45; Stop 03/07/19 at 13:46; Status DC Alteplase, Recombinant 10 mg/ Sterile Water 50 ml @ 0 mls/hr 1X ONCE IV Last administered on 03/07/19at 17:14; Start 03/07/19 at 15:45; Stop 03/07/19 at 15:46; Status DC Propofol 20 ml @ As Directed STK-MED ONCE IV ; Start 03/07/19 at 15:50; Stop 03/07/19 at 15:50; Status DC Lidocaine HCl (Lidocaine Pf 2% Vial) 5 ml STK-MED ONCE .ROUTE ; Start 03/07/19 at 15:50; Stop 03/07/19 at 15:50; Status DC Ephedrine Sulfate (ePHEDrine PF IN SALINE SYRINGE) 50 mg STK-MED ONCE IV ; Start 03/07/19 at 15:50; Stop 03/07/19 at 15:50; Status DC Hydromorphone HCl (Dilaudid) 2 mg PRN Q3HRS PRN IV SEVERE PAIN Last administered on 03/15/19at 09:44; Start 03/08/19 at 10:30; Stop 03/15/19 at 12:13; Status DC Cefazolin Sodium 2 gm/Dextrose 50 ml @ 100 mls/hr Q8HRS IV Last administered on 03/21/19at 05:53; Start 03/09/19 at 14:00 Famotidine (Pepcid) 20 mg BID PO Last administered on 03/21/19at 08:50; Start 03/11/19 at 21:00 Iohexol (Omnipaque 300 Mg/ml) 75 ml 1X ONCE IV Last administered on 03/13/19at 12:35; Start 03/13/19 at 12:15; Stop 03/13/19 at 12:16; Status DC Info (CONTRAST GIVEN -- Rx MONITORING) 1 each PRN DAILY PRN MC SEE COMMENTS; Start 03/13/19 at 12:15; Stop 03/15/19 at 12:14; Status DC Lidocaine/Sodium Bicarbonate (Buffered Lidocaine 1%) 3 ml STK-MED ONCE .ROUTE ; Start 03/14/19 at 14:41; Stop 03/14/19 at 14:41; Status DC Lidocaine/Sodium Bicarbonate (Buffered Lidocaine 1%) 3 ml STK-MED ONCE .ROUTE ; Start 03/14/19 at 14:58; Stop 03/14/19 at 14:58; Status DC Midazolam HCl (Versed) 5 mg STK-MED ONCE .ROUTE ; Start 03/14/19 at 15:21; Stop 03/14/19 at 15:21; Status DC Fentanyl Citrate (Fentanyl 5ml Vial) 250 mcg STK-MED ONCE .ROUTE ; Start 03/14/19 at 15:21; Stop 03/14/19 at 15:21; Status DC Flumazenil (Romazicon) 0.5 mg STK-MED ONCE IV ; Start 03/14/19 at 15:21; Stop 03/14/19 at 15:21; Status DC Naloxone HCl (Narcan) 0.4 mg STK-MED ONCE .ROUTE ; Start 03/14/19 at 15:21; Stop 03/14/19 at 15:21; Status DC Lidocaine/Sodium Bicarbonate (Buffered Lidocaine 1%) 12 ml 1X ONCE IJ Last administered on 03/14/19at 16:00; Start 03/14/19 at 15:45; Stop 03/14/19 at 15:49; Status DC Midazolam HCl (Versed) 5 mg 1X ONCE IV Last administered on 03/14/19at 16:00; Start 03/14/19 at 15:45; Stop 03/14/19 at 15:49; Status DC Fentanyl Citrate (Fentanyl 5ml Vial) 150 mcg 1X ONCE IV Last administered on 03/14/19at 16:00; Start 03/14/19 at 15:45; Stop 03/14/19 at 15:49; Status DC Lorazepam (Ativan Inj) 2 mg PRN Q6HRS PRN IV ANXIETY / AGITATION Last administered on 03/15/19at 07:36; Start 03/14/19 at 18:00; Stop 03/15/19 at 12:14; Status DC Hydromorphone HCl (Dilaudid) 2 mg PRN Q2HR PRN IV SEVERE PAIN Last administered on 03/20/19at 13:37; Start 03/15/19 at 12:15; Stop 03/20/19 at 14:39; Status DC Lorazepam (Ativan) 1 mg PRN Q6HRS PRN PO ANXIETY / AGITATION Last administered on 03/20/19at 18:06; Start 03/15/19 at 12:15; Stop 03/20/19 at 19:12; Status DC Morphine Sulfate (Ms Contin) 15 mg BID PO Last administered on 03/21/19at 08:50; Start 03/16/19 at 13:00 Lorazepam (Ativan Inj) 2 mg PRN Q4HRS PRN IV ANXIETY / AGITATION Last administered on 03/18/19at 13:19; Start 03/18/19 at 13:15; Stop 03/18/19 at 18:10; Status DC Magnesium Hydroxide (Milk Of Magnesia) 2,400 mg PRN DAILY PRN PO CONSTIPATION; Start 03/19/19 at 09:00 Lidocaine/Sodium Bicarbonate (Buffered Lidocaine 1%) 3 ml STK-MED ONCE .ROUTE ; Start 03/20/19 at 09:26; Stop 03/20/19 at 09:26; Status DC Midazolam HCl (Versed) 5 mg STK-MED ONCE .ROUTE ; Start 03/20/19 at 09:55; Stop 03/20/19 at 09:56; Status DC Fentanyl Citrate (Fentanyl 5ml Vial) 250 mcg STK-MED ONCE .ROUTE ; Start 03/20/19 at 09:55; Stop 03/20/19 at 09:56; Status DC Lidocaine/Sodium Bicarbonate (Buffered Lidocaine 1%) 12 ml 1X ONCE IJ Last administered on 03/20/19 10:36; Start 03/20/19 at 10:30; Stop 03/20/19 at 10:31; Status DC Midazolam HCl (Versed) 5 mg 1X ONCE IV Last administered on 03/20/19 10:36; Start 03/20/19 at 10:30; Stop 03/20/19 at 10:31; Status DC Fentanyl Citrate (Fentanyl 5ml Vial) 200 mcg 1X ONCE IV Last administered on 03/20/19 10:36; Start 03/20/19 at 10:30; Stop 03/20/19 at 10:31; Status DC Hydromorphone HCl (Dilaudid) 2.5 mg PRN Q2HR PRN IV SEVERE PAIN Last administered on 03/21/19 08:50; Start 03/20/19 at 14:45 Ketorolac Tromethamine (Toradol 30mg Vial) 30 mg PRN Q6HRS PRN IV MODERATE PAIN Last administered on 03/21/19 06:50; Start 03/20/19 at 14:45; Stop 03/25/19 at 14:44 Lorazepam (Ativan) 2 mg PRN Q6HRS PRN PO ANXIETY / AGITATION Last administered on 03/21/19 06:50; Start 03/20/19 at 19:15 Vitals/I & O Vital Sign - Last 24 Hours 03/20/19 03/20/19 03/20/19 03/20/19 11:13 11:13 12:20 15:02 Temp 98.1 98.1 Pulse 83 Resp 16 B/P (MAP) 117/62 (80) Pulse Ox 100 O2 Delivery Room Air Room Air Room Air Room Air 03/20/19 03/20/19 03/20/19 03/20/19 17:59 17:59 19:00 19:45 Temp 98.8 98.8 Pulse 92 Resp 16 B/P (MAP) 113/67 (82) Pulse Ox 98 O2 Delivery Room Air Room Air Room Air 03/20/19 03/20/19 03/20/19 03/20/19 20:07 20:07 20:17 22:14 O2 Delivery Room Air Room Air Room Air Room Air 03/20/19 03/20/19 03/20/19 03/21/19 22:29 22:29 23:00 00:11 Temp 98.3 98.3 Pulse 85 Resp 16 B/P (MAP) 99/57 (71) Pulse Ox 99 O2 Delivery Room Air Room Air Room Air 03/21/19 03/21/19 03/21/19 03/21/19 00:13 00:13 02:13 02:14 O2 Delivery Room Air Room Air Room Air Room Air 03/21/19 03/21/19 03/21/19 03/21/19 02:14 02:21 03:00 03:07 Temp 97.7 97.7 Pulse 81 Resp 16 B/P (MAP) 103/54 (70) Pulse Ox 98 O2 Delivery Room Air Room Air Room Air 03/21/19 03/21/19 03/21/19 03/21/19 05:53 05:53 06:56 06:56 O2 Delivery Room Air Room Air Room Air Room Air 03/21/19 03/21/19 03/21/19 03/21/19 07:00 08:50 08:50 09:32 Temp 97.9 97.9 Pulse 82 Resp 19 18 B/P (MAP) 107/57 (74) Pulse Ox 99 O2 Delivery Room Air Room Air Room Air Room Air 03/21/19 10:02 O2 Delivery Room Air Intake and Output 03/20/19 03/20/19 03/21/19 15:00 23:00 07:00 Intake Total 240 ml Output Total 5 ml Balance -5 ml 240 ml NICHOLE WADE MD Mar 21, 2019 10:46
[2019-03-21 11:00] VITALS: BP 115/69
--- NOTE | 2019-03-21 12:01 | PDOC ---
PULMONARY PROGRESS NOTES Subjective no new complain Vitals Vital Signs Date Time Temp Pulse Resp B/P (MAP) Pulse Ox O2 Delivery O2 Flow Rate FiO2 03/21/19 11:15 Room Air 03/21/19 08:50 18 03/21/19 07:00 97.9 82 107/57 (74) 99 97.9 03/20/19 10:36 2.0 ROS: No Nausea, No Abdominal Pain, No Increase Cough General: Alert, No acute distress Lungs: Other (decrease left base l ct) Cardiovascular: S1, S2 Abdomen: Soft Neuro Exam: Alert Extremities: No Edema Skin: Warm Labs Laboratory Tests Test 03/21/19 06:00 White Blood Count 4.5 x10^3/uL (4.0-11.0) Red Blood Count 3.84 x10^6/uL (4.30-5.70) Hemoglobin 11.4 g/dL (13.0-17.5) Hematocrit 33.8 % (39.0-53.0) Mean Corpuscular Volume 88 fL (79-100) Mean Corpuscular Hemoglobin 30 pg (25-35) Mean Corpuscular Hemoglobin Concent 34 g/dL (31-37) Red Cell Distribution Width 13.1 % (11.5-14.5) Platelet Count 495 x10^3/uL (140-400) Neutrophils (%) (Auto) 52 % (31-73) Lymphocytes (%) (Auto) 29 % (24-48) Monocytes (%) (Auto) 9 % (0-9) Eosinophils (%) (Auto) 9 % (0-3) Basophils (%) (Auto) 1 % (0-3) Neutrophils # (Auto) 2.3 x10^3/uL (1.8-7.7) Lymphocytes # (Auto) 1.3 x10^3/uL (1.0-4.8) Monocytes # (Auto) 0.4 x10^3/uL (0.0-1.1) Eosinophils # (Auto) 0.4 x10^3/uL (0.0-0.7) Basophils # (Auto) 0.0 x10^3/uL (0.0-0.2) Sodium Level 143 mmol/L (136-145) Potassium Level 4.2 mmol/L (3.5-5.1) Chloride Level 105 mmol/L (98-107) Carbon Dioxide Level 32 mmol/L (21-32) Anion Gap 6 (6-14) Blood Urea Nitrogen 16 mg/dL (8-26) Creatinine 0.9 mg/dL (0.7-1.3) Estimated GFR (Cockcroft-Gault) 100.5 BUN/Creatinine Ratio 18 (6-20) Glucose Level 90 mg/dL (70-99) Calcium Level 8.8 mg/dL (8.5-10.1) Total Bilirubin 0.2 mg/dL (0.2-1.0) Aspartate Amino Transf (AST/SGOT) 34 U/L (15-37) Alanine Aminotransferase (ALT/SGPT) 43 U/L (16-63) Alkaline Phosphatase 132 U/L (46-116) Total Protein 6.7 g/dL (6.4-8.2) Albumin 2.3 g/dL (3.4-5.0) Albumin/Globulin Ratio 0.5 (1.0-1.7) Laboratory Tests Test 03/21/19 06:00 White Blood Count 4.5 x10^3/uL (4.0-11.0) Red Blood Count 3.84 x10^6/uL (4.30-5.70) Hemoglobin 11.4 g/dL (13.0-17.5) Hematocrit 33.8 % (39.0-53.0) Mean Corpuscular Volume 88 fL (79-100) Mean Corpuscular Hemoglobin 30 pg (25-35) Mean Corpuscular Hemoglobin Concent 34 g/dL (31-37) Red Cell Distribution Width 13.1 % (11.5-14.5) Platelet Count 495 x10^3/uL (140-400) Neutrophils (%) (Auto) 52 % (31-73) Lymphocytes (%) (Auto) 29 % (24-48) Monocytes (%) (Auto) 9 % (0-9) Eosinophils (%) (Auto) 9 % (0-3) Basophils (%) (Auto) 1 % (0-3) Neutrophils # (Auto) 2.3 x10^3/uL (1.8-7.7) Lymphocytes # (Auto) 1.3 x10^3/uL (1.0-4.8) Monocytes # (Auto) 0.4 x10^3/uL (0.0-1.1) Eosinophils # (Auto) 0.4 x10^3/uL (0.0-0.7) Basophils # (Auto) 0.0 x10^3/uL (0.0-0.2) Sodium Level 143 mmol/L (136-145) Potassium Level 4.2 mmol/L (3.5-5.1) Chloride Level 105 mmol/L (98-107) Carbon Dioxide Level 32 mmol/L (21-32) Anion Gap 6 (6-14) Blood Urea Nitrogen 16 mg/dL (8-26) Creatinine 0.9 mg/dL (0.7-1.3) Estimated GFR (Cockcroft-Gault) 100.5 BUN/Creatinine Ratio 18 (6-20) Glucose Level 90 mg/dL (70-99) Calcium Level 8.8 mg/dL (8.5-10.1) Total Bilirubin 0.2 mg/dL (0.2-1.0) Aspartate Amino Transf (AST/SGOT) 34 U/L (15-37) Alanine Aminotransferase (ALT/SGPT) 43 U/L (16-63) Alkaline Phosphatase 132 U/L (46-116) Total Protein 6.7 g/dL (6.4-8.2) Albumin 2.3 g/dL (3.4-5.0) Albumin/Globulin Ratio 0.5 (1.0-1.7) Comments CT CHEST 03/18 REVIEWED Empyema left chest is almost resoved/ moderate left atelectasis increase mediastinal abscess Impression . IMPRESSION: 1. Empyema.S/P recurrent CHEST TUBE for empyema,.( MSSA)/ HAD LOCULATED FLUID COLLECTION ON REPEAT CT CHEST , s/p treatment with CHEST TUBE . repeat ct 03/18 near complete resolution of left empyema, chest tube removed 03/19 2. Anterior mediastinal abscess extending into the left anterior chest wall muscular structures. Now increase on ct 03/18. s/p drain by IR 03/20 3. Small pericardial effusion. 4. Elevated liver chemistries.improved 5. Protein malnutrition. 6. Methamphetamine use., h/o vaping 7. MSSA BACTEREMIA 8. repeat pleural culture neg Plan . CHEST TUBE REMOVED 03/11, ANOTHER ONE PLACED 03/14, ct chest shows complete resolution of left empyema. No need for TPA.removed 03/19 MEDIASTINAL TUBE REMOVED 03/13/ unfortunately abscess has increased. repeat drain placed by IR 03/20 ANTIBX PER ID CULTURES C/W MSSA, repeat neg so far REPEAT PLEURAL CULTURES, neg cx D/W RN/ patient in detail. d/w Dr Dougie Lambert and IR and Dr Upton pt to go home today . need 4 weeks if IV abx per ID f/u with IR next week for drain removal. I have warned him about future use of IV meth. He may not survive the next time he does not need a f/u with me DENISE DRAKE MD Mar 21, 2019 12:01
--- NOTE | 2019-03-21 12:02 | PDOC3 ---
Discharge Summary Date of Admission: Mar 05, 2019 Date of Discharge: Mar 21, 2019 Follow-Up: 1-2 days Admitting Diagnosis comment: POST PROCEDURE chest pain Sirs, sepsis on admit Empyema Left chest abscess H/o Meth use H/o Staph infection H/o Hep C - not treated small pericardial effusion Moderate to large decrease in the fluid volume of the left posterior basilar empyema. Pigtail catheter is noted within the fluid collection. Adjacent atelectasis.There is a loculated collection at the left upper thoracic cavity anteriorly adjacent to the mediastinum. It is unchanged in size. severe protein-caloric malnutrition mediastinal drain placement 03/20 HIGH RISK OF SUDDEN DUE TO HX IV DRUG ABUSE 34 MIN PT EXAM, CHART REVIEW, D/C PLANNING> 50% OF TIME SPENT WITH EXAM, CHART REVIEW, PT CARE COORDINATION History of Present Illness History of Present Illness transferred out of tele DR MAKI WITNESSED PT IN ROOM TRYING TO OBTAIN NEEDLE FROM SHARPS CONTAINER WITH TWEESERS 05/21 concerned he may be trying to self inject drugs such as meth Wants to go home But pulmo recs mediastinal chest tube by IR d/w DR DRAKE, OK TO D/C TO OUTPT F/U WITH MIDLINE IV, IV ANTIBIOTICS PLAN IR for mediastinal chest tube insertion IV abx fci SEE DR ANTONI VINCENT IN HIS CLINIC dw Pulmo and ID IN [facility] Vitals Vitals Vital Signs ROOM AIR Date Time Temp Pulse Resp B/P (MAP) Pulse Ox O2 Delivery O2 Flow Rate FiO2 03/21/19 10:02 Room Air 03/21/19 08:50 18 03/21/19 07:00 97.9 82 107/57 (74) 99 97.9 03/20/19 10:36 2.0 Physical Exam Physical Exam GENERAL: Propped up in bed, alert, watching TV WITH SO. HEENT: Pupils equal, Oral cavity clear NECK: Supple. Good range of motion. LUNGS: Diminished aeration on the left, left sided CT in place. sternal/left clavicular area mildly tender HEART: S1, S2, without gross murmur. ABDOMEN: Soft, nontender EXTREMITIES: No edema or cyanosis. SKIN: Warm to touch. multiple tattoos. NEUROLOGIC: Alert and oriented, cooperative. PIV General: Alert, Oriented X3, Cooperative, No acute distress Heart: Regular rate, Normal S1, Normal S2, No murmurs Lungs: Clear, Other (decrease left base l ct) Abdomen: Normal bowel sounds, Soft, Other (tender to left abd and back) Extremities: No clubbing, No cyanosis Skin: No significant lesion, Other (3x3cm area MINIMAL tenderness without significant erythema on the left anterior chest wall) FINAL DIAGNOSIS Problems Medical Problems: (1) Chest wall abscess Status: Acute (2) Mediastinal abscess Status: Acute (3) Pleural effusion Status: Acute Brief Hospital Course Mr. Maria is a 28 old [sex] who presented with [SEPSIS, IV DRUG ABUSE ] CONDITION AT DISCHARGE: Improved Discharge Medications Current Medications Sodium Chloride 1,000 ml @ 1,000 mls/hr Q1H IV Last administered on 03/05/19 08:42; Start 03/05/19 at 08:18; Stop 03/05/19 at 09:17; Status DC Morphine Sulfate (Morphine Sulfate) 4 mg 1X ONCE IV Last administered on 03/05/19at 08:42; Start 03/05/19 at 09:00; Stop 03/05/19 at 09:01; Status DC Ondansetron HCl (Zofran) 4 mg 1X ONCE IV Last administered on 03/05/19at 08:42; Start 03/05/19 at 09:00; Stop 03/05/19 at 09:01; Status DC Iohexol (Omnipaque 350 Mg/ml) 100 ml 1X ONCE IV Last administered on 03/05/19at 09:05; Start 03/05/19 at 08:30; Stop 03/05/19 at 08:32; Status DC Info (CONTRAST GIVEN -- Rx MONITORING) 1 each PRN DAILY PRN MC SEE COMMENTS; Start 03/05/19 at 08:45; Stop 03/07/19 at 08:44; Status DC Hydromorphone HCl (Dilaudid) 1 mg 1X ONCE IV Last administered on 03/05/19at 09:05; Start 03/05/19 at 09:15; Stop 03/05/19 at 09:16; Status DC Sodium Chloride 1,000 ml @ 1,000 mls/hr 1X ONCE IV Last administered on 03/05/19at 09:54; Start 03/05/19 at 09:30; Stop 03/05/19 at 10:29; Status DC Piperacillin Sod/ Tazobactam Sod 3.375 gm/Sodium Chloride 50 ml @ 100 mls/hr 1X ONCE IV Last administered on 03/05/19at 09:54; Start 03/05/19 at 09:30; Stop 03/05/19 at 09:59; Status DC Vancomycin HCl 250 ml @ 250 mls/hr 1X ONCE IV ; Start 03/05/19 at 09:30; Stop 03/05/19 at 10:29; Status UNV Vancomycin HCl 2 gm/Sodium Chloride 500 ml @ 250 mls/hr 1X ONCE IV Last administered on 03/05/19at 10:35; Start 03/05/19 at 10:00; Stop 03/05/19 at 11:59; Status DC Hydromorphone HCl (Dilaudid) 1 mg 1X ONCE IV Last administered on 03/05/19at 10:35; Start 03/05/19 at 10:30; Stop 03/05/19 at 10:31; Status DC Sodium Chloride 1,000 ml @ 150 mls/hr Q6H40M IV Last administered on 03/05/19at 12:20; Start 03/05/19 at 10:26; Stop 03/05/19 at 20:22; Status DC Acetaminophen (Tylenol) 650 mg PRN Q6HRS PRN PO Headaches, Temp > 101.5'; Start 03/05/19 at 10:45 Lorazepam (Ativan Inj) 0.5 mg PRN Q6HRS PRN IV ANXIETY / AGITATION; Start 03/05/19 at 10:45; Stop 03/15/19 at 11:23; Status DC Ondansetron HCl (Zofran) 4 mg PRN Q6HRS PRN IV NAUSEA/VOMITING, 1ST CHOICE; Start 03/05/19 at 10:45 Prochlorperazine Edisylate (Compazine) 5 mg PRN Q6HRS PRN IV NAUSEA/VOMITING, 2ND CHOICE; Start 03/05/19 at 10:45 Prochlorperazine (Compazine) 25 mg PRN Q12HR PRN [place] NAUSEA/VOMITING; Start 03/05/19 at 10:45 Al Hydroxide/Mg Hydroxide (Mylanta Plus Xs) 30 ml PRN Q3HRS PRN PO HEARTBURN / GAS; Start 03/05/19 at 10:45 Calcium Carbonate/ Glycine (Tums) 500 mg PRN Q3HRS PRN PO HEARTBURN / GAS, 2ND CHOICE Last administered on 03/20/19at 18:12; Start 03/05/19 at 10:45 Famotidine (Pepcid Vial) 20 mg BID IVP Last administered on 03/11/19 08:31; Start 03/05/19 at 12:00; Stop 03/11/19 at 11:00; Status DC Info (Icu Electrolyte Protocol) 1 ea DAILY MC ; Start 03/06/19 at 09:00; Stop 03/09/19 at 15:55; Status DC Heparin Sodium (Porcine) (Heparin Sodium) 5,000 unit Q12HR SQ Last administered on 03/12/19at 08:48; Start 03/05/19 at 21:00 Sodium Chloride (Normal Saline Flush) 3 ml QSHIFT PRN IV AFTER MEDS AND BLOOD DRAWS; Start 03/05/19 at 10:45; Stop 03/14/19 at 13:07; Status DC Sodium Chloride 1,000 ml @ 100 mls/hr Q10H IV Last administered on 03/07/19at 05:01; Start 03/05/19 at 10:39; Stop 03/07/19 at 11:00; Status DC Acetaminophen/ Hydrocodone Bitart (Lortab 5/325) 1 tab PRN Q4HRS PRN PO MILD PAIN 1-3; Start 03/05/19 at 10:45; Stop 03/06/19 at 09:58; Status DC Acetaminophen/ Hydrocodone Bitart (Lortab 5/325) 2 tab PRN Q4HRS PRN PO MODERATE PAIN, SEVERE PAIN; Start 03/05/19 at 10:45; Stop 03/06/19 at 09:58; Status DC Morphine Sulfate (Morphine Sulfate) 2 mg PRN Q1HR PRN IV MODERATE PAIN Last administered on 03/07/19at 17:14; Start 03/05/19 at 10:45; Stop 03/17/19 at 08:52; Status DC Senna/Docusate Sodium (Senna Plus) 1 tab BID PO Last administered on 03/17/19at 19:29; Start 03/05/19 at 21:00 Docusate Sodium (Colace) 100 mg BID PO Last administered on 03/19/19at 09:39; Start 03/05/19 at 12:00 Bisacodyl (Dulcolax Supp) 10 mg PRN DAILY PRN [place] CONSTIPATION; Start 03/05/19 at 10:45 Sodium Chloride 1,000 ml @ 2,550 mls/hr Q24M IV ; Start 03/05/19 at 10:48; Stop 03/05/19 at 11:48; Status DC Sodium Chloride 500 ml @ 1,000 mls/hr PRN Q30MIN PRN IV PER PROTOCOL; Start 03/05/19 at 11:00 Vancomycin HCl (Vanco Per Pharmacy) 1 each PRN DAILY PRN MC SEE COMMENTS Last administered on 03/05/19at 13:45; Start 03/05/19 at 11:00; Stop 03/06/19 at 08:18; Status DC Piperacillin Sod/ Tazobactam Sod 4.5 gm/Sodium Chloride 100 ml @ 200 mls/hr Q6HRS IV ; Start 03/05/19 at 12:00; Stop 03/05/19 at 11:59; Status DC Norepinephrine Bitartrate 250 ml @ 0 mls/hr CONT PRN IV PER PROTOCOL; Start 03/05/19 at 11:00; Stop 03/09/19 at 15:58; Status DC Dobutamine HCl/ Dextrose 250 ml @ 0 mls/hr CONT PRN IV PER PROTOCOL; Start 03/05/19 at 11:00; Stop 03/07/19 at 11:00; Status DC Vancomycin HCl 2 gm/Sodium Chloride 500 ml @ 250 mls/hr 1X ONCE IV ; Start 03/05/19 at 12:00; Stop 03/05/19 at 13:59; Status Cancel Piperacillin Sod/ Tazobactam Sod 4.5 gm/Sodium Chloride 100 ml @ 200 mls/hr Q6HRS IV Last administered on 03/07/19at 05:01; Start 03/05/19 at 16:00; Stop 03/07/19 at 08:36; Status DC Linezolid/Dextrose 300 ml @ 300 mls/hr Q12HR IV Last administered on 03/07/19at 07:54; Start 03/05/19 at 13:00; Stop 03/07/19 at 09:13; Status DC Lidocaine/Sodium Bicarbonate (Buffered Lidocaine 1%) 3 ml STK-MED ONCE .ROUTE ; Start 03/05/19 at 12:12; Stop 03/05/19 at 12:13; Status DC Midazolam HCl (Versed) 2 mg STK-MED ONCE .ROUTE ; Start 03/05/19 at 12:13; Stop 03/05/19 at 12:13; Status DC Fentanyl Citrate (Fentanyl 2ml Vial) 100 mcg STK-MED ONCE .ROUTE ; Start 03/05/19 at 12:14; Stop 03/05/19 at 12:14; Status DC Lidocaine/Sodium Bicarbonate (Buffered Lidocaine 1%) 3 ml STK-MED ONCE .ROUTE ; Start 03/05/19 at 13:05; Stop 03/05/19 at 13:05; Status DC Hydromorphone HCl (Dilaudid) 1.5 mg PRN Q3HRS PRN IVP SEVERE PAIN Last administered on 03/08/19at 08:46; Start 03/05/19 at 13:30; Stop 03/08/19 at 10:24; Status DC Lidocaine/Sodium Bicarbonate (Buffered Lidocaine 1%) 3 ml 1X ONCE IJ Last administered on 03/05/19at 13:32; Start 03/05/19 at 13:30; Stop 03/05/19 at 13:31; Status DC Midazolam HCl (Versed) 2 mg 1X ONCE IV Last administered on 03/05/19at 13:32; Start 03/05/19 at 13:30; Stop 03/05/19 at 13:31; Status DC Fentanyl Citrate (Fentanyl 2ml Vial) 100 mcg 1X ONCE IV Last administered on 03/05/19at 13:32; Start 03/05/19 at 13:30; Stop 03/05/19 at 13:31; Status DC Vancomycin HCl 1.5 gm/Sodium Chloride 500 ml @ 250 mls/hr Q8H IV Last administered on 03/06/19at 03:06; Start 03/05/19 at 19:00; Stop 03/06/19 at 08:18; Status DC Vancomycin HCl (Vancomycin Trough Level) 1 each 1X ONCE MC ; Start 03/06/19 at 10:30; Stop 03/06/19 at 08:21; Status DC Daptomycin 600 mg/ Sodium Chloride 50 ml @ 100 mls/hr Q24H IV Last administered on 03/09/19at 09:39; Start 03/06/19 at 10:00; Stop 03/09/19 at 11:48; Status DC Acetaminophen/ Hydrocodone Bitart (Lortab 5/325) 1 tab PRN Q4HRS PRN PO PAIN; Start 03/06/19 at 08:45; Stop 03/06/19 at 09:58; Status DC Oxycodone/ Acetaminophen (Percocet 10/325) 1 tab PRN Q4HRS PRN PO PAIN Last administered on 03/21/19at 10:02; Start 03/06/19 at 10:00 Ketorolac Tromethamine (Toradol 30mg Vial) 30 mg PRN Q6HRS PRN IV INFLAMMATION Last administered on 03/11/19at 04:12; Start 03/06/19 at 10:00; Stop 03/11/19 at 09:59; Status DC Lactobacillus Rhamnosus (Culturelle) 1 cap BID PO Last administered on 03/21/19at 08:50; Start 03/06/19 at 21:00 Linezolid (Zyvox) 600 mg BID PO Last administered on 03/11/19at 08:31; Start 03/07/19 at 13:00; Stop 03/11/19 at 12:27; Status DC Sodium Chloride (Normal Saline Flush) 10 ml QSHIFT PRN IV AFTER MEDS AND BLOOD DRAWS; Start 03/07/19 at 13:45 Lidocaine HCl (Xylocaine 2% Topical 5gm Tube) 1 michel 1X ONCE TP ; Start 03/07/19 at 13:45; Stop 03/07/19 at 13:46; Status DC Lidocaine HCl (Viscous Lidocaine) 15 ml 1X ONCE MM ; Start 03/07/19 at 13:45; Stop 03/07/19 at 13:46; Status DC Benzocaine (Hurricaine One) 1 spray 1X ONCE MM ; Start 03/07/19 at 13:45; Stop 03/07/19 at 13:46; Status DC Alteplase, Recombinant 10 mg/ Sterile Water 50 ml @ 0 mls/hr 1X ONCE IV Last administered on 03/07/19at 17:14; Start 03/07/19 at 15:45; Stop 03/07/19 at 15:46; Status DC Propofol 20 ml @ As Directed STK-MED ONCE IV ; Start 03/07/19 at 15:50; Stop 03/07/19 at 15:50; Status DC Lidocaine HCl (Lidocaine Pf 2% Vial) 5 ml STK-MED ONCE .ROUTE ; Start 03/07/19 at 15:50; Stop 03/07/19 at 15:50; Status DC Ephedrine Sulfate (ePHEDrine PF IN SALINE SYRINGE) 50 mg STK-MED ONCE IV ; Start 03/07/19 at 15:50; Stop 03/07/19 at 15:50; Status DC Hydromorphone HCl (Dilaudid) 2 mg PRN Q3HRS PRN IV SEVERE PAIN Last administered on 03/15/19at 09:44; Start 03/08/19 at 10:30; Stop 03/15/19 at 12:13; Status DC Cefazolin Sodium 2 gm/Dextrose 50 ml @ 100 mls/hr Q8HRS IV Last administered on 03/21/19at 05:53; Start 03/09/19 at 14:00; Stop 03/21/19 at 11:39; Status DC Famotidine (Pepcid) 20 mg BID PO Last administered on 03/21/19at 08:50; Start 03/11/19 at 21:00 Iohexol (Omnipaque 300 Mg/ml) 75 ml 1X ONCE IV Last administered on 03/13/19at 12:35; Start 03/13/19 at 12:15; Stop 03/13/19 at 12:16; Status DC Info (CONTRAST GIVEN -- Rx MONITORING) 1 each PRN DAILY PRN MC SEE COMMENTS; Start 03/13/19 at 12:15; Stop 03/15/19 at 12:14; Status DC Lidocaine/Sodium Bicarbonate (Buffered Lidocaine 1%) 3 ml STK-MED ONCE .ROUTE ; Start 03/14/19 at 14:41; Stop 03/14/19 at 14:41; Status DC Lidocaine/Sodium Bicarbonate (Buffered Lidocaine 1%) 3 ml STK-MED ONCE .ROUTE ; Start 03/14/19 at 14:58; Stop 03/14/19 at 14:58; Status DC Midazolam HCl (Versed) 5 mg STK-MED ONCE .ROUTE ; Start 03/14/19 at 15:21; Stop 03/14/19 at 15:21; Status DC Fentanyl Citrate (Fentanyl 5ml Vial) 250 mcg STK-MED ONCE .ROUTE ; Start 03/14/19 at 15:21; Stop 03/14/19 at 15:21; Status DC Flumazenil (Romazicon) 0.5 mg STK-MED ONCE IV ; Start 03/14/19 at 15:21; Stop 03/14/19 at 15:21; Status DC Naloxone HCl (Narcan) 0.4 mg STK-MED ONCE .ROUTE ; Start 03/14/19 at 15:21; Stop 03/14/19 at 15:21; Status DC Lidocaine/Sodium Bicarbonate (Buffered Lidocaine 1%) 12 ml 1X ONCE IJ Last administered on 03/14/19at 16:00; Start 03/14/19 at 15:45; Stop 03/14/19 at 15:49; Status DC Midazolam HCl (Versed) 5 mg 1X ONCE IV Last administered on 03/14/19at 16:00; Start 03/14/19 at 15:45; Stop 03/14/19 at 15:49; Status DC Fentanyl Citrate (Fentanyl 5ml Vial) 150 mcg 1X ONCE IV Last administered on 03/14/19 16:00; Start 03/14/19 at 15:45; Stop 03/14/19 at 15:49; Status DC Lorazepam (Ativan Inj) 2 mg PRN Q6HRS PRN IV ANXIETY / AGITATION Last administered on 03/15/19at 07:36; Start 03/14/19 at 18:00; Stop 03/15/19 at 12:14; Status DC Hydromorphone HCl (Dilaudid) 2 mg PRN Q2HR PRN IV SEVERE PAIN Last administered on 03/20/19at 13:37; Start 03/15/19 at 12:15; Stop 03/20/19 at 14:39; Status DC Lorazepam (Ativan) 1 mg PRN Q6HRS PRN PO ANXIETY / AGITATION Last administered on 03/20/19at 18:06; Start 03/15/19 at 12:15; Stop 03/20/19 at 19:12; Status DC Morphine Sulfate (Ms Contin) 15 mg BID PO Last administered on 03/21/19at 08:50; Start 03/16/19 at 13:00 Lorazepam (Ativan Inj) 2 mg PRN Q4HRS PRN IV ANXIETY / AGITATION Last administered on 03/18/19at 13:19; Start 03/18/19 at 13:15; Stop 03/18/19 at 18:10; Status DC Magnesium Hydroxide (Milk Of Magnesia) 2,400 mg PRN DAILY PRN PO CONSTIPATION; Start 03/19/19 at 09:00 Lidocaine/Sodium Bicarbonate (Buffered Lidocaine 1%) 3 ml STK-MED ONCE .ROUTE ; Start 03/20/19 at 09:26; Stop 03/20/19 at 09:26; Status DC Midazolam HCl (Versed) 5 mg STK-MED ONCE .ROUTE ; Start 03/20/19 at 09:55; Stop 03/20/19 at 09:56; Status DC Fentanyl Citrate (Fentanyl 5ml Vial) 250 mcg STK-MED ONCE .ROUTE ; Start 03/20 at 09:55; Stop 03/20/19 at 09:56; Status DC Lidocaine/Sodium Bicarbonate (Buffered Lidocaine 1%) 12 ml 1X ONCE IJ Last ad ministered on 03/20/19at 10:36; Start 03/20/19 at 10:30; Stop 03/20/19 at 10:31; Status DC Midazolam HCl (Versed) 5 mg 1X ONCE IV Last administered on 03/20/19at 10:36; Start 03/20/19 at 10:30; Stop 03/20/19 at 10:31; Status DC Fentanyl Citrate (Fentanyl 5ml Vial) 200 mcg 1X ONCE IV Last administered on 03/20/19at 10:36; Start 03/20/19 at 10:30; Stop 03/20/19 at 10:31; Status DC Hydromorphone HCl (Dilaudid) 2.5 mg PRN Q2HR PRN IV SEVERE PAIN Last administered on 03/21/19at 08:50; Start 03/20/19 at 14:45 Ketorolac Tromethamine (Toradol 30mg Vial) 30 mg PRN Q6HRS PRN IV MODERATE PAIN Last administered on 03/21/19at 06:50; Start 03/20/19 at 14:45; Stop 03/25/19 at 14:44 Lorazepam (Ativan) 2 mg PRN Q6HRS PRN PO ANXIETY / AGITATION Last administered on 03/21/19at 06:50; Start 03/20/19 at 19:15 Daptomycin 600 mg/ Sodium Chloride 50 ml @ 100 mls/hr Q24H IV ; Start 03/21/19 at 13:00 Ceftriaxone Sodium (Rocephin) 2 gm Q24H IVP ; Start 03/21/19 at 14:00 Vital Signs Vital Signs Date Time Temp Pulse Resp B/P (MAP) Pulse Ox O2 Delivery O2 Flow Rate FiO2 03/21/19 11:15 Room Air 03/21/19 08:50 18 03/21/19 07:00 97.9 82 107/57 (74) 99 97.9 03/20/19 10:36 2.0 Labs Laboratory Tests Test 03/21/19 06:00 White Blood Count 4.5 x10^3/uL (4.0-11.0) Red Blood Count 3.84 x10^6/uL (4.30-5.70) Hemoglobin 11.4 g/dL (13.0-17.5) Hematocrit 33.8 % (39.0-53.0) Mean Corpuscular Volume 88 fL (79-100) Mean Corpuscular Hemoglobin 30 pg (25-35) Mean Corpuscular Hemoglobin Concent 34 g/dL (31-37) Red Cell Distribution Width 13.1 % (11.5-14.5) Platelet Count 495 x10^3/uL (140-400) Neutrophils (%) (Auto) 52 % (31-73) Lymphocytes (%) (Auto) 29 % (24-48) Monocytes (%) (Auto) 9 % (0-9) Eosinophils (%) (Auto) 9 % (0-3) Basophils (%) (Auto) 1 % (0-3) Neutrophils # (Auto) 2.3 x10^3/uL (1.8-7.7) Lymphocytes # (Auto) 1.3 x10^3/uL (1.0-4.8) Monocytes # (Auto) 0.4 x10^3/uL (0.0-1.1) Eosinophils # (Auto) 0.4 x10^3/uL (0.0-0.7) Basophils # (Auto) 0.0 x10^3/uL (0.0-0.2) Sodium Level 143 mmol/L (136-145) Potassium Level 4.2 mmol/L (3.5-5.1) Chloride Level 105 mmol/L (98-107) Carbon Dioxide Level 32 mmol/L (21-32) Anion Gap 6 (6-14) Blood Urea Nitrogen 16 mg/dL (8-26) Creatinine 0.9 mg/dL (0.7-1.3) Estimated GFR (Cockcroft-Gault) 100.5 BUN/Creatinine Ratio 18 (6-20) Glucose Level 90 mg/dL (70-99) Calcium Level 8.8 mg/dL (8.5-10.1) Total Bilirubin 0.2 mg/dL (0.2-1.0) Aspartate Amino Transf (AST/SGOT) 34 U/L (15-37) Alanine Aminotransferase (ALT/SGPT) 43 U/L (16-63) Alkaline Phosphatase 132 U/L (46-116) Total Protein 6.7 g/dL (6.4-8.2) Albumin 2.3 g/dL (3.4-5.0) Albumin/Globulin Ratio 0.5 (1.0-1.7) Laboratory Tests Test 03/21/19 06:00 White Blood Count 4.5 x10^3/uL (4.0-11.0) Red Blood Count 3.84 x10^6/uL (4.30-5.70) Hemoglobin 11.4 g/dL (13.0-17.5) Hematocrit 33.8 % (39.0-53.0) Mean Corpuscular Volume 88 fL (79-100) Mean Corpuscular Hemoglobin 30 pg (25-35) Mean Corpuscular Hemoglobin Concent 34 g/dL (31-37) Red Cell Distribution Width 13.1 % (11.5-14.5) Platelet Count 495 x10^3/uL (140-400) Neutrophils (%) (Auto) 52 % (31-73) Lymphocytes (%) (Auto) 29 % (24-48) Monocytes (%) (Auto) 9 % (0-9) Eosinophils (%) (Auto) 9 % (0-3) Basophils (%) (Auto) 1 % (0-3) Neutrophils # (Auto) 2.3 x10^3/uL (1.8-7.7) Lymphocytes # (Auto) 1.3 x10^3/uL (1.0-4.8) Monocytes # (Auto) 0.4 x10^3/uL (0.0-1.1) Eosinophils # (Auto) 0.4 x10^3/uL (0.0-0.7) Basophils # (Auto) 0.0 x10^3/uL (0.0-0.2) Sodium Level 143 mmol/L (136-145) Potassium Level 4.2 mmol/L (3.5-5.1) Chloride Level 105 mmol/L (98-107) Carbon Dioxide Level 32 mmol/L (21-32) Anion Gap 6 (6-14) Blood Urea Nitrogen 16 mg/dL (8-26) Creatinine 0.9 mg/dL (0.7-1.3) Estimated GFR (Cockcroft-Gault) 100.5 BUN/Creatinine Ratio 18 (6-20) Glucose Level 90 mg/dL (70-99) Calcium Level 8.8 mg/dL (8.5-10.1) Total Bilirubin 0.2 mg/dL (0.2-1.0) Aspartate Amino Transf (AST/SGOT) 34 U/L (15-37) Alanine Aminotransferase (ALT/SGPT) 43 U/L (16-63) Alkaline Phosphatase 132 U/L (46-116) Total Protein 6.7 g/dL (6.4-8.2) Albumin 2.3 g/dL (3.4-5.0) Albumin/Globulin Ratio 0.5 (1.0-1.7) Allergies Allergies Coded Allergies Type Severity Reaction Last Updated Verified No Known Drug Allergies 03/05/19 No Disposition/Orders: D/C to Home Patient Instructions D/C PLANNING 32 MIN NICHOLE WADE MD Mar 21, 2019 12:02
[2019-03-21] MEDS ORDERED: CEFTRIAXONE SODIUM IVP (12:06)
[2019-03-21] MEDS ORDERED: LACT1CAP19 PO (12:06)
[2019-03-21] MEDS ORDERED: ACET325T9 PO (12:06)
[2019-03-21] MEDS ORDERED: DOCU-109 PO (12:06)
[2019-03-21] MEDS ORDERED: DAPT350V IV (12:09)
--- NOTE | 2019-03-21 12:12 | DISCH ---
DISCHARGE INSTRUCTIONS Condition on Discharge Condition on Discharge: Guarded Activity After Discharge Activity Instructions for Disc: Activity as tolerated Lifting Instructions after Dis: No heavy lifting, No pulling or pushing Driving Instructions after Dis: Do not drive Diet after Discharge Diet after Discharge: Regular Wound Incision Care Wound/Incision Care: Reinforce dressing PRN Checks after Discharge Checks after discharge: Check blood press - daily Community/Resources/Services Services at Discharge: Infusion Therapy, Outpatient Therapy Contacting the [facility] after DC Call your doctor for: If your condition worsens Warfarin Follow-Up Warfarin Follow UP: IV ANTIBIOTICS DAILY OUTPT HERE NICHOLE WADE MD Mar 21, 2019 12:12
[2019-03-21] MEDS ORDERED: NORMAL SALINE IV SCH (13:30)
[2019-03-21] MEDS ORDERED: DAPTOMYCIN FOR PT ASSIST PROG IV SCH (13:30)
[2019-03-21] MEDS ORDERED: cefTRIAXone IV Push 2 GM VIAL. IVP SCH (14:00)
--- NOTE | 2019-03-21 14:19 | NUR ---
Midline Pre-insertion Note Allergies and reactions NKDA INR 1.1 BUN 16 Cr 0.9 Platelets 495 Blood culture done yes blood culture results no growth x 5 days Order Verified yes Consent signed yes Previous midline placement unknown Past Medical/Surgical history and current diagnosis reviewed yes Patient Medical /Surgical History Related to Midline placement Infectious Disease consult Special considerations for Mid- line placement None PICC placement indication group home antibiotic usage, name of PICC Nurse Alexandra Garvey RN Addendum: 03/21/19 at 1452 by KIANA GARVEY RN Amended: Links added.
--- NOTE | 2019-03-21 14:25 | RAD ---
Procedure: CT-guided mediastinal drain placement March 20, 2019 Clinical Indication: 28-year-old with mediastinal abscess, recurrent. Prior drainage catheter removed. Sedation: Conscious sedation was administered with a total intraprocedural [id number] time of 25 minutes. The patient was monitored by a qualified independent observer throughout the time of sedation. Sterility: All elements of maximal sterile barrier technique including the use of a cap, mask, sterile gown, sterile gloves, large sterile sheet, appropriate hand hygiene, and 2% chlorhexidine for cutaneous antisepsis (or acceptable alternative antiseptic per current guidelines) were followed for this procedure. If ultrasound guidance was utilized, sterile ultrasound techniques were followed including use of a sterile probe cover. Consent: The procedure was explained in its entirety to the patient or the patients designated sales representative gas service by a member of the treatment team, including a discussion of the risks, benefits and commonly accepted alternatives to the procedure, as well as the expected consequences of no therapy whatsoever. Discussion of the risks included, but was not limited to, those that are most frequent and those that are rare but possibly severe or life-threatening, as well as the possibility of unforeseen complications. Technique and Findings: Following informed consent, the patient was prepped and draped in usual sterile fashion. Primary CT scan of the area of interest was performed. 1% lidocaine was used to achieve local anesthesia over the left parasternal soft tissues as well as the left lateral chest wall. A small dermatotomy was made in both locations. Under periodic CT surveillance, a 21-gauge micropuncture was advanced into the retrosternal left mediastinal fluid collection minimal purulent/bloody fluid was encountered. This needle was exchanged over wire for a 10 Mosotho pigtail drainage catheter which was sutured to the skin and placed to bulb suction. Complications: No immediate Impression: CT-guided drain placement within a retrosternal mediastinal abscess as described. Specimen was sent for microbiologic analysis. PQRS Compliance Statement: One or more of the following individualized dose reduction techniques were utilized for this examination: 1. Automated exposure control 2. Adjustment of the mA and/or kV according to patient size 3. Use of iterative reconstruction technique
--- NOTE | 2019-03-21 14:40 | NUR ---
Midline Insertion Note Procedure: Following complete explanation of the Midline procedure including the indications, risks, and potential complications, informed consent was obtained. The possibility for infection was discussed along with signs, symptoms, and prevention. All the questions were answered. Written and verbal patient education was provided. Hand hygiene performed. Standardized central line checklist was utilized. The patient was placed in the supine position, the arm was prepped with chlorhexidine and patient draped with maximum sterile barrier. 2 mL 1% lidocaine was infiltrated into the skin to provide local anesthesia. A thorough assessment of right upper extremity completed. Using real-time ultrasound guidance and standardized micro puncture set, the basilic vein was punctured and a peel away sheath was placed using the modified Seldinger technique. A tip location device was used to ensure adequate catheter placement. The catheter was secured using a securement device and an antimicrobial patch was applied directly on the insertion site followed by a transparent dressing. All ports withdraw blood and flush without resistance. Patient tolerated the procedure without apparent complication(s). Single Lumen Power Midline placement successful and uncomplicated. Tip located in the Right Axilla. Complications: none Catheter trimmed at 17cm with 1cm visible at insertion site.
[2019-03-21 15:00] VITALS: BP 129/73
--- NOTE | 2019-03-21 15:45 | NUR ---
KARLA following pt. IV abx Orders faxed to OP clinic. Spoke with Missy at OP and pt is scheduled for 0800 tomorrow. Discussed with Pharmacy and Administration. Addendum: 03/21/19 at 1547 by HAI ACOSTA No programs for Rocephine but will cost around $2.60/dose. Admin notified and approved.
--- NOTE | 2019-03-21 17:24 | NUR ---
Discharge Note: PT DISCHARGED HOME WITH SELF CARE. PT LEFT FACILITY VIA PRIVATE VEHICLE WITH GIRLFRIEND AT 1645. PT STABLE AND ALERT UPON DISCHARGE. PT EDUCATED ABOUT FOLLOW-UP INSTRUCTIONS WITH OUTPAITENT CLINIC FOR IV ATB THERAPY WILL BE HERE AT 0800 TOMORROW. PT EDUCATED ABOUT FOLLOW-UP WITH DR. CORRALES FOR JAYDEN DRAIN REMOVAL, DR. CORRALES'S OFFICE WAS TO CALL TO SET UP FOLLOW-UP FOR Monday03/25/2019. PT GIVEN INFORMATION TO GET FREE HEALTH CARE FROM PRIMARY CARE PHYSICIAN AT [facility], GIVEN PHONE NUMBER AND ADDRESS FOR FACILITY WITH INSTRUCTIONS TO CALL FOR APPOINTMENT TO SEE A PRIMARY CARE PROVIDER. PT VOICED CONCERNS ABOUT RETURNING TO WORK, UNABLE TO REACH DR. MUNOZ IN REGARDS TO THIS CONCERN, PT INFORMED OF DISCUSSING THIS WITH OUTPAITENT FACILITY AND INFECTIOUS DISEASE. WILL NEED TO FOLLOW-UP THIS CARE WHILE GETTING IV ATB THERAPY. PT LEFT FACILITY WITH MID-LINE CENTRAL IV PLACED TO RUE FOR GRANTS AND CONTRACTS ASSISTANT ATB THERAPY. DRESSING TO MID-LINE WAS C/D/I WITH ORANGE CAP IN PLACE, AND CLAMPED UPON DISCHARGE. WILL NEED TO MONITOR CLOSELY FROM PT HX OF IV DRUG ABUSE. MANI BRAGA[address] [facility] Discharge instructions and discharge home medications reviewed with Patient and a copy given. All questions have been answered and understanding verbalized.
== END 2019-03-21 17:35 | disposition home or self-care (01) | DRG 871 ==
LOC: EDBD 07:57 → ER 07:57 → 1 WEST ICU 08:23 → 6 SOUTH 03-07 19:45 → 5 SOUTH 03-19 00:21
PROVIDERS: ADMIT Family Medicine; ATTEND Family Medicine
PROC: 0W9B30Z Drainage of Left Pleural Cavity with Drainage Device, Percutaneous Approach (ICD-10-PCS; principal; 2019-03-05)
PROC: 0W9C30Z Drainage of Mediastinum with Drainage Device, Percutaneous Approach (ICD-10-PCS; 2019-03-05)
PROC: 0WPBX0Z Removal of Drainage Device from Left Pleural Cavity, External Approach (ICD-10-PCS; 2019-03-11)
PROC: 0WP Anatomical Regions, General, Removal (ICD-10-PCS; 2019-03-13)
PROC: 0W9B30Z Drainage of Left Pleural Cavity with Drainage Device, Percutaneous Approach (ICD-10-PCS; 2019-03-14)
PROC: 05HY33Z Insertion of Infusion Device into Upper Vein, Percutaneous Approach (ICD-10-PCS; 2019-03-19)
PROC: 0W9C30Z Drainage of Mediastinum with Drainage Device, Percutaneous Approach (ICD-10-PCS; 2019-03-20)
DX: A41.01 Sepsis due to Methicillin susceptible Staphylococcus aureus (principal); E43 Unspecified severe protein-calorie malnutrition; J86.9 Pyothorax without fistula; I31.3 Pericardial effusion (noninflammatory); J90 Pleural effusion, not elsewhere classified; J98.11 Atelectasis; L02.213 Cutaneous abscess of chest wall; F15.10 Other stimulant abuse, uncomplicated; F17.210 Nicotine dependence, cigarettes, uncomplicated; I10 Essential (primary) hypertension; Z74.01 Bed confinement status; Z82.49 Family history of ischemic heart disease and other diseases of the circulatory system; Z86.19 Personal history of other infectious and parasitic diseases; Z68.27 Body mass index [BMI] 27.0-27.9, adult
CPT/HCPCS: 10030; 32557; 36415; 36569; 71045; 71250; 71260; 71275; 74176; 80048; 80053; 80307; 81001; 82550; 82945; 83605; 83615; 83690; 83735; 83880; 84145; 84157; 84443; 84484; 85007; 85025; 85379; 85610; 85651; 85730; 87040; 87071; 87075; 87077; 87102; 87116; 87186; 87205; 93005; 93306; 93312; 93320; 93325; 96361; 96365; 96375; 96376; 99152; 99153; A4215; C1729; C1892; C1894; J0171; J0690; J0696; J0878; J1170; J1644; J1885; J2001; J2020; J2060; J2250; J2270; J2405; J2543; J2704; J2997; J3010; J3370; J3490; J7030; J7040; Q9967; 99285-25; G0378

== ENCOUNTER 2019-04-11 08:48 | Emergency (ER) | payer SELFPAY ==
[~2019-04-11] VITALS: Ht 190.5 cm; Wt 97.5 kg
[~2019-04-11 08:48] MED LIST: ACET325T9 PO; CEFTRIAXONE SODIUM IVP; DAPT350V IV; DOCU-109 PO; LACT1CAP19 PO
[2019-04-11 09:23] LABS: BASO # 0.1 x10^3/uL (0.0-0.2); BASO % 1 % (0-3); EOS # 0.1 x10^3/uL (0.0-0.7); EOS % 1 % (0-3); HEMATOCRIT 40.6 % (39.0-53.0); HEMOGLOBIN 13.6 g/dL (13.0-17.5); LYMPH # 1.3 x10^3/uL (1.0-4.8); LYMPH % 19 % (24-48); MEAN CORPUSCULAR HEMOGLOBIN 29 pg (25-35); MEAN CORPUSCULAR HGB CONC 34 g/dL (31-37); MEAN CORPUSCULAR VOLUME 87 fL (79-100); MONO # 0.2 x10^3/uL (0.0-1.1); MONO % 4 % (0-9); NEUT % 75 % (31-73); PLATELET COUNT 347 x10^3/uL (140-400); RED CELL DISTRIBUTION WIDTH 13.9 % (11.5-14.5); WHITE BLOOD COUNT 6.7 x10^3/uL (4.0-11.0)
[2019-04-11 09:32] LABS: CALCIUM 9.3 mg/dL (8.5-10.1); CREATININE 0.9 mg/dL (0.7-1.3); GFR 100.5; POTASSIUM 4.6 mmol/L (3.5-5.1)
--- NOTE | 2019-04-11 09:36 | EKG ---
[facility] [address] [place] [address] Test Date: 2019-04-11 Test Time: 09:30:56 Pat Name: MANI BRAGA Department: Room: Gender: M Sand Mixer: : 1990 Requested By: ALEYDA CRUZ Order Number: [id number] Reading MD: Measurements Intervals [place] Rate: 68 P: 41 MD: 134 QRS: 52 QRSD: 90 T: 59 QT: 394 QTc: 424 Interpretive Statements SINUS RHYTHM NO SPECIFIC ECG ABNORMALITIES RI6.01 No previous ECG available for comparison
[2019-04-11 09:38] LABS: ALBUMIN 3.7 g/dL (3.4-5.0); TOTAL BILIRUBIN 0.8 mg/dL (0.2-1.0); TOTAL PROTEIN 7.3 g/dL (6.4-8.2)
--- NOTE | 2019-04-11 10:30 | PHYS DOC ---
Past Medical History Past Medical History: Other Additional Past Medical Histor: IV DRUG ABUSE,MEDIASTINUM ABSCESS, Past Surgical History: Other Additional Past Surgical Histo: Rt ankle fx repair, hydrocele Alcohol Use: Heavy Drug Use: Heroin, Methamphetamine, Opiates Social History Narrative: LAST USED YESTERDAY MORNING, PATIENT IS WITHDRAWING Adult General Chief Complaint Chief Complaint: SUBSTANCE ABUSE HPI HPI Patient is a 28 year old male with history of polysubstance abuse, empyema and pulmonary abscess currently receiving patient antibiotic infusions through PICC line who presents with reported continued substance abuse. Patient states he is been injecting methamphetamine and heroin through his PICC line since being discharged from last hospital week ago. Patient also reports that has had bouts of killing himself but denies specific thoughts or plans at this time. He has history of previous drug overdose. He denies HI, paranoia, delusions, and hallucinations. He is not currently enrolled in an outpatient rehabilitationHe was referred to the emergency department from the outpatient infusion clinic after he disclosed that he been using IV drugs. He denies acute symptoms or complaints at this time. No fever chills, nausea vomiting or sweats.. Review of Systems Review of Systems Review of symptoms as per history of present illness. All other review symptoms are negative. All other systems were reviewed and found to be within normal limits, except as documented in this note. Current Medications Current Medications Current Medications Medications (Trade) Dose Ordered Sig/Conrad Start Time Stop Time Status Last Admin Dose Admin Clonidine HCl (Catapres) 0.2 mg 1X ONCE 04/11/19 11:00 04/11/19 11:01 DC 04/11/19 11:32 0.2 MG Guaifenesin (Robitussin Dm) 10 ml 1X PRN 04/11/19 11:00 04/11/19 11:28 10 ML Loperamide HCl (Imodium) 2 mg 1X PRN 04/11/19 11:00 04/11/19 11:28 2 MG Allergies Allergies Allergies Coded Allergies Type Severity Reaction Last Updated Verified No Known Drug Allergies 04/10/19 No Physical Exam Physical Exam Constitutional: Well developed, well nourished, no acute distress, non-toxic appearance. [] HENT: Normocephalic, atraumatic, bilateral external ears normal, oropharynx moist, no oral exudates, nose normal. [] Eyes: PERRLA, EOMI, conjunctiva normal, no discharge. [] Neck: Normal range of motion, no tenderness, supple, no stridor. [] Cardiovascular:Heart rate regular rhythm, no murmur [] Lungs & Thorax: Bilateral breath sounds clear to auscultation [] Abdomen: Bowel sounds normal, soft, no tenderness. [] Skin: Warm, dry. [] Back: No tenderness. [] Extremities: No tenderness, no edema. [] Neurologic: Alert and oriented X 3, normal motor function, normal sensory function, no focal deficits noted. [] Psychologic: Affect normal, judgement normal, mood normal. [] Current Patient Data Vital Signs Vital Signs Date Time Temp Pulse Resp B/P (MAP) Pulse Ox O2 Delivery O2 Flow Rate FiO2 04/11/19 11:32 70 132/83 04/11/19 11:00 24 100 Room Air 04/11/19 08:59 97.8 97.8 Lab Values Laboratory Tests Test 04/11/19 08:00 White Blood Count 6.7 x10^3/uL (4.0-11.0) Red Blood Count 4.70 x10^6/uL (4.30-5.70) Hemoglobin 13.6 g/dL (13.0-17.5) Hematocrit 40.6 % (39.0-53.0) Mean Corpuscular Volume 87 fL (79-100) Mean Corpuscular Hemoglobin 29 pg (25-35) Mean Corpuscular Hemoglobin Concent 34 g/dL (31-37) Red Cell Distribution Width 13.9 % (11.5-14.5) Platelet Count 347 x10^3/uL (140-400) Neutrophils (%) (Auto) 75 % (31-73) H Lymphocytes (%) (Auto) 19 % (24-48) L Monocytes (%) (Auto) 4 % (0-9) Eosinophils (%) (Auto) 1 % (0-3) Basophils (%) (Auto) 1 % (0-3) Neutrophils # (Auto) 5.0 x10^3/uL (1.8-7.7) Lymphocytes # (Auto) 1.3 x10^3/uL (1.0-4.8) Monocytes # (Auto) 0.2 x10^3/uL (0.0-1.1) Eosinophils # (Auto) 0.1 x10^3/uL (0.0-0.7) Basophils # (Auto) 0.1 x10^3/uL (0.0-0.2) Sodium Level 138 mmol/L (136-145) Potassium Level 4.6 mmol/L (3.5-5.1) Chloride Level 102 mmol/L (98-107) Carbon Dioxide Level 27 mmol/L (21-32) Anion Gap 9 (6-14) Blood Urea Nitrogen 12 mg/dL (8-26) Creatinine 0.9 mg/dL (0.7-1.3) Estimated GFR (Cockcroft-Gault) 100.5 BUN/Creatinine Ratio 13 (6-20) Glucose Level 101 mg/dL (70-99) H Calcium Level 9.3 mg/dL (8.5-10.1) Total Bilirubin 0.8 mg/dL (0.2-1.0) Aspartate Amino Transferase (AST) 21 U/L (15-37) Alanine Aminotransferase (ALT) 23 U/L (16-63) Alkaline Phosphatase 118 U/L (46-116) H Total Protein 7.3 g/dL (6.4-8.2) Albumin 3.7 g/dL (3.4-5.0) Albumin/Globulin Ratio 1.0 (1.0-1.7) Ethyl Alcohol Level < 10 mg/dL (0-10) Laboratory Tests 04/11/19 08:00 Laboratory Tests 04/11/19 08:00 EKG EKG ] Radiology/Procedures Radiology/Procedures [] Course & Med Decision Making Course & Med Decision Making Pertinent Labs and Imaging studies reviewed. (See chart for details) [Basic reviewed. Dr. Bermudez consulted for addiction management. Withdrawal symptoms treated emergency department. Patient provided prescription for Sub oxone and clonidine upon discharge from the emergency department. PICC line was removed given patient's risk of overdose outweighing benefits of maintaining PICC line. Patient is instructed to continue outpatient infusions vis-�-vis peripheral IVs. Outpatient addiction management referrals provided by Jose from the psychiatric assessment team. ] Antonietta Disclaimer [place] Disclaimer This electronic medical record was generated, in whole or in part, using a voice recognition dictation system. Departure Departure Impression: Primary Impression: Substance abuse Disposition: 01 HOME, SELF-CARE Condition: STABLE Referrals: NO PCP (PCP) Patient Instructions: Substance Abuse-Brief Additional Instructions: Please follow up with outpatient infusions and drug rehab, take newly prescribed medications as directed.. ALEYDA CRUZ DO Apr 11, 2019 10:30
[2019-04-11] MEDS ORDERED: LOPERAMIDE 2 MG CAPSULE PO PRN (11:00)
[2019-04-11] MEDS ORDERED: guaiFENesin DM 200MG/20MG 10 ML SYRUP PO PRN (11:00)
[2019-04-11] MEDS ORDERED: cloNIDine HCL 0.1 MG TABLET PO ONE (11:00)
[2019-04-11 11:32] VITALS: BP 132/83
[2019-04-17] MEDS ORDERED: BUPR1FIL5 SL (11:08)
== END 2019-04-11 12:20 | disposition home or self-care (01) ==
LOC: ER 08:48
DX: F19.10 Other psychoactive substance abuse, uncomplicated (principal); F15.10 Other stimulant abuse, uncomplicated; F11.10 Opioid abuse, uncomplicated; F10.20 Alcohol dependence, uncomplicated; Y90.9 Presence of alcohol in blood, level not specified
CPT/HCPCS: 36415; 80053; 85025; 93005; 99285; G0480

== ENCOUNTER → 2019-04-24 | Outpatient (CLI) | payer SELFPAY ==
[2019-04-23 08:11] VITALS: BP 124/84
[~2019-04-24] MED LIST changes: +BUPR1FIL5 SL; +cefTRIAXone IV Push 2 GM VIAL. IVP ONE
--- NOTE | 2019-04-24 17:35 | RAD ---
Examination: CT CHEST WO CONTRAST History: Empyema. Evaluate for abscess. Comparison/Correlation: 03/18/2019 CT chest without contrast Findings: Axial images of the chest were obtained without contrast. Sagittal and coronal reformatted images were provided. Tracheal bronchial tree is unremarkable. Small left pleural effusion is present with a partially loculated appearance at the posterior costophrenic sulcus. The loculated portion of this collection measures up to 3.9 cm longitudinal by 5.5 transverse by 4 cm anteroposterior. Minimal adjacent atelectasis is evident. No enlarged thoracic lymph nodes. Right lung field is clear. Moderate quantity of debris distends the stomach. No suspicious bony process. Impression: Small left basilar pleural effusion. Partially loculated component appears to be present with minimal adjacent atelectasis. PQRS Compliance Statement: One or more of the following individualized dose reduction techniques were utilized for this examination: 1. Automated exposure control 2. Adjustment of the mA and/or kV according to patient size 3. Use of iterative reconstruction technique Electronically signed by: Christopher Pino MD (04/24/2019 5:32 PM) [facility]
== END | disposition home or self-care (01) ==
LOC: CT 15:25
PROVIDERS: ATTEND Internal Medicine Infectious Disease
DX: J90 Pleural effusion, not elsewhere classified (principal); J86.9 Pyothorax without fistula
CPT/HCPCS: 71250